=== PATIENT | male | born 1940 | race Caucasian/White ===

== ENCOUNTER 2017-11-01 03:14 | Emergency (ER) | payer MEDICARE, BC, SELFPAY | END 2017-11-01 04:05 | disposition home or self-care (01) | PROVIDERS: Emergency Provider Emergency Medicine; PCP Internal Medicine; Visit Provider Emergency Medicine | DX: R04.0 Epistaxis (principal) | CPT/HCPCS: 17250; 99282 ==

== ENCOUNTER 2018-01-16 17:29 | Emergency (ER) | payer MEDICARE, BC, SELFPAY ==
[2018-01-16 17:37] VITALS: BP 145/73; PULSE 60; RESP 16; TEMP 36.6; O2SAT 96; BMI 37.5
[2018-01-16 18:05] LABS: Add Manual Diff / Slide Review NO; Eosinophils Percent Auto 4.5 % (2-4); Hematocrit 37.5 % (41-53); Hemoglobin 12.5 g/dL (13.5-17.5); Lymphocytes Percent Auto 40.3 % (25-40); Mean Corpuscular HGB Conc 33.4 % (30-36); Mean Corpuscular Hemoglobin 34.3 PG (26-34); Mean Corpuscular Volume 102.7 fL (80-100); Neutrophils Absolute Auto 2500 /uL (3000-5900); Neutrophils Percent Auto 43.2 % (50-75); Platelet Count 173 X10^3/uL (150-400); Red Blood Cell Count 3.65 X10^6/uL (4.5-5.9); Red Cell Distribution Width 15.6 % (11.6-14.8); White Blood Cell Count 5.9 X10^3/uL (4.5-11.0)
[2018-01-16 18:15] LABS: INR 2.5 (0.9-1.3); Prothrombin Time 26.5 SECONDS (10.1-12.7)
[2018-01-16 18:16] LABS: Alanine Aminotransferase 34 IU/L (21-72); Albumin 4.1 g/dL (3.5-5.0); Albumin Globulin Ratio 1.2 (1.0-2.8); Alkaline Phosphatase 75 U/L (38-126); Aspartate Aminotransferase 43 IU/L (17-59); BUN Creatinine Ratio 31.7 (6-22); Bilirubin Total 0.6 mg/dL (0.2-1.3); Blood Urea Nitrogen 38 mg/dL (9-20); Calcium 9.5 mg/dL (8.4-10.2); Carbon Dioxide 28 mmol/L (22-32); Chloride 101 mmol/L (98-107); Estimated Glomerular Filt Rate 58.7 mL/min (>60); Globulin 3.4 g/dL (1.7-4.1); Glucose 95 mg/dL (80-110); HEMOLYSIS 24 (0-50); Potassium 4.2 mmol/L (3.4-5.1); Sodium 140 mmol/L (137-145); Total Protein 7.5 g/dL (6.3-8.2)
--- NOTE | 2018-01-16 18:52 | ED_ITS ---
HPI - Epistaxis <ANTONINO Franco - Last Filed: 01/16/18 22:11> General Chief complaint: Nasal Problem Stated complaint: nose bleeding off and on for past few days Time Seen by Provider: 01/16/18 17:31 History of Present Illness HPI Narrative: 77-year-old male with history AFib currently taking warfarin here for complaint of having a nosebleed on and off over the last 3 days. He denies any trauma to the nose. He reports that he was just returned home from shopping with a nosebleed started. He reports that it lasted for couple hours and then subsided. He reports that it started again the next day and then subsided. No nosebleed at this time. He does report that he had nosebleed for approximately 30 min prior to arrival. He states that his last INR was approximately 3.0 which is at the high end of therapeutic for him. He denies any other concerns or complaints. MD complaint: epistaxis Related Data Home Medications Medication Instructions Recorded Confirmed POTASSIUM CHLORIDE (K-Dur) 20 meq PO EVERY DAY #0 04/30/10 Simvastatin (Zocor) 20 mg PO HS #0 04/30/10 carvedilol [Coreg] 6.25 mg PO BID #0 02/19/16 glyburide micronized [Glynase] 3 mg PO BID #0 02/26/16 allopurinol 300 mg PO QDAY #0 09/10/16 cholecalciferol (vitamin D3) 1,000 iu PO QDAY #0 09/10/16 [Vitamin D3] enalapril-hydrochlorothiazide 1 tab PO BID #0 09/10/16 [Vaseretic] furosemide 40 mg PO QDAY #0 09/10/16 gabapentin [Neurontin] 300 mg PO TID #0 09/10/16 metformin 1,000 mg PO BID #0 09/10/16 pioglitazone 30 mg PO QDAY #0 09/10/16 warfarin [Jantoven] 0 PO QDAYPM #0 09/10/16 doxycycline hyclate 100 mg PO EVERY OTHER DAY #0 07/09/17 Previous Rx's Medication Instructions Recorded oxycodone 5 mg PO Q4HP PRN #90 tab 07/27/17 Review of Systems <ANTONINO Franco - Last Filed: 01/16/18 22:11> ENT Comments: Epistaxis last few days Cardiovascular Denies chest pain, Denies irregular heart rhythm, Denies lightheadedness, Denies palpitations, Denies dyspnea, Denies dyspnea on exertion and Denies orthopnea Respiratory Denies cough, Denies dyspnea, Denies dyspnea on exertion and Denies wheezing Gastrointestinal Gastrointestinal: Denies abdominal pain, Denies change in bowel habits, Denies diarrhea, Denies nausea and Denies vomiting Genitourinary Denies hematuria, Denies flank pain, Denies urinary incontinence and Denies urinary urgency Musculoskeletal Denies back pain, Denies muscle weakness, Denies numbness and Denies tingling Integumentary/Breasts Denies pruritus, Denies erythema, Denies rash and Denies wounds Neurologic Denies confusion, Denies numbness and Denies tingling Psychiatric Denies anxiety, Denies confusion, Denies depression, Denies homicidal ideation and Denies suicidal ideation Endocrine Denies palpitations Hematologic/Lymphatic Denies easy bruising Allergic/Immunologic Denies wheezing Exam <ANTONINO Franco - Last Filed: 01/16/18 22:11> Initial Vital Signs Initial Vital Signs: Vital Signs Temperature 97.8 F 01/16/18 17:37 Pulse Rate 60 01/16/18 17:37 Respiratory Rate 16 01/16/18 17:37 Blood Pressure 145/73 H 01/16/18 17:37 Pulse Oximetry 96 01/16/18 17:37 Const General: cooperative and well developed Nutritional Appearance: well nourished Orientation: alert, awake, oriented x3 and not confused [facility] Nose: external nose normal, nares normal, nasal mucous membranes and turbinates normal and No epistaxis Mouth: oral mucosae normal, oropharynx normal and moist mucous membranes Eyes General: appearance normal, both eyes and all related structures Eyelids: eyelids normal Conjunctivae: conjunctivae normal Sclera: sclerae normal Pupils: PERRL Neck Neck: normal visual inspection, trachea midline, No lymphadenopathy, No midline deformity and No JVD Lymphatic: No lymphedema Resp Effort & Inspection: normal respiratory effort, able to speak in complete sentences, no respiratory distress and no use of accessory muscles Auscultation: clear to auscultation bilaterally, no rales, no rhonchi and no wheezes Cardio Rate: regular rate Rhythm: abnormal rhythm regularly irregular Heart Sounds: no click, no gallops, no murmurs and no rubs Pulses: normal peripheral pulses Skin General: no rashes or lesions noted, No jaundice and No petechiae <DO Gala Nunn Last Filed: 01/16/18 22:27> Initial Vital Signs Initial Vital Signs: Vital Signs Temperature 97.8 F 01/16/18 17:37 Pulse Rate 60 01/16/18 17:37 Respiratory Rate 16 01/16/18 17:37 Blood Pressure 145/73 H 01/16/18 17:37 Pulse Oximetry 96 01/16/18 17:37 Course <ANTONINO Franco - Last Filed: 01/16/18 22:11> Orders Ordered: ED Orders 01/16/18 17:55 CBC [Complete Blood Count AUTO DIFF] Stat Comprehensive Metabolic Panel Stat Prothrombin Time INR Stat Vital Signs - 8 hr 01/16/18 17:37 01/16/18 18:56 Temperature 97.8 F Pulse Rate 60 74 Respiratory Rate 16 16 Blood Pressure 145/73 H Blood Pressure [Left Arm] 109/74 Pulse Oximetry 96 96 <Juvencio Laird DO - Last Filed: 01/16/18 22:27> Orders Ordered: ED Orders 01/16/18 17:55 CBC [Complete Blood Count AUTO DIFF] Stat Comprehensive Metabolic Panel Stat Prothrombin Time INR Stat Vital Signs - 8 hr 01/16/18 17:37 01/16/18 18:56 Temperature 97.8 F Pulse Rate 60 74 Respiratory Rate 16 16 Blood Pressure 145/73 H Blood Pressure [Left Arm] 109/74 Pulse Oximetry 96 96 MDM - Epistaxis <ANTONINO Franco - Last Filed: 01/16/18 22:11> Lab Data Result diagrams: 01/16/18 17:55 01/16/18 17:55 Lab Results 01/16/18 01/16/18 01/16/18 Range/Units 17:55 17:55 17:55 WBC 5.9 (4.5-11.0) X10^3/uL RBC 3.65 L (4.5-5.9) X10^6/uL Hgb 12.5 L (13.5-17.5) g/dL Hct 37.5 L (41-53) % MCV 102.7 H (80-100) fL MCH 34.3 H (26-34) PG MCHC 33.4 (30-36) % RDW 15.6 H (11.6-14.8) % Plt Count 173 (150-400) X10^3/uL Neut % (Auto) 43.2 L (50-75) % Lymph % (Auto) 40.3 H (25-40) % [place] % (Auto) 11.0 (3-14) % Eos % (Auto) 4.5 H (2-4) % Baso % (Auto) 1.0 (0-2) % Neut # (Auto) 2500 L (4114-6394) /uL PT 26.5 H (10.1-12.7) SECONDS INR 2.5 H (0.9-1.3) Sodium 140 (137-145) mmol/L Potassium 4.2 (3.4-5.1) mmol/L Chloride 101 (98-107) mmol/L Carbon Dioxide 28 (22-32) mmol/L BUN 38 H (9-20) mg/dL Creatinine 1.20 (0.66-1.25) mg/dL Estimated GFR 58.7 L (>60) mL/min BUN/Creatinine Ratio 31.7 H (6-22) Glucose 95 (80-110) mg/dL Calcium 9.5 (8.4-10.2) mg/dL Total Bilirubin 0.6 (0.2-1.3) mg/dL AST 43 (17-59) IU/L ALT 34 (21-72) IU/L Alkaline Phosphatase 75 (38-126) U/L Total Protein 7.5 (6.3-8.2) g/dL Albumin 4.1 (3.5-5.0) g/dL Globulin 3.4 (1.7-4.1) g/dL Albumin/Globulin Ratio 1.2 (1.0-2.8) MDM Narrative Medical decision making narrative: INR was obtained at 2.5 and is therapeutic for patient. CBC shows a decreased H&H however is consistent with patient's prior lab values. Patient while in the emergency room did not have nosebleed. He is sent home with nose clamp to applied to the nose if he starts having nose bleed. May use [id number] Afrin a couple of sprays into the nostril along with the clamp as well. If cannot get bleeding to stop return to the emergency room. Follow up with primary care provider in the next few days for re-evaluation. <Juvencio Laird DO - Last Filed: 01/16/18 22:27> Lab Data Lab Results 01/16/18 01/16/18 01/16/18 Range/Units 17:55 17:55 17:55 WBC 5.9 (4.5-11.0) X10^3/uL RBC 3.65 L (4.5-5.9) X10^6/uL Hgb 12.5 L (13.5-17.5) g/dL Hct 37.5 L (41-53) % MCV 102.7 H (80-100) fL MCH 34.3 H (26-34) PG MCHC 33.4 (30-36) % RDW 15.6 H (11.6-14.8) % Plt Count 173 (150-400) X10^3/uL Neut % (Auto) 43.2 L (50-75) % Lymph % (Auto) 40.3 H (25-40) % [place] % (Auto) 11.0 (3-14) % Eos % (Auto) 4.5 H (2-4) % Baso % (Auto) 1.0 (0-2) % Neut # (Auto) 2500 L (6888-6184) /uL PT 26.5 H (10.1-12.7) SECONDS INR 2.5 H (0.9-1.3) Sodium 140 (137-145) mmol/L Potassium 4.2 (3.4-5.1) mmol/L Chloride 101 (98-107) mmol/L Carbon Dioxide 28 (22-32) mmol/L BUN 38 H (9-20) mg/dL Creatinine 1.20 (0.66-1.25) mg/dL Estimated GFR 58.7 L (>60) mL/min BUN/Creatinine Ratio 31.7 H (6-22) Glucose 95 (80-110) mg/dL Calcium 9.5 (8.4-10.2) mg/dL Total Bilirubin 0.6 (0.2-1.3) mg/dL AST 43 (17-59) IU/L ALT 34 (21-72) IU/L Alkaline Phosphatase 75 (38-126) U/L Total Protein 7.5 (6.3-8.2) g/dL Albumin 4.1 (3.5-5.0) g/dL Globulin 3.4 (1.7-4.1) g/dL Albumin/Globulin Ratio 1.2 (1.0-2.8) Discharge Plan Departure Patient Disposition: Home, Self-Care Clinical Impression: Epistaxis Discharge Date/Time: 01/16/18 18:59 Interventions: ED Discharge Assessment Last Done: 01/16/18 18:58 Instructions: DI for Nosebleed Activity Restrictions/Additional Instructions: INR today was 2.5. Laboratory results show a decreased H&H of 12.5 and 37.5 which is low however this is consistent with prior lab values. Follow up with primary care provider in the next few days for re-evaluation. If restart of a nose bleed use nose clamp for 20 min to see if it stops the nose bleed. May use a couple of sprays of Afrin into the bleeding and nostril along with the nose clamp to help stop bleeding. If recurrent nosebleed and unable stop bleeding return to the emergency room. Prescriptions: No Action POTASSIUM CHLORIDE (K-Dur) 20 meq PO EVERY DAY Qty: 0 RF: 0 Simvastatin (Zocor) 20 mg PO HS Qty: 0 RF: 0 carvedilol [Coreg] 6.25 MG tablet 6.25 mg PO BID Qty: 0 RF: 0 glyburide micronized [Glynase] 3 MG tablet 3 mg PO BID Qty: 0 RF: 0 allopurinol 300 MG tablet 300 mg PO QDAY Qty: 0 RF: 0 gabapentin [Neurontin] 300 MG capsule 300 mg PO TID Qty: 0 RF: 0 metformin 1,000 MG tablet extended release 24hr 1,000 mg PO BID Qty: 0 RF: 0 enalapril-hydrochlorothiazide [Vaseretic] 10 MG/25 MG tablet 1 tab PO BID Qty: 0 RF: 0 pioglitazone 30 MG tablet 30 mg PO QDAY Qty: 0 RF: 0 cholecalciferol (vitamin D3) [Vitamin D3] 1,000 UNIT tablet 1,000 iu PO QDAY Qty: 0 RF: 0 warfarin [Jantoven] 5 MG tablet PO QDAYPM Qty: 0 RF: 0 furosemide 40 MG tablet 40 mg PO QDAY Qty: 0 RF: 0 doxycycline hyclate 100 MG tablet 100 mg PO EVERY OTHER DAY Qty: 0 RF: 0 oxycodone 5 MG tablet 5 mg PO Q4HP PRNQty: 90 RF: 0 Referrals: Maykel Rodríguez MD [Primary Care Provider] - <Juvencio Laird DO - Last Filed: 01/16/18 22:27> [facility] Attestation: I was immediately available in the department for consultation. Documentation has been reviewed. I agree with assessment and plan.
[2018-01-16 18:56] VITALS: BP 109/74; PULSE 74; RESP 16; O2SAT 96
== END 2018-01-16 18:59 | disposition home or self-care (01) ==
PROVIDERS: Emergency Provider Nurse Practitioner Family; Family Provider Internal Medicine; PCP Internal Medicine
DX: R04.0 Epistaxis (principal)
CPT/HCPCS: 36415; 80053; 85025; 85610; 99282; 99283

== ENCOUNTER 2018-03-31 19:40 | Inpatient (IN) | payer MEDICARE, BC, SELFPAY ==
[2018-03-31 20:08] VITALS: BP 136/75; PULSE 116; RESP 17; TEMP 37.2; O2SAT 97
--- NOTE | 2018-03-31 21:19 | ED_ITS ---
HPI - Skin/Abscess/Foreign Bdy General Chief complaint: Skin/Abscess/Foreign Body Stated complaint: THINKS CELLULITIS RT LOWER LEG Time Seen by Provider: 03/31/18 21:14 Source: patient Mode of arrival: ambulatory Limitations: no limitations History of Present Illness HPI narrative: Patient is a known insulin-dependent 78-year-old male here for evaluation of what he thinks is cellulitis in his right lower extremity. Patient states that he noticed the redness and the pain within the past 24 hr and it has been worsening since then. No fevers. States that he has had cellulitis in the past and has had to be admitted to the hospital for IV antibiotics however he states that this symptoms are not as bad as what he has had. No trauma. Some pain with walking. Has not tried anything for prior to arrival. Related Data Home Medications Medication Instructions Recorded Confirmed POTASSIUM CHLORIDE (K-Dur) 20 meq PO EVERY DAY #0 04/30/10 Simvastatin (Zocor) 20 mg PO HS #0 04/30/10 carvedilol [Coreg] 6.25 mg PO BID #0 02/19/16 glyburide micronized [Glynase] 3 mg PO BID #0 02/26/16 allopurinol 300 mg PO QDAY #0 09/10/16 cholecalciferol (vitamin D3) 1,000 iu PO QDAY #0 09/10/16 [Vitamin D3] enalapril-hydrochlorothiazide 1 tab PO BID #0 09/10/16 [Vaseretic] furosemide 40 mg PO QDAY #0 09/10/16 gabapentin [Neurontin] 300 mg PO TID #0 09/10/16 metformin 1,000 mg PO BID #0 09/10/16 pioglitazone 30 mg PO QDAY #0 09/10/16 warfarin [Jantoven] 0 PO QDAYPM #0 09/10/16 doxycycline hyclate 100 mg PO EVERY OTHER DAY #0 07/09/17 Previous Rx's Medication Instructions Recorded oxycodone 5 mg PO Q4HP PRN #90 tab 07/27/17 Allergies Allergy/AdvReac Type Severity Reaction Status Date / Time No Known Drug Allergies Allergy Verified 03/31/18 22:30 Review of Systems Constitutional Denies fatigue, Denies fever(s) and Denies headache(s) ENT Ears, Nose, Mouth, and Throat: Denies vertigo, Denies dizziness and Denies headache(s) Cardiovascular Denies chest pain and Denies dyspnea Respiratory Denies dyspnea Gastrointestinal Gastrointestinal: Denies abdominal pain, Denies nausea and Denies vomiting Genitourinary Denies dysuria Musculoskeletal Denies myalgias and Denies arthralgias Integumentary/Breasts Comments: Redness to the right lower extremity Neurologic Denies confusion, Denies vertigo, Denies dizziness and Denies headache(s) Psychiatric Denies confusion Endocrine Denies fatigue Hematologic/Lymphatic Denies easy bleeding [facility] Medical History Atrial fibrillation (Acute) Diabetes (Acute) Gout (Acute) Hyperlipidemia (Acute) Surgical History History of ankle fusion (Acute) Social History household members: spouse Smoking Status: Never smoker Exam Initial Vital Signs Initial Vital Signs: Vital Signs Temperature 98.9 F 03/31/18 20:08 Pulse Rate 116 H 03/31/18 20:08 Respiratory Rate 17 03/31/18 20:08 Blood Pressure 136/75 03/31/18 20:08 Pulse Oximetry 97 03/31/18 20:08 Const General: cooperative, healthy appearing, comfortable, well developed, well groomed and No acute distress Orientation: alert, awake and oriented x3 HENMT Head: normal to inspection and normocephalic Resp Effort & Inspection: normal respiratory effort Auscultation: clear to auscultation bilaterally Cardio Rate: tachycardic Rhythm: abnormal rhythm irregularly irregular Heart Sounds: no murmurs Pulses: radial pulses present GI Inspection: non-distended Palpation: soft and No tender Back/Spine/Pelvis Back: No CVA tenderness Skin Other: Patient with redness circumferential from his midfoot right lower extremity up to just proximal the knee. No blisters, no vesicles. Is warm to the touch. Is tender to the touch. Neuro Other: No changes in sensation to light touch bilateral lower extremities Extrem Other: Limited range of motion of right ankle secondary to his history of ankle fusion however he states that there is no pain with movement of his ankle. He is able to move the right knee without any symptoms. Psych Appearance: grossly normal and well kempt Course Orders Ordered: ED Orders 03/31/18 21:55 Basic Metabolic Panel Stat Complete Blood Count AUTO DIFF Stat Lactate (Lactic Acid) Stat Partial Thromboplastin Time Stat Procalcitonin Stat Prothrombin Time INR Stat 03/31/18 22:20 Blood Culture Stat 03/31/18 22:41 EKG-12 Lead Stat 03/31/18 22:46 Consult to Physician Routine Sodium Chloride (Normal Saline 0.9%) 3,891.81 mls @ 1,297.27 mls/hr 30 ml/kg infuse over 3 hr (3891.81 ml) IV CONT [facility] Last Admin: 03/31/18 22:35 Dose: Not Given Sodium Chloride (Normal Saline 0.9%) 1,000 mls @ 1,000 mls/hr IV BOLUS PRN PRN Reason: Fluid replacement Last Infusion: 04/01/18 00:26 Dose: 0 mls/hr Admin: 03/31/18 22:00 Dose: 1,000 mls/hr Ceftriaxone Sodium/Dextrose (Rocephin) 1 gm in 50 mls @ 100 mls/hr IV Q12H [facility] Last Admin: 04/01/18 00:25 Dose: Vancomycin HCl/Dextrose (Vancomycin) 1,000 mg in 200 mls @ 200 mls/hr IV Q12H [facility] Last Admin: 04/01/18 00:24 Dose: Sodium Chloride (Normal Saline 0.9%) 1,000 mls @ 125 mls/hr IV CONT [facility] Last Admin: 04/01/18 00:15 Dose: 125 mls/hr Morphine Sulfate (Morphine) 2 mg IV Q4HR PRN PRN Reason: Pain, Mild (1-3) Ondansetron HCl (Zofran) 4 mg IV Q4HR PRN PRN Reason: Nausea And Vomiting Discontinued Medications Vancomycin HCl/Dextrose (Vancomycin) 1,000 mg in 200 mls @ 200 mls/hr IV NOW ONE Stop: 03/31/18 22:24 Last Admin: 03/31/18 22:56 Dose: 200 mls/hr Ceftriaxone Sodium/Dextrose (Rocephin) 2 gm in 50 mls @ 100 mls/hr IV NOW ONE Stop: 03/31/18 21:54 Last Infusion: 03/31/18 22:50 Dose: 0 mls/hr Admin: 09/19/18 22:15 Dose: 100 mls/hr Vital Signs - 8 hr 03/31/18 20:08 03/31/18 22:37 03/31/18 23:17 Temperature 98.9 F 98.9 F Pulse Rate 116 H 115 H 115 H Respiratory Rate 17 19 19 Blood Pressure 136/75 136/75 Blood Pressure [Right Arm] 113/56 L Pulse Oximetry 97 93 93 03/31/18 23:19 04/01/18 00:10 Temperature 99.5 F Pulse Rate 108 H 108 H Respiratory Rate 22 Blood Pressure 135/67 Blood Pressure [Right Arm] 125/62 Pulse Oximetry 93 99 MDM - Skin/Abscess/Foreign Bdy Lab Data Attestation: I reviewed the patient's lab results. Result diagrams: 03/31/18 21:55 03/31/18 21:55 Lab Results 03/31/18 03/31/18 03/31/18 Range/Units 21:55 21:55 21:55 WBC 7.8 (4.5-11.0) X10^3/uL RBC 3.90 L (4.5-5.9) X10^6/uL Hgb 13.6 (13.5-17.5) g/dL Hct 40.0 L (41-53) % MCV 102.6 H (80-100) fL MCH 34.9 H (26-34) PG MCHC 34.0 (30-36) % RDW 16.2 H (11.6-14.8) % Plt Count 172 (150-400) X10^3/uL Neut % (Auto) 80.4 H (50-75) % Lymph % (Auto) 12.6 L (25-40) % [place] % (Auto) 5.1 (3-14) % Eos % (Auto) 1.3 L (2-4) % Baso % (Auto) 0.6 (0-2) % Neut # (Auto) 6300 H (2443-8506) /uL PT 19.9 H (10.1-12.7) SECONDS INR 1.8 H (0.9-1.3) APTT 33 (26.4-36.2) SECONDS Sodium (137-145) mmol/L Potassium (3.4-5.1) mmol/L Chloride (98-107) mmol/L Carbon Dioxide (22-32) mmol/L BUN (9-20) mg/dL Creatinine (0.66-1.25) mg/dL Estimated GFR (>60) mL/min BUN/Creatinine Ratio (6-22) Glucose (80-110) mg/dL Lactate (0.7-2.1) mmol/L Calcium (8.4-10.2) mg/dL Procalcitonin 0.42 (<0.5) ng/mL 03/31/18 03/31/18 Range/Units 21:55 21:55 WBC (4.5-11.0) X10^3/uL RBC (4.5-5.9) X10^6/uL Hgb (13.5-17.5) g/dL Hct (41-53) % MCV (80-100) fL MCH (26-34) PG MCHC (30-36) % RDW (11.6-14.8) % Plt Count (150-400) X10^3/uL Neut % (Auto) (50-75) % Lymph % (Auto) (25-40) % [place] % (Auto) (3-14) % Eos % (Auto) (2-4) % Baso % (Auto) (0-2) % Neut # (Auto) (9810-4175) /uL PT (10.1-12.7) SECONDS INR (0.9-1.3) APTT (26.4-36.2) SECONDS Sodium 136 L (137-145) mmol/L Potassium 3.7 (3.4-5.1) mmol/L Chloride 101 (98-107) mmol/L Carbon Dioxide 21 L (22-32) mmol/L BUN 58 H (9-20) mg/dL Creatinine 1.70 H (0.66-1.25) mg/dL Estimated GFR 39.2 L (>60) mL/min BUN/Creatinine Ratio 34.1 H (6-22) Glucose 123 H (80-110) mg/dL Lactate 1.4 (0.7-2.1) mmol/L Calcium 9.5 (8.4-10.2) mg/dL Procalcitonin (<0.5) ng/mL ECG Data Attestation: I personally reviewed and interpreted this ECG as follows: Prior ECG tracings: not available for review Interpretation: Atrial fibrillation Ventricular rate of 103 Left axis deviation Normal QRS Normal QTC Nonspecific ST T wave changes MDM Narrative Medical decision making narrative: Patient in atrial fibrillation with RVR. I do suspect that this is secondary to the cellulitis in his right lower extremity. Patient does have cellulitis from the midfoot to just proximal of his knee. He states that this has been worsening over the past 24 hr. His physical exam is not consistent with necrotizing fasciitis. He is afebrile does not have an elevated white blood cell count. Lactate unremarkable however like described above his physical exam is consistent with cellulitis. He was given Rocephin and vancomycin here in the emergency department. I do feel given his extent of the cellulitis and the fact that he is diabetic that a home course of oral antibiotics is very likely to be unsuccessful. I discussed the case with Dr. Rodríguez who is also the patient's primary care doctor and is the hospitalist this evening. Will admit the patient under observation for IV antibiotics. I did discuss the admission with the patient and his who is at bedside. They both expressed understanding and agreement with this plan. Discharge Plan Departure Patient Disposition: Home Clinical Impression: Afib, Cellulitis Discharge Date/Time: 03/31/18 23:40 Interventions: ED Discharge Assessment Last Done: 03/31/18 23:38 Admit Date/Time: 03/31/18 23:08 Admit Provider: Maykel Rodríguez
[2018-03-31] MEDS: SODIUM CHLORIDE 0.9% 1,000 ML 1000 ML IV (22:00)
[2018-03-31] MEDS: CEFTRIAXONE 2 GM/50 ML FROZ.PIGGY IV (22:15)
[2018-03-31 22:22] LABS: Add Manual Diff / Slide Review NO; Basophils Percent Auto 0.6 % (0-2); Eosinophils Percent Auto 1.3 % (2-4); Hemoglobin 13.6 g/dL (13.5-17.5); Lymphocytes Percent Auto 12.6 % (25-40); Mean Corpuscular Hemoglobin 34.9 PG (26-34); Mean Corpuscular Volume 102.6 fL (80-100); Monocytes Percent Auto 5.1 % (3-14); Neutrophils Absolute Auto 6300 /uL (3000-5900); Neutrophils Percent Auto 80.4 % (50-75); Platelet Count 172 X10^3/uL (150-400); Red Cell Distribution Width 16.2 % (11.6-14.8); White Blood Cell Count 7.8 X10^3/uL (4.5-11.0)
[2018-03-31 22:24] LABS: INR 1.8 (0.9-1.3); Prothrombin Time 19.9 SECONDS (10.1-12.7)
[2018-03-31 22:27] LABS: PTT Partial Thromboplastin Tim 33 SECONDS (26.4-36.2)
[2018-03-31 22:31] LABS: BUN Creatinine Ratio 34.1 (6-22); Blood Urea Nitrogen 58 mg/dL (9-20); Calcium 9.5 mg/dL (8.4-10.2); Carbon Dioxide 21 mmol/L (22-32); Chloride 101 mmol/L (98-107); Estimated Glomerular Filt Rate 39.2 mL/min (>60); Glucose 123 mg/dL (80-110); HEMOLYSIS < 15 (0-50); Lactate (Lactic Acid) 1.4 mmol/L (0.7-2.1); Potassium 3.7 mmol/L (3.4-5.1); Sodium 136 mmol/L (137-145)
[2018-03-31 22:37] VITALS: BP 113/56; PULSE 115; RESP 19; O2SAT 93
[2018-03-31 22:46] LABS: Procalcitonin 0.42 ng/mL (<0.5)
[2018-03-31] MEDS: VANCOMYCIN 1,000 MG/200 ML FROZ.PIGGY 200 MG IV (22:56)
[2018-03-31 23:17] VITALS: BP 136/75; PULSE 115; RESP 19; TEMP 37.2; O2SAT 93
[2018-03-31 23:19] VITALS: BP 125/62; PULSE 108; O2SAT 93
[2018-04-01] VITALS (10 sets, daily range): BP systolic 112–143; BP diastolic 58–80; PULSE 68–108; RESP 16–22; TEMP 36.3–37.5; O2SAT 94–99; BMI 35.7
[2018-04-01] MEDS: SODIUM CHLORIDE 0.9% 1,000 ML 125 ML IV ×2 (00:15→08:44)
--- NOTE | 2018-04-01 08:45 | PM.HP.1 ---
History of Present Illness Date Patient Seen: 04/01/18 Chief complaint: THINKS CELLULITIS RT LOWER LEG Narrative: The patient is a 78 y.o male with a history of diabetes and right lower extremity cellulitis who presented with acute onset redness of the left ankle/leg, swelling, and chills. Symptoms started one day ago. The patient presented to the ED for evaluation. He was diagnosed with cellulitis and started on IV antibiotics for treatment. Patient History Medical History Atrial fibrillation (Acute) Diabetes (Acute) Gout (Acute) Hyperlipidemia (Acute) Surgical History History of ankle fusion (Acute) Family & Social History Family History: Reviewed 04/01/18 by Dennis Waggoner DO Family history unavailable: Yes Social History: household members spouse Prior Living Arrangements House Safety & Behavioral: Feels Safe in Current Yes Environment Been Physically Hurt or No Threatened By a Person Suicidal Ideation Description None Suicide Plan Description No Plan Tobacco & Substance use: Smoking Status Never smoker alcohol intake frequency a few times a month Substance Use Type does not use Meds Home Medications Medication Instructions Recorded Confirmed Type POTASSIUM CHLORIDE (K-Dur) 20 meq PO EVERY DAY #0 04/30/10 04/01/18 History Simvastatin (Zocor) 20 mg PO HS #0 04/30/10 04/01/18 History carvedilol [Coreg] 6.25 mg PO BID #0 02/19/16 04/01/18 History glyburide micronized [Glynase] 3 mg PO BID #0 02/26/16 04/01/18 History allopurinol 300 mg PO QDAY #0 09/10/16 04/01/18 History cholecalciferol (vitamin D3) 1,000 iu PO QDAY #0 09/10/16 04/01/18 History [Vitamin D3] enalapril-hydrochlorothiazide 1 tab PO BID #0 09/10/16 04/01/18 History [Vaseretic] furosemide 40 mg PO QDAY #0 09/10/16 04/01/18 History gabapentin [Neurontin] 300 mg PO TID #0 09/10/16 04/01/18 History metformin 1,000 mg PO BID #0 09/10/16 04/01/18 History pioglitazone 30 mg PO QDAY #0 09/10/16 04/01/18 History warfarin [Jantoven] 5 PO 4-6XD #0 09/10/16 History doxycycline hyclate 100 mg PO EVERY OTHER DAY #0 07/09/17 04/01/18 History oxycodone 5 mg PO Q4HP PRN #90 tab 07/27/17 04/01/18 Rx Allergies Allergy/AdvReac Type Severity Reaction Status Date / Time No Known Drug Allergies Allergy Verified 03/31/18 22:30 Review of Systems Review of Systems All systems reviewed & are unremarkable except as noted in HPI and below Exam Vital Signs (past 8 hours): - 04/01/18 05:54 Temperature 98.2 F Pulse Rate 90 Respiratory Rate 17 Blood Pressure 116/69 Pulse Oximetry 97 Oxygen Delivery Method Room Air Narrative Exam Narrative: Pleasant gentleman in NAD HEENT:NC/AT EOMI, Oropharynx clear Lungs: clear to auscultation CV: RRR nl SlS2 ABd: obese/soft non tender/ non distended no HSM Ext: Right leg/ankle with 3+ edema, erythema spreading up leg, Leg is warm to touch Neuro: non focal Psych: no active hallucinations Objective Labs Result Diagrams: 03/31/18 21:55 03/31/18 21:55 Labs: Laboratory Results - last 24 hr 03/31/18 03/31/18 03/31/18 21:55 21:55 21:55 WBC 7.8 RBC 3.90 L Hgb 13.6 Hct 40.0 L MCV 102.6 H MCH 34.9 H MCHC 34.0 RDW 16.2 H Plt Count 172 Neut % (Auto) 80.4 H Lymph % (Auto) 12.6 L [place] % (Auto) 5.1 Eos % (Auto) 1.3 L Baso % (Auto) 0.6 Neut # (Auto) 6300 H PT 19.9 H INR 1.8 H APTT 33 Sodium Potassium Chloride Carbon Dioxide BUN Creatinine Estimated GFR BUN/Creatinine Ratio Glucose Lactate Calcium Procalcitonin 0.42 03/31/18 03/31/18 21:55 21:55 WBC RBC Hgb Hct MCV MCH MCHC RDW Plt Count Neut % (Auto) Lymph % (Auto) [place] % (Auto) Eos % (Auto) Baso % (Auto) Neut # (Auto) PT INR APTT Sodium 136 L Potassium 3.7 Chloride 101 Carbon Dioxide 21 L BUN 58 H Creatinine 1.70 H Estimated GFR 39.2 L BUN/Creatinine Ratio 34.1 H Glucose 123 H Lactate 1.4 Calcium 9.5 Procalcitonin Assessment & Plan (1) Cellulitis: Problem details: Started on Ceftriaxone/Vancomycin. Will continue Qualifiers: Laterality: right Site of cellulitis: extremity Site of cellulitis of extremity: lower extremity Site of cellulitis of trunk: Qualified Code(s): L03.115 - Cellulitis of right lower limb Current visit: Yes Status: Acute (2) Afib: Problem details: ON Coumadin and Coreg, will continue Qualifiers: Atrial fibrillation type: unspecified Qualified Code(s): I48.91 - Unspecified atrial fibrillation Current visit: Yes Status: Acute (3) Gout: Problem details: Continue allopurinol for now, need to renal dose Current visit: No Status: Acute (4) Hypertension: Problem details: continue usual medications Current visit: No Status: Acute (5) Hyperlipidemia: Current visit: No Status: Acute (6) Chronic renal failure, stage 2 (mild): Current visit: Yes Status: Acute (7) Diabetes mellitus: Problem details: Will start basal bolus insulin and stop all oral agents Current visit: Yes Status: Acute Plan: Assessment/Plan Narrative: Full Code per patient wishes
[2018-04-01] MEDS: SODIUM CHLORIDE 0.45% 1,000 ML 100 ML IV ×2 (09:34→18:48)
[2018-04-01] MEDS: ALLOPURINOL 100 MG TABLET 200 MG PO (09:35)
[2018-04-01] MEDS: POTASSIUM CHLORIDE 8 MEQ TABLET 16 MEQ PO (09:36)
[2018-04-01] MEDS: DOCUSATE 100 MG CAPSULE PO ×2 (09:36→21:06)
[2018-04-01] MEDS: ENALAPRIL 5 MG TABLET 10 MG PO (09:36)
[2018-04-01] MEDS: ACETAMINOPHEN 325 MG TABLET 650 MG PO ×2 (09:37→21:05)
[2018-04-01] MEDS: GABAPENTIN 300 MG CAPSULE PO ×3 (09:37→21:06)
[2018-04-01] MEDS: CARVEDILOL 6.25 MG TABLET PO ×2 (09:37→21:06)
[2018-04-01] MEDS: FUROSEMIDE 40 MG TABLET PO (09:37)
--- NOTE | 2018-04-01 10:09 | PC.NURSE ---
Addendum entered by Mary Escalante R.N. 04/01/18 14:21: MS - spouse brought in pt own fww, assisted oob, ambul into br, states wt bear on rle is has improved since adm, ret to chair w/le elev and supported with pillow. Original Note: AM NOTE - pt is alert, has a cpap at bedside, not on during night as he forgot the mask, ra 98%, redness rle, more intense at medical ankle area, no open areas noted, slightly within the previous markings, elev pillow support, some rle discomfort, discussed pain medications and prefers tylenol, given 650mg with breakfast, hr reg 84, cbg 106 this am and in for eval and starting home medications.
--- NOTE | 2018-04-01 10:39 | CM.DANOTE ---
Discharge Planning/Care Management CM Discharge Assessment Start: 04/01/18 10:36 Freq: Status: Active Protocol: Document 04/01/18 10:36 TH (Rec: 04/01/18 10:38 TH [id number]) Discharge Planning Assessment DPOA/Assigned Designee Name Lesley Plata Contact Information [phone] Advance Directives? Yes: polst History Provided By Patient Has Patient been admitted in last 30 No days? Prior Living Arrangements House Household Members spouse Type of transporation used prior to Drives own vehicle admit Independent with ADL's Yes Is patient alert and oriented? Yes Caregiver for Another No Barriers to Discharge No Patient is a 78 yo male admitted for cellulitis of the RLE. Insurance is Medicare and GIT[employer] Federal Assessment: Patient lives in a home in [place] with his . They are both I at baseline. Only other family in the area are some cousins He has no history of HH or SNF. He does not anticipate and barriers to discharge Plan: Discharge home with when medically stable. Eliza Gomez RN
[2018-04-01] MEDS: CEFTRIAXONE 1 GM/50 ML FROZ.PIGGY IV ×2 (10:44→22:11)
[2018-04-01 11:48] LABS: Estimated Glomerular Filt Rate > 60.0 mL/min (>60)
[2018-04-01] MEDS: VANCOMYCIN 1,000 MG/200 ML FROZ.PIGGY 200 MG IV ×2 (12:08→22:51)
[2018-04-01] MEDS: INSULIN ASPART 100 UNIT/ML INSULN PEN SUBCUT ×3 (12:10→21:08)
[2018-04-01] MEDS: WARFARIN 2 MG TABLET 4 MG PO (17:52)
[2018-04-01] MEDS: SIMVASTATIN 20 MG TABLET PO (21:06)
[2018-04-01] MEDS: SENNOSIDES 8.6 MG TABLET 17.2 MG PO (21:06)
[2018-04-01] MEDS: INSULIN GLARGINE 100 UNIT/ML 3ML PEN 20 UNIT SUBCUT (21:07)
[2018-04-02] VITALS (11 sets, daily range): BP systolic 118–137; BP diastolic 59–87; PULSE 67–97; RESP 16–18; TEMP 36.2–37.1; O2SAT 93–98
[2018-04-02 06:13] LABS: Prothrombin Time 21.5 SECONDS (10.1-12.7)
[2018-04-02] MEDS: SODIUM CHLORIDE 0.45% 1,000 ML 100 ML IV (06:37)
[2018-04-02] MEDS: INSULIN ASPART 100 UNIT/ML INSULN PEN SUBCUT ×4 (08:39→20:45)
[2018-04-02] MEDS: DOCUSATE 100 MG CAPSULE PO ×2 (08:42→20:43)
[2018-04-02] MEDS: FUROSEMIDE 40 MG TABLET PO (08:43)
[2018-04-02] MEDS: POTASSIUM CHLORIDE 8 MEQ TABLET 16 MEQ PO (08:43)
[2018-04-02] MEDS: ENALAPRIL 5 MG TABLET 10 MG PO (08:43)
[2018-04-02] MEDS: CARVEDILOL 6.25 MG TABLET PO ×2 (08:44→20:42)
[2018-04-02] MEDS: ALLOPURINOL 100 MG TABLET 200 MG PO (08:44)
[2018-04-02] MEDS: ACETAMINOPHEN 325 MG TABLET 650 MG PO ×2 (08:44→16:50)
[2018-04-02] MEDS: GABAPENTIN 300 MG CAPSULE PO ×3 (08:44→20:43)
[2018-04-02] MEDS: CEFTRIAXONE 1 GM/50 ML FROZ.PIGGY IV ×2 (10:40→22:54)
--- NOTE | 2018-04-02 11:16 | PC.NURSE ---
AM NOTE - awake, watching tv, states rle with mild discomfort, primarily when mobilizing, rle more intensely red at medial ankle area, extends posteriorly, has decr from yesterday to pink at previously outlined margins, ra 97%, hr reg 78, slept well last night with his cpap, discussed mobilization and medication, given 650mg po tylenol with breakfast.
[2018-04-02] MEDS: VANCOMYCIN 1,000 MG/200 ML FROZ.PIGGY 200 MG IV ×2 (11:58→23:41)
--- NOTE | 2018-04-02 16:27 | PM.PN.1 ---
Subjective Interval history: Edema and erythema has improved. Patient has no nausea vomiting diarrhea Exam Vital Signs (past 8 hours): - 04/02/18 08:45 04/02/18 09:36 04/02/18 15:40 Temperature 97.6 F Pulse Rate 75 Respiratory Rate 18 Blood Pressure 137/70 Pulse Oximetry 97 97 95 Oxygen Delivery Method Room Air Oxygen Flow Rate 0 Narrative Exam Narrative: General NAD HEENT:NC/AT EOMI, Oropharynx clear Neck: Supple without thyromegaly bruits or jugular venous distention Respiratory: clear to auscultation CV: RRR nl SlS2 ABd: obese/soft non tender/ non distended no HSM Ext: Right leg with decreasing erythema as chief of staff doctor from fading away from the outlined areas. In addition the erythema of the right lower extremity has lessened Neuro: non focal Psych: no active hallucinations Objective Labs Result Diagrams: 03/31/18 21:55 04/01/18 11:25 Labs: Laboratory Results - last 24 hr 04/02/18 05:45 PT 21.5 H INR 2.0 H Assessment & Plan Plan: Assessment/Plan Narrative: Assessment & Plan (1) Cellulitis: Improving on IV antibiotics. There is decrease in erythema. He remains afebrile. Plan Continue Ceftriaxone/Vancomycin. (2) Afib: Rate is controlled Continue Coumadin and Coreg (3) Gout: No acute symptoms Continue allopurinol (4) Hypertension: Blood pressure control Plan Continue Coreg and vasotec (5) Hyperlipidemia: Plan Continue statin (6) Chronic renal failure, stage 2 (mild): Plan Avoid renal toxic drugs Monitor her BUN/creatinine periodically (7) Diabetes mellitus: Point care glucose is 138, 195, 138, 187 Glycemic control less than optimal. Therefore will increase Lantus q.h.s. Plan Continue ADA diet Increased Lantus from 20-30 units subcu q.a.m. Continue correctional dose insulin a.c. and HS
--- NOTE | 2018-04-02 16:41 | P.PN_ITS ---
Subjective Interval history: Edema and erythema has improved. Patient has no nausea vomiting diarrhea Exam Vital Signs (past 8 hours): - 04/02/18 08:45 04/02/18 09:36 04/02/18 15:40 Temperature 97.6 F Pulse Rate 75 Respiratory Rate 18 Blood Pressure 137/70 Pulse Oximetry 97 97 95 Oxygen Delivery Method Room Air Oxygen Flow Rate 0 Narrative Exam Narrative: General NAD HEENT:NC/AT EOMI, Oropharynx clear Neck: Supple without thyromegaly bruits or jugular venous distention Respiratory: clear to auscultation CV: RRR nl SlS2 ABd: obese/soft non tender/ non distended no HSM Ext: Right leg with decreasing erythema as supervisor communications and signals from fading away from the outlined areas. In addition the erythema of the right lower extremity has lessened Neuro: non focal Psych: no active hallucinations Objective Labs Result Diagrams: 03/31/18 21:55 04/01/18 11:25 Labs: Laboratory Results - last 24 hr 04/02/18 05:45 PT 21.5 H INR 2.0 H Assessment & Plan Plan: Assessment/Plan Narrative: Assessment & Plan (1) Cellulitis: Improving on IV antibiotics. There is decrease in erythema. He remains afebrile. Plan Continue Ceftriaxone/Vancomycin. (2) Afib: Rate is controlled Continue Coumadin and Coreg (3) Gout: No acute symptoms Continue allopurinol (4) Hypertension: Blood pressure control Plan Continue Coreg and vasotec (5) Hyperlipidemia: Plan Continue statin (6) Chronic renal failure, stage 2 (mild): Plan Avoid renal toxic drugs Monitor her BUN/creatinine periodically (7) Diabetes mellitus: Point care glucose is 138, 195, 138, 187 Glycemic control less than optimal. Therefore will increase Lantus q.h.s. Plan Continue ADA diet Increased Lantus from 20-30 units subcu q.a.m. Continue correctional dose insulin a.c. and HS
[2018-04-02] MEDS: WARFARIN 7.5 MG TABLET PO (16:51)
[2018-04-02] MEDS: SENNOSIDES 8.6 MG TABLET 17.2 MG PO (20:43)
[2018-04-02] MEDS: SIMVASTATIN 20 MG TABLET PO (20:43)
[2018-04-02] MEDS: INSULIN GLARGINE 100 UNIT/ML 3ML PEN 30 UNIT SUBCUT (20:45)
[2018-04-02 22:54] LABS: Vancomycin Trough 11.2 ug/mL (10-20)
[2018-04-02] MEDS: VANCOMYCIN TROUGH 1 REQUEST MISC (23:51)
[2018-04-03] MEDS: ACETAMINOPHEN 325 MG TABLET 650 MG PO ×3 (02:28→13:31)
[2018-04-03] MEDS: MORPHINE 2 MG/ML INJ IV (05:09)
[2018-04-03] MEDS: SODIUM CHLORIDE 0.45% 1,000 ML 100 ML IV (05:29)
[2018-04-03 05:49] VITALS: BP 131/71; PULSE 70; RESP 16; TEMP 36.7; O2SAT 96
[2018-04-03 06:32] LABS: Basophils Percent Auto 0.2 % (0-2); Eosinophils Percent Auto 3.8 % (2-4); Hematocrit 38.8 % (41-53); Hemoglobin 12.7 g/dL (13.5-17.5); Lymphocytes Percent Auto 18.6 % (25-40); Mean Corpuscular HGB Conc 32.8 % (30-36); Mean Corpuscular Hemoglobin 35.1 PG (26-34); Monocytes Percent Auto 8.8 % (3-14); Neutrophils Absolute Auto 4400 /uL (3000-5900); Neutrophils Percent Auto 68.6 % (50-75); Platelet Count 121 X10^3/uL (150-400); Red Blood Cell Count 3.63 X10^6/uL (4.5-5.9); Red Cell Distribution Width 16.1 % (11.6-14.8); White Blood Cell Count 6.5 X10^3/uL (4.5-11.0)
[2018-04-03 06:37] LABS: Blood Urea Nitrogen 25 mg/dL (9-20); Calcium 8.8 mg/dL (8.4-10.2); Carbon Dioxide 27 mmol/L (22-32); Chloride 102 mmol/L (98-107); Estimated Glomerular Filt Rate > 60.0 mL/min (>60); Glucose 106 mg/dL (80-110); HEMOLYSIS < 15 (0-50); Potassium 3.2 mmol/L (3.4-5.1); Sodium 138 mmol/L (137-145)
[2018-04-03 06:40] LABS: Add Manual Diff / Slide Review SLIDE REVIEW
[2018-04-03 06:56] LABS: Macrocytosis 1+
[2018-04-03 07:00] VITALS: O2SAT 97
[2018-04-03 08:00] VITALS: BP 147/70; PULSE 83; RESP 18; TEMP 36.6; O2SAT 95
[2018-04-03] MEDS: DOCUSATE 100 MG CAPSULE PO (08:56)
[2018-04-03] MEDS: ENALAPRIL 5 MG TABLET 10 MG PO (08:56)
[2018-04-03] MEDS: POTASSIUM CHLORIDE 8 MEQ TABLET 16 MEQ PO (08:56)
[2018-04-03] MEDS: CARVEDILOL 6.25 MG TABLET PO (08:57)
[2018-04-03] MEDS: FUROSEMIDE 40 MG TABLET PO (08:57)
[2018-04-03] MEDS: GABAPENTIN 300 MG CAPSULE PO (08:57)
[2018-04-03] MEDS: ALLOPURINOL 100 MG TABLET 200 MG PO (08:57)
[2018-04-03] MEDS: INSULIN ASPART 100 UNIT/ML INSULN PEN SUBCUT ×2 (08:58→12:34)
--- NOTE | 2018-04-03 10:55 | PT.IIE ---
Current Diagnoses Type 2 diabetes mellitus without complications (04/01/18) Hyperlipidemia, unspecified (04/01/18) Essential (primary) hypertension (04/01/18) Unspecified atrial fibrillation (04/01/18) Cellulitis of right lower limb (04/01/18) Gout, unspecified (04/01/18) Chronic kidney disease, stage 2 (mild) (04/01/18) Surgical History (Last Reviewed 04/01/18 @ 08:54 by Meggan Soto MD) History of ankle fusion (Acute) Medical History (Last Reviewed 04/01/18 @ 08:54 by Meggan Soto MD) Atrial fibrillation (Acute) Diabetes (Acute) Gout (Acute) Hyperlipidemia (Acute) Physical Therapy Inpatient Evaluation/Re-Eval M1 PT/OT-IP Prior Functional Status Start: 04/03/18 11:00 Freq: Status: Active Protocol: Document 04/03/18 10:55 RCC (Rec: 04/03/18 11:12 RCC [id number]) Medical Review Prior Functional Status Medical History Reviewed Yes Diet/Fluid Consistency Regular Communication WNL Mobility and Gait modified indep. community ambulator with occasional SPC use, sometimes no device Activities of Daily Living and IADL's indep. ADLs, still driving Social History Household Members spouse Living Arrangements House Number of Floors (Floors) One Floor Number of Stairs To Enter/Railing? no steps to enter/exit (small 2 rise per ) Home Environment High Toilet Walk in Shower Home Equipment Front Wheel Walker Straight Cane Bedside Commode Grab Bars Near Toilet Grab Bars In Shower Additional Social History Comment , Lesley lives with pt. 2 family members temorarily living on the pt's property, are available to assist. Pt to have lumbar surgery by Dr. Harding in 1 month @ . M2 PT-IP Current Condition Start: 04/03/18 11:00 Freq: Status: Active Protocol: Document 04/03/18 10:55 RCC (Rec: 04/03/18 11:12 RCC [id number]) Physical Therapy Current Condition Current Condition Evaluation Date 04/03/18 Treatment Diagnosis RLE cellulitis, impaired mobility Onset Date 03/30/18 M3 PT-IP Subjective Start: 04/03/18 11:00 Freq: Status: Active Protocol: Document 04/03/18 10:55 RCC (Rec: 04/03/18 11:12 [facility] [id number]) Subjective Physical Therapy Visit Type Type Initial Evaluation Visit Start Time 10:27 Visit Stop Time 10:55 Total Visit Minutes 28 Notes in room during session Number of ELEVATOR CONSTRUCTOR ELECTRIC Visits 0 Physical Therapy Visit Comments Patient Comments pt notes some increased L ankle pain in WB, states he had his L ankle fused years ago. Patient Goals to go home, decrease pain Therapy Pain Assessment Pain Present Pain Present Pain Reported Location Left ankle Scale Used does not rate Description Aching Pain Management Techniques Apply Cold Elevation Right Leg Scale Used does not rate M4 PT-IP Mobility and Gait Start: 04/03/18 11:00 Freq: Status: Active Protocol: Document 04/03/18 10:55 [facility] (Rec: 04/03/18 11:12 [facility] [id number]) PT-Bed Mobility Assessment Supine to Sit Supine to Sit Standby Assistance Sit to Supine Sit to Supine Standby Assistance Scooting Scooting to Edge of Bed Independent PT-Transfer Assessment Sit to and From Stand Sit to and from Stand Standby Assistance Use of Upper Extremities Equipment Transfer Assistive Device Gait Belt Front Wheeled Walker Transfers Transfer Destination Bed Transfer Technique Stand Step Pivot Transfer Ability Level of Assist Standby Assistance Gait Assessment Gait Gait Assistance Required: Standby Assistance Distance (Feet) 100 Assistive Devices Assistive Device Gait Belt Front Wheeled Walker Gait Deviations General Gait Pattern Antalgic Decreased Feet Clearance Flexed Trunk Factors Limiting Gait Function Factors Limiting Gait Function Decreased Activity Tolerance Limited Range of Motion Pain Comments Gait Comments fatigued with gait, O2 saturation on room air 91% after gait, HR 89 bpm PT-Balance Assessment Sitting Balance and Reactions Static Sitting Balance Ability Good Dynamic Sitting Balance Ability Good Standing Balance and Reactions Static Standing Balance Ability Fair Dynamic Standing Balance Ability Fair Device Used FWW M5 PT-IP Objective Assessments Start: 04/03/18 11:00 Freq: Status: Active Protocol: Document 04/03/18 10:55 [facility] (Rec: 04/03/18 11:12 [facility] [id number]) Orientation Orientation/Cognition Level of Alertness Alert Orientation Name Age Birthday Month Date Year Day of Week Place Situation Gross Range of Motion Lower Extremity ROM Assessment Bilaterally Impaired Impairments impaired B ankle ROM due to fusion on the L, swelling from cellulitis on the R Strength Lower Extremity Strength Assessment Bilaterally Impaired Hip flexion 3+/5 B Knee 4/5 B flexion and extension Ankle PF 3+/5, DF 4/5 B Coordination Assessment Gross Coordination Gross Coordination WNL Sensation Assessment Sensation Light Touch Intact Muscle Tone Muscle Tone WNL Yes M6 PT-IP Treatment Start: 04/03/18 11:00 Freq: Status: Active Protocol: Document 04/03/18 10:55 RCC (Rec: 04/03/18 11:12 [facility] [id number]) Physical Therapy Treatment Education Education Provided Safety Other Treatments Other Treatment Performed pt and edu. on importance of safety in hospital, no mobility without staff assistance; bed alarm activated at end of session. M7 PT-IP Assessment and Plan Start: 04/03/18 11:00 Freq: Status: Active Protocol: Document 04/03/18 10:55 RCC (Rec: 04/03/18 11:12 [facility] [id number]) PT Summary Assessment and Plan Potential Rehabilitation Potential Good Status of Condition at Evaluation Evolving Summary Impairments Pain ROM Strength Gait Activity Tolerance Progress Towards Goals Safe For Discharge Assessment Summary Pt able to ambulate 100 ft using FWW to decrease WB on painful BLEs. RLE swollen, but pt and report it looks better than prior to admission . L ankle pain likely due to increased WB on the LLE during painful cellulitis progressed on the RLE. Overall, pt was SBA to indep. with all mobility, but recommend he continue to use his FWW upon d /c for pain management and safety with mobility. Pt is cleared to d/c when medically stable, but would benefit from continued mobilization during this episode of care to improve his activity tolerance . Goals Bed Mobility Goal Independent Transfer Goal Independent Gait Goal Independent Front Wheel Walker Gait Distance 150 Days to Meet Goals 2 Frequency of Treatment Frequency Of Treatment Once a Day Treatment Plan Physical Therapy Treatment Plan Gait Training Therapeutic Exercise Hot or Cold Pack Recommendations To Nursing Amount of Assist Needed 1 Person Assist Discharge Recommendations PT Discharge Recommendations Home with Assistance Other Discharge Recommendations use FWW at home
[2018-04-03] MEDS: CEFTRIAXONE 1 GM/50 ML FROZ.PIGGY IV (11:31)
--- NOTE | 2018-04-03 12:13 | PM.DS.1 ---
History of Present Illness Chief complaint: THINKS CELLULITIS RT LOWER LEG Discharge Providers Date of admission: 04/01/18 14:33 Primary care physician: Maykel Rodríguez MD Consults: 03/31/18 22:46 Consult to Physician Routine Comment: Consulting Provider: Maykel Rodríguez Reason for consultation: admission Has provider been notified: Yes 04/03/18 09:16 Consult to Physical Therapy Evaluate & Treat Comment: Patient needs eval prior to discharge today Physician Instructions: Evaluate and Treat Discharge provider: Tyler Oh MD Summary Discharge Diagnosis: (1) right lower leg Cellulitis: (2) Afib:Rate is controlled (3) Gout: (4) Hypertension: (5) Hyperlipidemia: (6) Chronic renal failure, stage 2 (mild): (7) Diabetes mellitus: CONSULTATION None PROCEDURES NO RADIOGRAPHIC STUDIES DONE BLOOD CULTURES NO GROWTH AFTER 48 HR Hospital Course: PATIENT WAS ADMITTED TO THE HOSPITAL FOR TREATMENT OF HIS RIGHT LOWER EXTREMITY CELLULITIS. HE WAS PLACED ON IV ROCEPHIN 1 G Q.12 HOURS AND VANCOMYCIN 1 G IV Q.12 HOURS. THE CELLULITIS SIGNIFICANTLY IMPROVED OVER THE FOLLOWING 3 DAYS. ON THE DAY OF DISCHARGE SHE WAS MINIMAL PINK NG PRESENT ERYTHEMA HAD SIGNIFICANTLY RESOLVED. HIS HAD BROUGHT IN A WALKER FOR HOME USE WHILE IN THE HOSPITAL. RESULT PHYSICAL THERAPY WAS ASKED TO EVALUATE THE PATIENT PRIOR TO DISCHARGE. THEY DID AND SAID THAT THERE WERE NO PROBLEMS WITH HIS DISCHARGE HOME WITH NO FURTHER PHYSICAL THERAPY WAS NECESSARY. THAT HE UNDERSTOOD HOW TO USE THE WALKER WHICH ISSUES PREVIOUSLY. HE WAS THEREFORE DISCHARGED HOME IMPROVED. HE WAS AFEBRILE HEMODYNAMICALLY STABLE. Exam Vital Signs (past 8 hours): - 04/03/18 05:49 04/03/18 07:00 04/03/18 08:00 Temperature 98.1 F 97.9 F Pulse Rate 70 83 Respiratory Rate 16 18 Blood Pressure 131/71 147/70 H Pulse Oximetry 96 97 95 Oxygen Delivery Method Room Air Oxygen Flow Rate 0 Narrative Exam Narrative: General NAD HEENT:NC/AT EOMI, Oropharynx clear Neck: Supple without thyromegaly bruits or jugular venous distention Respiratory: clear to auscultation CV: RRR nl SlS2 ABd: obese/soft non tender/ non distended no HSM Ext: Erythema of the right lower leg is significantly resolved. There is only minimal peaking presents now. The edema has significantly resolved Neuro: Grossly physiologic Psych: Mood and affect are normal. He is awake alert oriented x3 Objective Labs Result Diagrams: 04/03/18 06:22 04/03/18 06:22 Labs: Laboratory Results - last 24 hr 04/02/18 04/03/18 04/03/18 22:14 06:22 06:22 WBC 6.5 RBC 3.63 L Hgb 12.7 L Hct 38.8 L MCV 107.0 H D MCH 35.1 H MCHC 32.8 RDW 16.1 H Plt Count 121 L Neut % (Auto) 68.6 Lymph % (Auto) 18.6 L [place] % (Auto) 8.8 Eos % (Auto) 3.8 Baso % (Auto) 0.2 Neut # (Auto) 4400 RBC Morphology Not Reportable Macrocytosis 1+ H Sodium 138 Potassium 3.2 L Chloride 102 Carbon Dioxide 27 BUN 25 H Creatinine 1.00 Estimated GFR > 60.0 BUN/Creatinine Ratio 25.0 H Glucose 106 Calcium 8.8 Vancomycin Trough 11.2 Discharge Plan Discharge Plan Patient Disposition: Home Discharge Med Rec/Prescriptions Prescriptions: New cephalexin 250 mg Capsule 500 mg PO QID Qty: 28 RF: 0 doxycycline hyclate 100 mg Tablet 100 mg PO BID Qty: 14 RF: 0 Continue simvastatin 20 mg Tablet 20 mg PO BEDTIME Qty: 0 RF: 0 potassium chloride 20 mEq Tablet Extended Release 20 meq PO EVERY DAY Qty: 0 RF: 0 carvedilol [Coreg] 6.25 MG tablet 6.25 mg PO BID Qty: 0 RF: 0 glyburide micronized [Glynase] 3 MG tablet 3 mg PO BID Qty: 0 RF: 0 allopurinol 300 MG tablet 300 mg PO QDAY Qty: 0 RF: 0 gabapentin [Neurontin] 300 MG capsule 300 mg PO TID Qty: 0 RF: 0 metformin 1,000 MG tablet extended release 24hr 1,000 mg PO BID Qty: 0 RF: 0 enalapril-hydrochlorothiazide [Vaseretic] 10 MG/25 MG tablet 1 tab PO BID Qty: 0 RF: 0 pioglitazone 30 MG tablet 30 mg PO QDAY Qty: 0 RF: 0 cholecalciferol (vitamin D3) [Vitamin D3] 1,000 UNIT tablet 1,000 iu PO QDAY Qty: 0 RF: 0 warfarin [Jantoven] 5 MG tablet 5 mg PO SUMOWEFR Qty: 0 RF: 0 furosemide 40 MG tablet 40 mg PO QDAY Qty: 0 RF: 0 doxycycline hyclate 100 MG tablet 100 mg PO EVERY OTHER DAY Qty: 0 RF: 0 oxycodone 5 MG tablet 5 mg PO Q4HP PRNQty: 90 RF: 0 warfarin 5 mg tablet 7.5 mg PO TUTHSA RF: 0 Provider Discharge Instructions Diet: Carb-consistent/Diabetic Discharge Data Primary Care Provider: Maykel Rodríguez Attending Provider: Maykel Rodríguez Admit Date/Time: 04/01/18 14:33
[2018-04-03] MEDS: VANCOMYCIN 1,000 MG/200 ML FROZ.PIGGY 200 MG IV (12:19)
[2018-04-03 13:31] VITALS: TEMP 38.2
== END 2018-04-03 13:47 | disposition home or self-care (01) | DRG 603 ==
LOC: ED 21:26 → AC 23:08
PROVIDERS: Internal Medicine; Admitting Provider Internal Medicine; Emergency Provider Emergency Medicine; Family Provider Internal Medicine; PCP Internal Medicine; Visit Provider Internal Medicine
DX: L03.115 Cellulitis of right lower limb (principal); I48.91 Unspecified atrial fibrillation; Z79.01 Long term (current) use of anticoagulants; E78.5 Hyperlipidemia, unspecified; Z79.84 Long term (current) use of oral hypoglycemic drugs; M10.9 Gout, unspecified; N18.2 Chronic kidney disease, stage 2 (mild); I12.9 Hypertensive chronic kidney disease with stage 1 through stage 4 chronic kidney disease, or unspecified chronic kidney disease; E11.22 Type 2 diabetes mellitus with diabetic chronic kidney disease
CPT/HCPCS: 36415; 36591; 80048; 80202; 82565; 82962; 83605; 84145; 85025; 85610; 85730; 87040; 93005; 96361; 96365; 97162; 99283; 99284; G0378; J0696; J2270; J3370; J7050

== ENCOUNTER → 2018-04-07 12:48 | Outpatient (CLI) | payer MEDICARE, BC, SELFPAY ==
[2018-04-01 00:20] VITALS: BMI 35.7
[2018-04-07 13:08] LABS: Add Manual Diff / Slide Review NO; Basophils Percent Auto 0.6 % (0-2); Eosinophils Percent Auto 5.4 % (2-4); Hematocrit 34.6 % (41-53); Hemoglobin 11.9 g/dL (13.5-17.5); Lymphocytes Percent Auto 31.6 % (25-40); Mean Corpuscular HGB Conc 34.5 % (30-36); Mean Corpuscular Hemoglobin 35.2 PG (26-34); Mean Corpuscular Volume 102.1 fL (80-100); Monocytes Percent Auto 9.2 % (3-14); Neutrophils Absolute Auto 3300 /uL (3000-5900); Neutrophils Percent Auto 53.2 % (50-75); Platelet Count 216 X10^3/uL (150-400); Red Blood Cell Count 3.39 X10^6/uL (4.5-5.9); White Blood Cell Count 6.2 X10^3/uL (4.5-11.0)
[2018-04-07 13:22] LABS: INR 2.1 (0.9-1.3); Prothrombin Time 23.1 SECONDS (10.1-12.7)
[2018-04-07 13:25] LABS: PTT Partial Thromboplastin Tim 37 SECONDS (26.4-36.2)
[2018-04-07 13:29] LABS: Alanine Aminotransferase 40 IU/L (21-72); Albumin 4.2 g/dL (3.5-5.0); Albumin Globulin Ratio 1.2 (1.0-2.8); Alkaline Phosphatase 70 U/L (38-126); Aspartate Aminotransferase 61 IU/L (17-59); BUN Creatinine Ratio 40.6 (6-22); Bilirubin Total 0.5 mg/dL (0.2-1.3); Blood Urea Nitrogen 73 mg/dL (9-20); Calcium 9.2 mg/dL (8.4-10.2); Carbon Dioxide 23 mmol/L (22-32); Chloride 102 mmol/L (98-107); Estimated Glomerular Filt Rate 36.7 mL/min (>60); Globulin 3.4 g/dL (1.7-4.1); Glucose 78 mg/dL (80-110); HEMOLYSIS 27 (0-50); Potassium 3.7 mmol/L (3.4-5.1); Sodium 141 mmol/L (137-145); Total Protein 7.6 g/dL (6.3-8.2)
== END ==
PROVIDERS: PCP Internal Medicine; Visit Provider Internal Medicine
DX: N18.9 Chronic kidney disease, unspecified (principal)
CPT/HCPCS: 36415; 80053; 85025; 85610; 85730

== ENCOUNTER → 2018-04-16 13:35 | Outpatient (CLI) | payer MEDICARE, BC, SELFPAY ==
[2018-04-01 00:20] VITALS: BMI 35.7
--- NOTE | 2018-04-16 | DI.US.S_ITS ---
PROCEDURE: US ARTERIAL DUPLEX LE BI INDICATIONS: PVD TECHNIQUE: Color and pulse Doppler interrogation was performed of both lower extremity arterial systems, with image documentation. COMPARISON: None. FINDINGS: Right lower extremity: Common femoral artery: 104 cm/sec, with triphasic flow. Deep femoral artery: 59 cm/sec, with triphasic flow. Proximal superficial femoral artery: 81 cm/sec, with triphasic flow. Mid superficial femoral artery: 85 cm/sec, with triphasic flow. Distal superficial femoral artery: 79 cm/sec, with triphasic flow. Popliteal artery: 71 cm/sec, with triphasic flow. Posterior tibial artery: 117 cm/sec, with triphasic flow. Anterior tibial artery/dorsalis pedis: 109 cm/sec, with triphasic flow. Aparicio-scale imaging description: Mild diffuse plaque Left lower extremity: Common femoral artery: 86 cm/sec, with triphasic flow. Deep femoral artery: 56 cm/sec, with triphasic flow. Proximal superficial femoral artery: 92 cm/sec, with triphasic flow. Mid superficial femoral artery: 90 cm/sec, with triphasic flow. Distal superficial femoral artery: 74 cm/sec, with triphasic flow. Popliteal artery: 67 cm/sec, with triphasic flow. Posterior tibial artery: 77 cm/sec, with triphasic flow. Anterior tibial artery/dorsalis pedis: 67 cm/sec, with triphasic flow. Aparicio-scale imaging description: Mild diffuse plaque IMPRESSION: No evidence of arterial insufficiency to the bilateral lower extremities. Dictated by: Tres Mcclendon M.D. on 04/16/2018 at 15:41 Approved by: Tres Mcclendon M.D. on 04/16/2018 at 15:42
== END ==
PROVIDERS: Family Provider Internal Medicine; PCP Internal Medicine; Visit Provider Internal Medicine
DX: I73.9 Peripheral vascular disease, unspecified (principal)
CPT/HCPCS: 93925

== ENCOUNTER 2018-05-03 06:23 | Inpatient (IN) | payer MEDICARE, BC, SELFPAY ==
[2018-04-01 00:20] VITALS: BMI 35.7
[2018-04-19 09:27] VITALS: BMI 39.7
[2018-04-21 14:13] VITALS: BMI 39.7
[2018-05-03] VITALS (22 sets, daily range): BP systolic 91–136; BP diastolic 41–80; PULSE 57–110; RESP 10–22; TEMP 35.9–37.7; O2SAT 92–100; BMI 39.7
[2018-05-03] MEDS: LACTATED RINGERS 1,000 ML 42 ML IV ×2 (07:38→09:30)
[2018-05-03] MEDS: CEFAZOLIN 2 GM/100 ML FROZ.PIGGY IV ×3 (08:05→23:50)
--- NOTE | 2018-05-03 08:36 | SUR.OPER ---
Prone on spine table, head in foam head support, padded chest and pelvic supports, gel pad at knees, lower legs supported by pillows; nipples, genitalia and toes free of pressure, arms secured on foam padded arm boards at <90 degrees abduction. Tape over blanket at thigh secured to table.
[2018-05-03] MEDS: BUPIVACAINE 0.25% W/ EPI VIAL 30 ML INJ (08:51)
[2018-05-03] MEDS: BUPIVACAINE LIPOSOME 266 MG/20 ML VIAL INJ (08:52)
--- NOTE | 2018-05-03 09:30 | PC.NURSE ---
Day shift: Pt not on this AC unit at this time. Will assess and chart when they arrive.
--- NOTE | 2018-05-03 11:28 | PC.NURSE ---
Day shift: Pt not on unit at this time.
--- NOTE | 2018-05-03 12:38 | DI.RAD.S_ITS ---
PROCEDURE: XR LUMBAR SPINE 2-3V INDICATIONS: L4-5, L5-S1 TLIF , FUSION FRON L2-S1 TECHNIQUE: 3 intraoperative fluoroscopic views of the lumbar spine were acquired. COMPARISON: None. FINDINGS: Intraoperative fluoroscopic images of lumbar spine shows transpedicular fusion at L2-S1 levels with intervertebral spacer placement at L4-5 and L5-S1 levels. Alignment of lumbar spine is anatomic. IMPRESSION: Fluoroscopy guidance was provided intraoperatively for posterior fusion at L2-S1 levels. Dictated by: Alfonso Riley M.D. on 05/03/2018 at 12:45 Approved by: Alfonso Riley M.D. on 05/03/2018 at 12:47
--- NOTE | 2018-05-03 12:49 | PM.OP.1 ---
Operative Date/Time/Diagnoses Date of procedure: 05/03/18 Time of procedure: 08:16 Pre-op diagnosis: 1. Lumbar post laminectomy syndrome 2. Lumbar scoliosis 3. Lumbar spinal stenosis L2-S1 4. Spondylosis with radiculopathy L2-S1 Post-op diagnosis: same Procedure & Clinicians Procedure: 1. L4-5, L5-S1 Transforamenal interbody fusion with posterolateral fusion 2. L4-5, L5-S1 interbody cage placement. 3. L2-3, L3-4 decompressive laminectomies with partial facetecomies 4. L2-3, L3-4 posterolateral fusion 5. L2-3, L3-4, L4-5, L5-S1 posterior segmental instrumentation with pedicle screws placement in L2, L3, L4, L5, S1 6, [place] of bone marrow from iliac crest 7. Utilization of microsurgical technique and operating microscope Same procedure as scheduled: Yes Indications: Patient has been having chronic back pain and worsening lumbar radiculopathy. patient had history of laminectmies which did not improve his pain for the jail. Patient failed multiple conservative management with worsening pain weakness and numbness in her lower extremity. Patient has been having difficulty performing activity of daily living. After discussing risks benefits of treatment options, patient elected proceed with surgery. Surgeon: Sky Harding Dump Grounds Checker: Shelbie Friedman Click Yes if Unassisted: No Anesthesia Type: General Operative Notes Closure Type: primary Specimen(s): none sent Implants & Drains: Globus revolve screws, Rise cages Applied: catheter Estimated Blood Loss (mL): 500 Blood products transfused: none Procedure in detail: Patient was seen in the preoperative area. Risks and benefits of the surgery was discussed with the patient. Informed consent was obtained from the patient and placed in the chart. Surgical site was marked. Patient was taken to the operative room. General anesthesia was administered. Prophylactic antibiotic was given to the patient less than 30 min before the incision was made. Patient was placed into a prone position on the Vasu table. Patient's back was then prepped and draped in the sterile fashion. Time-out was performed at this time. Using AP and lateral C-arm imaging the interval between L2-S1 was identified and marked on patient's back. A 3 inch incision 2 in from midline was made on the left side first. The fascia was incised in line with skin incision. Globus MARS retractors was placed inside the incision and docked onto the L4 and L5 lamina. Using microsurgical technique and operating microscope, a L4 and L5 laminectomy and L4-5 L5-S1 facetectomy was performed using a Kerrison rongeur. The disc space at L4-5, L5-S1 was identified. And a total diskectomy was performed at L4-5, L5-S1 level. The endplates were decorticated using a rasp and shaver. The total diskectomy and decortication was performed at L4-5, L5-S1 level in order to to accomplish a L4-5, L5-S1 fusion. The local bone from the laminectomy and facetectomy was saved for local bone grafting. After the total diskectomy and decortication was completed, Globus viacell bone graft material was combined with local bone that was harvested earlier. At this time, a separate skin is incision was made over the iliac crest. A Jamshidi needle was inserted into the iliac crest through a separate skin incision. 5 cc of bone marrow aspiration was obtained through the separate skin incision using a Jamshidi needle from the iliac crest. The bone marrow aspiration was combined with local bone and the via cell bone grafting material. The bone grafting material was placed into the L4-5, L5-S1 interbody space along with three cages, one expandable cage at each level. The cages were expanded to their maximum height using the torque limiting screwdriver. Globus MARS retractors was redirected to docked onto the L2 and L3 lamina. Using microsurgical technique and operating microscope, a L2 and L3 laminectomy and partial L2-3 L3-4 facetectomy was performed using a Kerrison rongeur for decomperssion purposes. Significant scar tissue was encountered from previous laminectomy, which was carefully resected during the procedure. At this time a mirror image incision was made on the right side. The fascia was incised in line with the skin incision. Globus MARS retractor was inserted and docked onto the L2-3, L3-4, L4-5, L5-S1 posterolateral gutter. Using the power drill, posterior-lateral decortication was performed at L2-3, L3-4, L4-5, L5-S1 level until bleeding cortical bone was identified. The remaining bone grafting material was placed into the L2-3, L3-4, L4-5 L5-S1 posterior lateral gutter he order to accomplish posterolateral fusion at the L2-3, L3-4, L4-5 L5-S1 levels. Using the double C-arm technique, pedicle screws were placed into the L2, L3, L4, L5, S1 pedicles bilaterally. This was done by placing the Jamshidi needle into the pedicles, then placing the guidewires over the Jamshidi needle, and finally placing the cannulated screws over the guidewires bilaterally. After the pedicle screws were placed, 2 titanium rods was locked into the heads of the pedicle screws using locking caps and torque limiting screwdriver. Total 10 pedicles screws were placed. After all the hardware was placed, and confirmed with AP and lateral C-arm imaging, the wound was then irrigated with sterile normal saline and packed with Ray-Vinod gauze for 3 min to accomplish hemostasis. After the gauze was removed the deep fascia was closed with #1 Vicryl suture. The subcutaneous layer was closed with 2-0 Vicryl. The skin was closed with skin dhara. Patient tolerated the procedure well. There were no complications. Complications: none Condition: stable Disposition: PACU Plan for aftercare: Admit to inpatient hospital
--- NOTE | 2018-05-03 13:00 | P.OP_ITS ---
Operative Date/Time/Diagnoses Date of procedure: 05/03/18 Time of procedure: 08:16 Pre-op diagnosis: 1. Lumbar post laminectomy syndrome 2. Lumbar scoliosis 3. Lumbar spinal stenosis L2-S1 4. Spondylosis with radiculopathy L2-S1 Post-op diagnosis: same Procedure & Clinicians Procedure: 1. L4-5, L5-S1 Transforamenal interbody fusion with posterolateral fusion 2. L4-5, L5-S1 interbody cage placement. 3. L2-3, L3-4 decompressive laminectomies with partial facetecomies 4. L2-3, L3-4 posterolateral fusion 5. L2-3, L3-4, L4-5, L5-S1 posterior segmental instrumentation with pedicle screws placement in L2, L3, L4, L5, S1 6, [place] of bone marrow from iliac crest 7. Utilization of microsurgical technique and operating microscope Same procedure as scheduled: Yes Indications: Patient has been having chronic back pain and worsening lumbar radiculopathy. patient had history of laminectmies which did not improve his pain for the [facility]. Patient failed multiple conservative management with worsening pain weakness and numbness in her lower extremity. Patient has been having difficulty performing activity of daily living. After discussing risks benefits of treatment options, patient elected proceed with surgery. Surgeon: Sky Harding Executive Business Coach: Shelbie Friedman Click Yes if Unassisted: No Anesthesia Type: General Operative Notes Closure Type: primary Specimen(s): none sent Implants & Drains: Globus revolve screws, Rise cages Applied: catheter Estimated Blood Loss (mL): 500 Blood products transfused: none Procedure in detail: Patient was seen in the preoperative area. Risks and benefits of the surgery was discussed with the patient. Informed consent was obtained from the patient and placed in the chart. Surgical site was marked. Patient was taken to the operative room. General anesthesia was administered. Prophylactic antibiotic was given to the patient less than 30 min before the incision was made. Patient was placed into a prone position on the Vasu table. Patient's back was then prepped and draped in the sterile fashion. Time- out was performed at this time. Using AP and lateral C-arm imaging the interval between L2-S1 was identified and marked on patient's back. A 3 inch incision 2 in from midline was made on the left side first. The fascia was incised in line with skin incision. Globus MARS retractors was placed inside the incision and docked onto the L4 and L5 lamina. Using microsurgical technique and operating microscope, a L4 and L5 laminectomy and L4-5 L5-S1 facetectomy was performed using a Kerrison rongeur. The disc space at L4-5, L5-S1 was identified. And a total diskectomy was performed at L4-5, L5-S1 level. The endplates were decorticated using a rasp and shaver. The total diskectomy and decortication was performed at L4-5, L5- S1 level in order to to accomplish a L4-5, L5-S1 fusion. The local bone from the laminectomy and facetectomy was saved for local bone grafting. After the total diskectomy and decortication was completed, Globus viacell bone graft material was combined with local bone that was harvested earlier. At this time , a separate skin is incision was made over the iliac crest. A Jamshidi needle was inserted into the iliac crest through a separate skin incision. 5 cc of bone marrow aspiration was obtained through the separate skin incision using a Jamshidi needle from the iliac crest. The bone marrow aspiration was combined with local bone and the via cell bone grafting material. The bone grafting material was placed into the L4-5, L5-S1 interbody space along with three cages , one expandable cage at each level. The cages were expanded to their maximum height using the torque limiting screwdriver. Globus MARS retractors was redirected to docked onto the L2 and L3 lamina. Using microsurgical technique and operating microscope, a L2 and L3 laminectomy and partial L2-3 L3-4 facetectomy was performed using a Kerrison rongeur for decomperssion purposes. Significant scar tissue was encountered from previous laminectomy, which was carefully resected during the procedure. At this time a mirror image incision was made on the right side. The fascia was incised in line with the skin incision. Globus MARS retractor was inserted and docked onto the L2-3, L3-4, L4-5, L5-S1 posterolateral gutter. Using the power drill, posterior-lateral decortication was performed at L2-3, L3-4, L4-5, L5-S1 level until bleeding cortical bone was identified. The remaining bone grafting material was placed into the L2-3, L3-4, L4-5 L5-S1 posterior lateral gutter he order to accomplish posterolateral fusion at the L2-3, L3-4, L4-5 L5-S1 levels. Using the double C-arm technique, pedicle screws were placed into the L2, L3, L4 , L5, S1 pedicles bilaterally. This was done by placing the Jamshidi needle into the pedicles, then placing the guidewires over the Jamshidi needle, and finally placing the cannulated screws over the guidewires bilaterally. After the pedicle screws were placed, 2 titanium rods was locked into the heads of the pedicle screws using locking caps and torque limiting screwdriver. Total 10 pedicles screws were placed. After all the hardware was placed, and confirmed with AP and lateral C-arm imaging, the wound was then irrigated with sterile normal saline and packed with Ray-Vinod gauze for 3 min to accomplish hemostasis. After the gauze was removed the deep fascia was closed with #1 Vicryl suture. The subcutaneous layer was closed with 2-0 Vicryl. The skin was closed with skin dhara. Patient tolerated the procedure well. There were no complications. Complications: none Condition: stable Disposition: PACU Plan for aftercare: Admit to inpatient hospital
--- NOTE | 2018-05-03 13:04 | PM.PREOP ---
Pre-operative Note Interval Note Pre-op Check: Yes History & Physical Reviewed by Physician, Yes Exam Performed and Yes History & Physical exam performed today by Physician Changes: No
[2018-05-03] MEDS: fentaNYL 100 MCG/2 ML INJ 50 MCG IV (13:12)
--- NOTE | 2018-05-03 14:17 | PC.NURSE ---
Day shift: Arrived on unit at approx 1410 from PACU. Bulky dressing on back is CDI. Pt A7Ox3. Spouse at bedside for support. Oriented to room and call light. Bed alarm on. Andrae pascal.
--- NOTE | 2018-05-03 14:18 | SUR.PHASEI ---
Quiet affect almost withdrawn while in PACU. Slow to respond when asked questions. Pain initially at 5 and increased to 8. Medicated with Fentanyl only to see sats drop. FLACC continually 0. No shivering noted.
[2018-05-03] MEDS: SODIUM CHLORIDE 0.9% 1,000 ML 100 ML IV ×2 (14:47→23:49)
[2018-05-03] MEDS: HYDROMORPHONE 1 MG INJ 0.5 MG IV (14:53)
--- NOTE | 2018-05-03 16:32 | PT.IPTN ---
Current Diagnoses Other secondary scoliosis, lumbar region (05/03/18) Spondylolisthesis, lumbar region (05/03/18) Other spondylosis with radiculopathy, lumbar region (05/03/18) Spinal stenosis, lumbar region without neurogenic claudication (05/03/18) Surgery Performed Operation Date: 05/03/18 07:45 Actual Procedures p L2-3, L5-S1 TLIF; L2-3,L3-4, L4-5, L5-S1 PSF w/ Posterior Instrumentation(Not Applicable) - Sky Harding MD Physical Therapy Treatment Note M3 PT-IP Subjective Start: 05/03/18 16:29 Freq: NEEDED Status: Active Protocol: Document 05/03/18 16:29 EA (Rec: 05/03/18 16:32 EA [id number]) Subjective Physical Therapy Visit Type Type Patient Refusal Notes Patient refused to participate in PT evaluation when approached at 1610. Patient reports too much pain in the back and general body fatigue. Pt agreeable to participate in rehab tomorrow. Nurse incharge informed with the refusal
[2018-05-03] MEDS: GABAPENTIN 300 MG CAPSULE PO ×2 (16:33→20:03)
[2018-05-03] MEDS: OXYCODONE IR 5 MG TABLET 10 MG PO ×2 (18:38→23:51)
[2018-05-03] MEDS: SENNOSIDES 8.6 MG TABLET 17.2 MG PO (20:03)
[2018-05-03] MEDS: hydroCHLOROthiazide 25 MG TABLET PO (20:03)
[2018-05-03] MEDS: GLYBURIDE MICRONIZED 3 MG PO (20:04)
[2018-05-03] MEDS: DOCUSATE 100 MG CAPSULE PO (20:04)
[2018-05-03] MEDS: SIMVASTATIN 20 MG TABLET PO (20:04)
[2018-05-03] MEDS: METFORMIN XR 500 MG TABLET 1000 MG PO (20:04)
--- NOTE | 2018-05-03 20:19 | PC.NURSE ---
Tayler shift note: Patient awake and alert, pleasant and cooperative. BLE with intact CMS, 3+ strenght. SCD to feet bilaterally. Placed on O2 at 2L via NC due to desaturations, O2 sat 95%. Tolerating PO intake, FC in place draining clear yellow urine to gravity. PT consult with patient this evening, will return in the am for Physical therapy. Dressing to mid lower back, CDI. Call appropriately for staff assistance.
[2018-05-03] MEDS: CARVEDILOL 6.25 MG TABLET PO (21:13)
[2018-05-03] MEDS: ENALAPRIL 5 MG TABLET 10 MG PO (21:13)
[2018-05-04] VITALS (13 sets, daily range): BP systolic 80–132; BP diastolic 40–64; PULSE 85–120; RESP 17–20; TEMP 36.6–37.4; O2SAT 93–99
[2018-05-04] MEDS: OXYCODONE IR 5 MG TABLET 10 MG PO ×2 (04:05→09:37)
[2018-05-04 06:09] LABS: Hematocrit 27.6 % (41-53); Hemoglobin 9.4 g/dL (13.5-17.5)
--- NOTE | 2018-05-04 07:30 | P.PN_ITS ---
Subjective Date Patient Seen: 05/04/18 Time Patient Seen: 07:28 Interval history: POD #1 status post L2-[address] Harding. Patient had poor pain control last night but is feeling better this morning. Patient is on warfarin and is diabetic. Denies chest pain, nausea, or vomiting. Exam Vital Signs (past 8 hours): - 05/04/18 02:46 05/04/18 03:00 Temperature 99.0 F Pulse Rate 101 H Respiratory Rate 19 Blood Pressure 132/62 Pulse Oximetry 96 99 Oxygen Delivery Method CPAP Oxygen Flow Rate 3.5 Narrative Exam Narrative: Patient lying in bed in no acute distress. He is alert and oriented x3. Calves are soft, compressible, nontender bilaterally. Pulses are symmetrical. Objective Labs Result Diagrams: 05/04/18 05:36 Labs: Laboratory Results - last 24 hr 05/04/18 05:36 Hgb 9.4 L Hct 27.6 L Assessment & Plan Post-op (1) S/P lumbar fusion: Current Visit: Yes Status: Acute (2) Afib: Problem details: . Qualifiers: Atrial fibrillation type: unspecified Qualified Code(s): I48.91 - Unspecified atrial fibrillation Current Visit: No Status: Acute (3) Diabetes mellitus: Problem details: . Current Visit: No Status: Acute Postoperative Procedures Operation Date: 05/03/18 07:45 Actual Procedures Side Surgeon p L2-3, L5-S1 TLIF; L2-3,L3-4, L4-5, L5-S1 PSF w/ Posterior Instrumentation Not Applicable Sky Harding MD POD #1 status post L2-[address] Harding. Patient will start aspirin 325 mg for 3 days, and then transition to ASA 81 mg. Patient will resume warfarin 5 mg daily. Continue to check blood sugars daily. He will mobilize with physical therapy today. DC [place] once more mobile. Discharge likely in next 1- 2 days once pain adequately controlled and mobilizing safely.
[2018-05-04] MEDS: METFORMIN XR 500 MG TABLET 1000 MG PO (09:34)
[2018-05-04] MEDS: DOCUSATE 100 MG CAPSULE PO ×2 (09:36→21:11)
[2018-05-04] MEDS: PIOGLITAZONE 15 MG TABLET 30 MG PO (09:37)
[2018-05-04] MEDS: ALLOPURINOL 300 MG TABLET PO (09:50)
[2018-05-04] MEDS: GABAPENTIN 300 MG CAPSULE PO ×3 (09:53→21:11)
[2018-05-04] MEDS: GLYBURIDE MICRONIZED 3 MG PO (09:54)
--- NOTE | 2018-05-04 12:10 | PT.IIE ---
Current Diagnoses Type 2 diabetes mellitus without complications (05/03/18) Unspecified atrial fibrillation (05/03/18) Other secondary scoliosis, lumbar region (05/03/18) Spondylolisthesis, lumbar region (05/03/18) Other spondylosis with radiculopathy, lumbar region (05/03/18) Spinal stenosis, lumbar region without neurogenic claudication (05/03/18) Arthrodesis status (05/03/18) Surgery Performed Operation Date: 05/03/18 07:45 Actual Procedures p L2-3, L5-S1 TLIF; L2-3,L3-4, L4-5, L5-S1 PSF w/ Posterior Instrumentation(Not Applicable) - Sky Harding MD Surgical History (Last Updated 04/21/18 @ 14:30 by Jacquelin Reyes RN) Cataract extraction status of right eye (Acute) History of ankle fusion (Acute) History of colonoscopy (Acute ~2013) History of hemorrhoidectomy (Acute ~1959) History of lumbar laminectomy (Acute ~02/2016) History of shoulder replacement (Acute ~2017) History of total knee arthroplasty (Acute) S/p reverse total shoulder arthroplasty (Acute) Medical History (Last Reviewed 05/03/18 @ 16:10 by Vinny Martin, PT, [place]) Atrial fibrillation (Acute) Back pain (Acute) Cataract (Acute) Chronic kidney disease (Acute) Diabetes (Acute) Foot ulcer (Acute) Foot ulcer, right (Acute) Gout (Acute) History of cellulitis (Acute) History of stress test (Acute ~2008) Hypercholesterolemia (Acute) Hyperlipidemia (Acute) Leg pain (Acute) Lower extremity edema (Acute) Mild cognitive impairment (Acute) Obese (Acute) Osteoarthritis of spine with radiculopathy, lumbar region (Acute) Other secondary scoliosis, lumbar region (Acute) Paroxysmal A-fib (Acute) Peripheral vascular disease (Acute) Sleep apnea (Acute) Spinal stenosis of lumbar region at multiple levels (Acute) Spondylolisthesis at L2-L3 level (Acute) Venous insufficiency (Acute) Physical Therapy Inpatient Evaluation/Re-Eval M1 PT/OT-IP Prior Functional Status Start: 05/03/18 16:29 Freq: NEEDED Status: Active Protocol: Document 05/04/18 11:45 RS (Rec: 05/04/18 12:10 RS [id number]) Medical Review Prior Functional Status Medical History Reviewed Yes Diet/Fluid Consistency Regular Communication no known deficits Mobility and Gait independent without AD Activities of Daily Living and IADL's independent Prior Functional Level (Other details) no falls, drives Social History Household Members spouse Living Arrangements House Number of Floors (Floors) One Floor Number of Stairs To Enter/Railing? 0STE Home Environment Standard Height Toilet Walk in Shower Home Equipment Front Wheel Walker Grab Bars In Shower Employment Status Retired M2 PT-IP Current Condition Start: 05/03/18 16:29 Freq: NEEDED Status: Active Protocol: Document 05/04/18 11:45 RS (Rec: 05/04/18 12:10 [id number]) Physical Therapy Current Condition Current Condition Evaluation Date 05/04/18 Treatment Diagnosis L2-S1 lami-fusion, impaired mobility Onset Date 05/03/18 Precautions Lumbar Precautions Log Roll No Twisting Limit Bending Lifting Restriction of 10 lbs Gait Belt above Incisional Area M3 PT-IP Subjective Start: 05/03/18 16:29 Freq: NEEDED Status: Active Protocol: Document 05/04/18 11:45 RS (Rec: 05/04/18 12:10 [id number]) Subjective Physical Therapy Visit Type Type Initial Evaluation Visit Start Time 11:00 Visit Stop Time 11:45 Total Visit Minutes 45 Physical Therapy Visit Comments Patient Comments Pt reports getting little sleep last night but willing to participate in therapy today. Patient Goals less pain, get better Therapy Pain Assessment Pain When Pain Assessed At Rest Pain Present Pain Present Pain Reported Location Back Intensity 5 Scale Used Numeric (1 - 10) Pain Management Techniques Re-positioning Timing of Activity with Medications M4 PT-IP Mobility and Gait Start: 05/03/18 16:29 Freq: NEEDED Status: Active Protocol: Document 05/04/18 11:45 RS (Rec: 05/04/18 12:10 [id number]) PT-Bed Mobility Assessment Rolling Type of Rolling Log Rolling Roll to Left Level of Assist Moderate Assistance 1 Person Assistance PT-Transfer Assessment Comments Mobility Comments Pt able to participate in log rolling but when BP taken before sitting up it had dropped to 70/30 (80/40 w/ manual on 2nd attempt). Mobility assessment terminated at this point. Pt tolerating L sidelying well, so pillows use to bolster pt in this position. Gait Assessment Comments Gait Comments not appropriate to perform at this time PT-Balance Assessment Comments Other Balance Tests/Deviations/Treatment not able to be assessed, never : got to sitting M5 PT-IP Objective Assessments Start: 05/03/18 16:29 Freq: NEEDED Status: Active Protocol: Document 05/04/18 11:45 RS (Rec: 05/04/18 12:10 [id number]) Orientation Orientation/Cognition Level of Alertness Alert Orientation Name Age Birthday Month Date Year Day of Week Place Situation Language Function Ability No Deficits Noted Safety Awareness Understands Safety Issues Memory Description No Deficits Noted Gross Range of Motion Upper Extremity ROM Assessment Within Functional Limits Lower Extremity ROM Assessment Within Functional Limits Strength Comments Strength Comments not formally assessed in sitting, pt does have bilat anti-gravity intact in supine M6 PT-IP Treatment Start: 05/03/18 16:29 Freq: NEEDED Status: Active Protocol: Document 05/04/18 11:45 RS (Rec: 05/04/18 12:10 [id number]) Physical Therapy Treatment Education Education Provided Precautions Post-Op Packet Safety M7 PT-IP Assessment and Plan Start: 05/03/18 16:29 Freq: NEEDED Status: Active Protocol: Document 05/04/18 11:45 RS (Rec: 05/04/18 12:10 [id number]) PT Summary Assessment and Plan Potential Rehabilitation Potential Good Status of Condition at Evaluation Unstable Summary Impairments ROM Strength Bed Mobility Transfers Gait Activity Tolerance Assessment Summary Pt is POD#1 for L2-S1 lami- fusion. Pt reporting moderate amount of pain at rest that gets worse with movement, even passive movement such as adjusting the HOB. BP started at 110/46, HR 85. Pt only able to participate in log rolling on the his left side, requiring mod A to do so. Once in this position BP 70/30 (80 /40 on 2nd attempt w/ manual cuff), HR 92. Pt was asymptomatic the entire time, but mobility was not progressed beyond this due to the low BP. RN present and aware of these findings. Pt is currently far below reported functional baseline and will benefit from ongoing skilled therapies to optimize independence. Progress is expected to be slow so it is currently recommended that pt transition to SNF rehab for daily low intensity therapies once medically ready. Goals Bed Mobility Goal Minimal Assistance Transfer Goal Minimal Assistance Front Wheeled Walker Gait Goal Minimal Assistance Front Wheel Walker Gait Distance 30 Days to Meet Goals 3 Frequency of Treatment Frequency Of Treatment Twice a Day Treatment Plan Physical Therapy Treatment Plan Bed Mobility Training Transfer Training Gait Training Therapeutic Exercise Balance Retraining Post Op Education Discharge Planning Hot or Cold Pack Neuromuscular Re-ed Coordination Retraining Manual Therapy Other Recommendations and Next Treatment watch BP!! continue log Focus rolling/bed mobility, progress to standing/transfers as appropriate Recommendations To Nursing Amount of Assist Needed Mechanical Lift Discharge Recommendations PT Discharge Recommendations SNF Rehab
--- NOTE | 2018-05-04 13:53 | OT.IP.EVAL ---
Current Diagnoses Type 2 diabetes mellitus without complications (05/03/18) Unspecified atrial fibrillation (05/03/18) Other secondary scoliosis, lumbar region (05/03/18) Spondylolisthesis, lumbar region (05/03/18) Other spondylosis with radiculopathy, lumbar region (05/03/18) Spinal stenosis, lumbar region without neurogenic claudication (05/03/18) Arthrodesis status (05/03/18) Surgery Performed Operation Date: 05/03/18 07:45 Actual Procedures p L2-3, L5-S1 TLIF; L2-3,L3-4, L4-5, L5-S1 PSF w/ Posterior Instrumentation(Not Applicable) - Sky Harding MD Past Medical History (Last Reviewed 05/03/18 @ 16:10 by Vinny Martin, PT, [place]) Atrial fibrillation (Acute) Back pain (Acute) Cataract (Acute) Chronic kidney disease (Acute) Diabetes (Acute) Foot ulcer (Acute) Foot ulcer, right (Acute) Gout (Acute) History of cellulitis (Acute) History of stress test (Acute ~2008) Hypercholesterolemia (Acute) Hyperlipidemia (Acute) Leg pain (Acute) Lower extremity edema (Acute) Mild cognitive impairment (Acute) Obese (Acute) Osteoarthritis of spine with radiculopathy, lumbar region (Acute) Other secondary scoliosis, lumbar region (Acute) Paroxysmal A-fib (Acute) Peripheral vascular disease (Acute) Sleep apnea (Acute) Spinal stenosis of lumbar region at multiple levels (Acute) Spondylolisthesis at L2-L3 level (Acute) Venous insufficiency (Acute) Surgical History (Last Updated 04/21/18 @ 14:30 by Jacquelin Reyes RN) Cataract extraction status of right eye (Acute) History of ankle fusion (Acute) History of colonoscopy (Acute ~2013) History of hemorrhoidectomy (Acute ~1959) History of lumbar laminectomy (Acute ~02/2016) History of shoulder replacement (Acute ~2017) History of total knee arthroplasty (Acute) S/p reverse total shoulder arthroplasty (Acute) Occupational Therapy Inpatient Evaluation/Re-Eval M1 PT/OT-IP Prior Functional Status Start: 05/03/18 16:29 Freq: NEEDED Status: Active Protocol: Document 05/04/18 13:53 MAHNAZ (Rec: 05/04/18 14:35 PJM [id number]) Medical Review Prior Functional Status Medical History Reviewed Yes Diet/Fluid Consistency Regular Communication no known deficits Mobility and Gait independent without AD Activities of Daily Living and IADL's independent with all self care , IADLS, can assist with IADLS, but has had B TKA's and uses cane as she feels unsteady. Prior Functional Level (Other details) no falls, drives Social History Household Members spouse Living Arrangements House Number of Floors (Floors) One Floor Number of Stairs To Enter/Railing? 0 stairs to enter or inside home Home Environment High Toilet Walk in Shower Home Equipment Front Wheel Walker Long Handled Sponge Long Handled Shoe Horn Liquor Runner Grab Bars Near Toilet Grab Bars In Shower Employment Status Retired Additional Social History Comment pt has toilet safety frame M2 OT-IP Current Condition Start: 05/04/18 14:07 Freq: Status: Active Protocol: Document 05/04/18 13:53 PJM (Rec: 05/04/18 14:35 [facility] [id number]) Occupational Therapy Current Condition Current Condition Evaluation Date 05/04/18 Treatment Diagnosis decreased self care and functional mobility s/p L2-S1 fusion Post Operative Precautions Lumbar Precautions Log Roll No Twisting Limit Bending Lifting Restriction of 10 lbs Gait Belt above Incisional Area M3 OT- IP Subjective and Pain Start: 05/04/18 14:07 Freq: Status: Active Protocol: Document 05/04/18 13:53 PJM (Rec: 05/04/18 14:35 [facility] [id number]) OT- Subjective Occupational Therapy Visit Type Type Initial Evaluation Visit Start Time 13:31 Visit Stop Time 13:53 Total Visit Minutes 22 Notes Participation limited today by hypotension with pt's systolic BP dropping from 93 to 70 with rolling in bed; therefore did not proceed with EOB activity. Occupational Therapy Visit Comments Patient/Caregiver Goals to go home OT Pain Assessment Pain When Pain Assessed After Treatment Pain Present Pain Present Pain Reported Location Back Intensity 3 Scale Used Numeric (1 - 10) Description Aching Acute M4 OT- IP ADL's Start: 05/04/18 14:07 Freq: Status: Active Protocol: Document 05/04/18 13:53 PJM (Rec: 05/04/18 14:35 [facility] [id number]) OT ADL-Grooming General Evaluation Areas Needing Assistance Face Washing Comments OT Grooming Comments SBA after set up in bed OT ADL-Oral Care Comments Oral Care Comments did not occur OT ADL-Dressing General Eval Lower Body Dressing Ability Maximum Assistance Total Assistance Assistive Devices Dressing Assistive Devices Long Handled Shoe Horn Liquor Runner Comments OT Dressing Comments pt max to total assist with dressing at present due to lumbar spine precautions. Will need sock aid to don compression hose that he normally wears at home. OT ADL-Toileting General Evaluation Toileting Ability Maximum Assistance OT ADL-Bathing Devices Bathing Equipment Long Handled Sponge or Whiting Grab Bars Comments OT Bathing Comments to be assessed as activity level improve; states their shower stall is too small for seat M5 OT- IP IADL's Start: 05/04/18 14:07 Freq: Status: Active Protocol: Document 05/04/18 13:53 PJM (Rec: 05/04/18 14:35 PJ [id number]) OT-Instrumental Activities of Daily Living Deficits IADL Deficits Identified Deficits Home Safety Awareness Awareness of Need for Assistance at Home Good Awareness Medication Management Medication Management Caregiver Provides Supervision Medication Management Comments pt does not recall whether he takes BP meds at home Money Management Money Management No Deficits Identified Meal Preparation Meal Preparation Caregiver Provides Assist Line Helper Line Helper Caregiver Provides Assist Driving Driving Caregiver Provides Assist M6 OT- IP Functional Cognition Start: 05/04/18 14:07 Freq: Status: Active Protocol: Document 05/04/18 13:53 PJM (Rec: 05/04/18 14:35 PJ [id number]) Cognitive Factors Limiting Selfcare Function Cognitive Ability Level of Alertness Drowsy Patient Orientation Name Month Year Place Situation Attention Span Ability Capable of Focused Attention Ability to Follow Commands Able to Follow One Step Commands Safety Awareness Underestimates Need for Assistance Cognitive Comments Cognitive Assessment Comments Pt has some decreased insight into current level of assist needed. OT- Vision and Hearing OT- Hearing Assessment OT- Hearing Assessment Use of Hearing Aids OT- Vision Assessment Visual Acuity WFL Glasses For Reading Vision Assessment Comments Pt left his hearing aids at home. He denies any recent vision changes. M7 OT- IP Mobility and Balance Start: 05/04/18 14:07 Freq: Status: Active Protocol: Document 05/04/18 13:53 PJM (Rec: 05/04/18 14:35 [facility] [id number]) OT- Bed Mobility Assessment Rolling Type of Rolling Roll to Left Level of Assistance Moderate Assistance 1 Person Assistance OT-Transfer Assessment Comments Mobility Comments Unable to proceed with out of bed activity due to hypotension OT- Gait Assessment Comments Gait Ability Comments Unable to proceed with out of bed activity due to hypotension OT- Balance Assessment Comments Other Balance Tests/Deviations/Treatment Unable to proceed with out of : bed activity due to hypotension M8 OT- IP Objective Assessments Start: 05/04/18 14:07 Freq: Status: Active Protocol: Document 05/04/18 13:53 PJM (Rec: 05/04/18 14:35 PJM [id number]) OT Gross Range of Motion Upper Extremity Range of Motion Assessment Within Functional Limits ROM Impairments Pt had L total shoulder replacement in Jul 2017 with good recovery OT Strength Upper Extremity Strength Assessment Within Functional Limits Hand Building Rigger Strength Hand Dominance Right OT- Coordination Assessment Comments Coordination Comments BUE WFL OT Sensation Assessment Comments Summary Comments Pt denies sensory deficits in either UE. M9 OT- IP Assessment and Plan Start: 05/04/18 14:07 Freq: Status: Active Protocol: Document 05/04/18 13:53 PJM (Rec: 05/04/18 14:35 PJM [id number]) OT Summary Assessment and Plan Potential Rehabilitation Potential Good Analytic Complexity at Evaluation Low Summary OT Impairments Pain Strength Balance Functional Mobility Grooming Dressing Toileting Bathing Toilet Transfers Shower Transfers Progress Towards Goals Slow Progress due to Medical Issues Assessment Summary Low complexity OT assessment completed today as limited by hypotension. Began education with pt/ re: lumbar spine precautions and lower body dressing equipment options. Pt currently has significant performance deficits in all functional mobility/transfers and self care. Pt's cannot provide physical assist , so pt will have to make significant improvement in order to d/c home. Will make further d/c recommendations as pt progresses here. Per , pt went to [facility] after his shoulder surgery in Jul 2017. Goals Grooming Goal Standby Assistance Dressing Goal Standby Assistance Long Handled Shoe Horn Liquor Runner Sock Aid Toileting Goal Independent Bathing Goal Minimal Assistance Grab Bars Long Handled Sponge or Whiting Toilet Transfer Goal Standby Assistance Shower Transfer Goal Standby Assistance Walk-in Shower Grab Bars Patient/Caregiver Education Goal Demonstrate Post-Op Precautions Demonstrate Energy Conservation and Pacing Caregiver Independent Assisting Patient OT-Other Goals Grooming to be done standing with good body mechanics and no loss of balance Days to Meet Goals 5 Frequency of Treatment Frequency Of Treatment Once a Day Treatment Plan OT Treatment Plan ADL Training Functional Mobility Patient/Family Education Discharge Planning Discharge Recommendations OT Discharge Recommendations SNF Rehab Other Discharge Recommendations vs home with HH pending progress here Home Equipment Needs sock aid, toilet paper aid
--- NOTE | 2018-05-04 14:29 | PC.NURSE ---
Pt. alert and oriented x 4. Calm and cooperative throughout the shift. Held cardiac effecting medications due to low BP in the morning and throughout the shift. Did not discontinue IV fluids for this reason. Assisted with pt. bed mobility due to muscle weakness. Pt. reported 6/10 pain in the back and resolved with pain medication. Bladder scan was performed due to decreased urine output (250 ml). Pt. adhered to non impacting cardiac medication regimen. Will continue to monitor.
--- NOTE | 2018-05-04 14:48 | CM.DANOTE ---
DCP/Assessment: Reviewed chart. Patient is a 78yr old male admitted to I. for spine surgery performed by Dr. Harding on 05-03-18. Primary payor is 1)Medicare 2)[facility]. PCP is Dr. Rodríguez. Met with patient and spouse/Lesley at bedside explained CM/SW role. Patient unable to do therapy today because of medical issues. Patient alert and oriented and hopeful that he will be able to participate tomorrow 05-05-18. Spouse reports that they reside in single level home in [place]. Patient has all needed DME in the home. Spouse reports that patient will need to be fairly I to come home. Patient had shoulder surgery in 2017 and went to [facility] for rehab prior to returning home. Spouse reports if SNF recommended that they would like [facility] again. Patient reports that he prefers to go home. He does not want to commit to SNF until he sees how he does with therapy. Notified patient and spouse that CM team will re-visit once therapy recommendations completed. P: Pending. Patient wants to go home at time of d/c. Spouse reports that he needs to be fairly I because she is minimal help. CM team to follow closely. MARIO Damon Discharge Planning/Care Management CM Discharge Assessment Start: 05/04/18 14:45 Freq: Status: Active Protocol: Document 05/04/18 14:46 KJS (Rec: 05/04/18 14:48 KJS [id number]) Discharge Planning Assessment Assigned Gas Plumbing Inspector MARIO Damon Contact Information Lesley Plata (spouse) Advance Directives? Yes: polst Advance Directives on File Yes: Unsure History Provided By Patient Has Patient been admitted in last 30 No days? Prior Living Arrangements House Household Members spouse Type of transporation used prior to Drives own vehicle admit Independent with ADL's Yes Is patient alert and oriented? Yes Caregiver for Another No DME Already Rented / Owned FWW / Walker Barriers to Discharge No Discharge Plan Home Transportation Arrangement Spouse to provide transport home. Referrals Initiated Other Additional Comment PT/OT evaluations pending. Whiteboard Updated in Patient Room with Yes name and ext. # of Gas Plumbing Inspector Review Status In Process Please Provide Date Initial DC 05/04/18 Assessment Was Performed Next Review Type Continued Stay Review Pre-Anesthesia Assessment Start: 04/19/18 09:26 Freq: Status: Complete Protocol: Document 04/19/18 09:27 VLJ (Rec: 04/19/18 09:41 [facility] [id number]) Pre-Anesthesia Assessment Patient Information Reviewed Via Chart Review Comment Unable to reach patient for scheduled PAC phone appointment Consent for Planned Operative Procedure( Yes s) Verified Primary Care Provider Maykel Rodríguez Medical Clearance Received Yes Seen Specialist in Last 12 Months Yes Specialist Seen Orthopedist Height 190.5 cm Weight 144.242 kg Body Mass Index (BMI) 39.7 Musculoskeletal Symptoms Back Pain Hx Sleep Apnea Yes Currently Taking a Beta Tricia Yes: Carvedilol Hx Chest Pain No Anti-Coagulant Therapy Yes: Stop warfarin 5 days pre- op, ASA [address] Rodríguez Diabetes Yes HgbA1C 5.8 Date 03/18/18 Comment Checks sugars daily Advance Directives? Yes: polst Document 04/21/18 14:13 J (Rec: 04/21/18 14:37 [facility] [id number]) Pre-Anesthesia Assessment Patient Also Known As Wooten (AKA) Patient Information Reviewed Via Chart Review Comment Unable to reach patient for scheduled PAC phone appointment Consent for Planned Operative Procedure( Yes s) Verified Primary Care Provider Maykel Rordíguez Medical Clearance Received Yes Seen Specialist in Last 12 Months Yes Specialist Seen Burring Wheel Operator Orthopedist Computer Engineer Primary Language Uzbek Cruise Counselor Required No Height 190.5 cm Weight 144.242 kg Body Mass Index (BMI) 39.7 Hearing Ability Hard of Hearing Use of Hearing Aid Visual Impairment Partially Limited Visual Assist Glasses Dentition Type Teeth, Natural Present Teeth, Missing Barriers to Learning Auditory Memory Visual Other Aids No Comment Reading glasses Hx Anesthesia Reactions No Hx Family Anesthesia Reaction No Hx Malignant Hyperthermia No Hx Blood Transfusions No Anesthesia Review Requested No Leaf Sticker No alcohol intake current alcohol intake frequency a few times a month Smoking Status Never smoker Substance Use Type does not use Pain Present Pain Reported Comment back, foot Musculoskeletal Symptoms Abnormal Gait Back Pain Difficulty Walking Radiating Pain into Limb History of Falling (Recent or History of Yes ) Patient is completely paralyzed or No completely immobile Ambulatory Aid None/bed rest/nurse assist Gait/Transferring Impaired Mental Status Oriented to own ability Is patient on oxygen? No Does patient have [place]/SOB Yes Hx Sleep Apnea Yes CPAP/BIPAP use prescribed and used routinely Currently Taking a Beta Tricia Yes: Carvedilol Can You Climb a Flight of Stairs Without Yes SOB Hx Chest Pain No Hx SOB No Hx Syncope or Dizziness No Anti-Coagulant Therapy Yes: Stop warfarin 5 days pre- op, ASA [address] Rodríguez Has a Software Engineering Project Manager No Cardiac Testing No Hx Pacemaker/ICD No Diet Type At Home Ketogenic dysphagia No Urinary Catheter Present No Hx Urinary Self Catheterization No Diabetes Yes HgbA1C 5.8 Date 03/18/18 Comment Checks sugars daily, runs 85- 110 Hx Drug Resistant Organism No Presence of External or Internal Medical Yes: Sascha knees, ankles Devices Have you traveled outside the [facility] in the last 30 days? Marital Status Lives With spouse Prior Living Arrangements House Number of Floors (Floors) One Floor Number of Stairs To Enter/Railing? No Stairs Support System Child/Children Family Spouse Does the Patient Have Assistance After Yes Surgery Patient Discharge Plan Description Return Home Comment Plans 2 night stay Feels Safe in Current Environment Yes Been Physically Hurt or Threatened By a No Person in Current Environment Do you have thoughts of harming yourself None or others? Are you currently considering suicide? No Do you have a plan to hurt yourself or No Plan others? Do You Have Any Spiritual Beliefs That No May Affect Your HC Choices? Do You Have Any Cultural Practices That No May Affect Your HC Choices? Spiritual Referral None Who Can We Speak to About Patient's Care family & friends Identifying Code for Release of Patient Declined Information Health Care Proxy/Next of Kin -Lesley Plata Health Care Proxy Emergency Contact Name Same Emergency Contact Phone Number same Advance Directives? Yes: polst Advance Directives on File Unsure Requested Patient Bring Advanced Yes Directives DOS Power of Backing In Machine Tender No PAC Instructions Assistance for 24 hours post- op Bring CPAP/BIPAP Do not shave/clip surgical site Durable medical equipment Medications to take/avoid Nasal antibiotic No ETOH/petroleum product on skin DOS NPO Ortho class Post-op transportation Pre-op antibiotic Pre-surgical wash Sensory aids Sturdy shoes/comfortable clothes Do not bring valuables and remove jewelry
--- NOTE | 2018-05-04 15:00 | P.PN_ITS ---
Subjective Date Patient Seen: 05/04/18 Time Patient Seen: 14:53 Interval history: This is a consult note. I was consulted by Dr. Harding for management of patient's low blood pressure. Mr. Wooten is a 78-year-old male with past medical history of AFib on Coreg and Coumadin, diabetes on glyburide, pioglitazone, and metformin, diabetic polyneuropathy on gabapentin, gout on allopurinol, hypertension on enalapril- hydrochlorothiazide, chronic venous stasis on Lasix, hyperlipidemia on simvastatin, and lumbar spinal stenosis was admitted by Dr. Harding and received L2- L5 fusion on 05/03/2018. Patient was doing well and recovering up until this morning, when his blood pressure started to drop. When I interviewed the patient, he denied any loss of consciousness, dizziness, blurry vision to me. He denied any lightheadedness, cough, shortness of breath, chest pain. He denied any nausea, vomiting. He denied any diarrhea or constipation. Patient states he chronically has swollen legs for which he takes Lasix. When I interviewed the patient, he only complained of thirst. He stated his pain was well controlled status post procedure on the pain medications that he has been put on. Patient has not had episodes of low blood pressure in the past. Past medical history: AFib Diabetes mellitus type 2 Hypertension Arthritis HLD Gout Diabetic polyneuropathy Allergies: None no known drug allergies Family history: Mother CVA Father, brother, sister with diabetes mellitus Social history: Denies any smoking or drug abuse Occasional alcohol intake Patient's chart reviewed. He does not have any recent laboratory workup. His vitals are heart rate of 94, temperature 97.9? F, pulse 80/40, respiratory rate 16. It was brought up by the nurse that patient's urinary output has also decreased, with 250 cc made in the total 8 hr shift. Patient was given 1 L bolus. Stat labs are drawn, including CBC, CMP, lactate. Will continue 0.9 NS at 150 cc/hour and monitor renal output. Exam Vital Signs (past 8 hours): - 05/04/18 07:20 05/04/18 09:40 05/04/18 09:42 Temperature 98.2 F Pulse Rate 120 H 103 H Respiratory Rate 18 Blood Pressure 106/59 L 90/48 L 100/50 L Pulse Oximetry 95 05/04/18 10:49 05/04/18 11:00 05/04/18 11:20 Temperature 97.9 F Pulse Rate 94 H 85 85 Respiratory Rate 17 Blood Pressure 103/58 L 103/58 L 110/46 L Pulse Oximetry 94 05/04/18 11:25 Temperature Pulse Rate 87 Respiratory Rate Blood Pressure 80/40 L Pulse Oximetry Oxygen Delivery Method Room Air Oxygen Flow Rate 0 Narrative Exam Narrative: General: No acute distress, AAO x3 HEENT: PERRLA bilaterally, dry mucous membranes Neck: Supple, no LAD or JVD CV: Irregular rhythm, no murmurs or gallops Respiratory: Clear to auscultation bilaterally, no wheezing or crackles GI: Positive bowel sounds in all 4 quadrants, no organomegaly, nontender Neuro: No focal deficits, AAO x3 Psych: Appropriate mood Musculoskeletal: Mild tremor of upper extremities bilaterally Extremities: 1+ pitting edema of lower extremities bilaterally, up to the knees Skin: Mild pallor, no bruising or lesions Back: Unable to evaluate at this time Objective Labs Result Diagrams: 05/04/18 05:36 Labs: Laboratory Results - last 24 hr 05/04/18 05:36 Hgb 9.4 L Hct 27.6 L Assessment & Plan Plan: Assessment/Plan Narrative: 1. Hypotension - Likely due to severe dehydration, as patient's p.o. has not been adequate since procedure - urine output decreased to 250 cc in 8 hr - patient given 1 L bolus, well continue IV fluids 0.9 NS at 150 cc an hour - will get CBC, CMP, lactic acid to further evaluate - hold all blood pressure lowering medications, including carvedilol, Lasix, enalapril, hydrochlorothiazide 2. Diabetes -with diabetic polyneuropathy -patient states he is on metformin at home, but records also show glipizide and pioglitazone -will hold hold p.o. diabetic medications and switch patient to sliding scale and frequent Accu-Cheks 3. AFib -heart rate controlled -patient is on Coreg and warfarin at home -will continue warfarin but will stop Coreg in light of hypotension will resume once blood pressure is stable -continue gabapentin 300 mg t.i.d. 4. Hyperlipidemia -continue simvastatin 5. Gout -continue allopurinol 60 min spent evaluating and treating patient
[2018-05-04] MEDS: SODIUM CHLORIDE 0.9% 1,000 ML 500 ML IV (15:22)
[2018-05-04 15:40] LABS: Add Manual Diff / Slide Review NO; Basophils Percent Auto 0.4 % (0-2); Eosinophils Percent Auto 1.2 % (2-4); Hematocrit 28.3 % (41-53); Hemoglobin 9.4 g/dL (13.5-17.5); Lymphocytes Percent Auto 18.3 % (25-40); Mean Corpuscular HGB Conc 33.4 % (30-36); Mean Corpuscular Hemoglobin 34.7 PG (26-34); Monocytes Percent Auto 7.9 % (3-14); Neutrophils Absolute Auto 7200 /uL (3000-5900); Neutrophils Percent Auto 72.2 % (50-75); Platelet Count 184 X10^3/uL (150-400); Red Blood Cell Count 2.72 X10^6/uL (4.5-5.9); White Blood Cell Count 9.9 X10^3/uL (4.5-11.0)
[2018-05-04 16:03] LABS: Alanine Aminotransferase 37 IU/L (21-72); Albumin 3.3 g/dL (3.5-5.0); Albumin Globulin Ratio 1.2 (1.0-2.8); Alkaline Phosphatase 50 U/L (38-126); Aspartate Aminotransferase 84 IU/L (17-59); BUN Creatinine Ratio 21.2 (6-22); Bilirubin Total 0.6 mg/dL (0.2-1.3); Blood Urea Nitrogen 36 mg/dL (9-20); Calcium 8.2 mg/dL (8.4-10.2); Carbon Dioxide 23 mmol/L (22-32); Chloride 102 mmol/L (98-107); Estimated Glomerular Filt Rate 39.2 mL/min (>60); Globulin 2.8 g/dL (1.7-4.1); Glucose 79 mg/dL (80-110); HEMOLYSIS < 15 (0-50); Potassium 3.8 mmol/L (3.4-5.1); Sodium 135 mmol/L (137-145); Total Protein 6.1 g/dL (6.3-8.2)
[2018-05-04] MEDS: SODIUM CHLORIDE 0.9% 1,000 ML 150 ML IV (18:13)
[2018-05-04] MEDS: WARFARIN 5 MG TABLET PO (18:13)
[2018-05-04] MEDS: SENNOSIDES 8.6 MG TABLET 17.2 MG PO (21:11)
[2018-05-04] MEDS: SIMVASTATIN 20 MG TABLET PO (21:11)
[2018-05-05] VITALS (14 sets, daily range): BP systolic 99–136; BP diastolic 52–78; PULSE 103–145; RESP 16–20; TEMP 36.6–37.3; O2SAT 95–99
[2018-05-05] MEDS: OXYCODONE IR 5 MG TABLET 10 MG PO (08:04)
--- NOTE | 2018-05-05 10:34 | PT.IPTN ---
Current Diagnoses Type 2 diabetes mellitus without complications (05/03/18) Unspecified atrial fibrillation (05/03/18) Other secondary scoliosis, lumbar region (05/03/18) Spondylolisthesis, lumbar region (05/03/18) Other spondylosis with radiculopathy, lumbar region (05/03/18) Spinal stenosis, lumbar region without neurogenic claudication (05/03/18) Arthrodesis status (05/03/18) Surgery Performed Operation Date: 05/03/18 07:45 Actual Procedures p L2-3, L5-S1 TLIF; L2-3,L3-4, L4-5, L5-S1 PSF w/ Posterior Instrumentation(Not Applicable) - Sky Harding MD Physical Therapy Treatment Note M2 PT-IP Current Condition Start: 05/03/18 16:29 Freq: NEEDED Status: Active Protocol: Document 05/04/18 11:45 RS (Rec: 05/04/18 12:10 RS [id number]) Physical Therapy Current Condition Current Condition Evaluation Date 05/04/18 Treatment Diagnosis L2-S1 lami-fusion, impaired mobility Onset Date 05/03/18 Precautions Lumbar Precautions Log Roll No Twisting Limit Bending Lifting Restriction of 10 lbs Gait Belt above Incisional Area M3 PT-IP Subjective Start: 05/03/18 16:29 Freq: NEEDED Status: Active Protocol: Document 05/05/18 10:24 SA (Rec: 05/05/18 10:32 SA [id number]) Subjective Physical Therapy Visit Type Type Treatment Note Visit Start Time 09:18 Visit Stop Time 09:41 Total Visit Minutes 23 Notes Close minitoring of vitals with bed mobility. Pt to EOB with elevated HR. Number of STEAM AND POWER SUPERVISOR Visits 1 Physical Therapy Visit Comments Patient Comments Pt agreeable to PT this AM but very passive during treatment . Therapy Pain Assessment Pain When Pain Assessed During Mobility Pain Present Pain Present Pain Reported Location Back Intensity 3 Scale Used Numeric (1 - 10) Pain Management Techniques Re-positioning Timing of Activity with Medications M4 PT-IP Mobility and Gait Start: 05/03/18 16:29 Freq: NEEDED Status: Active Protocol: Document 05/05/18 10:24 SA (Rec: 05/05/18 10:32 SA [id number]) PT-Bed Mobility Assessment Rolling Type of Rolling Log Rolling Roll to Left Level of Assist Moderate Assistance 1 Person Assistance Sit to Supine Sit to Supine Maximum Assistance Scooting Scooting to Edge of Bed Maximum Assistance Scooting Up and Down in Bed Maximum Assistance PT-Transfer Assessment Comments Mobility Comments Pt Mod A with increased time for supine to sit at EOB, Pt BP 116/65 but HR 145. Gait Assessment Comments Gait Comments Supine BP 103/52, 106 BPM, EOB 116/65 and 143 BPM, again EOB 136/53 and 145 BPM, back to supine 103.59 and 134 BPM. Pt diaphragmatic and clammy with minimal bed mobility. PT-Balance Assessment Comments Other Balance Tests/Deviations/Treatment Pt with elevated HR at EOB, : able to maintain BP levels but d/t symptoms returned back to bed with increased assistance . M5 PT-IP Objective Assessments Start: 05/03/18 16:29 Freq: NEEDED Status: Active Protocol: Document 05/04/18 11:45 RS (Rec: 05/04/18 12:10 RS [id number]) Orientation Orientation/Cognition Level of Alertness Alert Orientation Name Age Birthday Month Date Year Day of Week Place Situation Language Function Ability No Deficits Noted Safety Awareness Understands Safety Issues Memory Description No Deficits Noted Gross Range of Motion Upper Extremity ROM Assessment Within Functional Limits Lower Extremity ROM Assessment Within Functional Limits Strength Comments Strength Comments not formally assessed in sitting, pt does have bilat anti-gravity intact in supine M6 PT-IP Treatment Start: 05/03/18 16:29 Freq: NEEDED Status: Active Protocol: Document 05/05/18 10:33 SA (Rec: 05/05/18 10:33 SA [id number]) Physical Therapy Treatment Exercises Exercises Ankle Pumps Education Education Provided Precautions Safety Other Treatments Other Treatment Performed Bed Mobility, Monitoring of Vitals with movement. M7 PT-IP Assessment and Plan Start: 05/03/18 16:29 Freq: NEEDED Status: Active Protocol: Document 05/05/18 10:24 SA (Rec: 05/05/18 10:32 SA [id number]) PT Summary Assessment and Plan Potential Rehabilitation Potential Good Status of Condition at Evaluation Unstable Summary Impairments ROM Strength Bed Mobility Transfers Gait Activity Tolerance Progress Towards Goals Slow Progress due to Medical Issues Assessment Summary Pt needs Max cues for bed mobility and increased asistance after elevated HR at EOB. Frequency of Treatment Frequency Of Treatment Twice a Day Discharge Recommendations PT Discharge Recommendations SNF Rehab
[2018-05-05] MEDS: ALLOPURINOL 300 MG TABLET PO (10:44)
[2018-05-05] MEDS: GABAPENTIN 300 MG CAPSULE PO ×3 (10:45→21:34)
[2018-05-05] MEDS: DOCUSATE 100 MG CAPSULE PO (10:45)
[2018-05-05] MEDS: ACETAMINOPHEN 325 MG TABLET 650 MG PO ×2 (10:45→21:33)
[2018-05-05] MEDS: ASPIRIN 325 MG TABLET PO (10:45)
--- NOTE | 2018-05-05 12:34 | PM.PNPO.1 ---
Subjective Date Patient Seen: 05/05/18 Time Patient Seen: 12:34 Interval history: Patient is POD 2 status post L2-[address] Harding. Patient is laying in bed comfortably without any signs of distress. is sitting bedside. Patient reports that his pain is manageable at this time. Patient is on warfarin and is diabetic. PT was seen today however patient was unable to participate due to increase heart rate, diaphragmatic and clammy with minimal bed movement. reports that patient is very adamant about not going to SNF; he would like to be discharged home once medically stable. Nurse reports that patient has not been mobile in 2 days. Patient was suppose to be started on aspirin 325mg yesterday for 3 days however it was not given due to decreased blood pressure; aspirin started today. Patient denies fever, chills, chest pain, nausea, SOB or vomiting. Exam Vital Signs (past 8 hours): - 05/05/18 07:45 05/05/18 08:00 05/05/18 11:29 Temperature 97.9 F 98.1 F Pulse Rate 106 H 125 H Respiratory Rate 20 18 Blood Pressure 111/59 L 99/72 Pulse Oximetry 97 97 95 Oxygen Delivery Method Room Air Oxygen Flow Rate 0 Narrative Exam Narrative: Patient is AOx3. Patient is in no acute distress. Radial and dorsalis pedis pulses 2+ and symmetric. Adequate strength in dosiflexion, plantarflexion and regional commercial sales manager bilaterally. Sensation to light touch intact in LE. Mild tenderness to palpation on the L calf when compared to R; otherwise calfs are soft and compressible. Lumbar dressing is slightly intact with minimal drainage. Abebe intact. Objective Labs Result Diagrams: 05/04/18 15:25 05/04/18 15:25 Labs: Laboratory Results - last 24 hr 05/04/18 05/04/18 05/04/18 15:25 15:25 15:25 WBC 9.9 RBC 2.72 L Hgb 9.4 L Hct 28.3 L MCV 104.0 H MCH 34.7 H MCHC 33.4 RDW 16.0 H Plt Count 184 Neut % (Auto) 72.2 Lymph % (Auto) 18.3 L [place] % (Auto) 7.9 Eos % (Auto) 1.2 L Baso % (Auto) 0.4 Neut # (Auto) 7200 H Sodium 135 L Potassium 3.8 Chloride 102 Carbon Dioxide 23 BUN 36 H Creatinine 1.70 H Estimated GFR 39.2 L BUN/Creatinine Ratio 21.2 Glucose 79 L Lactate 2.0 Calcium 8.2 L Total Bilirubin 0.6 AST 84 H ALT 37 Alkaline Phosphatase 50 Total Protein 6.1 L Albumin 3.3 L Globulin 2.8 Albumin/Globulin Ratio 1.2 Assessment & Plan Post-op Postoperative Procedures Operation Date: 05/03/18 07:45 Actual Procedures Side Surgeon p L2-3, L5-S1 TLIF; L2-3,L3-4, L4-5, L5-S1 PSF w/ Posterior Instrumentation Not Applicable Sky Harding MD Postoperative day: 2 Postoperative plan: routine post-op care Postoperative plan narrative: Continue mobilizing, ambulating and sitting in chair with PT. Continue pain management. Continue 325mg of aspirin for next 2 days and then transition over to 81mg. Patient will resume warfarin 5 mg daily. Continue to check blood sugars daily. DC Abebe once more mobile. Hospitalist consulted regarding continued elevated heart rate. Discharge likely in next 1-2 days once mobilizing safely and medically stable. Time Spent With Patient less than 15 minutes
--- NOTE | 2018-05-05 12:38 | P.PN_ITS ---
Subjective Date Patient Seen: 05/05/18 Time Patient Seen: 12:34 Interval history: Patient is POD 2 status post L2-[address] Harding. Patient is laying in bed comfortably without any signs of distress. is sitting bedside. Patient reports that his pain is manageable at this time. Patient is on warfarin and is diabetic. PT was seen today however patient was unable to participate due to increase heart rate, diaphragmatic and clammy with minimal bed movement. reports that patient is very adamant about not going to SNF ; he would like to be discharged home once medically stable. Nurse reports that patient has not been mobile in 2 days. Patient was suppose to be started on aspirin 325mg yesterday for 3 days however it was not given due to decreased blood pressure; aspirin started today. Patient denies fever, chills, chest pain , nausea, SOB or vomiting. Exam Vital Signs (past 8 hours): - 05/05/18 07:45 05/05/18 08:00 05/05/18 11:29 Temperature 97.9 F 98.1 F Pulse Rate 106 H 125 H Respiratory Rate 20 18 Blood Pressure 111/59 L 99/72 Pulse Oximetry 97 97 95 Oxygen Delivery Method Room Air Oxygen Flow Rate 0 Narrative Exam Narrative: Patient is AOx3. Patient is in no acute distress. Radial and dorsalis pedis pulses 2+ and symmetric. Adequate strength in dosiflexion, plantarflexion and manager of corporate bilaterally. Sensation to light touch intact in LE. Mild tenderness to palpation on the L calf when compared to R; otherwise calfs are soft and compressible. Lumbar dressing is slightly intact with minimal drainage. Abebe intact. Objective Labs Result Diagrams: 05/04/18 15:25 05/04/18 15:25 Labs: Laboratory Results - last 24 hr 05/04/18 05/04/18 05/04/18 15:25 15:25 15:25 WBC 9.9 RBC 2.72 L Hgb 9.4 L Hct 28.3 L MCV 104.0 H MCH 34.7 H MCHC 33.4 RDW 16.0 H Plt Count 184 Neut % (Auto) 72.2 Lymph % (Auto) 18.3 L [place] % (Auto) 7.9 Eos % (Auto) 1.2 L Baso % (Auto) 0.4 Neut # (Auto) 7200 H Sodium 135 L Potassium 3.8 Chloride 102 Carbon Dioxide 23 BUN 36 H Creatinine 1.70 H Estimated GFR 39.2 L BUN/Creatinine Ratio 21.2 Glucose 79 L Lactate 2.0 Calcium 8.2 L Total Bilirubin 0.6 AST 84 H ALT 37 Alkaline Phosphatase 50 Total Protein 6.1 L Albumin 3.3 L Globulin 2.8 Albumin/Globulin Ratio 1.2 Assessment & Plan Post-op Postoperative Procedures Operation Date: 05/03/18 07:45 Actual Procedures Side Surgeon p L2-3, L5-S1 TLIF; L2-3,L3-4, L4-5, L5-S1 PSF w/ Posterior Instrumentation Not Applicable Sky Harding MD Postoperative day: 2 Postoperative plan: routine post-op care Postoperative plan narrative: Continue mobilizing, ambulating and sitting in chair with PT. Continue pain management. Continue 325mg of aspirin for next 2 days and then transition over to 81mg. Patient will resume warfarin 5 mg daily. Continue to check blood sugars daily. DC Abebe once more mobile. Hospitalist consulted regarding continued elevated heart rate. Discharge likely in next 1-2 days once mobilizing safely and medically stable. Time Spent With Patient less than 15 minutes
[2018-05-05] MEDS: SODIUM CHLORIDE 0.9% 1,000 ML 150 ML IV (13:19)
[2018-05-05] MEDS: INSULIN ASPART 100 UNIT/ML INSULN PEN SUBCUT ×3 (13:23→21:35)
--- NOTE | 2018-05-05 14:27 | CM.DPC ---
Referral faxed to [facility]
--- NOTE | 2018-05-05 15:29 | CM.DPC ---
DCP SNF vs HH Per PT/OT, pt will need to make significant improvement to d/c safely home and currently recommending SNF rehab. SW met bedside with pt and spouse and explained role and discussed current SNF recommendation and discussed creating back up plan if home is not a safe option. Pt and spouse confirm that their preference for SNF if needed is [facility] and they were agreeable with SW making a referral. ADAM Napoles faxed clinicals to review and SW called [facility] at [facility] and made new referral and Mala called back and confirmed they can accept at d/c if SNF needed. PASRR will need to be completed if [facility] at d/c. Plan: SW to follow for pt progress with PT/OT to determine if home with HH vs [facility]. MAIRO Robertson
--- NOTE | 2018-05-05 15:44 | PC.NURSE ---
Day shift pt c/o pain this AM and requests oxycodone for his pain relief which was provided. On tele, was working with PT and notified by ICU that HR was in 140's. Pt at time was asymptomatic. After a few minutes, PT reports pt became diaphoretic and lightheaded. Returned to laying position. BP stable however HR elevated and pt symptomatic. Notified ortho PA who was going to talk to hospitalist. Pt has gotten out of bed to have BM twice however other than that he has not been able to get out of bed. Abebe in place, draining alli clear urine. hourly rounding provided, call light within reach.
--- NOTE | 2018-05-05 16:30 | OT.IP.TRT ---
Current Diagnoses Type 2 diabetes mellitus without complications (05/03/18) Unspecified atrial fibrillation (05/03/18) Other secondary scoliosis, lumbar region (05/03/18) Spondylolisthesis, lumbar region (05/03/18) Other spondylosis with radiculopathy, lumbar region (05/03/18) Spinal stenosis, lumbar region without neurogenic claudication (05/03/18) Arthrodesis status (05/03/18) Surgery Performed Operation Date: 05/03/18 07:45 Actual Procedures p L2-3, L5-S1 TLIF; L2-3,L3-4, L4-5, L5-S1 PSF w/ Posterior Instrumentation(Not Applicable) - Sky Harding MD Occupational Therapy Treatment Note M2 OT-IP Current Condition Start: 05/04/18 14:07 Freq: Status: Active Protocol: Document 05/04/18 13:53 PJM (Rec: 05/04/18 14:35 PJM [id number]) Occupational Therapy Current Condition Current Condition Evaluation Date 05/04/18 Treatment Diagnosis decreased self care and functional mobility s/p L2-S1 fusion Post Operative Precautions Lumbar Precautions Log Roll No Twisting Limit Bending Lifting Restriction of 10 lbs Gait Belt above Incisional Area M3 OT- IP Subjective and Pain Start: 05/04/18 14:07 Freq: Status: Active Protocol: Document 05/05/18 16:30 PJM (Rec: 05/05/18 17:11 PJM [id number]) OT- Subjective Occupational Therapy Visit Type Type Treatment Note Visit Start Time 16:20 Visit Stop Time 16:30 Total Visit Minutes 10 Notes Unable to see pt, this AM due to HR of 145 with diaphoresis with P.T. Dr mak here now and states she will start pt on medication to control HR with goal fo 110 of less. Co tx with P.T. for transfer to [facility] [place] [facility] at request of RN. Dr Mak aware. Occupational Therapy Visit Comments Patient Comments ' I don't feel too bad right now. Patient/Caregiver Goals to go home OT Pain Assessment Pain When Pain Assessed After Treatment Pain Present Pain Present Pain Reported Location Back Intensity 4 Scale Used Numeric (1 - 10) Description Aching Acute M4 OT- IP ADL's Start: 05/04/18 14:07 Freq: Status: Active Protocol: Document 05/05/18 16:30 PJM (Rec: 05/05/18 17:11 PJM [id number]) OT ADL-Dressing General Eval Lower Body Dressing Ability Total Assistance Areas Needing Assistance Shoes Comments OT Dressing Comments to don slippers due to tight fit OT ADL-Toileting General Evaluation Toileting Ability Total Assistance Areas Needing Assistance Perform Perineal Hygiene Comments OT Toileting Comments reddened areas on B buttocks noted; RN aware M7 OT- IP Mobility and Balance Start: 05/04/18 14:07 Freq: Status: Active Protocol: Document 05/05/18 16:30 PJM (Rec: 05/05/18 17:11 PJM [id number]) OT-Transfer Assessment Sit to and From Stand Sit to and from Stand Moderate Assistance 2 Person Assistance Use of Upper Extremities Transfers Transfer Ability Minimal Assistance 2 Person Assistance Technique Transfer Destination Bedside Commode Transfer Technique Stand Step Pivot Devices Transfer Assistive Devices Gait Belt Front Wheeled Walker Comments Mobility Comments Bed height increased to assist with sit to stand. M9 OT- IP Assessment and Plan Start: 05/04/18 14:07 Freq: Status: Active Protocol: Document 05/05/18 16:30 PJM (Rec: 05/05/18 17:11 PJM [id number]) OT Summary Assessment and Plan Summary OT Impairments Pain Strength Balance Functional Mobility Grooming Dressing Toileting Bathing Toilet Transfers Shower Transfers Progress Towards Goals Slow Progress due to Medical Issues Assessment Summary High heart rate limiting participation today but BP higher and more stable than yesterday. Pt seen for BSC transfer only due HR up to 147 with this activity. Will continue further ADL training and functional mobility tomorrow as medical status permits. Further d/c recommendations to follow pending pt progress. Note pt's cannot provide physical assist at home but pt currently refusing SNF per chart notes. Frequency of Treatment Frequency Of Treatment Once a Day Discharge Recommendations OT Discharge Recommendations SNF Rehab
[2018-05-05 16:32] LABS: Add Manual Diff / Slide Review NO; Basophils Percent Auto 0.4 % (0-2); Eosinophils Percent Auto 1.1 % (2-4); Hematocrit 26.5 % (41-53); Hemoglobin 8.9 g/dL (13.5-17.5); Lymphocytes Percent Auto 13.7 % (25-40); Mean Corpuscular HGB Conc 33.5 % (30-36); Mean Corpuscular Volume 104.5 fL (80-100); Monocytes Percent Auto 5.8 % (3-14); Neutrophils Absolute Auto 7800 /uL (3000-5900); Platelet Count 159 X10^3/uL (150-400); Red Blood Cell Count 2.54 X10^6/uL (4.5-5.9); Red Cell Distribution Width 16.4 % (11.6-14.8); White Blood Cell Count 9.8 X10^3/uL (4.5-11.0)
[2018-05-05 16:44] LABS: BUN Creatinine Ratio 27.7 (6-22); Blood Urea Nitrogen 36 mg/dL (9-20); Calcium 7.8 mg/dL (8.4-10.2); Carbon Dioxide 22 mmol/L (22-32); Chloride 103 mmol/L (98-107); Estimated Glomerular Filt Rate 53.4 mL/min (>60); Glucose 230 mg/dL (80-110); HEMOLYSIS < 15 (0-50); Potassium 3.5 mmol/L (3.4-5.1); Sodium 136 mmol/L (137-145)
--- NOTE | 2018-05-05 16:47 | PT.IPTN ---
Current Diagnoses Type 2 diabetes mellitus without complications (05/03/18) Unspecified atrial fibrillation (05/03/18) Other secondary scoliosis, lumbar region (05/03/18) Spondylolisthesis, lumbar region (05/03/18) Other spondylosis with radiculopathy, lumbar region (05/03/18) Spinal stenosis, lumbar region without neurogenic claudication (05/03/18) Arthrodesis status (05/03/18) Surgery Performed Operation Date: 05/03/18 07:45 Actual Procedures p L2-3, L5-S1 TLIF; L2-3,L3-4, L4-5, L5-S1 PSF w/ Posterior Instrumentation(Not Applicable) - Sky Harding MD Physical Therapy Treatment Note M2 PT-IP Current Condition Start: 05/03/18 16:29 Freq: NEEDED Status: Active Protocol: Document 05/04/18 11:45 RS (Rec: 05/04/18 12:10 RS [id number]) Physical Therapy Current Condition Current Condition Evaluation Date 05/04/18 Treatment Diagnosis L2-S1 lami-fusion, impaired mobility Onset Date 05/03/18 Precautions Lumbar Precautions Log Roll No Twisting Limit Bending Lifting Restriction of 10 lbs Gait Belt above Incisional Area M3 PT-IP Subjective Start: 05/03/18 16:29 Freq: NEEDED Status: Active Protocol: Document 05/05/18 16:34 SA (Rec: 05/05/18 16:47 SA [id number]) Subjective Physical Therapy Visit Type Type Treatment Note Visit Start Time 16:14 Visit Stop Time 16:34 Total Visit Minutes 19 Number of NUTRITION EDUCATOR Visits 3 Physical Therapy Visit Comments Patient Comments Dressing change to be done by Nursing, pt agreeable to get up to EOB. Therapy Pain Assessment Pain When Pain Assessed During Mobility Pain Present Pain Present Denied Pain M4 PT-IP Mobility and Gait Start: 05/03/18 16:29 Freq: NEEDED Status: Active Protocol: Document 05/05/18 16:34 SA (Rec: 05/05/18 16:47 SA [id number]) PT-Bed Mobility Assessment Rolling Type of Rolling Log Rolling Roll to Left Level of Assist Maximal Assistance 1 Person Assistance Sit to Supine Sit to Supine Maximum Assistance Scooting Scooting to Edge of Bed Maximum Assistance Scooting Up and Down in Bed Maximum Assistance PT-Transfer Assessment Sit to and From Stand Sit to and from Stand Moderate Assistance Equipment Transfer Assistive Device Gait Belt Front Wheeled Walker Orthotic/Prosthetic Devices or Brace: No Transfers Transfer Destination Bedside Commode Transfer Technique Stand Step Pivot Transfer Ability Level of Assist Moderate Assistance Comments Mobility Comments Pt needs frequent cues for spinal precautions. BP in Spine 114/71, HR 128. EOB 161/ 73 HR 138. Pt denies feel SOB or light headed. Gait Assessment Comments Gait Comments Dr. Soto present during treatment, requests keeping HR 110 or lower with PT/OT interventions. She is planning to resume his medication that regulates HR. PT-Balance Assessment Comments Other Balance Tests/Deviations/Treatment Pt with difficulty initiating : movement. Poor insight regarding mobility and his medical condition. M5 PT-IP Objective Assessments Start: 05/03/18 16:29 Freq: NEEDED Status: Active Protocol: Document 05/04/18 11:45 RS (Rec: 05/04/18 12:10 RS [id number]) Orientation Orientation/Cognition Level of Alertness Alert Orientation Name Age Birthday Month Date Year Day of Week Place Situation Language Function Ability No Deficits Noted Safety Awareness Understands Safety Issues Memory Description No Deficits Noted Gross Range of Motion Upper Extremity ROM Assessment Within Functional Limits Lower Extremity ROM Assessment Within Functional Limits Strength Comments Strength Comments not formally assessed in sitting, pt does have bilat anti-gravity intact in supine M6 PT-IP Treatment Start: 05/03/18 16:29 Freq: NEEDED Status: Active Protocol: Document 05/05/18 16:34 SA (Rec: 05/05/18 16:47 SA [id number]) Physical Therapy Treatment Other Treatments Other Treatment Performed Review of spinal precations with mobility. M7 PT-IP Assessment and Plan Start: 05/03/18 16:29 Freq: NEEDED Status: Active Protocol: Document 05/05/18 16:34 SA (Rec: 05/05/18 16:47 [id number]) PT Summary Assessment and Plan Summary Assessment Summary Pt presents with poor insight, needs Max cues for participation in mobility tasks. Frequency of Treatment Frequency Of Treatment Twice a Day Discharge Recommendations PT Discharge Recommendations SNF Rehab
--- NOTE | 2018-05-05 17:34 | PM.PN.1 ---
Subjective Date Patient Seen: 05/05/18 Interval history: Events reviewed, patient seen and examined. Patient remained diaphoretic, tachycardic , and clammy last night. He was noted to be tachycardic with activity. HIs blood pressure has improved significantly Exam Vital Signs (past 8 hours): - 05/05/18 09:35 05/05/18 11:29 05/05/18 15:49 Temperature 98.1 F Pulse Rate 134 H 125 H 118 H Respiratory Rate 18 18 Blood Pressure 103/59 L 99/72 115/78 Pulse Oximetry 95 99 05/05/18 15:56 Temperature Pulse Rate 106 H Respiratory Rate 16 Blood Pressure Pulse Oximetry 96 Oxygen Delivery Method Room Air Oxygen Flow Rate 0 Narrative Exam Narrative: Ill appearing male ? confused Lungs: decreased breath sounds CV: Tachy irregularly, irregular ABd: Soft/ non tender Ext: trace edema bilaterally Objective Labs Result Diagrams: 05/05/18 16:25 05/05/18 16:25 Labs: Laboratory Results - last 24 hr 05/05/18 05/05/18 16:25 16:25 WBC 9.8 RBC 2.54 L Hgb 8.9 L Hct 26.5 L MCV 104.5 H MCH 35.0 H MCHC 33.5 RDW 16.4 H Plt Count 159 Neut % (Auto) 79.0 H Lymph % (Auto) 13.7 L [place] % (Auto) 5.8 Eos % (Auto) 1.1 L Baso % (Auto) 0.4 Neut # (Auto) 7800 H Sodium 136 L Potassium 3.5 Chloride 103 Carbon Dioxide 22 BUN 36 H Creatinine 1.30 H Estimated GFR 53.4 L BUN/Creatinine Ratio 27.7 H Glucose 230 H D Calcium 7.8 L Assessment & Plan (1) S/P lumbar fusion: Problem details: Per surgery Current visit: Yes Status: Acute (2) Hyperlipidemia: Problem details: continue statin Current visit: No Status: Acute (3) Hypertension: Problem details: blood pressure improved with hydration, will resume coreg and CARMEN-I Current visit: No Status: Acute (4) Chronic renal failure, stage 2 (mild): Problem details: Improved with hydration Current visit: No Status: Acute (5) Atrial fibrillation with RVR: Problem details: resume coreg and follow continue coumadin Current visit: Yes Status: Acute (6) Blood loss anemia: Problem details: some likely blood loss and some dilutional Will check iron studies, transfuse for hemoglobin less than 8 if still symptomatic Current visit: Yes Status: Acute Plan: Assessment/Plan Narrative: Will continue insulin coverage for now
[2018-05-05] MEDS: WARFARIN 5 MG TABLET PO (17:58)
[2018-05-05] MEDS: LISINOPRIL 10 MG TABLET PO (18:00)
[2018-05-05 18:16] LABS: HEMOLYSIS < 15 (0-50); Iron 21 ug/dL (49-181)
[2018-05-05 18:27] LABS: Percent Iron Saturation 8 % (20-50); Total Iron Binding Capacity 270 ug/dL (261-462); Transferrin 189 mg/dL (206-381)
[2018-05-05] MEDS: CARVEDILOL 6.25 MG TABLET PO (21:34)
[2018-05-05] MEDS: SIMVASTATIN 20 MG TABLET PO (21:34)
[2018-05-06] VITALS (10 sets, daily range): BP systolic 83–130; BP diastolic 55–86; PULSE 78–117; RESP 16–22; TEMP 36.5–37.5; O2SAT 93–99
[2018-05-06] MEDS: OXYCODONE IR 5 MG TABLET 10 MG PO ×3 (01:39→21:51)
[2018-05-06 05:40] LABS: Hemoglobin 7.9 g/dL (13.5-17.5); Neutrophils Percent Auto 78.7 % (50-75); Platelet Count 160 X10^3/uL (150-400)
[2018-05-06 05:42] LABS: Blood Urea Nitrogen 35 mg/dL (9-20); Calcium 7.7 mg/dL (8.4-10.2); Carbon Dioxide 22 mmol/L (22-32); Chloride 105 mmol/L (98-107); Glucose 174 mg/dL (80-110); HEMOLYSIS < 15 (0-50); Potassium 3.2 mmol/L (3.4-5.1); Sodium 135 mmol/L (137-145)
[2018-05-06 05:50] LABS: Add Manual Diff / Slide Review NO; Basophils Percent Auto 0.1 % (0-2); Eosinophils Percent Auto 1.1 % (2-4); Hematocrit 23.6 % (41-53); Lymphocytes Percent Auto 13.2 % (25-40); Mean Corpuscular HGB Conc 33.7 % (30-36); Mean Corpuscular Volume 103.9 fL (80-100); Monocytes Percent Auto 6.9 % (3-14); Neutrophils Absolute Auto 8300 /uL (3000-5900); Red Blood Cell Count 2.27 X10^6/uL (4.5-5.9); Red Cell Distribution Width 16.4 % (11.6-14.8); White Blood Cell Count 10.6 X10^3/uL (4.5-11.0)
[2018-05-06] MEDS: ALLOPURINOL 300 MG TABLET PO (08:23)
[2018-05-06] MEDS: INSULIN ASPART 100 UNIT/ML INSULN PEN SUBCUT ×4 (08:23→20:49)
[2018-05-06] MEDS: ASPIRIN 325 MG TABLET PO (08:25)
[2018-05-06] MEDS: GABAPENTIN 300 MG CAPSULE PO ×3 (08:25→20:49)
[2018-05-06] MEDS: DOCUSATE 100 MG CAPSULE PO (08:25)
[2018-05-06] MEDS: POTASSIUM CHLORIDE 20 MEQ TAB PO (08:26)
--- NOTE | 2018-05-06 10:28 | PC.NURSE ---
Addendum entered by Nicole Pearson R.N. 05/06/18 12:53: Dr. Soto at bedside to assess patient. New orders received and implemented. Coreg continues to be held at this time. Stool sent for c-diff culture which resulted positive. Patient placed on enteric contact precautions. Patient drawn by lab for unit of blood to be transfused later today. Original Note: Low Blood pressure/Held Coreg Patient having low blood pressure this am. Coreg held. Patient up to bedside commode with HR increasing ranging from 110s-130s. Dr. Soto made aware, no new orders received a this time.
--- NOTE | 2018-05-06 11:20 | PT.IPTN ---
Current Diagnoses Iron deficiency anemia secondary to blood loss (chronic) (05/03/18) Type 2 diabetes mellitus without complications (05/03/18) Hyperlipidemia, unspecified (05/03/18) Essential (primary) hypertension (05/03/18) Unspecified atrial fibrillation (05/03/18) Other secondary scoliosis, lumbar region (05/03/18) Spondylolisthesis, lumbar region (05/03/18) Other spondylosis with radiculopathy, lumbar region (05/03/18) Spinal stenosis, lumbar region without neurogenic claudication (05/03/18) Chronic kidney disease, stage 2 (mild) (05/03/18) Arthrodesis status (05/03/18) Surgery Performed Operation Date: 05/03/18 07:45 Actual Procedures p L2-3, L5-S1 TLIF; L2-3,L3-4, L4-5, L5-S1 PSF w/ Posterior Instrumentation(Not Applicable) - Sky Harding MD Physical Therapy Treatment Note M2 PT-IP Current Condition Start: 05/03/18 16:29 Freq: NEEDED Status: Active Protocol: Document 05/04/18 11:45 RS (Rec: 05/04/18 12:10 RS [id number]) Physical Therapy Current Condition Current Condition Evaluation Date 05/04/18 Treatment Diagnosis L2-S1 lami-fusion, impaired mobility Onset Date 05/03/18 Precautions Lumbar Precautions Log Roll No Twisting Limit Bending Lifting Restriction of 10 lbs Gait Belt above Incisional Area M3 PT-IP Subjective Start: 05/03/18 16:29 Freq: NEEDED Status: Active Protocol: Document 05/06/18 11:18 SA (Rec: 05/06/18 11:20 SA [id number]) Subjective Physical Therapy Visit Type Type Cancellation Notes Nursing hold. Pt to receive unit of blood today. BP 81/43 at rest in sitting M4 PT-IP Mobility and Gait Start: 05/03/18 16:29 Freq: NEEDED Status: Active Protocol: Document 05/05/18 16:34 SA (Rec: 05/05/18 16:47 SA [id number]) PT-Bed Mobility Assessment Rolling Type of Rolling Log Rolling Roll to Left Level of Assist Maximal Assistance 1 Person Assistance Sit to Supine Sit to Supine Maximum Assistance Scooting Scooting to Edge of Bed Maximum Assistance Scooting Up and Down in Bed Maximum Assistance PT-Transfer Assessment Sit to and From Stand Sit to and from Stand Moderate Assistance Equipment Transfer Assistive Device Gait Belt Front Wheeled Walker Orthotic/Prosthetic Devices or Brace: No Transfers Transfer Destination Bedside Commode Transfer Technique Stand Step Pivot Transfer Ability Level of Assist Moderate Assistance Comments Mobility Comments Pt needs frequent cues for spinal precautions. BP in Spine 114/71, HR 128. EOB [birth year]/ [birth year] HR 138. Pt denies feel SOB or light headed. Gait Assessment Comments Gait Comments Dr. Soto present during treatment, requests keeping HR 110 or lower with PT/OT interventions. She is planning to resume his medication that regulates HR. PT-Balance Assessment Comments Other Balance Tests/Deviations/Treatment Pt with difficulty initiating : movement. Poor insight regarding mobility and his medical condition. M5 PT-IP Objective Assessments Start: 05/03/18 16:29 Freq: NEEDED Status: Active Protocol: Document 05/04/18 11:45 RS (Rec: 05/04/18 12:10 RS [id number]) Orientation Orientation/Cognition Level of Alertness Alert Orientation Name Age Birthday Month Date Year Day of Week Place Situation Language Function Ability No Deficits Noted Safety Awareness Understands Safety Issues Memory Description No Deficits Noted Gross Range of Motion Upper Extremity ROM Assessment Within Functional Limits Lower Extremity ROM Assessment Within Functional Limits Strength Comments Strength Comments not formally assessed in sitting, pt does have bilat anti-gravity intact in supine M6 PT-IP Treatment Start: 05/03/18 16:29 Freq: NEEDED Status: Active Protocol: Document 05/05/18 16:34 SA (Rec: 05/05/18 16:47 SA [id number]) Physical Therapy Treatment Other Treatments Other Treatment Performed Review of spinal precations with mobility. M7 PT-IP Assessment and Plan Start: 05/03/18 16:29 Freq: NEEDED Status: Active Protocol: Document 05/05/18 16:34 SA (Rec: 05/05/18 16:47 SA [id number]) PT Summary Assessment and Plan Summary Assessment Summary Pt presents with poor insight, needs Max cues for participation in mobility tasks. Frequency of Treatment Frequency Of Treatment Twice a Day Discharge Recommendations PT Discharge Recommendations SNF Rehab
--- NOTE | 2018-05-06 11:50 | OT.IP.TRT ---
Current Diagnoses Iron deficiency anemia secondary to blood loss (chronic) (05/03/18) Type 2 diabetes mellitus without complications (05/03/18) Hyperlipidemia, unspecified (05/03/18) Essential (primary) hypertension (05/03/18) Unspecified atrial fibrillation (05/03/18) Other secondary scoliosis, lumbar region (05/03/18) Spondylolisthesis, lumbar region (05/03/18) Other spondylosis with radiculopathy, lumbar region (05/03/18) Spinal stenosis, lumbar region without neurogenic claudication (05/03/18) Chronic kidney disease, stage 2 (mild) (05/03/18) Arthrodesis status (05/03/18) Surgery Performed Operation Date: 05/03/18 07:45 Actual Procedures p L2-3, L5-S1 TLIF; L2-3,L3-4, L4-5, L5-S1 PSF w/ Posterior Instrumentation(Not Applicable) - Sky Harding MD Occupational Therapy Treatment Note M2 OT-IP Current Condition Start: 05/04/18 14:07 Freq: Status: Active Protocol: Document 05/04/18 13:53 PJM (Rec: 05/04/18 14:35 PJM [id number]) Occupational Therapy Current Condition Current Condition Evaluation Date 05/04/18 Treatment Diagnosis decreased self care and functional mobility s/p L2-S1 fusion Post Operative Precautions Lumbar Precautions Log Roll No Twisting Limit Bending Lifting Restriction of 10 lbs Gait Belt above Incisional Area M3 OT- IP Subjective and Pain Start: 05/04/18 14:07 Freq: Status: Active Protocol: Document 05/06/18 11:50 PJM (Rec: 05/06/18 13:35 PJM [id number]) OT- Subjective Occupational Therapy Visit Type Type Treatment Note Visit Start Time 11:25 Visit Stop Time 11:50 Total Visit Minutes 25 Notes Pt's here and observing this session. Note that per RN , pt hypotensive again today and also has low H&H requiring transfusion today. Occupational Therapy Visit Comments Patient Comments I feel a little dizzy when I am standing. Patient/Caregiver Goals to go home when stronger OT Pain Assessment Pain When Pain Assessed After Treatment Pain Present Pain Present Pain Reported Location Back Intensity 4 Scale Used Numeric (1 - 10) Description Aching Acute M4 OT- IP ADL's Start: 05/04/18 14:07 Freq: Status: Active Protocol: Document 05/06/18 11:50 PJM (Rec: 05/06/18 13:35 PJM [id number]) OT ADL-Dressing General Eval Lower Body Dressing Ability Maximum Assistance Areas Needing Assistance Socks Comments OT Dressing Comments Began education re: lower body dressing with pt seated up in chair. Pt requires use of wide sock aid due to large foot. Assisted with finding on line resource for this tool. to bring in pt 's compression hose from home. Pt has chronically swollen R ankle from old fusion 10 yrs ago. may need to order larger slippers but will try compression hose first. M6 OT- IP Functional Cognition Start: 05/04/18 14:07 Freq: Status: Active Protocol: Document 05/06/18 11:50 PJM (Rec: 05/06/18 13:35 PJM [id number]) Cognitive Factors Limiting Selfcare Function Cognitive Ability Level of Alertness Alert Attention Span Ability Capable of Focused Attention Ability to Follow Commands Able to Follow One Step Commands Safety Awareness Decreased Recall of Precautions Decreased Ability to Apply Precautions Underestimates Need for Assistance Problem Solving Ability Needs Assist to Identify Solutions Cognitive Comments Cognitive Assessment Comments Pt needs mod verbal cues to apply lumbar spine precautions during lower body dressing and to problem solve adaptive equipt use. Affect brighter today. M7 OT- IP Mobility and Balance Start: 05/04/18 14:07 Freq: Status: Active Protocol: Document 05/06/18 11:50 PJM (Rec: 05/06/18 13:35 PJM [id number]) OT-Transfer Assessment Sit to and From Stand Sit to and from Stand Maximum Assistance 2 Person Assistance Transfers Transfer Ability Minimal Assistance 2 Person Assistance Technique Transfer Destination Bed Transfer Technique Stand Step Pivot Devices Transfer Assistive Devices Gait Belt Front Wheeled Walker Comments Mobility Comments P.T. in to assist pt with edge of bed to supine via log roll . OT- Gait Assessment Comments Gait Ability Comments did not occur OT- Balance Assessment Sitting Balance and Reactions Static Sitting Balance Ability Good Standing Balance and Reactions Static Standing Balance Ability Fair M9 OT- IP Assessment and Plan Start: 05/04/18 14:07 Freq: Status: Active Protocol: Document 05/06/18 11:50 PJM (Rec: 05/06/18 13:35 PJM [id number]) OT Summary Assessment and Plan Potential Rehabilitation Potential Good Summary Progress Towards Goals Slow Progress due to Medical Issues Assessment Summary Pt's participation remains limited due to multiple medical issues, but he does give good effort during functional mobility. Pt not safe to retun home with who cannot provide physical assist. Pt now agrees that SNF for further rehab services will be best d/c plan prior to return home. Goals Grooming Goal Standby Assistance Dressing Goal Standby Assistance Long Handled Shoe [place] Beer Still Runner Compounder Sock Aid Toileting Goal Independent Bathing Goal Minimal Assistance Grab Bars Long Handled Sponge or [place] Toilet Transfer Goal Standby Assistance Shower Transfer Goal Standby Assistance Walk-in Shower Grab Bars Patient/Caregiver Education Goal Demonstrate Post-Op Precautions Demonstrate Energy Conservation and Pacing Caregiver Independent Assisting Patient OT-Other Goals Grooming to be done standing with good body mechanics and no loss of balance Days to Meet Goals 5 Frequency of Treatment Frequency Of Treatment Once a Day Treatment Plan OT Treatment Plan ADL Training Functional Mobility Patient/Family Education Discharge Planning Discharge Recommendations OT Discharge Recommendations SNF Rehab
--- NOTE | 2018-05-06 12:14 | PT.IPTN ---
Current Diagnoses Iron deficiency anemia secondary to blood loss (chronic) (05/03/18) Type 2 diabetes mellitus without complications (05/03/18) Hyperlipidemia, unspecified (05/03/18) Essential (primary) hypertension (05/03/18) Unspecified atrial fibrillation (05/03/18) Other secondary scoliosis, lumbar region (05/03/18) Spondylolisthesis, lumbar region (05/03/18) Other spondylosis with radiculopathy, lumbar region (05/03/18) Spinal stenosis, lumbar region without neurogenic claudication (05/03/18) Chronic kidney disease, stage 2 (mild) (05/03/18) Arthrodesis status (05/03/18) Surgery Performed Operation Date: 05/03/18 07:45 Actual Procedures p L2-3, L5-S1 TLIF; L2-3,L3-4, L4-5, L5-S1 PSF w/ Posterior Instrumentation(Not Applicable) - Sky Harding MD Physical Therapy Treatment Note M2 PT-IP Current Condition Start: 05/03/18 16:29 Freq: NEEDED Status: Active Protocol: Document 05/04/18 11:45 RS (Rec: 05/04/18 12:10 RS [id number]) Physical Therapy Current Condition Current Condition Evaluation Date 05/04/18 Treatment Diagnosis L2-S1 lami-fusion, impaired mobility Onset Date 05/03/18 Precautions Lumbar Precautions Log Roll No Twisting Limit Bending Lifting Restriction of 10 lbs Gait Belt above Incisional Area M3 PT-IP Subjective Start: 05/03/18 16:29 Freq: NEEDED Status: Active Protocol: Document 05/06/18 12:08 SA (Rec: 05/06/18 12:14 SA [id number]) Subjective Physical Therapy Visit Type Type Treatment Note Visit Start Time 11:55 Visit Stop Time 12:05 Total Visit Minutes 10 Number of PATIENT'S LIBRARIAN Visits 4 Physical Therapy Visit Comments Patient Comments PT feeling unwell, needs help getting back into bed. Therapy Pain Assessment Pain When Pain Assessed During Mobility Pain Present Pain Present Pain Reported Location Back Intensity 3 Scale Used Numeric (1 - 10) M4 PT-IP Mobility and Gait Start: 05/03/18 16:29 Freq: NEEDED Status: Active Protocol: Document 05/06/18 12:08 SA (Rec: 05/06/18 12:14 SA [id number]) PT-Bed Mobility Assessment Sit to Supine Sit to Supine Moderate Assistance 2 Person Assistance Scooting Scooting to Edge of Bed Maximum Assistance Scooting Up and Down in Bed Maximum Assistance PT-Transfer Assessment Comments Mobility Comments Continued education for spinal precautions, log roll technique. with Mod A x 2. HR up 133 with bed mobility. M5 PT-IP Objective Assessments Start: 05/03/18 16:29 Freq: NEEDED Status: Active Protocol: Document 05/04/18 11:45 RS (Rec: 05/04/18 12:10 RS [id number]) Orientation Orientation/Cognition Level of Alertness Alert Orientation Name Age Birthday Month Date Year Day of Week Place Situation Language Function Ability No Deficits Noted Safety Awareness Understands Safety Issues Memory Description No Deficits Noted Gross Range of Motion Upper Extremity ROM Assessment Within Functional Limits Lower Extremity ROM Assessment Within Functional Limits Strength Comments Strength Comments not formally assessed in sitting, pt does have bilat anti-gravity intact in supine M6 PT-IP Treatment Start: 05/03/18 16:29 Freq: NEEDED Status: Active Protocol: Document 05/05/18 16:34 SA (Rec: 05/05/18 16:47 [id number]) Physical Therapy Treatment Other Treatments Other Treatment Performed Review of spinal precations with mobility. M7 PT-IP Assessment and Plan Start: 05/03/18 16:29 Freq: NEEDED Status: Active Protocol: Document 05/06/18 12:08 (Rec: 05/06/18 12:14 [id number]) PT Summary Assessment and Plan Summary Assessment Summary present with treatment, understands that patient is needing increased physical assistance with mobility tasks . Frequency of Treatment Frequency Of Treatment Twice a Day Discharge Recommendations PT Discharge Recommendations SNF Rehab
[2018-05-06] MEDS: KCL 20 MEQ IN NS 1,000 ML 150 MEQ IV ×2 (12:27→22:37)
[2018-05-06] MEDS: POTASSIUM CHLORIDE 20 MEQ TAB 40 MEQ PO (12:30)
[2018-05-06 12:32] LABS: Clostridium Difficile Tox PCR Positive for C. diff
--- NOTE | 2018-05-06 14:31 | PM.PN.1 ---
Subjective Date Patient Seen: 05/06/18 Interval history: Patient is still pretty weak, he was hypotensive earlier and now has diarrhea. Yesterday he was diaphoretic, tachy and hypotensive Exam Vital Signs (past 8 hours): - 05/06/18 07:35 05/06/18 08:32 05/06/18 11:16 Temperature 97.9 F 97.7 F Pulse Rate 92 H 83 105 H Respiratory Rate 18 18 Blood Pressure 95/58 L 95/58 L 83/55 L Pulse Oximetry 93 99 05/06/18 13:48 05/06/18 14:10 Temperature 98.7 F 99.1 F Pulse Rate 117 H 108 H Respiratory Rate 18 16 Blood Pressure 92/73 116/86 Pulse Oximetry Oxygen Delivery Method Room Air Oxygen Flow Rate 0 Narrative Exam Narrative: ill appearing male Lungs: decreased breath sounds CV:tachy RRR nl Sl S2 Abd: Soft/ non tender Sacral area: early stage 1 ulcers on the buttocks Ext: trace edema Objective Labs Result Diagrams: 05/06/18 05:10 05/06/18 05:10 Labs: Laboratory Results - last 24 hr 05/05/18 05/05/18 05/05/18 16:25 16:25 16:25 WBC 9.8 RBC 2.54 L Hgb 8.9 L Hct 26.5 L MCV 104.5 H MCH 35.0 H MCHC 33.5 RDW 16.4 H Plt Count 159 Neut % (Auto) 79.0 H Lymph % (Auto) 13.7 L [place] % (Auto) 5.8 Eos % (Auto) 1.1 L Baso % (Auto) 0.4 Neut # (Auto) 7800 H Sodium 136 L Potassium 3.5 Chloride 103 Carbon Dioxide 22 BUN 36 H Creatinine 1.30 H Estimated GFR 53.4 L BUN/Creatinine Ratio 27.7 H Glucose 230 H D Calcium 7.8 L Iron 21 L TIBC 270 % Saturation 8 L Transferrin 189 L C. difficile Tox (PCR) Blood Type Antibody Screen Crossmatch 05/06/18 05/06/18 05/06/18 05:10 05:10 12:15 WBC 10.6 RBC 2.27 L Hgb 7.9 L Hct 23.6 L MCV 103.9 H MCH 35.0 H MCHC 33.7 RDW 16.4 H Plt Count 160 Neut % (Auto) 78.7 H Lymph % (Auto) 13.2 L [place] % (Auto) 6.9 Eos % (Auto) 1.1 L Baso % (Auto) 0.1 Neut # (Auto) 8300 H Sodium 135 L Potassium 3.2 L Chloride 105 Carbon Dioxide 22 BUN 35 H Creatinine 1.40 H Estimated GFR 49.0 L BUN/Creatinine Ratio 25.0 H Glucose 174 H Calcium 7.7 L Iron TIBC % Saturation Transferrin C. difficile Tox (PCR) Blood Type A Negative Antibody Screen Negative Crossmatch See Detail 05/06/18 Unknown WBC RBC Hgb Hct MCV MCH MCHC RDW Plt Count Neut % (Auto) Lymph % (Auto) [place] % (Auto) Eos % (Auto) Baso % (Auto) Neut # (Auto) Sodium Potassium Chloride Carbon Dioxide BUN Creatinine Estimated GFR BUN/Creatinine Ratio Glucose Calcium Iron TIBC % Saturation Transferrin C. difficile Tox (PCR) Positive for c. diff H Blood Type Antibody Screen Crossmatch Assessment & Plan (1) Blood loss anemia: Problem details: some likely blood loss and some dilutional Will start IV iron and transfuse one unit Current visit: Yes Status: Acute (2) Atrial fibrillation with RVR: Problem details: Coreg on hold for hypotension, Will resume when blood pressure improves Current visit: Yes Status: Acute (3) Hyperlipidemia: Problem details: continue statin Current visit: No Status: Acute (4) Chronic renal failure, stage 2 (mild): Problem details: Improved with hydration Current visit: No Status: Acute (5) Diabetes mellitus: Problem details: continue sliding scale Current visit: No Status: Acute (6) Hypokalemia: Problem details: will replace Current visit: Yes Status: Acute (7) Clostridium difficile colitis: Problem details: start vancomycin 125 mg 4 times daily Current visit: Yes Status: Acute
[2018-05-06] MEDS: VANCOMYCIN 125 MG CAPSULE PO ×3 (15:04→20:49)
--- NOTE | 2018-05-06 15:13 | PT.IPTN ---
Current Diagnoses Enterocolitis due to Clostridium difficile, not specified as recurrent (05/03/18) Iron deficiency anemia secondary to blood loss (chronic) (05/03/18) Type 2 diabetes mellitus without complications (05/03/18) Hyperlipidemia, unspecified (05/03/18) Hypokalemia (05/03/18) Essential (primary) hypertension (05/03/18) Unspecified atrial fibrillation (05/03/18) Other secondary scoliosis, lumbar region (05/03/18) Spondylolisthesis, lumbar region (05/03/18) Other spondylosis with radiculopathy, lumbar region (05/03/18) Spinal stenosis, lumbar region without neurogenic claudication (05/03/18) Chronic kidney disease, stage 2 (mild) (05/03/18) Arthrodesis status (05/03/18) Surgery Performed Operation Date: 05/03/18 07:45 Actual Procedures p L2-3, L5-S1 TLIF; L2-3,L3-4, L4-5, L5-S1 PSF w/ Posterior Instrumentation(Not Applicable) - Sky Harding MD Physical Therapy Treatment Note M2 PT-IP Current Condition Start: 05/03/18 16:29 Freq: NEEDED Status: Active Protocol: Document 05/04/18 11:45 RS (Rec: 05/04/18 12:10 RS [id number]) Physical Therapy Current Condition Current Condition Evaluation Date 05/04/18 Treatment Diagnosis L2-S1 lami-fusion, impaired mobility Onset Date 05/03/18 Precautions Lumbar Precautions Log Roll No Twisting Limit Bending Lifting Restriction of 10 lbs Gait Belt above Incisional Area M3 PT-IP Subjective Start: 05/03/18 16:29 Freq: NEEDED Status: Active Protocol: Document 05/06/18 15:12 SA (Rec: 05/06/18 15:13 SA [id number]) Subjective Physical Therapy Visit Type Type Patient Unavailable Notes Pt currently receiving a unit blood, unable to participate in PT. M4 PT-IP Mobility and Gait Start: 05/03/18 16:29 Freq: NEEDED Status: Active Protocol: Document 05/06/18 12:08 SA (Rec: 05/06/18 12:14 SA [id number]) PT-Bed Mobility Assessment Sit to Supine Sit to Supine Moderate Assistance 2 Person Assistance Scooting Scooting to Edge of Bed Maximum Assistance Scooting Up and Down in Bed Maximum Assistance PT-Transfer Assessment Comments Mobility Comments Continued education for spinal precautions, log roll technique. with Mod A x 2. HR up 133 with bed mobility. M5 PT-IP Objective Assessments Start: 05/03/18 16:29 Freq: NEEDED Status: Active Protocol: Document 05/04/18 11:45 RS (Rec: 05/04/18 12:10 RS [id number]) Orientation Orientation/Cognition Level of Alertness Alert Orientation Name Age Birthday Month Date Year Day of Week Place Situation Language Function Ability No Deficits Noted Safety Awareness Understands Safety Issues Memory Description No Deficits Noted Gross Range of Motion Upper Extremity ROM Assessment Within Functional Limits Lower Extremity ROM Assessment Within Functional Limits Strength Comments Strength Comments not formally assessed in sitting, pt does have bilat anti-gravity intact in supine M6 PT-IP Treatment Start: 05/03/18 16:29 Freq: NEEDED Status: Active Protocol: Document 05/05/18 16:34 SA (Rec: 05/05/18 16:47 SA [id number]) Physical Therapy Treatment Other Treatments Other Treatment Performed Review of spinal precations with mobility. M7 PT-IP Assessment and Plan Start: 05/03/18 16:29 Freq: NEEDED Status: Active Protocol: Document 05/06/18 12:08 SA (Rec: 05/06/18 12:14 SA [id number]) PT Summary Assessment and Plan Summary Assessment Summary present with treatment, understands that pateint is needing increased physical assistance with mobility tasks . Frequency of Treatment Frequency Of Treatment Twice a Day Discharge Recommendations PT Discharge Recommendations SNF Rehab
--- NOTE | 2018-05-06 15:18 | PM.PNPO.1 ---
Subjective Date Patient Seen: 05/06/18 Time Patient Seen: 07:40 Interval history: Patient is POD #3 status post L2-[address] Harding. Patient is lying in bed comfortably in no signs of distress. Patient reports that he feels much better in comparison to yesterday. He reports that his pain is manageable at this time with 10mg oxycodone. Yesterday patient was was diaphoretic, clammy and tachycardic with PT. Patient denies any fever, chills, nausea, vomiting, SOB or chest pain. Exam Vital Signs (past 8 hours): - 05/06/18 07:35 05/06/18 08:32 05/06/18 11:16 Temperature 97.9 F 97.7 F Pulse Rate 92 H 83 105 H Respiratory Rate 18 18 Blood Pressure 95/58 L 95/58 L 83/55 L Pulse Oximetry 93 99 05/06/18 13:48 05/06/18 14:10 Temperature 98.7 F 99.1 F Pulse Rate 117 H 108 H Respiratory Rate 18 16 Blood Pressure 92/73 116/86 Pulse Oximetry Oxygen Delivery Method Room Air Oxygen Flow Rate 0 Narrative Exam Narrative: Patient is AOx3. Patient is in no acute distress. Radial and dorsalis pedis pulses 2+ and symmetric. Adequate strength in dosiflexion, plantarflexion and direct chill casting operator bilaterally. Sensation to light touch intact in LE. Calfs are soft, non tender and compressible bilaterally. Lumbar dressing is slightly intact with no drainage. Abebe intact. Objective Labs Result Diagrams: 05/06/18 17:50 05/06/18 05:10 Labs: Laboratory Results - last 24 hr 05/05/18 05/05/18 05/05/18 16:25 16:25 16:25 WBC 9.8 RBC 2.54 L Hgb 8.9 L Hct 26.5 L MCV 104.5 H MCH 35.0 H MCHC 33.5 RDW 16.4 H Plt Count 159 Neut % (Auto) 79.0 H Lymph % (Auto) 13.7 L [place] % (Auto) 5.8 Eos % (Auto) 1.1 L Baso % (Auto) 0.4 Neut # (Auto) 7800 H Sodium 136 L Potassium 3.5 Chloride 103 Carbon Dioxide 22 BUN 36 H Creatinine 1.30 H Estimated GFR 53.4 L BUN/Creatinine Ratio 27.7 H Glucose 230 H D Calcium 7.8 L Iron 21 L TIBC 270 % Saturation 8 L Transferrin 189 L C. difficile Tox (PCR) Blood Type Antibody Screen Crossmatch 05/06/18 05/06/18 05/06/18 05:10 05:10 12:15 WBC 10.6 RBC 2.27 L Hgb 7.9 L Hct 23.6 L MCV 103.9 H MCH 35.0 H MCHC 33.7 RDW 16.4 H Plt Count 160 Neut % (Auto) 78.7 H Lymph % (Auto) 13.2 L [place] % (Auto) 6.9 Eos % (Auto) 1.1 L Baso % (Auto) 0.1 Neut # (Auto) 8300 H Sodium 135 L Potassium 3.2 L Chloride 105 Carbon Dioxide 22 BUN 35 H Creatinine 1.40 H Estimated GFR 49.0 L BUN/Creatinine Ratio 25.0 H Glucose 174 H Calcium 7.7 L Iron TIBC % Saturation Transferrin C. difficile Tox (PCR) Blood Type A Negative Antibody Screen Negative Crossmatch See Detail 05/06/18 Unknown WBC RBC Hgb Hct MCV MCH MCHC RDW Plt Count Neut % (Auto) Lymph % (Auto) [place] % (Auto) Eos % (Auto) Baso % (Auto) Neut # (Auto) Sodium Potassium Chloride Carbon Dioxide BUN Creatinine Estimated GFR BUN/Creatinine Ratio Glucose Calcium Iron TIBC % Saturation Transferrin C. difficile Tox (PCR) Positive for c. diff H Blood Type Antibody Screen Crossmatch Assessment & Plan Post-op Postoperative Procedures Operation Date: 05/03/18 07:45 Actual Procedures Side Surgeon p L2-3, L5-S1 TLIF; L2-3,L3-4, L4-5, L5-S1 PSF w/ Posterior Instrumentation Not Applicable Sky Harding MD Postoperative day: 3 Postoperative plan: routine post-op care Postoperative plan narrative: Continue mobilizing, ambulating and sitting in chair with PT. Continue pain management. Continue 325mg of aspirin and then transition over to 81mg on 05/08/18. Patient will resume warfarin 5 mg daily. Continue to check blood sugars daily. DC Abebe once more mobile. Hospitalist will continue to follow patient. Discharge likely in next 1-2 days once mobilizing safely and medically stable. Time Spent With Patient less than 15 minutes
[2018-05-06] MEDS: WARFARIN 5 MG TABLET PO (17:11)
[2018-05-06 18:02] LABS: Hematocrit 27.8 % (41-53); Hemoglobin 9.4 g/dL (13.5-17.5)
--- NOTE | 2018-05-06 18:05 | PC.NURSE ---
Addendum entered by Candace Cheng R.N. 05/06/18 21:43: Pt had relatively uneventful evening. H & H after PRBC's = 27.8 7 9.4 Med at 2150 w/percolone and tylliberty; for discomfort. Tele shows a-fib per ICU staff. Call light w/in each, bed alarm on for pt safety. Continue w/plan of care. Original Note: Pt watching TV. PRBC's completed. NS @ 150cc/hr restarted. Tele in place, showing a-fib per ICU staff. Dsg to surgical back CDI. Voiding per urinal. Call light w/in reach, bed alarm on for pt safety.
[2018-05-06] MEDS: SIMVASTATIN 20 MG TABLET PO (20:49)
[2018-05-06] MEDS: ACETAMINOPHEN 325 MG TABLET 650 MG PO (21:52)
[2018-05-07] VITALS (9 sets, daily range): BP systolic 112–136; BP diastolic 47–94; PULSE 88–109; RESP 15–19; TEMP 36.4–36.9; O2SAT 96–99
[2018-05-07] MEDS: KCL 20 MEQ IN NS 1,000 ML 150 MEQ IV ×3 (05:21→20:53)
[2018-05-07] MEDS: OXYCODONE IR 5 MG TABLET 10 MG PO ×3 (05:22→20:57)
[2018-05-07 07:16] LABS: Basophils Percent Auto 0.3 % (0-2); Hematocrit 29.5 % (41-53); Hemoglobin 9.4 g/dL (13.5-17.5); Lymphocytes Percent Auto 16.4 % (25-40); Mean Corpuscular Hemoglobin 34.3 PG (26-34); Mean Corpuscular Volume 107.2 fL (80-100); Monocytes Percent Auto 10.2 % (3-14); Neutrophils Absolute Auto 4900 /uL (3000-5900); Neutrophils Percent Auto 69.1 % (50-75); Platelet Count 187 X10^3/uL (150-400); Red Blood Cell Count 2.75 X10^6/uL (4.5-5.9); Red Cell Distribution Width 17.2 % (11.6-14.8); White Blood Cell Count 7.1 X10^3/uL (4.5-11.0)
[2018-05-07 07:20] LABS: Add Manual Diff / Slide Review SLIDE REVIEW
[2018-05-07 07:26] LABS: Blood Urea Nitrogen 33 mg/dL (9-20); Calcium 7.9 mg/dL (8.4-10.2); Carbon Dioxide 17 mmol/L (22-32); Chloride 109 mmol/L (98-107); Estimated Glomerular Filt Rate > 60.0 mL/min (>60); Glucose 159 mg/dL (80-110); HEMOLYSIS < 15 (0-50); Potassium 3.7 mmol/L (3.4-5.1); Sodium 136 mmol/L (137-145)
[2018-05-07 08:02] LABS: Macrocytosis 2+
[2018-05-07 08:03] LABS: Anisocytosis 1+
[2018-05-07] MEDS: GABAPENTIN 300 MG CAPSULE PO ×3 (10:07→20:54)
[2018-05-07] MEDS: VANCOMYCIN 125 MG CAPSULE PO ×4 (10:08→20:55)
[2018-05-07] MEDS: ASPIRIN 325 MG TABLET PO (10:08)
[2018-05-07] MEDS: ALLOPURINOL 300 MG TABLET PO (10:08)
[2018-05-07] MEDS: POTASSIUM CHLORIDE 20 MEQ TAB PO (10:08)
[2018-05-07] MEDS: INSULIN ASPART 100 UNIT/ML INSULN PEN SUBCUT ×4 (10:09→20:53)
--- NOTE | 2018-05-07 10:09 | P.PN_ITS ---
Subjective Date Patient Seen: 05/07/18 Time Patient Seen: 10:02 Interval history: Pain mild. No fever chills. No nausea vomiting. No shortness of breath or chest pain. Patient has limited mobility secondary to bilateral lower extremity weakness. Otherwise without complaints. Exam Vital Signs (past 8 hours): - 05/07/18 04:22 05/07/18 07:25 Temperature 97.9 F 98.5 F Pulse Rate 101 H 108 H Respiratory Rate 19 16 Blood Pressure 136/78 132/77 Pulse Oximetry 97 96 Oxygen Delivery Method CPAP Oxygen Flow Rate 0 Narrative Exam Narrative: Sitting comfortably in bedside chair. Patient no apparent distress. Lumbar dressing is clean, dry and intact. Good strength with dorsiflexion and plantar flexion bilaterally. Sensation grossly intact to light touch bilateral lower extremities. Objective Labs Result Diagrams: 05/07/18 06:35 05/07/18 06:35 Labs: Laboratory Results - last 24 hr 05/06/18 05/06/18 05/06/18 12:15 17:50 Unknown WBC RBC Hgb 9.4 L Hct 27.8 L MCV MCH MCHC RDW Plt Count Neut % (Auto) Lymph % (Auto) [place] % (Auto) Eos % (Auto) Baso % (Auto) Neut # (Auto) RBC Morphology Anisocytosis Macrocytosis Sodium Potassium Chloride Carbon Dioxide BUN Creatinine Estimated GFR BUN/Creatinine Ratio Glucose Calcium C. difficile Tox (PCR) Positive for c. diff H Blood Type A Negative Antibody Screen Negative Crossmatch See Detail 05/07/18 05/07/18 06:35 06:35 WBC 7.1 RBC 2.75 L Hgb 9.4 L Hct 29.5 L MCV 107.2 H D MCH 34.3 H MCHC 32.0 RDW 17.2 H Plt Count 187 Neut % (Auto) 69.1 Lymph % (Auto) 16.4 L [place] % (Auto) 10.2 Eos % (Auto) 4.0 Baso % (Auto) 0.3 Neut # (Auto) 4900 RBC Morphology See below Anisocytosis 1+ H Macrocytosis 2+ H Sodium 136 L Potassium 3.7 Chloride 109 H Carbon Dioxide 17 L BUN 33 H Creatinine 1.10 Estimated GFR > 60.0 BUN/Creatinine Ratio 30.0 H Glucose 159 H Calcium 7.9 L C. difficile Tox (PCR) Blood Type Antibody Screen Crossmatch Assessment & Plan Post-op Postoperative Procedures Operation Date: 05/03/18 07:45 Actual Procedures Side Surgeon p L2-3, L5-S1 TLIF; L2-3,L3-4, L4-5, L5-S1 PSF w/ Posterior Instrumentation Not Applicable Sky Harding MD Postop day 4: Status post: 1. L4-5, L5-S1 Transforamenal interbody fusion with posterolateral fusion 2. L4-5, L5-S1 interbody cage placement. 3. L2-3, L3-4 decompressive laminectomies with partial facetecomies 4. L2-3, L3-4 posterolateral fusion 5. L2-3, L3-4, L4-5, L5-S1 posterior segmental instrumentation with pedicle screws placement in L2, L3, L4, L5, S1 Had the patient is we treated with aspirin 325 mg for 3 days and then transition to aspirin 81 mg. Patient has resumed warfarin 5 mg daily. Mobilize with physical therapy. Limit bending, twisting, lifting. Patient continues to have bilateral lower extremity weakness and progressing slowly. Hospitalist was consulted May 04, 2018 to manage patient's low blood pressure. Patient has history of atrial fibrillation, diabetes type 2. Patient found to be hypotensive likely due to severe dehydration. Patient also found to have blood loss anemia and was transfused 1 unit May 06, 2018. Patient also developed diarrhea and found to have Clostridium difficile colitis. Patient was started on vancomycin 125 mg 4 times daily. Likely discharge to care home facility in the next 1-2 days when stable per Medicine.
--- NOTE | 2018-05-07 11:05 | PT.IPTN ---
Current Diagnoses Enterocolitis due to Clostridium difficile, not specified as recurrent (05/03/18) Iron deficiency anemia secondary to blood loss (chronic) (05/03/18) Type 2 diabetes mellitus without complications (05/03/18) Hyperlipidemia, unspecified (05/03/18) Hypokalemia (05/03/18) Essential (primary) hypertension (05/03/18) Unspecified atrial fibrillation (05/03/18) Other secondary scoliosis, lumbar region (05/03/18) Spondylolisthesis, lumbar region (05/03/18) Other spondylosis with radiculopathy, lumbar region (05/03/18) Spinal stenosis, lumbar region without neurogenic claudication (05/03/18) Chronic kidney disease, stage 2 (mild) (05/03/18) Arthrodesis status (05/03/18) Surgery Performed Operation Date: 05/03/18 07:45 Actual Procedures p L2-3, L5-S1 TLIF; L2-3,L3-4, L4-5, L5-S1 PSF w/ Posterior Instrumentation(Not Applicable) - Sky Harding MD Physical Therapy Treatment Note M2 PT-IP Current Condition Start: 05/03/18 16:29 Freq: NEEDED Status: Active Protocol: Document 05/04/18 11:45 RS (Rec: 05/04/18 12:10 RS [id number]) Physical Therapy Current Condition Current Condition Evaluation Date 05/04/18 Treatment Diagnosis L2-S1 lami-fusion, impaired mobility Onset Date 05/03/18 Precautions Lumbar Precautions Log Roll No Twisting Limit Bending Lifting Restriction of 10 lbs Gait Belt above Incisional Area M3 PT-IP Subjective Start: 05/03/18 16:29 Freq: NEEDED Status: Active Protocol: Document 05/07/18 11:05 GGD (Rec: 05/07/18 11:53 GGD [id number]) Subjective Physical Therapy Visit Type Type Treatment Note Visit Start Time 10:45 Visit Stop Time 11:05 Total Visit Minutes 20 Number of POCKET ASSEMBLER Visits 5 Physical Therapy Visit Comments Patient Comments Pt states he needs to use the bathroom. Therapy Pain Assessment Pain When Pain Assessed During Mobility Pain Present Pain Present Pain Reported M4 PT-IP Mobility and Gait Start: 05/03/18 16:29 Freq: NEEDED Status: Active Protocol: Document 05/07/18 11:05 GGD (Rec: 05/07/18 11:53 GGD [id number]) PT-Transfer Assessment Sit to and From Stand Sit to and from Stand Maximum Assistance 1 Person Assistance Use of Upper Extremities Equipment Transfer Assistive Device Gait Belt Front Wheeled Walker Orthotic/Prosthetic Devices or Brace: No Transfers Transfer Destination Chair Toilet Transfer Ability Level of Assist Minimal Assistance Gait Assessment Gait Gait Assistance Required: Minimum Assistance Distance (Feet) 20 Able to Maintain Weight Bearing Status Yes During Gait Assistive Devices Assistive Device Front Wheeled Walker Orthotic/Prosthetic Devices or Brace: No Gait Deviations General Gait Pattern Decreased Stride Length Decreased Feet Clearance Flexed Trunk Factors Limiting Gait Function Factors Limiting Gait Function Decreased Activity Tolerance Decreased Strength Pain Poor Balance Comments Gait Comments HR increased to 160 with activity. M5 PT-IP Objective Assessments Start: 05/03/18 16:29 Freq: NEEDED Status: Active Protocol: Document 05/04/18 11:45 RS (Rec: 05/04/18 12:10 RS [id number]) Orientation Orientation/Cognition Level of Alertness Alert Orientation Name Age Birthday Month Date Year Day of Week Place Situation Language Function Ability No Deficits Noted Safety Awareness Understands Safety Issues Memory Description No Deficits Noted Gross Range of Motion Upper Extremity ROM Assessment Within Functional Limits Lower Extremity ROM Assessment Within Functional Limits Strength Comments Strength Comments not formally assessed in sitting, pt does have bilat anti-gravity intact in supine M6 PT-IP Treatment Start: 05/03/18 16:29 Freq: NEEDED Status: Active Protocol: Document 05/05/18 16:34 SA (Rec: 05/05/18 16:47 SA [id number]) Physical Therapy Treatment Other Treatments Other Treatment Performed Review of spinal precations with mobility. M7 PT-IP Assessment and Plan Start: 05/03/18 16:29 Freq: NEEDED Status: Active Protocol: Document 05/07/18 11:05 GGD (Rec: 05/07/18 11:53 GGD [id number]) PT Summary Assessment and Plan Summary Assessment Summary Pt needed mod cues for sit to stand and Mod A. He had increase in HR with gait into bathroom. pt's activity tolerance limited by HR. Goals Bed Mobility Goal Minimal Assistance Transfer Goal Minimal Assistance Front Wheeled Walker Gait Goal Minimal Assistance Front Wheel Walker Gait Distance 30 Days to Meet Goals 3 Frequency of Treatment Frequency Of Treatment Twice a Day Treatment Plan Other Recommendations and Next Treatment Progress bed mobility and gait Focus with monitoring HR. Discharge Recommendations PT Discharge Recommendations SNF Rehab
--- NOTE | 2018-05-07 11:44 | PC.NURSE ---
Je has so far only had one stool today. Daily Sanjeev dose held. Continues on C.diff contact precautions. This AM he had two episodes of tachycardia with HR to 160s. Per [facility], tele shows intermittent A-Fib. BP at each time stable, 130s/60s, and pt. is asymptomatic. Dr. Cohen aware; he plans to Rx a rate control med. Je is taking Percolone for back pain. He states he has some numbness R foot but attributes this to his diabetic neuropathy. Able to get up and move about using walker. Low back drsg. clean/dry/intact. Je has a stage 1 decub to his upper gluteal fold, worse on R side. Duoderm applied to that area. Advised to keep on L side or R side when in bed rather than flat on back, a position which he prefers. 2+ pitting edema to LEs present. Je's brought in JAN hose from home and those were applied. His H/H are up from yesterday.
--- NOTE | 2018-05-07 11:53 | OT.IP.TRT ---
Current Diagnoses Enterocolitis due to Clostridium difficile, not specified as recurrent (05/03/18) Iron deficiency anemia secondary to blood loss (chronic) (05/03/18) Type 2 diabetes mellitus without complications (05/03/18) Hyperlipidemia, unspecified (05/03/18) Hypokalemia (05/03/18) Essential (primary) hypertension (05/03/18) Unspecified atrial fibrillation (05/03/18) Other secondary scoliosis, lumbar region (05/03/18) Spondylolisthesis, lumbar region (05/03/18) Other spondylosis with radiculopathy, lumbar region (05/03/18) Spinal stenosis, lumbar region without neurogenic claudication (05/03/18) Chronic kidney disease, stage 2 (mild) (05/03/18) Arthrodesis status (05/03/18) Surgery Performed Operation Date: 05/03/18 07:45 Actual Procedures p L2-3, L5-S1 TLIF; L2-3,L3-4, L4-5, L5-S1 PSF w/ Posterior Instrumentation(Not Applicable) - Sky Harding MD Occupational Therapy Treatment Note M2 OT-IP Current Condition Start: 05/04/18 14:07 Freq: Status: Active Protocol: Document 05/04/18 13:53 PJM (Rec: 05/04/18 14:35 PJM [id number]) Occupational Therapy Current Condition Current Condition Evaluation Date 05/04/18 Treatment Diagnosis decreased self care and functional mobility s/p L2-S1 fusion Post Operative Precautions Lumbar Precautions Log Roll No Twisting Limit Bending Lifting Restriction of 10 lbs Gait Belt above Incisional Area M3 OT- IP Subjective and Pain Start: 05/04/18 14:07 Freq: Status: Active Protocol: Document 05/07/18 11:53 PJM (Rec: 05/07/18 12:10 PJM [id number]) OT- Subjective Occupational Therapy Visit Type Type Treatment Note Visit Start Time 11:29 Visit Stop Time 11:53 Notes Pt now has dx of C Diff in contact precautions. HR high again during P.T. ambulation to bathroom so pt seen seated in chair this session Occupational Therapy Visit Comments Patient/Caregiver Goals to go home when stronger OT Pain Assessment Pain When Pain Assessed After Treatment Pain Present Pain Present Pain Reported Location Back Intensity 2 Description Aching Acute M4 OT- IP ADL's Start: 05/04/18 14:07 Freq: Status: Active Protocol: Document 05/07/18 11:53 PJM (Rec: 05/07/18 12:10 PJM [id number]) OT ADL-Dressing General Eval Lower Body Dressing Ability Total Assistance Areas Needing Assistance Socks Shoes Comments OT Dressing Comments Trial use of wide sock aid with pt's own compression socks from home. Even wide sock aid is too narrow for pt. brought in sock slipper device which was also too narrow for pt use due to wide foot. Fused ankles also make donning socks difficult due to lack of flexibility. Provided education re: stocking nelda which is available on line as a third option for pt to try if they choose to purchase it. Pt's slippers too tight to fit over compression hose. Tennis shoes fit well, but require total assist to tie. states she can assist PRN OT ADL-Toileting Comments OT Toileting Comments Pt reports he stood to urinate in bathroom with P.T. earlier this AM M6 OT- IP Functional Cognition Start: 05/04/18 14:07 Freq: Status: Active Protocol: Document 05/06/18 11:50 PJM (Rec: 05/06/18 13:35 PJM [id number]) Cognitive Factors Limiting Selfcare Function Cognitive Ability Level of Alertness Alert Attention Span Ability Capable of Focused Attention Ability to Follow Commands Able to Follow One Step Commands Safety Awareness Decreased Recall of Precautions Decreased Ability to Apply Precautions Underestimates Need for Assistance Problem Solving Ability Needs Assist to Identify Solutions Cognitive Comments Cognitive Assessment Comments Pt needs mod verbal cues to apply lumbar spine precautions during lower body dressing and to problem solve adaptive equipt use. Affect brighter M9 OT- IP Assessment and Plan Start: 05/04/18 14:07 Freq: Status: Active Protocol: Document 05/07/18 11:53 PJM (Rec: 05/07/18 12:10 PJM [id number]) OT Summary Assessment and Plan Potential Rehabilitation Potential Good Summary Progress Towards Goals Slow Progress due to Medical Issues Assessment Summary Pt's activity tolerance continues to be limited by medical issues including elevated HR with activity today and new dx of C-Diff. Pt 's very large wide feet and B ankle fusions make donning compression hose challenging even with adaptive equipment. Pt may decide to purchase stocking nelda for trial use . states she can assist pt at home with compression hose and tying shoes if needed . Will continue plan of care to increase activity tolerance and independence in basic self care as medical status permits. Goals Grooming Goal Standby Assistance Dressing Goal Standby Assistance Long Handled Shoe [place] [employer] Specialist Sock Aid Toileting Goal Independent Bathing Goal Minimal Assistance Grab Bars Long Handled Sponge or Kite Toilet Transfer Goal Standby Assistance Shower Transfer Goal Standby Assistance Walk-in Shower Grab Bars Patient/Caregiver Education Goal Demonstrate Post-Op Precautions Demonstrate Energy Conservation and Pacing Caregiver Independent Assisting Patient OT-Other Goals Grooming to be done standing with good body mechanics and no loss of balance Days to Meet Goals 5 Frequency of Treatment Frequency Of Treatment Once a Day Treatment Plan OT Treatment Plan ADL Training Functional Mobility Patient/Family Education Discharge Planning Discharge Recommendations OT Discharge Recommendations [facility] Rehab
--- NOTE | 2018-05-07 12:59 | P.PN_ITS ---
Subjective Date Patient Seen: 05/07/18 Time Patient Seen: 12:54 Interval history: He has been moderately tachycardic today, without any particular obvious pathology causing that. He is moderately anemic with a hemoglobin of 9.4. There are no overt signs of sepsis, ongoing GI bleed, severe dehydration, pulmonary embolus, etc. The hemoglobin has risen from 7.9, up to 9.4 with the 2 units of packed red blood cells. His diarrhea from the C diff is continuing, making that the most likely cause of the mild tachycardia. A discharge to [facility] is pending. Exam Vital Signs (past 8 hours): - 05/07/18 07:25 Temperature 98.5 F Pulse Rate 108 H Respiratory Rate 16 Blood Pressure 132/77 Pulse Oximetry 96 Oxygen Delivery Method CPAP Oxygen Flow Rate 0 Narrative Exam Narrative: Heart is irregularly tachycardic. Lungs are clear to auscultation bilaterally. Abdomen is soft, nontender, no organomegaly. Extremities have no ankle edema. Objective Labs Result Diagrams: 05/07/18 06:35 05/07/18 06:35 Labs: Laboratory Results - last 24 hr 05/06/18 05/06/18 05/07/18 12:15 17:50 06:35 WBC 7.1 RBC 2.75 L Hgb 9.4 L 9.4 L Hct 27.8 L 29.5 L MCV 107.2 H D MCH 34.3 H MCHC 32.0 RDW 17.2 H Plt Count 187 Neut % (Auto) 69.1 Lymph % (Auto) 16.4 L [place] % (Auto) 10.2 Eos % (Auto) 4.0 Baso % (Auto) 0.3 Neut # (Auto) 4900 RBC Morphology See below Anisocytosis 1+ H Macrocytosis 2+ H Sodium Potassium Chloride Carbon Dioxide BUN Creatinine Estimated GFR BUN/Creatinine Ratio Glucose Calcium Blood Type A Negative Antibody Screen Negative Crossmatch See Detail 05/07/18 06:35 WBC RBC Hgb Hct MCV MCH MCHC RDW Plt Count Neut % (Auto) Lymph % (Auto) [place] % (Auto) Eos % (Auto) Baso % (Auto) Neut # (Auto) RBC Morphology Anisocytosis Macrocytosis Sodium 136 L Potassium 3.7 Chloride 109 H Carbon Dioxide 17 L BUN 33 H Creatinine 1.10 Estimated GFR > 60.0 BUN/Creatinine Ratio 30.0 H Glucose 159 H Calcium 7.9 L Blood Type Antibody Screen Crossmatch Assessment & Plan (1) Clostridium difficile colitis: Problem details: Continue vancomycin 125 mg 4 times daily Current visit: Yes Status: Acute (2) Blood loss anemia: Problem details: some likely blood loss and some dilutional Will repeat CBC tomorrow. Current visit: Yes Status: Acute (3) Atrial fibrillation with RVR: Problem details: Coreg on hold for hypotension, Will resume with metoprolol today and perhaps back to Coreg tomorrow. Bolus with 500 mL IV normal saline today. Current visit: Yes Status: Acute (4) S/P lumbar fusion: Problem details: Per surgery Current visit: Yes Status: Acute (5) Afib: Problem details: This is chronic and no further intervention other than rate control is planned Qualifiers: Atrial fibrillation type: unspecified Qualified Code(s): I48.91 - Unspecified atrial fibrillation Current visit: No Status: Acute (6) Hypokalemia: Problem details: will continue to monitor, normal level of 3.7 today. Current visit: Yes Status: Acute
[2018-05-07] MEDS: METOPROLOL IR 25 MG TABLET PO ×2 (13:07→21:15)
[2018-05-07] MEDS: SODIUM CHLORIDE 0.9% 500 ML 1000 ML IV (13:07)
--- NOTE | 2018-05-07 15:12 | CM.DPC ---
Addendum entered by MARIO Brown 05/07/18 16:58: Charley w/ [facility]: Tall bed in place for pt at [facility]. Need to update pt and spouse. Original Note: DCP Cont: Met w/pt and spouse today to review DCP; Both agree [facility]ight will likely be needed upon DC but pt continues to be hopeful he might DC home. Spouse disagrees and feels pt will need [facility] Dwight d/t the amount of assistance needed for transfers. Both request this CONTROL VALVE TECHNICIAN f/u w/ [facility] Dwight to request a taller bed. Pt had stayed at [facility] in the past and bed was uncomfortable because it was too small. TC to Charley at [facility], explained above. She will f/u w/ maintenance dept and get back to this CONTROL VALVE TECHNICIAN. She also is updated that pt could be medically stable over the next 24-48 hrs. [facility] Dw[facility] ready to accept over the w/e if pt is DC. P: [facility] Dwight via cabulance if taller bed available. PASSR completed. MARIO Brown
--- NOTE | 2018-05-07 15:34 | PT.IPTN ---
Addendum entered and electronically signed by Zuly Salazar PT 05/07/18 18:24: This is to certify that I have reviewed this documentation and POC. Original Note: Current Diagnoses Enterocolitis due to Clostridium difficile, not specified as recurrent (05/03/18) Iron deficiency anemia secondary to blood loss (chronic) (05/03/18) Type 2 diabetes mellitus without complications (05/03/18) Hyperlipidemia, unspecified (05/03/18) Hypokalemia (05/03/18) Essential (primary) hypertension (05/03/18) Unspecified atrial fibrillation (05/03/18) Other secondary scoliosis, lumbar region (05/03/18) Spondylolisthesis, lumbar region (05/03/18) Other spondylosis with radiculopathy, lumbar region (05/03/18) Spinal stenosis, lumbar region without neurogenic claudication (05/03/18) Chronic kidney disease, stage 2 (mild) (05/03/18) Arthrodesis status (05/03/18) Surgery Performed Operation Date: 05/03/18 07:45 Actual Procedures p L2-3, L5-S1 TLIF; L2-3,L3-4, L4-5, L5-S1 PSF w/ Posterior Instrumentation(Not Applicable) - Sky Harding MD Physical Therapy Treatment Note M2 PT-IP Current Condition Start: 05/03/18 16:29 Freq: NEEDED Status: Active Protocol: Document 05/04/18 11:45 RS (Rec: 05/04/18 12:10 RS [id number]) Physical Therapy Current Condition Current Condition Evaluation Date 05/04/18 Treatment Diagnosis L2-S1 lami-fusion, impaired mobility Onset Date 05/03/18 Precautions Lumbar Precautions Log Roll No Twisting Limit Bending Lifting Restriction of 10 lbs Gait Belt above Incisional Area M3 PT-IP Subjective Start: 05/03/18 16:29 Freq: NEEDED Status: Active Protocol: Document 05/07/18 15:34 (Rec: 05/07/18 16:04 [id number]) Subjective Physical Therapy Visit Type Type Treatment Note Visit Start Time 14:42 Visit Stop Time 15:15 Total Visit Minutes 33 Number of VISITOR USE ASSISTANT Visits 0 Physical Therapy Visit Comments Patient Comments Pt agreeable to mobilize with PT. Therapy Pain Assessment Pain When Pain Assessed At Rest Pain Present Pain Present Pain Reported Location Back Scale Used 3-10/20 Pain Management Techniques Timing of Activity with Medications M4 PT-IP Mobility and Gait Start: 05/03/18 16:29 Freq: NEEDED Status: Active Protocol: Document 05/07/18 15:34 (Rec: 05/07/18 16:04 [id number]) PT-Bed Mobility Assessment Rolling Type of Rolling Log Rolling Roll to Left Level of Assist Minimal Assistance Supine to Sit Supine to Sit Moderate Assistance Scooting Scooting to Edge of Bed Contact Guard Assistance PT-Transfer Assessment Sit to and From Stand Sit to and from Stand Maximum Assistance 2 Person Assistance Use of Upper Extremities Equipment Transfer Assistive Device Gait Belt Front Wheeled Walker Orthotic/Prosthetic Devices or Brace: No Transfers Transfer Destination Chair Bedside Commode Transfer Technique Stand Step Pivot Transfer Ability Level of Assist Moderate Assistance 2 Person Assistance Use of Upper Extremities Comments Mobility Comments BP monitored on R forearm and WNL resting and with position changes and mobility this session. HR resting 90-102, 02 94% and drops to 88% when pt speaking. Cued for deep breathing and returns to 94%. Supine > sit is performed log rolling Elliott X1 for rolling, and modAX1 to sit EOB with pt needing cues to assist with UE . Sit <> stand from raised bed modA X1. Sit <> stand from low chair is maxAx2 with max cues needed for hand placement and body alignment. Post transfer, HR ranges 110-135. O2 drops to 88% but returns to low 90s with cues for deep breathing. Pt requests to use toilet. Nurse aware of O2 and HR changes with mobility. Gait Assessment Gait Gait Assistance Required: Moderate Assistance 2 Person Assist Distance (Feet) 3 Able to Maintain Weight Bearing Status Yes During Gait Assistive Devices Assistive Device Gait Belt Front Wheeled Walker Orthotic/Prosthetic Devices or Brace: No Gait Deviations General Gait Pattern Decreased Stride Length Decreased Feet Clearance Flexed Trunk Factors Limiting Gait Function Factors Limiting Gait Function Decreased Activity Tolerance Decreased Strength Limited Range of Motion Pain Poor Balance Poor Safety Awareness Respiratory Distress Comments Gait Comments BP 115/66, HR 90-100 and o2 100% prior to ambulation 3 ft Elliott x1 with fww from chair to bsc. Pt left on bsc with call light in reach and told to call the nurse when he is ready to return to bed. He verbalized understanding and agreed. Nurse aware pt on bsc . M5 PT-IP Objective Assessments Start: 05/03/18 16:29 Freq: NEEDED Status: Active Protocol: Document 05/04/18 11:45 RS (Rec: 05/04/18 12:10 RS [id number]) Orientation Orientation/Cognition Level of Alertness Alert Orientation Name Age Birthday Month Date Year Day of Week Place Situation Language Function Ability No Deficits Noted Safety Awareness Understands Safety Issues Memory Description No Deficits Noted Gross Range of Motion Upper Extremity ROM Assessment Within Functional Limits Lower Extremity ROM Assessment Within Functional Limits Strength Comments Strength Comments not formally assessed in sitting, pt does have bilat anti-gravity intact in supine M6 PT-IP Treatment Start: 05/03/18 16:29 Freq: NEEDED Status: Active Protocol: Document 05/07/18 15:34 (Rec: 05/07/18 18:22 [id number]) Physical Therapy Treatment Education Education Provided Precautions Safety M7 PT-IP Assessment and Plan Start: 05/03/18 16:29 Freq: NEEDED Status: Active Protocol: Document 05/07/18 15:34 (Rec: 05/07/18 16:04 [id number]) PT Summary Assessment and Plan Potential Rehabilitation Potential Good Summary Impairments Pain ROM Strength Balance Cognition Bed Mobility Transfers Gait Activity Tolerance Progress Towards Goals Slow Progress due to Medical Issues Slow Progress due to Activity Tolerance Assessment Summary Pt needing maxAx2 for sit <> stand and modAX2 for 3 ft. ambulation. HR increasing disproportionately and o2 decreasing to 88% with mobility. Continue to recommend d/c to SNF Goals Bed Mobility Goal Minimal Assistance Transfer Goal Minimal Assistance Front Wheeled Walker Gait Goal Minimal Assistance Front Wheel Walker Gait Distance 30 Days to Meet Goals 3 Frequency of Treatment Frequency Of Treatment Twice a Day Treatment Plan Physical Therapy Treatment Plan Bed Mobility Training Transfer Training Gait Training Therapeutic Exercise Balance Retraining Post Op Education Discharge Planning Hot or Cold Pack Neuromuscular Re-ed Coordination Retraining Other Recommendations and Next Treatment Progress bed mobility and gait Focus with monitoring HR. Recommendations To Nursing Amount of Assist Needed 2 Person Assist Discharge Recommendations PT Discharge Recommendations SNF Rehab
[2018-05-07] MEDS: WARFARIN 5 MG TABLET PO (17:29)
[2018-05-07] MEDS: SIMVASTATIN 20 MG TABLET PO (20:55)
[2018-05-08] VITALS (8 sets, daily range): BP systolic 102–146; BP diastolic 49–92; PULSE 83–114; RESP 16–21; TEMP 36.5–37.7; O2SAT 97–99
[2018-05-08] MEDS: OXYCODONE IR 5 MG TABLET 10 MG PO ×3 (00:02→22:13)
[2018-05-08] MEDS: KCL 20 MEQ IN NS 1,000 ML 150 MEQ IV ×2 (02:49→09:47)
[2018-05-08 05:57] LABS: Add Manual Diff / Slide Review NO; Basophils Percent Auto 0.5 % (0-2); Eosinophils Percent Auto 5.4 % (2-4); Hematocrit 26.8 % (41-53); Lymphocytes Percent Auto 24.1 % (25-40); Mean Corpuscular HGB Conc 33.5 % (30-36); Mean Corpuscular Hemoglobin 34.7 PG (26-34); Mean Corpuscular Volume 103.7 fL (80-100); Monocytes Percent Auto 9.4 % (3-14); Neutrophils Absolute Auto 3600 /uL (3000-5900); Neutrophils Percent Auto 60.6 % (50-75); Platelet Count 201 X10^3/uL (150-400); Red Blood Cell Count 2.58 X10^6/uL (4.5-5.9); Red Cell Distribution Width 16.9 % (11.6-14.8); White Blood Cell Count 5.9 X10^3/uL (4.5-11.0)
[2018-05-08 06:03] LABS: BUN Creatinine Ratio 24.4 (6-22); Blood Urea Nitrogen 22 mg/dL (9-20); Calcium 7.8 mg/dL (8.4-10.2); Carbon Dioxide 21 mmol/L (22-32); Chloride 107 mmol/L (98-107); Estimated Glomerular Filt Rate > 60.0 mL/min (>60); Glucose 165 mg/dL (80-110); HEMOLYSIS < 15 (0-50); Potassium 3.4 mmol/L (3.4-5.1); Sodium 135 mmol/L (137-145)
[2018-05-08] MEDS: GABAPENTIN 300 MG CAPSULE PO ×3 (08:30→20:46)
[2018-05-08] MEDS: ASPIRIN 325 MG TABLET PO (08:30)
[2018-05-08] MEDS: ALLOPURINOL 300 MG TABLET PO (08:31)
[2018-05-08] MEDS: VANCOMYCIN 125 MG CAPSULE PO ×4 (08:31→20:47)
[2018-05-08] MEDS: METOPROLOL IR 25 MG TABLET PO ×2 (08:32→20:47)
[2018-05-08] MEDS: POTASSIUM CHLORIDE 20 MEQ TAB PO (08:39)
[2018-05-08] MEDS: INSULIN ASPART 100 UNIT/ML INSULN PEN SUBCUT ×4 (08:42→20:48)
--- NOTE | 2018-05-08 10:20 | PT.IPTN ---
Current Diagnoses Enterocolitis due to Clostridium difficile, not specified as recurrent (05/03/18) Iron deficiency anemia secondary to blood loss (chronic) (05/03/18) Type 2 diabetes mellitus without complications (05/03/18) Hyperlipidemia, unspecified (05/03/18) Hypokalemia (05/03/18) Essential (primary) hypertension (05/03/18) Unspecified atrial fibrillation (05/03/18) Other secondary scoliosis, lumbar region (05/03/18) Spondylolisthesis, lumbar region (05/03/18) Other spondylosis with radiculopathy, lumbar region (05/03/18) Spinal stenosis, lumbar region without neurogenic claudication (05/03/18) Chronic kidney disease, stage 2 (mild) (05/03/18) Arthrodesis status (05/03/18) Surgery Performed Operation Date: 05/03/18 07:45 Actual Procedures p L2-3, L5-S1 TLIF; L2-3,L3-4, L4-5, L5-S1 PSF w/ Posterior Instrumentation(Not Applicable) - Sky Harding MD Physical Therapy Treatment Note M2 PT-IP Current Condition Start: 05/03/18 16:29 Freq: NEEDED Status: Active Protocol: Document 05/08/18 10:20 RCC (Rec: 05/08/18 10:44 [facility] [id number]) Physical Therapy Current Condition Current Condition Evaluation Date 05/04/18 Treatment Diagnosis L2-S1 lami-fusion, impaired mobility Onset Date 05/03/18 Precautions Lumbar Precautions Log Roll No Twisting Limit Bending Lifting Restriction of 10 lbs Gait Belt above Incisional Area M3 PT-IP Subjective Start: 05/03/18 16:29 Freq: NEEDED Status: Active Protocol: Document 05/08/18 10:20 RCC (Rec: 05/08/18 10:44 [facility] [id number]) Subjective Physical Therapy Visit Type Type Treatment Note Visit Start Time 10:11 Visit Stop Time 10:20 Total Visit Minutes 9 Notes pt sitting on toilet, SENIOR QUANTITY SURVEYOR requested assistance with back to chair ( wanting to hold PT treatment this a.m. due to high BP). Number of MACHINE CHAIN MAKER Visits 0 Physical Therapy Visit Comments Patient Comments Pt reports that he is doing okay today. M4 PT-IP Mobility and Gait Start: 05/03/18 16:29 Freq: NEEDED Status: Active Protocol: Document 05/08/18 10:20 RCC (Rec: 05/08/18 10:44 RCC [id number]) PT-Transfer Assessment Sit to and From Stand Sit to and from Stand Minimal Assistance Use of Upper Extremities Equipment Transfer Assistive Device Gait Belt Front Wheeled Walker Transfers Transfer Destination Chair Transfer Technique Stand Step Pivot Transfer Ability Level of Assist Contact Guard Assistance Comments Mobility Comments toilet to chair. Gait Assessment Gait Gait Assistance Required: Contact Guard Assist Distance (Feet) 5 Assistive Devices Assistive Device Gait Belt Front Wheeled Walker Gait Deviations General Gait Pattern Antalgic Decreased Stride Length Decreased Feet Clearance Flexed Trunk Wide Based Gait Factors Limiting Gait Function Factors Limiting Gait Function Decreased Activity Tolerance Decreased Strength Poor Balance M5 PT-IP Objective Assessments Start: 05/03/18 16:29 Freq: NEEDED Status: Active Protocol: Document 05/04/18 11:45 RS (Rec: 05/04/18 12:10 RS [id number]) Orientation Orientation/Cognition Level of Alertness Alert Orientation Name Age Birthday Month Date Year Day of Week Place Situation Language Function Ability No Deficits Noted Safety Awareness Understands Safety Issues Memory Description No Deficits Noted Gross Range of Motion Upper Extremity ROM Assessment Within Functional Limits Lower Extremity ROM Assessment Within Functional Limits Strength Comments Strength Comments not formally assessed in sitting, pt does have bilat anti-gravity intact in supine M6 PT-IP Treatment Start: 05/03/18 16:29 Freq: NEEDED Status: Active Protocol: Document 05/07/18 15:34 (Rec: 05/07/18 18:22 [id number]) Physical Therapy Treatment Education Education Provided Precautions Safety M7 PT-IP Assessment and Plan Start: 05/03/18 16:29 Freq: NEEDED Status: Active Protocol: Document 05/08/18 10:20 RCC (Rec: 05/08/18 10:44 RCC [id number]) PT Summary Assessment and Plan Summary Progress Towards Goals Slow Progress due to Medical Issues Slow Progress due to Activity Tolerance Assessment Summary Pt with HR up to 170 bpm with short gait from BR. He is not safe to ambulate further this a.m. with PT, and per MD will hold PT until HR in more safe range. Pt is at risk for falls , demonstrates impaired gait tolerance and standing posture . He is not safe to return home at this point. Goals Bed Mobility Goal Minimal Assistance Transfer Goal Minimal Assistance Front Wheeled Walker Gait Goal Minimal Assistance Front Wheel Walker Gait Distance 30 Days to Meet Goals 3 Frequency of Treatment Frequency Of Treatment Twice a Day Treatment Plan Other Recommendations and Next Treatment gait and bed mobility/log roll Focus when safe/cleared by medical Recommendations To Nursing Amount of Assist Needed 2 Person Assist Discharge Recommendations PT Discharge Recommendations SNF Rehab
--- NOTE | 2018-05-08 10:48 | P.PN_ITS ---
Subjective Date Patient Seen: 05/08/18 Time Patient Seen: 10:42 Interval history: Patient is postop day 5 status post lumbar fusion by Dr. Harding. Has had issues with blood pressure control, postoperative anemia and C difficile infection. History of AFib on warfarin and diabetes mellitus. His medical issues are being followed by the hospitalist. He has a discharge pending to [facility] but would rather go home if possible. States he is feeling better this morning. He is able to ambulate to restroom as needed. Exam Vital Signs (past 8 hours): - 05/08/18 05:57 05/08/18 08:18 Temperature 98.8 F 97.7 F Pulse Rate 96 H 114 H Respiratory Rate 20 20 Blood Pressure 102/49 L 127/68 Pulse Oximetry 97 99 Oxygen Delivery Method CPAP Oxygen Flow Rate 0 Narrative Exam Narrative: Patient sitting in chair. Alert and orient x3. Back dressing clean dry and intact. 5/5 BLE strength. Neurovascular status intact. Bilateral calf soft and nontender. Afebrile. Objective Labs Result Diagrams: 05/08/18 05:05 05/08/18 05:05 Labs: Laboratory Results - last 24 hr 05/08/18 05/08/18 05:05 05:05 WBC 5.9 RBC 2.58 L Hgb 9.0 L Hct 26.8 L MCV 103.7 H D MCH 34.7 H MCHC 33.5 RDW 16.9 H Plt Count 201 Neut % (Auto) 60.6 Lymph % (Auto) 24.1 L [place] % (Auto) 9.4 Eos % (Auto) 5.4 H Baso % (Auto) 0.5 Neut # (Auto) 3600 Sodium 135 L Potassium 3.4 Chloride 107 Carbon Dioxide 21 L BUN 22 H Creatinine 0.90 Estimated GFR > 60.0 BUN/Creatinine Ratio 24.4 H Glucose 165 H Calcium 7.8 L Assessment & Plan Post-op Postoperative Procedures Operation Date: 05/03/18 07:45 Actual Procedures Side Surgeon p L2-3, L5-S1 TLIF; L2-3,L3-4, L4-5, L5-S1 PSF w/ Posterior Instrumentation Not Applicable Sky Harding MD Postop day 5. Blood pressure and diabetes mellitus being managed by the hospitalist. Patient is back on his warfarin 5 mg daily for AFib. He is receiving vancomycin 125 mg 4 times daily for Clostridium difficile colitis. Received 1 unit of PRBCs on 05/06 for postoperative anemia. Patient to ambulate with physical therapy. Restrictions on bending lifting and twisting. Possible discharge home in the next few days if cleared by hospital service.
--- NOTE | 2018-05-08 11:01 | PM.PN.1 ---
Subjective Interval history: PATIENT HAS SOME FATIGUE INCREASED SOMNOLENCE. THERE IS DIARRHEA NO ONGOING NAUSEA. NURSE REPORTS ONGOING PROBLEMS WITH HIS ATRIAL FIBRILLATION WITH RAPID VENTRICULAR RESPONSE. PATIENT DENIES CHEST PAIN Exam Vital Signs (past 8 hours): - 05/08/18 05:57 05/08/18 08:18 Temperature 98.8 F 97.7 F Pulse Rate 96 H 114 H Respiratory Rate 20 20 Blood Pressure 102/49 L 127/68 Pulse Oximetry 97 99 Oxygen Delivery Method CPAP Oxygen Flow Rate 0 Narrative Exam Narrative: GENERAL: NAD WITH CPAP IN PLACE HEENT NORMOCEPHALIC ATRAUMATIC EXTRAOCULAR MOVEMENT WAS INTACT PUPILS ARE EQUAL ROUND REACTIVE FUNDI WERE NOT VISUALIZED. OROPHARYNX WAS CLEAR NECK WAS SUPPLE WITHOUT THYROMEGALY BRUITS OR JUGULAR VENOUS DISTENSION PULMONARY CLEAR TO AUSCULTATION CARDIOVASCULAR IRREGULARLY IRREGULAR RAPID RHYTHM ABDOMEN ROTUND BENIGN BOWEL SOUNDS ACTIVE EXTREMITIES NO CLUBBING EDEMA OR CYANOSIS NEUROLOGIC GROSSLY PHYSIOLOGIC PSYCHIATRIC MOOD NORMAL Objective Labs Result Diagrams: 05/08/18 05:05 05/08/18 05:05 Labs: Laboratory Results - last 24 hr 05/08/18 05/08/18 05:05 05:05 WBC 5.9 RBC 2.58 L Hgb 9.0 L Hct 26.8 L MCV 103.7 H D MCH 34.7 H MCHC 33.5 RDW 16.9 H Plt Count 201 Neut % (Auto) 60.6 Lymph % (Auto) 24.1 L [place] % (Auto) 9.4 Eos % (Auto) 5.4 H Baso % (Auto) 0.5 Neut # (Auto) 3600 Sodium 135 L Potassium 3.4 Chloride 107 Carbon Dioxide 21 L BUN 22 H Creatinine 0.90 Estimated GFR > 60.0 BUN/Creatinine Ratio 24.4 H Glucose 165 H Calcium 7.8 L Assessment & Plan Plan: Assessment/Plan Narrative: 1. POD 5 -L4-5, L5-S1 Transforamenal interbody fusion with posterolateral fusion -L4-5, L5-S1 interbody cage placement. -L2-3, L3-4 decompressive laminectomies with partial facetecomies -L2-3, L3-4 posterolateral fusion -L2-3, L3-4, L4-5, L5-S1 posterior segmental instrumentation with pedicle screws placement in L2, L3, L4, L5, S1 -Birney of bone marrow from iliac crest -Utilization of microsurgical technique and operating microscope 2. ATRIAL FIBRILLATION WITH RAPID VENTRICULAR RESPONSE THIS IS POORLY CONTROLLED WITH HIS METOPROLOL. WILL ADD DIGOXIN TO HIS TREATMENT 3. ANTICOAGULATION WITH WARFARIN HIS INR IS THERAPEUTIC. LAST INR WAS 2.1 ON 09/07/2017 PT INR IN A.M. 4. C DIFF . HE IS ON VANCOMYCIN 125 MG P.O. Q.I.D.. DAY 2. OF THERAPY 5. POSTOP ANEMIA/ACUTE BLOOD LOSS ANEMIA HIS HEMOGLOBIN DROPPED FROM 9.4-7.9. HE WAS TRANSFUSED WITH 2 UNITS OF PACKED RBCS AND HIS H&H HAS REMAINED STABLE SINCE. HEMOGLOBIN TODAY IS 9.0 6. OBSTRUCTIVE SLEEP APNEA PATIENT USES CPAP AT HS DISPOSITION HE IS FOR DISCHARGE TO [facility] FOR SNF WHEN MEDICALLY STABLE
[2018-05-08] MEDS: DOXYCYCLINE HYCLATE 100 MG TABLET PO (11:44)
[2018-05-08] MEDS: DIGOXIN 500 MCG/2 ML AMPUL IV (12:19)
--- NOTE | 2018-05-08 14:00 | PT.IPTN ---
Current Diagnoses Enterocolitis due to Clostridium difficile, not specified as recurrent (05/03/18) Iron deficiency anemia secondary to blood loss (chronic) (05/03/18) Type 2 diabetes mellitus without complications (05/03/18) Hyperlipidemia, unspecified (05/03/18) Hypokalemia (05/03/18) Essential (primary) hypertension (05/03/18) Unspecified atrial fibrillation (05/03/18) Other secondary scoliosis, lumbar region (05/03/18) Spondylolisthesis, lumbar region (05/03/18) Other spondylosis with radiculopathy, lumbar region (05/03/18) Spinal stenosis, lumbar region without neurogenic claudication (05/03/18) Chronic kidney disease, stage 2 (mild) (05/03/18) Arthrodesis status (05/03/18) Surgery Performed Operation Date: 05/03/18 07:45 Actual Procedures p L2-3, L5-S1 TLIF; L2-3,L3-4, L4-5, L5-S1 PSF w/ Posterior Instrumentation(Not Applicable) - Sky Harding MD Physical Therapy Treatment Note M2 PT-IP Current Condition Start: 05/03/18 16:29 Freq: NEEDED Status: Active Protocol: Document 05/08/18 10:20 RCC (Rec: 05/08/18 10:44 RCC [id number]) Physical Therapy Current Condition Current Condition Evaluation Date 05/04/18 Treatment Diagnosis L2-S1 lami-fusion, impaired mobility Onset Date 05/03/18 Precautions Lumbar Precautions Log Roll No Twisting Limit Bending Lifting Restriction of 10 lbs Gait Belt above Incisional Area M3 PT-IP Subjective Start: 05/03/18 16:29 Freq: NEEDED Status: Active Protocol: Document 05/08/18 14:00 GGD (Rec: 05/08/18 14:52 GGD [id number]) Subjective Physical Therapy Visit Type Type Treatment Note Visit Start Time 13:45 Visit Stop Time 14:00 Total Visit Minutes 15 Number of OIL AND GAS SPECIALIST Visits 1 Physical Therapy Visit Comments Patient Comments pt states he would like to go back to bed. M4 PT-IP Mobility and Gait Start: 05/03/18 16:29 Freq: NEEDED Status: Active Protocol: Document 05/08/18 14:00 GGD (Rec: 05/08/18 14:52 GGD [id number]) PT-Bed Mobility Assessment Sit to Supine Sit to Supine Moderate Assistance 1 Person Assistance 2 Person Assistance Bedrails Scooting Scooting Up and Down in Bed Dependent PT-Transfer Assessment Sit to and From Stand Sit to and from Stand Minimal Assistance Use of Upper Extremities Equipment Transfer Assistive Device Gait Belt Front Wheeled Walker Transfers Transfer Destination Bed Toilet Transfer Ability Level of Assist Contact Guard Assistance Gait Assessment Gait Gait Assistance Required: Contact Guard Assist Distance (Feet) 10 Assistive Devices Assistive Device Gait Belt Front Wheeled Walker Gait Deviations General Gait Pattern Antalgic Decreased Stride Length Decreased Feet Clearance Flexed Trunk Wide Based Gait Factors Limiting Gait Function Factors Limiting Gait Function Decreased Activity Tolerance Decreased Strength Poor Balance M5 PT-IP Objective Assessments Start: 05/03/18 16:29 Freq: NEEDED Status: Active Protocol: Document 05/04/18 11:45 RS (Rec: 05/04/18 12:10 RS [id number]) Orientation Orientation/Cognition Level of Alertness Alert Orientation Name Age Birthday Month Date Year Day of Week Place Situation Language Function Ability No Deficits Noted Safety Awareness Understands Safety Issues Memory Description No Deficits Noted Gross Range of Motion Upper Extremity ROM Assessment Within Functional Limits Lower Extremity ROM Assessment Within Functional Limits Strength Comments Strength Comments not formally assessed in sitting, pt does have bilat anti-gravity intact in supine M6 PT-IP Treatment Start: 05/03/18 16:29 Freq: NEEDED Status: Active Protocol: Document 05/07/18 15:34 (Rec: 05/07/18 18:22 [id number]) Physical Therapy Treatment Education Education Provided Precautions Safety M7 PT-IP Assessment and Plan Start: 05/03/18 16:29 Freq: NEEDED Status: Active Protocol: Document 05/08/18 14:00 GGD (Rec: 05/08/18 14:52 GGD [id number]) PT Summary Assessment and Plan Summary Assessment Summary Pt was mod a for bed mobility. He needed less assist for sit to stand from higher chair. His HR did increase in to the 130's. He is not safe for further mobility due to HR and needs mod A for bed mobility. He would benifit from SNF rehab before returning home. Frequency of Treatment Frequency Of Treatment Twice a Day Recommendations To Nursing Amount of Assist Needed 2 Person Assist Discharge Recommendations PT Discharge Recommendations SNF Rehab
--- NOTE | 2018-05-08 15:33 | OT.IP.TRT ---
Current Diagnoses Enterocolitis due to Clostridium difficile, not specified as recurrent (05/03/18) Iron deficiency anemia secondary to blood loss (chronic) (05/03/18) Type 2 diabetes mellitus without complications (05/03/18) Hyperlipidemia, unspecified (05/03/18) Hypokalemia (05/03/18) Essential (primary) hypertension (05/03/18) Unspecified atrial fibrillation (05/03/18) Other secondary scoliosis, lumbar region (05/03/18) Spondylolisthesis, lumbar region (05/03/18) Other spondylosis with radiculopathy, lumbar region (05/03/18) Spinal stenosis, lumbar region without neurogenic claudication (05/03/18) Chronic kidney disease, stage 2 (mild) (05/03/18) Arthrodesis status (05/03/18) Surgery Performed Operation Date: 05/03/18 07:45 Actual Procedures p L2-3, L5-S1 TLIF; L2-3,L3-4, L4-5, L5-S1 PSF w/ Posterior Instrumentation(Not Applicable) - Sky Harding MD Occupational Therapy Treatment Note M2 OT-IP Current Condition Start: 05/04/18 14:07 Freq: Status: Active Protocol: Document 05/04/18 13:53 PJM (Rec: 05/04/18 14:35 PJM [id number]) Occupational Therapy Current Condition Current Condition Evaluation Date 05/04/18 Treatment Diagnosis decreased self care and functional mobility s/p L2-S1 fusion Post Operative Precautions Lumbar Precautions Log Roll No Twisting Limit Bending Lifting Restriction of 10 lbs Gait Belt above Incisional Area M3 OT- IP Subjective and Pain Start: 05/04/18 14:07 Freq: Status: Active Protocol: Document 05/08/18 15:32 CCC (Rec: 05/08/18 15:32 CCC [id number]) OT- Subjective Occupational Therapy Visit Type Type Patient Refusal Notes Attempted to see pt for OT treatment, pt states too tired and wanting to rest.
[2018-05-08] MEDS: WARFARIN 5 MG TABLET PO (16:50)
[2018-05-08] MEDS: DIGOXIN 500 MCG/2 ML AMPUL 250 MCG IV ×2 (18:45→23:49)
[2018-05-08] MEDS: DOCUSATE 100 MG CAPSULE PO (20:46)
[2018-05-08] MEDS: SIMVASTATIN 20 MG TABLET PO (20:47)
[2018-05-08] MEDS: SENNOSIDES 8.6 MG TABLET 17.2 MG PO (20:47)
[2018-05-09 05:10] VITALS: BP 135/89; PULSE 109; RESP 16; TEMP 37.2; O2SAT 98
[2018-05-09] MEDS: ACETAMINOPHEN 325 MG TABLET 650 MG PO ×2 (05:10→12:08)
[2018-05-09] MEDS: KCL 20 MEQ IN NS 1,000 ML 150 MEQ IV ×2 (05:10→11:39)
[2018-05-09 05:45] LABS: INR 1.7 (0.9-1.3); Prothrombin Time 18.4 SECONDS (10.1-12.7)
[2018-05-09 05:51] LABS: Add Manual Diff / Slide Review NO; Basophils Percent Auto 0.4 % (0-2); Eosinophils Percent Auto 2.9 % (2-4); Hematocrit 26.1 % (41-53); Hemoglobin 8.7 g/dL (13.5-17.5); Lymphocytes Percent Auto 18.4 % (25-40); Mean Corpuscular HGB Conc 33.4 % (30-36); Mean Corpuscular Hemoglobin 34.7 PG (26-34); Monocytes Percent Auto 11.7 % (3-14); Neutrophils Absolute Auto 3800 /uL (3000-5900); Neutrophils Percent Auto 66.6 % (50-75); Platelet Count 200 X10^3/uL (150-400); Red Blood Cell Count 2.51 X10^6/uL (4.5-5.9); Red Cell Distribution Width 16.5 % (11.6-14.8); White Blood Cell Count 5.7 X10^3/uL (4.5-11.0)
[2018-05-09 05:55] LABS: Alanine Aminotransferase 50 IU/L (21-72); Albumin 2.7 g/dL (3.5-5.0); Alkaline Phosphatase 77 U/L (38-126); Aspartate Aminotransferase 58 IU/L (17-59); Bilirubin Total 0.8 mg/dL (0.2-1.3); Blood Urea Nitrogen 16 mg/dL (9-20); Calcium 7.8 mg/dL (8.4-10.2); Carbon Dioxide 18 mmol/L (22-32); Chloride 109 mmol/L (98-107); Estimated Glomerular Filt Rate > 60.0 mL/min (>60); Globulin 2.8 g/dL (1.7-4.1); Glucose 191 mg/dL (80-110); HEMOLYSIS < 15 (0-50); Potassium 3.9 mmol/L (3.4-5.1); Sodium 136 mmol/L (137-145); Total Protein 5.5 g/dL (6.3-8.2)
--- NOTE | 2018-05-09 07:44 | P.PN_ITS ---
Subjective Interval history: Interval history: Patient is postop day 6 status post lumbar fusion by Dr. Harding. Has had issues with blood pressure control, postoperative anemia and C difficile infection. History of AFib on warfarin and diabetes mellitus. His medical issues are being followed by the hospitalist. He has a discharge pending to [facility] but would rather go home if possible. He is able to ambulate to restroom as needed. Does state he still had a little bit more diarrhea today. Patient's somewhat concerned about his blood levels. Hemoglobin this morning is 8.7 slightly down from 9 yesterday Exam Vital Signs (past 8 hours): - 05/08/18 23:45 05/08/18 23:49 05/09/18 05:10 Temperature 99.7 F H 99.0 F Pulse Rate 99 H 99 H 109 H Respiratory Rate 16 16 Blood Pressure 134/73 134/73 135/89 Pulse Oximetry 97 98 Oxygen Delivery Method Room Air Oxygen Flow Rate 0 Narrative Exam Narrative: Alert and oriented male in no acute distress sitting up at bedside. Breathing unlabored on room air. Lumbar dressings clean dry and intact. Neurovascular intact. Demonstrates dorsiflexion plantar flexion of bilateral lower extremities. Sensation grossly intact to light touch. Objective Labs Result Diagrams: 05/09/18 05:01 05/09/18 05:01 Labs: Laboratory Results - last 24 hr 05/09/18 05/09/18 05/09/18 05:01 05:01 05:01 WBC 5.7 RBC 2.51 L Hgb 8.7 L Hct 26.1 L MCV 104.0 H MCH 34.7 H MCHC 33.4 RDW 16.5 H Plt Count 200 Neut % (Auto) 66.6 Lymph % (Auto) 18.4 L [place] % (Auto) 11.7 Eos % (Auto) 2.9 Baso % (Auto) 0.4 Neut # (Auto) 3800 PT 18.4 H INR 1.7 H Sodium 136 L Potassium 3.9 Chloride 109 H Carbon Dioxide 18 L BUN 16 Creatinine 0.80 Estimated GFR > 60.0 BUN/Creatinine Ratio 20.0 Glucose 191 H Calcium 7.8 L Total Bilirubin 0.8 AST 58 ALT 50 Alkaline Phosphatase 77 Total Protein 5.5 L Albumin 2.7 L Globulin 2.8 Albumin/Globulin Ratio 1.0 Assessment & Plan Post-op Postoperative Procedures Operation Date: 05/03/18 07:45 Actual Procedures Side Surgeon p L2-3, L5-S1 TLIF; L2-3,L3-4, L4-5, L5-S1 PSF w/ Posterior Instrumentation Not Applicable Sky Harding MD Postop day 6. Blood pressure and diabetes mellitus being managed by the hospitalist. Patient is back on his warfarin 5 mg daily for AFib. He is receiving vancomycin 125 mg 4 times daily for Clostridium difficile colitis. Received PRBCs on 05/06 for postoperative anemia. Patient to ambulate with physical therapy. Restrictions on bending lifting and twisting. Possible discharge home in the next few days if cleared by hospital service, but sounds like patient has not mobilized much over the weekend due to some issues with his heart. Given the scenario I would anticipate a SNF discharge more likely than home Quality VTE Deep Vein Thrombosis/Pulmonary Embolism Present on Admission: No
[2018-05-09 07:45] VITALS: BP 129/66; PULSE 87; RESP 19; TEMP 36.9; O2SAT 93
[2018-05-09 08:38] LABS: Hemoglobin A1C% w Est Avg Glu 6.1 % (4.0-6.0)
[2018-05-09] MEDS: ALLOPURINOL 300 MG TABLET PO (09:32)
[2018-05-09] MEDS: ASPIRIN 325 MG TABLET PO (09:32)
[2018-05-09] MEDS: METOPROLOL IR 25 MG TABLET PO ×2 (09:32→20:54)
[2018-05-09] MEDS: INSULIN ASPART 100 UNIT/ML INSULN PEN SUBCUT ×4 (09:32→20:56)
[2018-05-09] MEDS: GABAPENTIN 300 MG CAPSULE PO ×3 (09:32→20:53)
[2018-05-09] MEDS: VANCOMYCIN 125 MG CAPSULE PO ×4 (09:33→20:54)
[2018-05-09] MEDS: POTASSIUM CHLORIDE 20 MEQ TAB PO (09:33)
--- NOTE | 2018-05-09 09:40 | PT.IPTN ---
Current Diagnoses Enterocolitis due to Clostridium difficile, not specified as recurrent (05/03/18) Iron deficiency anemia secondary to blood loss (chronic) (05/03/18) Type 2 diabetes mellitus without complications (05/03/18) Hyperlipidemia, unspecified (05/03/18) Hypokalemia (05/03/18) Essential (primary) hypertension (05/03/18) Unspecified atrial fibrillation (05/03/18) Other secondary scoliosis, lumbar region (05/03/18) Spondylolisthesis, lumbar region (05/03/18) Other spondylosis with radiculopathy, lumbar region (05/03/18) Spinal stenosis, lumbar region without neurogenic claudication (05/03/18) Chronic kidney disease, stage 2 (mild) (05/03/18) Arthrodesis status (05/03/18) Surgery Performed Operation Date: 05/03/18 07:45 Actual Procedures p L2-3, L5-S1 TLIF; L2-3,L3-4, L4-5, L5-S1 PSF w/ Posterior Instrumentation(Not Applicable) - Sky Harding MD Physical Therapy Treatment Note M2 PT-IP Current Condition Start: 05/03/18 16:29 Freq: NEEDED Status: Active Protocol: Document 05/09/18 09:40 RCC (Rec: 05/09/18 10:40 RCC [id number]) Physical Therapy Current Condition Current Condition Evaluation Date 05/04/18 Treatment Diagnosis L2-S1 lami-fusion, impaired mobility Onset Date 05/03/18 Precautions Lumbar Precautions Log Roll No Twisting Limit Bending Lifting Restriction of 10 lbs Gait Belt above Incisional Area M3 PT-IP Subjective Start: 05/03/18 16:29 Freq: NEEDED Status: Active Protocol: Document 05/09/18 09:40 RCC (Rec: 05/09/18 10:40 RCC [id number]) Subjective Physical Therapy Visit Type Type Treatment Note Visit Start Time 09:13 Visit Stop Time 09:40 Total Visit Minutes 27 Number of CORRESPONDENCE REVIEW CLERK Visits 0 Physical Therapy Visit Comments Patient Comments pt states that he is doing okay, he did not sleep well. M4 PT-IP Mobility and Gait Start: 05/03/18 16:29 Freq: NEEDED Status: Active Protocol: Document 05/09/18 09:40 RCC (Rec: 05/09/18 10:40 RCC [id number]) PT-Bed Mobility Assessment Supine to Sit Supine to Sit Moderate Assistance 2 Person Assistance PT-Transfer Assessment Sit to and From Stand Sit to and from Stand Moderate Assistance 2 Person Assistance Use of Upper Extremities Equipment Transfer Assistive Device Gait Belt Front Wheeled Walker Transfers Transfer Destination Chair Bedside Commode Transfer Technique Stand Step Pivot Transfer Ability Level of Assist Minimal Assistance 1 Person Assistance Gait Assessment Gait Gait Assistance Required: Contact Guard Assist Distance (Feet) 5 Assistive Devices Assistive Device Gait Belt Front Wheeled Walker Gait Deviations General Gait Pattern Antalgic Decreased Stride Length Decreased Feet Clearance Flexed Trunk Wide Based Gait Factors Limiting Gait Function Factors Limiting Gait Function Decreased Activity Tolerance Decreased Strength Pain M5 PT-IP Objective Assessments Start: 05/03/18 16:29 Freq: NEEDED Status: Active Protocol: Document 05/04/18 11:45 RS (Rec: 05/04/18 12:10 RS [id number]) Orientation Orientation/Cognition Level of Alertness Alert Orientation Name Age Birthday Month Date Year Day of Week Place Situation Language Function Ability No Deficits Noted Safety Awareness Understands Safety Issues Memory Description No Deficits Noted Gross Range of Motion Upper Extremity ROM Assessment Within Functional Limits Lower Extremity ROM Assessment Within Functional Limits Strength Comments Strength Comments not formally assessed in sitting, pt does have bilat anti-gravity intact in supine M6 PT-IP Treatment Start: 05/03/18 16:29 Freq: NEEDED Status: Active Protocol: Document 05/07/18 15:34 (Rec: 05/07/18 18:22 [id number]) Physical Therapy Treatment Education Education Provided Precautions Safety M7 PT-IP Assessment and Plan Start: 05/03/18 16:29 Freq: NEEDED Status: Active Protocol: Document 05/09/18 09:40 [facility] (Rec: 05/09/18 10:40 [facility] [id number]) PT Summary Assessment and Plan Summary Assessment Summary Pt limited to short gait in room this a.m. He tolerated mobility well, no c/o SOB but does require 1-2 assistance to mobilize. At this time pt is not appropriate to return home given the burden of care is too high for the pt's to manage. Pt is a good candidate for SNF rehabilitation. Goals Bed Mobility Goal Minimal Assistance Transfer Goal Minimal Assistance Front Wheeled Walker Gait Goal Minimal Assistance Front Wheel Walker Gait Distance 30 Days to Meet Goals 3 Frequency of Treatment Frequency Of Treatment Twice a Day Treatment Plan Other Recommendations and Next Treatment short gait in room, monitor HR Focus Recommendations To Nursing Amount of Assist Needed 2 Person Assist Discharge Recommendations PT Discharge Recommendations SNF Rehab
--- NOTE | 2018-05-09 11:35 | PM.PN.1 ---
Subjective Date Patient Seen: 05/09/18 Time Patient Seen: 11:38 Interval history: He is seen in his room here today to follow-up the medical problems of Clostridium difficile colitis, atrial fibrillation, type 2 diabetes mellitus, postoperative anemia, sleep apnea. The INR is up to 1.7. The hemoglobin has dropped from 9.0-8.7. His heart rate is 109. He has been getting blood sugar checks that are consistently high. At home he was on metformin and glyburide and his renal function is improved to the point where metformin can be restarted. The diarrhea has slowed down, with a none overnight and his 1st episode today waiting until mid morning. Exam Vital Signs (past 8 hours): - 05/09/18 05:10 05/09/18 07:45 Temperature 99.0 F 98.4 F Pulse Rate 109 H 87 Respiratory Rate 16 19 Blood Pressure 135/89 129/66 Pulse Oximetry 98 93 Oxygen Delivery Method Room Air Oxygen Flow Rate 0 Narrative Exam Narrative: Heart is regular rate and rhythm without murmur. Lungs are clear to auscultation bilaterally. Abdomen is soft, mildly tender, no organomegaly. Extremities have no ankle edema. He is alert and oriented x3. Objective Labs Result Diagrams: 05/09/18 05:01 05/09/18 05:01 Labs: Laboratory Results - last 24 hr 05/09/18 05/09/18 05/09/18 05:01 05:01 05:01 WBC 5.7 RBC 2.51 L Hgb 8.7 L Hct 26.1 L MCV 104.0 H MCH 34.7 H MCHC 33.4 RDW 16.5 H Plt Count 200 Neut % (Auto) 66.6 Lymph % (Auto) 18.4 L [place] % (Auto) 11.7 Eos % (Auto) 2.9 Baso % (Auto) 0.4 Neut # (Auto) 3800 PT 18.4 H INR 1.7 H Sodium 136 L Potassium 3.9 Chloride 109 H Carbon Dioxide 18 L BUN 16 Creatinine 0.80 Estimated GFR > 60.0 BUN/Creatinine Ratio 20.0 Glucose 191 H Hemoglobin A1c Calcium 7.8 L Total Bilirubin 0.8 AST 58 ALT 50 Alkaline Phosphatase 77 Total Protein 5.5 L Albumin 2.7 L Globulin 2.8 Albumin/Globulin Ratio 1.0 05/09/18 05:01 WBC RBC Hgb Hct MCV MCH MCHC RDW Plt Count Neut % (Auto) Lymph % (Auto) [place] % (Auto) Eos % (Auto) Baso % (Auto) Neut # (Auto) PT INR Sodium Potassium Chloride Carbon Dioxide BUN Creatinine Estimated GFR BUN/Creatinine Ratio Glucose Hemoglobin A1c 6.1 H Calcium Total Bilirubin AST ALT Alkaline Phosphatase Total Protein Albumin Globulin Albumin/Globulin Ratio Assessment & Plan Plan: Assessment/Plan Narrative: 1. POD 5 -L4-5, L5-S1 Transforamenal interbody fusion with posterolateral fusion -L4-5, L5-S1 interbody cage placement. -L2-3, L3-4 decompressive laminectomies with partial facetecomies -L2-3, L3-4 posterolateral fusion -L2-3, L3-4, L4-5, L5-S1 posterior segmental instrumentation with pedicle screws placement in L2, L3, L4, L5, S1 -[place] of bone marrow from iliac crest 2. ATRIAL FIBRILLATION WITH RAPID VENTRICULAR RESPONSE THIS seems to have improved with rate control now on metoprolol and DIGOXIN. 3. ANTICOAGULATION WITH WARFARIN HIS INR IS low at 1.7. Will continue current dose of Coumadin. PT INR IN A.M. 4. C DIFF . HE IS ON VANCOMYCIN 125 MG P.O. Q.I.D.. DAY 5/14 OF THERAPY 5. POSTOP ANEMIA/ACUTE BLOOD LOSS ANEMIA HIS HEMOGLOBIN DROPPED FROM 9.4-7.9. HE WAS TRANSFUSED WITH 2 UNITS OF PACKED RBCS AND HIS H&H HAS REMAINED STABLE SINCE. HEMOGLOBIN TODAY IS 8.7. 6. OBSTRUCTIVE SLEEP APNEA PATIENT USES CPAP AT HS 7. Type 2 Diabetes Mellitus Begin back on Metformin now. DISPOSITION HE IS planning FOR DISCHARGE TO [facility] FOR SNF rehab WHEN MEDICALLY STABLE Nino Cohen MD Quality VTE Deep Vein Thrombosis/Pulmonary Embolism Present on Admission: No
--- NOTE | 2018-05-09 11:38 | P.PN_ITS ---
Subjective Date Patient Seen: 05/09/18 Time Patient Seen: 11:38 Interval history: He is seen in his room here today to follow-up the medical problems of Clostridium difficile colitis, atrial fibrillation, type 2 diabetes mellitus, postoperative anemia, sleep apnea. The INR is up to 1.7. The hemoglobin has dropped from 9.0-8.7. His heart rate is 109. He has been getting blood sugar checks that are consistently high. At home he was on metformin and glyburide and his renal function is improved to the point where metformin can be restarted. The diarrhea has slowed down, with a none overnight and his 1st episode today waiting until mid morning. Exam Vital Signs (past 8 hours): - 05/09/18 05:10 05/09/18 07:45 Temperature 99.0 F 98.4 F Pulse Rate 109 H 87 Respiratory Rate 16 19 Blood Pressure 135/89 129/66 Pulse Oximetry 98 93 Oxygen Delivery Method Room Air Oxygen Flow Rate 0 Narrative Exam Narrative: Heart is regular rate and rhythm without murmur. Lungs are clear to auscultation bilaterally. Abdomen is soft, mildly tender, no organomegaly. Extremities have no ankle edema. He is alert and oriented x3. Objective Labs Result Diagrams: 05/09/18 05:01 05/09/18 05:01 Labs: Laboratory Results - last 24 hr 05/09/18 05/09/18 05/09/18 05:01 05:01 05:01 WBC 5.7 RBC 2.51 L Hgb 8.7 L Hct 26.1 L MCV 104.0 H MCH 34.7 H MCHC 33.4 RDW 16.5 H Plt Count 200 Neut % (Auto) 66.6 Lymph % (Auto) 18.4 L [place] % (Auto) 11.7 Eos % (Auto) 2.9 Baso % (Auto) 0.4 Neut # (Auto) 3800 PT 18.4 H INR 1.7 H Sodium 136 L Potassium 3.9 Chloride 109 H Carbon Dioxide 18 L BUN 16 Creatinine 0.80 Estimated GFR > 60.0 BUN/Creatinine Ratio 20.0 Glucose 191 H Hemoglobin A1c Calcium 7.8 L Total Bilirubin 0.8 AST 58 ALT 50 Alkaline Phosphatase 77 Total Protein 5.5 L Albumin 2.7 L Globulin 2.8 Albumin/Globulin Ratio 1.0 05/09/18 05:01 WBC RBC Hgb Hct MCV MCH MCHC RDW Plt Count Neut % (Auto) Lymph % (Auto) [place] % (Auto) Eos % (Auto) Baso % (Auto) Neut # (Auto) PT INR Sodium Potassium Chloride Carbon Dioxide BUN Creatinine Estimated GFR BUN/Creatinine Ratio Glucose Hemoglobin A1c 6.1 H Calcium Total Bilirubin AST ALT Alkaline Phosphatase Total Protein Albumin Globulin Albumin/Globulin Ratio Assessment & Plan Plan: Assessment/Plan Narrative: 1. POD 5 -L4-5, L5-S1 Transforamenal interbody fusion with posterolateral fusion -L4-5, L5-S1 interbody cage placement. -L2-3, L3-4 decompressive laminectomies with partial facetecomies -L2-3, L3-4 posterolateral fusion -L2-3, L3-4, L4-5, L5-S1 posterior segmental instrumentation with pedicle screws placement in L2, L3, L4, L5, S1 -[place] of bone marrow from iliac crest 2. ATRIAL FIBRILLATION WITH RAPID VENTRICULAR RESPONSE THIS seems to have improved with rate control now on metoprolol and DIGOXIN. 3. ANTICOAGULATION WITH WARFARIN HIS INR IS low at 1.7. Will continue current dose of Coumadin. PT INR IN A.M. 4. C DIFF . HE IS ON VANCOMYCIN 125 MG P.O. Q.I.D.. DAY 5/14 OF THERAPY 5. POSTOP ANEMIA/ACUTE BLOOD LOSS ANEMIA HIS HEMOGLOBIN DROPPED FROM 9.4-7.9. HE WAS TRANSFUSED WITH 2 UNITS OF PACKED RBCS AND HIS H&H HAS REMAINED STABLE SINCE. HEMOGLOBIN TODAY IS 8.7. 6. OBSTRUCTIVE SLEEP APNEA PATIENT USES CPAP AT HS 7. Type 2 Diabetes Mellitus Begin back on Metformin now. DISPOSITION HE IS planning FOR DISCHARGE TO [facility] FOR SNF rehab WHEN MEDICALLY STABLE Nino Cohen MD Quality VTE Deep Vein Thrombosis/Pulmonary Embolism Present on Admission: No
[2018-05-09 12:00] VITALS: BP 123/55; PULSE 97; RESP 18; TEMP 36.6; O2SAT 100
--- NOTE | 2018-05-09 12:52 | CM.DPC ---
DCP Cont: Updated Charley at [facility]; no DC planned for today but it's possible pt will be medically stable Thursday. Charley appreciative and will await an update Thursday. DARVIN
[2018-05-09] MEDS: OXYCODONE IR 5 MG TABLET 10 MG PO (13:35)
[2018-05-09] MEDS: FUROSEMIDE 40 MG/4 ML VIAL IV (13:36)
--- NOTE | 2018-05-09 14:18 | PC.NURSE ---
Shift: During AM assessment while Physical Therapy stood pt to transfer to bedside commode, assessed Stage I pressure ulcer and found it to have progressed to a Stage II pressure ulcer. Notified Coordinator and took photos with camera for chart. There is also skin breakdown on back presumably from surgical tape that was also photographed. During subsequent transfer from bedside chair back to bed, Stage II ulcer on R buttock and wound next to surgical bandage was dressed with alevyn dressing. Pt states that he does not turn in bed because it is painful. Pt educated that prolonged sitting and laying in bed will increase the likely long of pressure ulcer worsening, he acknowledged this and said he understood. After discussion, pt refused to turn for remainder of shift.
--- NOTE | 2018-05-09 15:11 | PT.IPTN ---
Current Diagnoses Enterocolitis due to Clostridium difficile, not specified as recurrent (05/03/18) Iron deficiency anemia secondary to blood loss (chronic) (05/03/18) Type 2 diabetes mellitus without complications (05/03/18) Hyperlipidemia, unspecified (05/03/18) Hypokalemia (05/03/18) Essential (primary) hypertension (05/03/18) Unspecified atrial fibrillation (05/03/18) Other secondary scoliosis, lumbar region (05/03/18) Spondylolisthesis, lumbar region (05/03/18) Other spondylosis with radiculopathy, lumbar region (05/03/18) Spinal stenosis, lumbar region without neurogenic claudication (05/03/18) Chronic kidney disease, stage 2 (mild) (05/03/18) Arthrodesis status (05/03/18) Surgery Performed Operation Date: 05/03/18 07:45 Actual Procedures p L2-3, L5-S1 TLIF; L2-3,L3-4, L4-5, L5-S1 PSF w/ Posterior Instrumentation(Not Applicable) - Sky Harding MD Physical Therapy Treatment Note M2 PT-IP Current Condition Start: 05/03/18 16:29 Freq: NEEDED Status: Active Protocol: Document 05/09/18 15:11 RCC (Rec: 05/09/18 15:52 RCC [id number]) Physical Therapy Current Condition Current Condition Evaluation Date 05/04/18 Treatment Diagnosis L2-S1 lami-fusion, impaired mobility Onset Date 05/03/18 Precautions Lumbar Precautions Log Roll No Twisting Limit Bending Lifting Restriction of 10 lbs Gait Belt above Incisional Area M3 PT-IP Subjective Start: 05/03/18 16:29 Freq: NEEDED Status: Active Protocol: Document 05/09/18 15:11 RCC (Rec: 05/09/18 15:52 RCC [email or web address]) Subjective Physical Therapy Visit Type Type Treatment Note Visit Start Time 14:50 Visit Stop Time 15:11 Total Visit Minutes 21 Number of BORING MILL OPERATOR Visits 0 Physical Therapy Visit Comments Patient Comments Pt wants to try to walk M4 PT-IP Mobility and Gait Start: 05/03/18 16:29 Freq: NEEDED Status: Active Protocol: Document 05/09/18 15:11 RCC (Rec: 05/09/18 15:52 RCC [id number]) PT-Bed Mobility Assessment Supine to Sit Supine to Sit Maximum Assistance 1 Person Assistance Scooting Scooting to Edge of Bed Contact Guard Assistance PT-Transfer Assessment Sit to and From Stand Sit to and from Stand Moderate Assistance 1 Person Assistance Use of Upper Extremities Equipment Transfer Assistive Device Gait Belt Front Wheeled Walker Transfers Transfer Destination Chair Bedside Commode Transfer Technique Stand Step Pivot Transfer Ability Level of Assist Minimal Assistance 1 Person Assistance Comments Mobility Comments toilet, then gait, then chair Gait Assessment Gait Gait Assistance Required: Contact Guard Assist Distance (Feet) 20 Assistive Devices Assistive Device Gait Belt Front Wheeled Walker Gait Deviations General Gait Pattern Antalgic Decreased Stride Length Decreased Feet Clearance Flexed Trunk Wide Based Gait Factors Limiting Gait Function Factors Limiting Gait Function Decreased Activity Tolerance Decreased Strength Poor Balance Comments Gait Comments HR up to 133 bpm with gait, fatigued after 20 ft. M5 PT-IP Objective Assessments Start: 05/03/18 16:29 Freq: NEEDED Status: Active Protocol: Document 05/04/18 11:45 RS (Rec: 05/04/18 12:10 RS [id number]) Orientation Orientation/Cognition Level of Alertness Alert Orientation Name Age Birthday Month Date Year Day of Week Place Situation Language Function Ability No Deficits Noted Safety Awareness Understands Safety Issues Memory Description No Deficits Noted Gross Range of Motion Upper Extremity ROM Assessment Within Functional Limits Lower Extremity ROM Assessment Within Functional Limits Strength Comments Strength Comments not formally assessed in sitting, pt does have bilat anti-gravity intact in supine M6 PT-IP Treatment Start: 05/03/18 16:29 Freq: NEEDED Status: Active Protocol: Document 05/07/18 15:34 (Rec: 05/07/18 18:22 [id number]) Physical Therapy Treatment Education Education Provided Precautions Safety M7 PT-IP Assessment and Plan Start: 05/03/18 16:29 Freq: NEEDED Status: Active Protocol: Document 05/09/18 15:11 RCC (Rec: 05/09/18 15:52 RCC [email or web address]) PT Summary Assessment and Plan Summary Progress Towards Goals Slow Progress due to Medical Issues Slow Progress due to Activity Tolerance Assessment Summary Pt able to tolerate short gait in room, but fatigues quickly . His HR increased to 133 bpm, recovery to <100 after sitting 2 mins. Goals Bed Mobility Goal Minimal Assistance Transfer Goal Minimal Assistance Front Wheeled Walker Gait Goal Minimal Assistance Front Wheel Walker Gait Distance 30 Days to Meet Goals 3 Frequency of Treatment Frequency Of Treatment Twice a Day Treatment Plan Other Recommendations and Next Treatment short gait in room, monitor HR Focus , progress log roll as tolerated Recommendations To Nursing Amount of Assist Needed 2 Person Assist Discharge Recommendations PT Discharge Recommendations SNF Rehab
[2018-05-09 16:56] VITALS: PULSE 84
[2018-05-09] MEDS: DIGOXIN 0.125 MG TABLET PO (16:56)
[2018-05-09] MEDS: WARFARIN 5 MG TABLET PO (16:57)
[2018-05-09] MEDS: METFORMIN HCL 500 MG TABLET PO (16:57)
[2018-05-09 17:34] VITALS: BP 145/52; PULSE 98; RESP 20; TEMP 36.9; O2SAT 96
[2018-05-09 20:45] VITALS: BP 148/77; PULSE 87; RESP 16; TEMP 37.2; O2SAT 98
[2018-05-09] MEDS: SIMVASTATIN 20 MG TABLET PO (20:53)
[2018-05-09] MEDS: KCL 20 MEQ IN NS 1,000 ML 75 MEQ IV (21:18)
[2018-05-10 02:05] VITALS: BP 125/86; PULSE 101; RESP 18; TEMP 37.1; O2SAT 96
[2018-05-10] MEDS: OXYCODONE IR 5 MG TABLET 10 MG PO ×3 (03:46→19:13)
[2018-05-10 06:10] VITALS: BP 127/81; PULSE 107; RESP 19; TEMP 36.4; O2SAT 97
[2018-05-10 06:50] LABS: INR 1.8 (0.9-1.3)
[2018-05-10 07:55] VITALS: BP 123/101; PULSE 120; RESP 18; TEMP 36.6; O2SAT 95
[2018-05-10] MEDS: VANCOMYCIN 125 MG CAPSULE PO ×4 (08:54→21:06)
[2018-05-10] MEDS: ALLOPURINOL 300 MG TABLET PO (08:54)
[2018-05-10] MEDS: GABAPENTIN 300 MG CAPSULE PO ×3 (08:55→21:06)
[2018-05-10] MEDS: METOPROLOL IR 25 MG TABLET PO (08:55)
[2018-05-10] MEDS: METFORMIN HCL 500 MG TABLET PO ×2 (08:55→17:20)
[2018-05-10] MEDS: POTASSIUM CHLORIDE 20 MEQ TAB PO (08:55)
[2018-05-10] MEDS: INSULIN ASPART 100 UNIT/ML INSULN PEN SUBCUT ×4 (08:55→21:09)
[2018-05-10] MEDS: DOXYCYCLINE HYCLATE 100 MG TABLET PO (08:55)
[2018-05-10] MEDS: ASPIRIN 325 MG TABLET PO (08:55)
--- NOTE | 2018-05-10 10:29 | CM.DPC ---
DCP/continued: Reviewed chart. Current d/c plan is for patient to go to [facility] when medically stable. Met with patient and spouse at bedside. Both aware and agreeable. Spoke briefly with Dr. Calle and it is anticipated that patient will be medically stable within the next 24-48hrs. Placed call to Charley at [facility]. She is aware of C-Diff precautions and confirms that they can accept. P: [facility] when medically stable. MARIO Damon
[2018-05-10 11:45] VITALS: BP 135/78; PULSE 75; RESP 18; TEMP 36.7; O2SAT 94
--- NOTE | 2018-05-10 12:47 | OT.IP.TRT ---
Current Diagnoses Enterocolitis due to Clostridium difficile, not specified as recurrent (05/03/18) Iron deficiency anemia secondary to blood loss (chronic) (05/03/18) Type 2 diabetes mellitus without complications (05/03/18) Hyperlipidemia, unspecified (05/03/18) Hypokalemia (05/03/18) Essential (primary) hypertension (05/03/18) Unspecified atrial fibrillation (05/03/18) Other secondary scoliosis, lumbar region (05/03/18) Spondylolisthesis, lumbar region (05/03/18) Other spondylosis with radiculopathy, lumbar region (05/03/18) Spinal stenosis, lumbar region without neurogenic claudication (05/03/18) Chronic kidney disease, stage 2 (mild) (05/03/18) Arthrodesis status (05/03/18) Surgery Performed Operation Date: 05/03/18 07:45 Actual Procedures p L2-3, L5-S1 TLIF; L2-3,L3-4, L4-5, L5-S1 PSF w/ Posterior Instrumentation(Not Applicable) - Sky Harding MD Occupational Therapy Treatment Note M2 OT-IP Current Condition Start: 05/04/18 14:07 Freq: Status: Active Protocol: Document 05/04/18 13:53 PJM (Rec: 05/04/18 14:35 PJM [id number]) Occupational Therapy Current Condition Current Condition Evaluation Date 05/04/18 Treatment Diagnosis decreased self care and functional mobility s/p L2-S1 fusion Post Operative Precautions Lumbar Precautions Log Roll No Twisting Limit Bending Lifting Restriction of 10 lbs Gait Belt above Incisional Area M3 OT- IP Subjective and Pain Start: 05/04/18 14:07 Freq: Status: Active Protocol: Document 05/10/18 12:25 [facility] (Rec: 05/10/18 12:47 [facility] [id number]) OT- Subjective Occupational Therapy Visit Type Type Treatment Note Visit Start Time 11:45 Visit Stop Time 12:25 Total Visit Minutes 40 Notes Pt wanting to get up and shave at the sink. OT Pain Assessment Pain When Pain Assessed At Rest Pain Present Pain Present Denied Pain M4 OT- IP ADL's Start: 05/04/18 14:07 Freq: Status: Active Protocol: Document 05/10/18 12:25 [facility] (Rec: 05/10/18 12:47 [facility] [id number]) OT ADL-Grooming General Evaluation Grooming Ability Standby Assistance Moderate Assistance Areas Needing Assistance Retrieving/Set-up of Grooming Items Shaving Comments OT Grooming Comments Pt able to stand initially with SBA and FWW to shave and brush his teeth. Pt due to low lighting not able to see for completeness and getting tired and having to sit down to BSC . In addition, pt needing ot have a bowel movement. OT ADL-Oral Care General Eval Oral Care Ability Independent OT ADL-Dressing General Eval Lower Body Dressing Ability Maximum Assistance Areas Needing Assistance Underpants/Brief Comments OT Dressing Comments Assist to kristin/doff brief over his feet, MAX A x 1 to stand and assist to pull brief over his hips. OT ADL-Toileting General Evaluation Toileting Ability Maximum Assistance Areas Needing Assistance Manage Clothing Perform Perineal Hygiene Comments OT Toileting Comments Therapist there to assist to stand to help with brief management and while standing with FWW, nursing assist for all pericare needs. M5 OT- IP IADL's Start: 05/04/18 14:07 Freq: Status: Active Protocol: Document 05/04/18 13:53 PJ (Rec: 05/04/18 14:35 [facility] [id number]) OT-Instrumental Activities of Daily Living Deficits IADL Deficits Identified Deficits Home Safety Awareness Awareness of Need for Assistance at Home Good Awareness Medication Management Medication Management Caregiver Provides Supervision Medication Management Comments pt does not recall whether he takes BP meds at home Money Management Money Management No Deficits Identified Meal Preparation Meal Preparation Caregiver Provides Assist Barge Master Barge Master Caregiver Provides Assist Driving Driving Caregiver Provides Assist M6 OT- IP Functional Cognition Start: 05/04/18 14:07 Freq: Status: Active Protocol: Document 05/10/18 12:25 [facility] (Rec: 05/10/18 12:47 [facility] [id number]) Cognitive Factors Limiting Selfcare Function Cognitive Ability Level of Alertness Alert Patient Orientation Name Place Situation Attention Span Ability Capable of Focused Attention Capable of Sustained Attention Ability to Follow Commands Able to Follow One Step Commands Memory Description Short Term Impaired Safety Awareness Decreased Recall of Precautions Decreased Ability to Apply Precautions Underestimates Need for Assistance Problem Solving Ability Unable to Identify Errors Needs Assist to Identify Solutions Cognitive Comments Cognitive Assessment Comments Pt only able to recall one back precautions. Pt needs vc for completeness for ADL needs . M7 OT- IP Mobility and Balance Start: 05/04/18 14:07 Freq: Status: Active Protocol: Document 05/10/18 12:25 [facility] (Rec: 05/10/18 12:47 [facility] [id number]) OT-Transfer Assessment Sit to and From Stand Sit to and from Stand Maximum Assistance 1 Person Assistance Transfers Transfer Ability Contact Guard Assistance Minimal Assistance 1 Person Assistance Technique Transfer Destination Bedside Commode Chair Transfer Technique Stand Step Pivot Devices Transfer Assistive Devices Gait Belt Front Wheeled Walker Comments Mobility Comments Pt continues to need extensive assist to come to stand MAX A x1, once on his feet able to walk wit FWW with CGA. Pt needs RUEL to help to lower to recliner/BSC. OT- Balance Assessment Sitting Balance and Reactions Static Sitting Balance Ability Normal Dynamic Sitting Balance Ability Good Standing Balance and Reactions Static Standing Balance Ability Fair M8 OT- IP Objective Assessments Start: 05/04/18 14:07 Freq: Status: Active Protocol: Document 05/04/18 13:53 PJM (Rec: 05/04/18 14:35 PJM [id number]) OT Gross Range of Motion Upper Extremity Range of Motion Assessment Within Functional Limits ROM Impairments Pt had L total shoulder replacement in Jul 2017 with good recovery OT Strength Upper Extremity Strength Assessment Within Functional Limits Hand Panel Machine Operator Strength Hand Dominance Right OT- Coordination Assessment Comments Coordination Comments BUE WFL OT Sensation Assessment Comments Summary Comments Pt denies sensory deficits in either UE. M9 OT- IP Assessment and Plan Start: 05/04/18 14:07 Freq: Status: Active Protocol: Document 05/10/18 12:25 [facility] (Rec: 05/10/18 12:47 [facility] [id number]) OT Summary Assessment and Plan Potential Rehabilitation Potential Good Summary OT Impairments Pain Strength Balance Functional Cognition Functional Mobility Grooming Dressing Toileting Bathing Toilet Transfers Shower Transfers Progress Towards Goals Slow Progress due to Medical Issues Slow Progress due to Cognition Assessment Summary Pt able to tolerate standing to grooming needs, however still needing MAX A for all LB dressing needs and sit to stands. Pt to benefit from skilled rehab when medically stable. Goals Grooming Goal Standby Assistance Dressing Goal Minimal Assistance Long Handled [place] Child Support Case Officer Sock Aid Toileting Goal Minimal Assistance Bathing Goal Moderate Assistance Grab Bars Hand Held Shower Sprayer Toilet Transfer Goal Standby Assistance Shower Transfer Goal Contact Guard Assistance Walk-in Shower Grab Bars Patient/Caregiver Education Goal Demonstrate Post-Op Precautions Demonstrate Energy Conservation and Pacing Caregiver Independent Assisting Patient Days to Meet Goals 5 Frequency of Treatment Frequency Of Treatment Once a Day Treatment Plan OT Treatment Plan ADL Training Functional Mobility Patient/Family Education Discharge Planning Discharge Recommendations OT Discharge Recommendations SNF Rehab
--- NOTE | 2018-05-10 12:54 | PM.PNPO.1 ---
Subjective Date Patient Seen: 05/10/18 Time Patient Seen: 07:35 Interval history: Patient POD 7 status post lumbar fusion by Dr. Harding. Has had issues with blood pressure and heart rate control, postoperative anemia and C difficile infection. History of AFib on warfarin and diabetes mellitus. His medical issues are being followed by the hospitalist. He has a discharge pending to [facility]. Patient reports that his pain is manageable at this time. He is able to ambulate to restroom as needed. Continued increased heart rate with PT. Patient denies any fever, chills, SOB, chest pain, nausea or vomiting. Exam Vital Signs (past 8 hours): - 05/10/18 06:10 05/10/18 07:55 Temperature 97.6 F 97.8 F Pulse Rate 107 H 120 H Respiratory Rate 19 18 Blood Pressure 127/81 123/101 H Pulse Oximetry 97 95 Oxygen Delivery Method Room Air Oxygen Flow Rate 0 Narrative Exam Narrative: Patient lying in bed comfortably on a breathing machine; has a history of sleep apnea. Patient is AOx3. Radial and dorsalis pedis pulses 2+ and symmetric. Adequate strength in dorsiflexion, plantarflexion and staff nuclear weapons officer bilaterally. Lumbar dressing is CDI. Sensation to light touch intact. Calfs are soft, non tender and compressible bilaterally. Objective Labs Result Diagrams: 05/09/18 05:01 05/09/18 05:01 Labs: Laboratory Results - last 24 hr 05/06/18 05/10/18 12:15 06:00 PT 20.0 H INR 1.8 H Crossmatch See Detail Assessment & Plan Post-op Postoperative Procedures Operation Date: 05/03/18 07:45 Actual Procedures Side Surgeon p L2-3, L5-S1 TLIF; L2-3,L3-4, L4-5, L5-S1 PSF w/ Posterior Instrumentation Not Applicable Sky Harding MD Postoperative day: 7 Postoperative plan: routine post-op care Postoperative plan narrative: Continue mobilizing with PT. Blood pressure and diabetes mellitus being managed by the hospitalist. Patient is back on his warfarin 5 mg daily for AFib. He is receiving vancomycin 125 mg 4 times daily for Clostridium difficile colitis. He is planning for discharge to [facility] for SNF rehab when medically stable. Quality VTE Deep Vein Thrombosis/Pulmonary Embolism Present on Admission: No
--- NOTE | 2018-05-10 12:59 | P.PN_ITS ---
Subjective Date Patient Seen: 05/10/18 Time Patient Seen: 07:35 Interval history: Patient POD 7 status post lumbar fusion by Dr. Harding. Has had issues with blood pressure and heart rate control, postoperative anemia and C difficile infection. History of AFib on warfarin and diabetes mellitus. His medical issues are being followed by the hospitalist. He has a discharge pending to [facility]. Patient reports that his pain is manageable at this time. He is able to ambulate to restroom as needed. Continued increased heart rate with PT. Patient denies any fever, chills, SOB, chest pain, nausea or vomiting. Exam Vital Signs (past 8 hours): - 05/10/18 06:10 05/10/18 07:55 Temperature 97.6 F 97.8 F Pulse Rate 107 H 120 H Respiratory Rate 19 18 Blood Pressure 127/81 123/101 H Pulse Oximetry 97 95 Oxygen Delivery Method Room Air Oxygen Flow Rate 0 Narrative Exam Narrative: Patient lying in bed comfortably on a breathing machine; has a history of sleep apnea. Patient is AOx3. Radial and dorsalis pedis pulses 2+ and symmetric. Adequate strength in dorsiflexion, plantarflexion and health service worker bilaterally. Lumbar dressing is CDI. Sensation to light touch intact. Calfs are soft, non tender and compressible bilaterally. Objective Labs Result Diagrams: 05/09/18 05:01 05/09/18 05:01 Labs: Laboratory Results - last 24 hr 05/06/18 05/10/18 12:15 06:00 PT 20.0 H INR 1.8 H Crossmatch See Detail Assessment & Plan Post-op Postoperative Procedures Operation Date: 05/03/18 07:45 Actual Procedures Side Surgeon p L2-3, L5-S1 TLIF; L2-3,L3-4, L4-5, L5-S1 PSF w/ Posterior Instrumentation Not Applicable Sky Harding MD Postoperative day: 7 Postoperative plan: routine post-op care Postoperative plan narrative: Continue mobilizing with PT. Blood pressure and diabetes mellitus being managed by the hospitalist. Patient is back on his warfarin 5 mg daily for AFib. He is receiving vancomycin 125 mg 4 times daily for Clostridium difficile colitis. He is planning for discharge to [facility] for SNF rehab when medically stable. Quality VTE Deep Vein Thrombosis/Pulmonary Embolism Present on Admission: No
--- NOTE | 2018-05-10 13:12 | PT.IPTN ---
Current Diagnoses Enterocolitis due to Clostridium difficile, not specified as recurrent (05/03/18) Iron deficiency anemia secondary to blood loss (chronic) (05/03/18) Type 2 diabetes mellitus without complications (05/03/18) Hyperlipidemia, unspecified (05/03/18) Hypokalemia (05/03/18) Essential (primary) hypertension (05/03/18) Unspecified atrial fibrillation (05/03/18) Other secondary scoliosis, lumbar region (05/03/18) Spondylolisthesis, lumbar region (05/03/18) Other spondylosis with radiculopathy, lumbar region (05/03/18) Spinal stenosis, lumbar region without neurogenic claudication (05/03/18) Chronic kidney disease, stage 2 (mild) (05/03/18) Arthrodesis status (05/03/18) Surgery Performed Operation Date: 05/03/18 07:45 Actual Procedures p L2-3, L5-S1 TLIF; L2-3,L3-4, L4-5, L5-S1 PSF w/ Posterior Instrumentation(Not Applicable) - Sky Harding MD Physical Therapy Treatment Note M2 PT-IP Current Condition Start: 05/03/18 16:29 Freq: NEEDED Status: Active Protocol: Document 05/09/18 15:11 [facility] (Rec: 05/09/18 15:52 [facility] [id number]) Physical Therapy Current Condition Current Condition Evaluation Date 05/04/18 Treatment Diagnosis L2-S1 lami-fusion, impaired mobility Onset Date 05/03/18 Precautions Lumbar Precautions Log Roll No Twisting Limit Bending Lifting Restriction of 10 lbs Gait Belt above Incisional Area M3 PT-IP Subjective Start: 05/03/18 16:29 Freq: NEEDED Status: Active Protocol: Document 05/10/18 11:40 RS (Rec: 05/10/18 13:11 RS [email or web address]) Subjective Physical Therapy Visit Type Type Treatment Note Visit Start Time 11:00 Visit Stop Time 11:40 Total Visit Minutes 40 Physical Therapy Visit Comments Patient Comments Pt reports doing well overall, really wants to go home now that he's doing better but realizes he's not ready yet. Therapy Pain Assessment Pain When Pain Assessed During Mobility Pain Present Pain Present Pain Reported Location Back Intensity 5 Scale Used Numeric (1 - 10) Pain Management Techniques Modification of Treatment Re-positioning M4 PT-IP Mobility and Gait Start: 05/03/18 16:29 Freq: NEEDED Status: Active Protocol: Document 05/10/18 11:40 RS (Rec: 05/10/18 13:11 RS [id number]) PT-Bed Mobility Assessment Supine to Sit Supine to Sit Moderate Assistance 1 Person Assistance Head of Bed Elevated Scooting Scooting to Edge of Bed Contact Guard Assistance PT-Transfer Assessment Sit to and From Stand Sit to and from Stand Moderate Assistance 1 Person Assistance Use of Upper Extremities Equipment Transfer Assistive Device Gait Belt Front Wheeled Walker Transfers Transfer Destination Chair Transfer Technique walked Transfer Ability Level of Assist Contact Guard Assistance 1 Person Assistance Comments Mobility Comments Pt needing the most assist to get up to standing and is then CGA to walk in the room from surface to surface. Gait Assessment Gait Gait Assistance Required: Contact Guard Assist Distance (Feet) 40 Assistive Devices Assistive Device Gait Belt Front Wheeled Walker Gait Deviations General Gait Pattern Antalgic Decreased Stride Length Decreased Feet Clearance Flexed Trunk Wide Based Gait Factors Limiting Gait Function Factors Limiting Gait Function Decreased Activity Tolerance Decreased Strength Poor Balance Comments Gait Comments HR in 110s with activity, quickly returned to low 90s within 1 minute of sitting. Gait quality is fair, pt is stable even when navigating in tight spaces, however, pt tends to staying flexed forward and has difficulty correcting this even with cues . Stair Climbing Assessment Comments Stair Climbing Comments not tested PT-Balance Assessment Sitting Balance and Reactions Static Sitting Balance Ability Good Dynamic Sitting Balance Ability Fair Standing Balance and Reactions Static Standing Balance Ability Good Dynamic Standing Balance Ability Fair Device Used FWW M5 PT-IP Objective Assessments Start: 05/03/18 16:29 Freq: NEEDED Status: Active Protocol: Document 05/04/18 11:45 RS (Rec: 05/04/18 12:10 RS [id number]) Orientation Orientation/Cognition Level of Alertness Alert Orientation Name Age Birthday Month Date Year Day of Week Place Situation Language Function Ability No Deficits Noted Safety Awareness Understands Safety Issues Memory Description No Deficits Noted Gross Range of Motion Upper Extremity ROM Assessment Within Functional Limits Lower Extremity ROM Assessment Within Functional Limits Strength Comments Strength Comments not formally assessed in sitting, pt does have bilat anti-gravity intact in supine M6 PT-IP Treatment Start: 05/03/18 16:29 Freq: NEEDED Status: Active Protocol: Document 05/07/18 15:34 (Rec: 05/07/18 18:22 [id number]) Physical Therapy Treatment Education Education Provided Precautions Safety M7 PT-IP Assessment and Plan Start: 05/03/18 16:29 Freq: NEEDED Status: Active Protocol: Document 05/10/18 11:40 RS (Rec: 05/10/18 13:11 RS [email or web address]) PT Summary Assessment and Plan Potential Rehabilitation Potential Good Status of Condition at Evaluation Stable Summary Impairments Pain Strength Balance Bed Mobility Transfers Gait Activity Tolerance Progress Towards Goals Slow Progress due to Medical Issues Slow Progress due to Activity Tolerance Assessment Summary Pt able to tolerate longer gait distances today without as high of a HR. Goal for the afternoon will be to walk in the hallway to focus on distance as a large portion of this session required turning around in tight spaces. Pt looking forward to this. Despite pt's functional improvement, pt is still below reported functional baseline and will still need to SNF rehab once medically ready to discharge from hospital. Goals Bed Mobility Goal Minimal Assistance Transfer Goal Minimal Assistance Front Wheeled Walker Gait Goal Contact Guard Assistance Front Wheel Walker Gait Distance 60 Frequency of Treatment Frequency Of Treatment Twice a Day Treatment Plan Physical Therapy Treatment Plan Bed Mobility Training Transfer Training Gait Training Therapeutic Exercise Balance Retraining Post Op Education Discharge Planning Hot or Cold Pack Neuromuscular Re-ed Coordination Retraining Manual Therapy Other Recommendations and Next Treatment gait in hallway w/ w/c follow, Focus monitor HR. Recommendations To Nursing Amount of Assist Needed 2 Person Assist Discharge Recommendations PT Discharge Recommendations SNF Rehab
[2018-05-10] MEDS: FUROSEMIDE 100 MG/10 ML VIAL 80 MG IV (13:23)
--- NOTE | 2018-05-10 14:05 | DIET.PN ---
Visited during lunch. Had 1/2 sandwich and diet soda. Uncertain why pt did not get full 4 carb servings as per diet rxn. Has been on keto diet in past and reports wt loss with this. Otherwise, doesn't follow a diet or limit carbs; demonstrates poor knowledge of carbohydrate sources/portions. DX s/p lumbar fusion, Cdiff HX: DM2, obesity, multiple medical problems DIET: CCD large (4 CHO/meal) ASSESSMENT: Poor knowledge of diet control of DM. Was able to lose wt on keto diet, likely because of limited choices and possibly better appetite control. INTERVENTION; Provided brief ed on carb foods; identifying carbs on our menus. decreased to 3CHO/meal; high protein
[2018-05-10 15:35] VITALS: BP 144/90; PULSE 122; RESP 20; TEMP 36.5; O2SAT 99
--- NOTE | 2018-05-10 15:50 | PT.IPTN ---
Patient Comments Pt reports being given lasix and urinating frequently. Pt doesn't feel he can participate at this time due to this. Pt politely declines to participate this afternoon.
[2018-05-10] MEDS: GLYBURIDE MICRONIZED 3 MG PO (17:20)
[2018-05-10] MEDS: WARFARIN 5 MG TABLET PO (17:20)
--- NOTE | 2018-05-10 19:22 | PM.PN.1 ---
Subjective Date Patient Seen: 05/10/18 Interval history: Patient with improvement of diarrhea. His postop pain is well controlled. Nursing staff noted peripheral and scrotal edema. Denies dyspnea. Exam Vital Signs (past 8 hours): - 05/10/18 11:45 05/10/18 15:35 Temperature 98.1 F 97.7 F Pulse Rate 75 122 H Respiratory Rate 18 20 Blood Pressure 135/78 144/90 H Pulse Oximetry 94 99 Oxygen Delivery Method Room Air Oxygen Flow Rate 0 Narrative Exam Narrative: GENERAL: Patient is in no acute distress resting in bed HEENT: Head normocephalic, atraumatic. Mucous membranes moist. CHEST: Clear to auscultation bilaterally. CARDIAC: Irregularly irregular rhythm ABDOMEN: Obese, soft, nontender, no organomegaly, moderate bilateral flank and scrotal edema noted EXTREMITIES: 1+ bilateral pretibial edema NEUROLOGICAL: Alert, pleasant, no focal findings SKIN: Warm, dry, no petechiae, no rash Objective Labs Result Diagrams: 05/09/18 05:01 05/09/18 05:01 Labs: Laboratory Results - last 24 hr 05/06/18 05/10/18 12:15 06:00 PT 20.0 H INR 1.8 H Crossmatch See Detail Assessment & Plan Plan: Assessment/Plan Narrative: 1. POD 7 -L4-5, L5-S1 Transforamenal interbody fusion with posterolateral fusion -L4-5, L5-S1 interbody cage placement. -L2-3, L3-4 decompressive laminectomies with partial facetecomies -L2-3, L3-4 posterolateral fusion -L2-3, L3-4, L4-5, L5-S1 posterior segmental instrumentation with pedicle screws placement in L2, L3, L4, L5, S1 -Jones of bone marrow from iliac crest 2. CHRONIC ATRIAL FIBRILLATION WITH RAPID VENTRICULAR RESPONSE Persistently tachycardic likely due to volume overload from transfusions and IV fluids, postop anemia. Lasix 80 mg IV x1 then resume home oral Lasix 40 mg daily. Increase carvedilol dose to 12.5 mg twice daily also in light of elevated BP. 3. ANTICOAGULATION WITH WARFARIN INR 1.8, climbing. PT INR IN A.M. 4. C DIFF . Diarrhea improving. HE IS ON VANCOMYCIN 125 MG P.O. Q.I.D.. DAY 12/24 OF THERAPY 5. POSTOP ANEMIA/ACUTE BLOOD LOSS ANEMIA HIS HEMOGLOBIN DROPPED FROM 9.4-7.9. HE WAS TRANSFUSED WITH 2 UNITS OF PACKED RBCS AND HIS H&H HAS REMAINED STABLE SINCE. HEMOGLOBIN TODAY IS 8.7. 6. OBSTRUCTIVE SLEEP APNEA PATIENT USES CPAP AT HS 7. Type 2 Diabetes Mellitus Begin back on Metformin and glyburide now. DISPOSITION HE IS planning FOR DISCHARGE TO [facility] FOR SNF rehab WHEN MEDICALLY STABLE, likely tomorrow- Thursday Quality VTE Deep Vein Thrombosis/Pulmonary Embolism Present on Admission: No
--- NOTE | 2018-05-10 19:31 | P.PN_ITS ---
Subjective Date Patient Seen: 05/10/18 Interval history: Patient with improvement of diarrhea. His postop pain is well controlled. Nursing staff noted peripheral and scrotal edema. Denies dyspnea. Exam Vital Signs (past 8 hours): - 05/10/18 11:45 05/10/18 15:35 Temperature 98.1 F 97.7 F Pulse Rate 75 122 H Respiratory Rate 18 20 Blood Pressure 135/78 144/90 H Pulse Oximetry 94 99 Oxygen Delivery Method Room Air Oxygen Flow Rate 0 Narrative Exam Narrative: GENERAL: Patient is in no acute distress resting in bed HEENT: Head normocephalic, atraumatic. Mucous membranes moist. CHEST: Clear to auscultation bilaterally. CARDIAC: Irregularly irregular rhythm ABDOMEN: Obese, soft, nontender, no organomegaly, moderate bilateral flank and scrotal edema noted EXTREMITIES: 1+ bilateral pretibial edema NEUROLOGICAL: Alert, pleasant, no focal findings SKIN: Warm, dry, no petechiae, no rash Objective Labs Result Diagrams: 05/09/18 05:01 05/09/18 05:01 Labs: Laboratory Results - last 24 hr 05/06/18 05/10/18 12:15 06:00 PT 20.0 H INR 1.8 H Crossmatch See Detail Assessment & Plan Plan: Assessment/Plan Narrative: 1. POD 7 -L4-5, L5-S1 Transforamenal interbody fusion with posterolateral fusion -L4-5, L5-S1 interbody cage placement. -L2-3, L3-4 decompressive laminectomies with partial facetecomies -L2-3, L3-4 posterolateral fusion -L2-3, L3-4, L4-5, L5-S1 posterior segmental instrumentation with pedicle screws placement in L2, L3, L4, L5, S1 -[place] of bone marrow from iliac crest 2. CHRONIC ATRIAL FIBRILLATION WITH RAPID VENTRICULAR RESPONSE Persistently tachycardic likely due to volume overload from transfusions and IV fluids, postop anemia. Lasix 80 mg IV x1 then resume home oral Lasix 40 mg daily. Increase carvedilol dose to 12.5 mg twice daily also in light of elevated BP. 3. ANTICOAGULATION WITH WARFARIN INR 1.8, climbing. PT INR IN A.M. 4. C DIFF . Diarrhea improving. HE IS ON VANCOMYCIN 125 MG P.O. Q.I.D.. DAY 12/24 OF THERAPY 5. POSTOP ANEMIA/ACUTE BLOOD LOSS ANEMIA HIS HEMOGLOBIN DROPPED FROM 9.4-7.9. HE WAS TRANSFUSED WITH 2 UNITS OF PACKED RBCS AND HIS H&H HAS REMAINED STABLE SINCE. HEMOGLOBIN TODAY IS 8.7. 6. OBSTRUCTIVE SLEEP APNEA PATIENT USES CPAP AT HS 7. Type 2 Diabetes Mellitus Begin back on Metformin and glyburide now. DISPOSITION HE IS planning FOR DISCHARGE TO [facility] FOR SNF rehab WHEN MEDICALLY STABLE, likely tomorrow- Thursday Quality VTE Deep Vein Thrombosis/Pulmonary Embolism Present on Admission: No
[2018-05-10 19:58] VITALS: BP 119/75; PULSE 124; RESP 20; TEMP 36.7; O2SAT 95
[2018-05-10] MEDS: CARVEDILOL 12.5 MG TABLET PO (21:04)
[2018-05-10] MEDS: DOCUSATE 100 MG CAPSULE PO (21:05)
[2018-05-10] MEDS: ENALAPRIL 20 MG TABLET 10 MG PO (21:05)
[2018-05-10] MEDS: SENNOSIDES 8.6 MG TABLET 17.2 MG PO (21:06)
[2018-05-10] MEDS: hydroCHLOROthiazide 25 MG TABLET PO (21:06)
[2018-05-10] MEDS: SIMVASTATIN 20 MG TABLET PO (21:07)
[2018-05-10] MEDS: SODIUM CHLORIDE 0.9% FLUSH 10 ML IV (21:15)
[2018-05-11 01:15] VITALS: BP 113/64; PULSE 64; RESP 16; TEMP 37; O2SAT 98
[2018-05-11 03:15] VITALS: BP 100/62; PULSE 77; RESP 17; TEMP 37.1; O2SAT 96
[2018-05-11 05:52] LABS: Add Manual Diff / Slide Review NO; Basophils Percent Auto 0.5 % (0-2); Eosinophils Percent Auto 4.9 % (2-4); Hematocrit 26.5 % (41-53); Hemoglobin 8.9 g/dL (13.5-17.5); Lymphocytes Percent Auto 22.1 % (25-40); Mean Corpuscular HGB Conc 33.5 % (30-36); Mean Corpuscular Hemoglobin 34.6 PG (26-34); Monocytes Percent Auto 11.6 % (3-14); Neutrophils Absolute Auto 3400 /uL (3000-5900); Neutrophils Percent Auto 60.9 % (50-75); Platelet Count 238 X10^3/uL (150-400); Red Blood Cell Count 2.57 X10^6/uL (4.5-5.9); Red Cell Distribution Width 16.5 % (11.6-14.8); White Blood Cell Count 5.7 X10^3/uL (4.5-11.0)
[2018-05-11 05:57] LABS: Prothrombin Time 21.4 SECONDS (10.1-12.7)
[2018-05-11 05:58] LABS: Blood Urea Nitrogen 16 mg/dL (9-20); Carbon Dioxide 24 mmol/L (22-32); Chloride 104 mmol/L (98-107); Estimated Glomerular Filt Rate > 60.0 mL/min (>60); Glucose 149 mg/dL (80-110); HEMOLYSIS < 15 (0-50); Potassium 3.2 mmol/L (3.4-5.1); Sodium 139 mmol/L (137-145)
--- NOTE | 2018-05-11 07:26 | PM.PNPO.1 ---
Subjective Date Patient Seen: 05/11/18 Time Patient Seen: 07:26 Interval history: Pain is [id number]. Denies fever chills. No nausea vomiting. No shortness of breath or chest pain. Exam Vital Signs (past 8 hours): - 05/11/18 01:15 05/11/18 03:15 Temperature 98.6 F 98.7 F Pulse Rate 64 77 Respiratory Rate 16 17 Blood Pressure 113/64 100/62 Pulse Oximetry 98 96 Oxygen Delivery Method Room Air,CPAP Oxygen Flow Rate 0 Narrative Exam Narrative: 70-year-old male resting comfortably in bed in no apparent distress. Lumbar dressing is clean, dry and intact. There is mild to moderate ecchymosis present along the lower right lumbar spine. Sensation grossly intact to light touch bilateral lower extremities. Motor function is intact bilateral lower extremities. Objective Labs Result Diagrams: 05/11/18 05:20 05/11/18 05:20 Labs: Laboratory Results - last 24 hr 05/11/18 05/11/18 05/11/18 05:20 05:20 05:20 WBC 5.7 RBC 2.57 L Hgb 8.9 L Hct 26.5 L MCV 103.0 H MCH 34.6 H MCHC 33.5 RDW 16.5 H Plt Count 238 Neut % (Auto) 60.9 Lymph % (Auto) 22.1 L [place] % (Auto) 11.6 Eos % (Auto) 4.9 H Baso % (Auto) 0.5 Neut # (Auto) 3400 PT 21.4 H INR 2.0 H Sodium 139 Potassium 3.2 L Chloride 104 Carbon Dioxide 24 BUN 16 Creatinine 1.00 Estimated GFR > 60.0 BUN/Creatinine Ratio 16.0 Glucose 149 H Calcium 8.0 L Assessment & Plan Post-op Postoperative Procedures Operation Date: 05/03/18 07:45 Actual Procedures Side Surgeon p L2-3, L5-S1 TLIF; L2-3,L3-4, L4-5, L5-S1 PSF w/ Posterior Instrumentation Not Applicable Sky Harding MD Postop day 8. Patient is status post lumbar fusion. Hospitalist been following patient for chronic atrial fibrillation with rapid ventricular response, anticoagulation with warfarin, C difficile, postop anemia/acute blood loss anemia, obstructive sleep apnea, type 2 diabetes. Patient will mobilize with physical therapy. [facility] or tomorrow when medically stable per hospitalist. Quality VTE Deep Vein Thrombosis/Pulmonary Embolism Present on Admission: No
--- NOTE | 2018-05-11 07:31 | P.PN_ITS ---
Subjective Date Patient Seen: 05/11/18 Time Patient Seen: 07:26 Interval history: Pain is [id number]. Denies fever chills. No nausea vomiting. No shortness of breath or chest pain. Exam Vital Signs (past 8 hours): - 05/11/18 01:15 05/11/18 03:15 Temperature 98.6 F 98.7 F Pulse Rate 64 77 Respiratory Rate 16 17 Blood Pressure 113/64 100/62 Pulse Oximetry 98 96 Oxygen Delivery Method Room Air,CPAP Oxygen Flow Rate 0 Narrative Exam Narrative: 70-year-old male resting comfortably in bed in no apparent distress. Lumbar dressing is clean, dry and intact. There is mild to moderate ecchymosis present along the lower right lumbar spine. Sensation grossly intact to light touch bilateral lower extremities. Motor function is intact bilateral lower extremities. Objective Labs Result Diagrams: 05/11/18 05:20 05/11/18 05:20 Labs: Laboratory Results - last 24 hr 05/11/18 05/11/18 05/11/18 05:20 05:20 05:20 WBC 5.7 RBC 2.57 L Hgb 8.9 L Hct 26.5 L MCV 103.0 H MCH 34.6 H MCHC 33.5 RDW 16.5 H Plt Count 238 Neut % (Auto) 60.9 Lymph % (Auto) 22.1 L [place] % (Auto) 11.6 Eos % (Auto) 4.9 H Baso % (Auto) 0.5 Neut # (Auto) 3400 PT 21.4 H INR 2.0 H Sodium 139 Potassium 3.2 L Chloride 104 Carbon Dioxide 24 BUN 16 Creatinine 1.00 Estimated GFR > 60.0 BUN/Creatinine Ratio 16.0 Glucose 149 H Calcium 8.0 L Assessment & Plan Post-op Postoperative Procedures Operation Date: 05/03/18 07:45 Actual Procedures Side Surgeon p L2-3, L5-S1 TLIF; L2-3,L3-4, L4-5, L5-S1 PSF w/ Posterior Instrumentation Not Applicable Sky Harding MD Postop day 8. Patient is status post lumbar fusion. Hospitalist been following patient for chronic atrial fibrillation with rapid ventricular response, anticoagulation with warfarin, C difficile, postop anemia/acute blood loss anemia, obstructive sleep apnea, type 2 diabetes. Patient will mobilize with physical therapy. [facility] or tomorrow when medically stable per hospitalist. Quality VTE Deep Vein Thrombosis/Pulmonary Embolism Present on Admission: No
[2018-05-11 07:45] VITALS: BP 123/70; PULSE 86; RESP 20; TEMP 36.7; O2SAT 97
[2018-05-11] MEDS: GLYBURIDE MICRONIZED 3 MG PO ×2 (08:49→17:41)
[2018-05-11] MEDS: ALLOPURINOL 300 MG TABLET PO (08:50)
[2018-05-11] MEDS: METFORMIN HCL 500 MG TABLET PO ×2 (08:50→17:42)
[2018-05-11] MEDS: CARVEDILOL 12.5 MG TABLET PO (08:51)
[2018-05-11] MEDS: GABAPENTIN 300 MG CAPSULE PO ×3 (08:53→21:34)
[2018-05-11] MEDS: VANCOMYCIN 125 MG CAPSULE PO ×4 (08:53→21:33)
[2018-05-11] MEDS: FUROSEMIDE 40 MG TABLET PO (08:53)
[2018-05-11] MEDS: INSULIN ASPART 100 UNIT/ML INSULN PEN SUBCUT ×3 (08:55→17:03)
[2018-05-11] MEDS: POTASSIUM CHLORIDE 20 MEQ TAB PO (08:57)
[2018-05-11] MEDS: ASPIRIN EC 81 MG TABLET PO (10:26)
[2018-05-11] MEDS: ACETAMINOPHEN 325 MG TABLET 650 MG PO (10:29)
[2018-05-11] MEDS: OXYCODONE IR 5 MG TABLET 10 MG PO ×3 (10:30→19:05)
--- NOTE | 2018-05-11 13:59 | OT.IP.TRT ---
Current Diagnoses Enterocolitis due to Clostridium difficile, not specified as recurrent (05/03/18) Iron deficiency anemia secondary to blood loss (chronic) (05/03/18) Type 2 diabetes mellitus without complications (05/03/18) Hyperlipidemia, unspecified (05/03/18) Hypokalemia (05/03/18) Essential (primary) hypertension (05/03/18) Unspecified atrial fibrillation (05/03/18) Other secondary scoliosis, lumbar region (05/03/18) Spondylolisthesis, lumbar region (05/03/18) Other spondylosis with radiculopathy, lumbar region (05/03/18) Spinal stenosis, lumbar region without neurogenic claudication (05/03/18) Chronic kidney disease, stage 2 (mild) (05/03/18) Arthrodesis status (05/03/18) Surgery Performed Operation Date: 05/03/18 07:45 Actual Procedures p L2-3, L5-S1 TLIF; L2-3,L3-4, L4-5, L5-S1 PSF w/ Posterior Instrumentation(Not Applicable) - Sky Harding MD Occupational Therapy Treatment Note M2 OT-IP Current Condition Start: 05/04/18 14:07 Freq: Status: Active Protocol: Document 05/04/18 13:53 PJM (Rec: 05/04/18 14:35 PJM [id number]) Occupational Therapy Current Condition Current Condition Evaluation Date 05/04/18 Treatment Diagnosis decreased self care and functional mobility s/p L2-S1 fusion Post Operative Precautions Lumbar Precautions Log Roll No Twisting Limit Bending Lifting Restriction of 10 lbs Gait Belt above Incisional Area M3 OT- IP Subjective and Pain Start: 05/04/18 14:07 Freq: Status: Active Protocol: Document 05/11/18 13:55 CCC (Rec: 05/11/18 13:59 CCC [id number]) OT- Subjective Occupational Therapy Visit Type Type Treatment Note Visit Start Time 13:45 Visit Stop Time 13:55 Total Visit Minutes 10 Occupational Therapy Visit Comments Patient Comments Pt agreed to get up but wanting pain medications first . OT Pain Assessment Pain When Pain Assessed At Rest Pain Present Pain Present Pain Reported Location Back Intensity 4 Document 05/04/18 13:53 PJM (Rec: 05/04/18 14:35 PJM [id number]) OT-Instrumental Activities of Daily Living Deficits IADL Deficits Identified Deficits Home Safety Awareness Awareness of Need for Assistance at Home Good Awareness Medication Management Medication Management Caregiver Provides Supervision Medication Management Comments pt does not recall whether he takes BP meds at home Money Management Money Management No Deficits Identified Meal Preparation Meal Preparation Caregiver Provides Assist Sheriff Sergeant Sheriff Sergeant Caregiver Provides Assist Driving Driving Caregiver Provides Assist M6 OT- IP Functional Cognition Start: 05/04/18 14:07 Freq: Status: Active Protocol: Document 05/11/18 13:55 [facility] (Rec: 05/11/18 13:59 [facility] [id number]) Cognitive Factors Limiting Selfcare Function Cognitive Ability Level of Alertness Alert Patient Orientation Name Place Situation Attention Span Ability Capable of Focused Attention Capable of Sustained Attention Ability to Follow Commands Able to Follow One Step Commands Memory Description Immediate Intact Short Term Intact Ingot Buggy Operator Intact Cognitive Comments Cognitive Assessment Comments Today able to recall all back precautions and state accurately how to incorporate during all Adl's step by step. OT- Balance Assessment Sitting Balance and Reactions Static Sitting Balance Ability Normal Dynamic Sitting Balance Ability Good Standing Balance and Reactions Static Standing Balance Ability Fair M8 OT- IP Objective Assessments Start: 05/04/18 14:07 Freq: Status: Active Protocol: Document 05/04/18 13:53 PJM (Rec: 05/04/18 14:35 PJM [id number]) OT Gross Range of Motion Upper Extremity Range of Motion Assessment Within Functional Limits ROM Impairments Pt had L total shoulder replacement in Jul 2017 with good recovery OT Strength Upper Extremity Strength Assessment Within Functional Limits Hand Tmd Teacher Strength Hand Dominance Right OT- Coordination Assessment Comments Coordination Comments BUE WFL OT Sensation Assessment Comments Summary Comments Pt denies sensory deficits in either UE. M9 OT- IP Assessment and Plan Start: 05/04/18 14:07 Freq: Status: Active Protocol: Document 05/10/18 12:25 [facility] (Rec: 05/10/18 12:47 [facility] [id number]) OT Summary Assessment and Plan Potential Rehabilitation Potential Good Summary OT Impairments Pain Strength Balance Functional Cognition Functional Mobility Grooming Dressing Toileting Bathing Toilet Transfers Shower Transfers Progress Towards Goals Slow Progress due to Medical Issues Slow Progress due to Cognition Assessment Summary Pt able to tolerate standing to grooming needs, however still needing MAX A for all LB dressing needs and sit to stands. Pt to benefit from skilled rehab when medically stable. Goals Grooming Goal Standby Assistance Dressing Goal Minimal Assistance Long Handled Shoe [place] Windows 7 Deployment Lead Sock Aid Toileting Goal Minimal Assistance Bathing Goal Moderate Assistance Grab Bars Hand Held Shower Sprayer Toilet Transfer Goal Standby Assistance Shower Transfer Goal Contact Guard Assistance Walk-in Shower Grab Bars Patient/Caregiver Education Goal Demonstrate Post-Op Precautions Demonstrate Energy Conservation and Pacing Caregiver Independent Assisting Patient Days to Meet Goals 5 Frequency of Treatment Frequency Of Treatment Once a Day Treatment Plan OT Treatment Plan ADL Training Functional Mobility Patient/Family Education Discharge Planning Discharge Recommendations OT Discharge Recommendations SNF Rehab
[2018-05-11] MEDS: POTASSIUM CHLORIDE 20 MEQ TAB 40 MEQ PO (14:42)
[2018-05-11 16:02] VITALS: BP 120/59; PULSE 93; RESP 18; TEMP 36.8; O2SAT 96
--- NOTE | 2018-05-11 16:08 | PT.IPTN ---
Current Diagnoses Enterocolitis due to Clostridium difficile, not specified as recurrent (05/03/18) Iron deficiency anemia secondary to blood loss (chronic) (05/03/18) Type 2 diabetes mellitus without complications (05/03/18) Hyperlipidemia, unspecified (05/03/18) Hypokalemia (05/03/18) Essential (primary) hypertension (05/03/18) Unspecified atrial fibrillation (05/03/18) Other secondary scoliosis, lumbar region (05/03/18) Spondylolisthesis, lumbar region (05/03/18) Other spondylosis with radiculopathy, lumbar region (05/03/18) Spinal stenosis, lumbar region without neurogenic claudication (05/03/18) Chronic kidney disease, stage 2 (mild) (05/03/18) Arthrodesis status (05/03/18) Surgery Performed Operation Date: 05/03/18 07:45 Actual Procedures p L2-3, L5-S1 TLIF; L2-3,L3-4, L4-5, L5-S1 PSF w/ Posterior Instrumentation(Not Applicable) - Sky Harding MD Physical Therapy Treatment Note M2 PT-IP Current Condition Start: 05/03/18 16:29 Freq: NEEDED Status: Active Protocol: Document 05/09/18 15:11 [facility] (Rec: 05/09/18 15:52 [facility] [email or web address]) Physical Therapy Current Condition Current Condition Evaluation Date 05/04/18 Treatment Diagnosis L2-S1 lami-fusion, impaired mobility Onset Date 05/03/18 Precautions Lumbar Precautions Log Roll No Twisting Limit Bending Lifting Restriction of 10 lbs Gait Belt above Incisional Area M3 PT-IP Subjective Start: 05/03/18 16:29 Freq: NEEDED Status: Active Protocol: Document 05/11/18 16:01 RS (Rec: 05/11/18 16:08 RS [id number]) Subjective Physical Therapy Visit Type Type Treatment Note Total Visit Minutes 28 Physical Therapy Visit Comments Patient Comments Pt reports doing well, very interested in walking right now. Therapy Pain Assessment Pain When Pain Assessed At Rest Pain Present Pain Present Denied Pain M4 PT-IP Mobility and Gait Start: 05/03/18 16:29 Freq: NEEDED Status: Active Protocol: Document 05/11/18 16:01 RS (Rec: 05/11/18 16:08 RS [id number]) PT-Bed Mobility Assessment Supine to Sit Supine to Sit Contact Guard Assistance Head of Bed Elevated Bedrails Scooting Scooting to Edge of Bed Minimal Assistance PT-Transfer Assessment Sit to and From Stand Sit to and from Stand Moderate Assistance Use of Upper Extremities Equipment Transfer Assistive Device Gait Belt Front Wheeled Walker Transfers Transfer Destination Chair Transfer Technique walked Transfer Ability Level of Assist Contact Guard Assistance Gait Assessment Gait Gait Assistance Required: Contact Guard Assist Distance (Feet) 100 Assistive Devices Assistive Device Gait Belt Front Wheeled Walker Gait Deviations General Gait Pattern Decreased Feet Clearance Flexed Trunk Comments Gait Comments Pt has a somewhat shuffling gait with decreased foot clearance but did not lose balance at any point. Pt stays flexed forward at the trunk and can minimally improve with verbal cues. Pt denied fatigue or any other abnormal symptoms while walking. HR up to [address] through walk, then dropped to 101 quite shortly after pt stopped walking, then to high 80s once sitting. Stair Climbing Assessment Comments Stair Climbing Comments not tested PT-Balance Assessment Sitting Balance and Reactions Static Sitting Balance Ability Good Dynamic Sitting Balance Ability Fair Standing Balance and Reactions Static Standing Balance Ability Good Dynamic Standing Balance Ability Fair Device Used FWW M5 PT-IP Objective Assessments Start: 05/03/18 16:29 Freq: NEEDED Status: Active Protocol: Document 05/04/18 11:45 RS (Rec: 05/04/18 12:10 RS [id number]) Orientation Orientation/Cognition Level of Alertness Alert Orientation Name Age Birthday Month Date Year Day of Week Place Situation Language Function Ability No Deficits Noted Safety Awareness Understands Safety Issues Memory Description No Deficits Noted Gross Range of Motion Upper Extremity ROM Assessment Within Functional Limits Lower Extremity ROM Assessment Within Functional Limits Strength Comments Strength Comments not formally assessed in sitting, pt does have bilat anti-gravity intact in supine M6 PT-IP Treatment Start: 05/03/18 16:29 Freq: NEEDED Status: Active Protocol: Document 05/07/18 15:34 (Rec: 05/07/18 18:22 [id number]) Physical Therapy Treatment Education Education Provided Precautions Safety M7 PT-IP Assessment and Plan Start: 05/03/18 16:29 Freq: NEEDED Status: Active Protocol: Document 05/11/18 16:01 RS (Rec: 05/11/18 16:08 RS [id number]) PT Summary Assessment and Plan Potential Rehabilitation Potential Good Status of Condition at Evaluation Stable Summary Impairments Pain Strength Balance Bed Mobility Transfers Gait Activity Tolerance Progress Towards Goals Slow Progress due to Medical Issues Slow Progress due to Activity Tolerance Assessment Summary Pt is again able to walk further, now up to 100ft though a wheelchair follow was utilized. Pt is improving with each session but still far below reported functional baseline. Continue to recommend pt transition to SNF rehab for daily therapies once medically ready. Goals Bed Mobility Goal Minimal Assistance Transfer Goal Minimal Assistance Front Wheeled Walker Gait Goal Contact Guard Assistance Front Wheel Walker Gait Distance 150 Days to Meet Goals 2 Frequency of Treatment Frequency Of Treatment Twice a Day Treatment Plan Physical Therapy Treatment Plan Bed Mobility Training Transfer Training Gait Training Therapeutic Exercise Balance Retraining Post Op Education Discharge Planning Hot or Cold Pack Neuromuscular Re-ed Coordination Retraining Manual Therapy Other Recommendations and Next Treatment gait in hallway w/ w/c follow, Focus monitor HR. also bed mobility Recommendations To Nursing Amount of Assist Needed 2 Person Assist Discharge Recommendations PT Discharge Recommendations SNF Rehab
[2018-05-11] MEDS: WARFARIN 5 MG TABLET PO (17:42)
--- NOTE | 2018-05-11 19:32 | P.PN_ITS ---
Subjective Date Patient Seen: 05/11/18 Interval history: Patient with improvement of dyspnea. Also improvement of C diff diarrhea. Postop pain controlled with oral medication. Atrial fibrillation rate control appears improved with heart rate 80s at rest but does spike up to 140s at times with exertion. Exam Vital Signs (past 8 hours): - 05/11/18 16:02 Temperature 98.2 F Pulse Rate 93 H Respiratory Rate 18 Blood Pressure 120/59 L Pulse Oximetry 96 Oxygen Delivery Method Room Air,CPAP Oxygen Flow Rate 0 Narrative Exam Narrative: GENERAL: Patient is in no acute distress resting in bed HEENT: Head normocephalic, atraumatic. Mucous membranes moist. CHEST: Clear to auscultation bilaterally. CARDIAC: Irregularly irregular rhythm ABDOMEN: Obese, soft, nontender, no organomegaly, moderate bilateral flank and scrotal edema noted EXTREMITIES: Trace bilateral pretibial edema, chronic bilateral ankle edema due to prior surgery NEUROLOGICAL: Alert, pleasant, no focal findings SKIN: Warm, dry, no petechiae, no rash Objective Labs Result Diagrams: 05/11/18 05:20 05/11/18 05:20 Labs: Laboratory Results - last 24 hr 05/11/18 05/11/18 05/11/18 05:20 05:20 05:20 WBC 5.7 RBC 2.57 L Hgb 8.9 L Hct 26.5 L MCV 103.0 H MCH 34.6 H MCHC 33.5 RDW 16.5 H Plt Count 238 Neut % (Auto) 60.9 Lymph % (Auto) 22.1 L [place] % (Auto) 11.6 Eos % (Auto) 4.9 H Baso % (Auto) 0.5 Neut # (Auto) 3400 PT 21.4 H INR 2.0 H Sodium 139 Potassium 3.2 L Chloride 104 Carbon Dioxide 24 BUN 16 Creatinine 1.00 Estimated GFR > 60.0 BUN/Creatinine Ratio 16.0 Glucose 149 H Calcium 8.0 L Assessment & Plan Plan: Assessment/Plan Narrative: 1. POD 7 -L4-5, L5-S1 Transforamenal interbody fusion with posterolateral fusion -L4-5, L5-S1 interbody cage placement. -L2-3, L3-4 decompressive laminectomies with partial facetecomies -L2-3, L3-4 posterolateral fusion -L2-3, L3-4, L4-5, L5-S1 posterior segmental instrumentation with pedicle screws placement in L2, L3, L4, L5, S1 -[place] of bone marrow from iliac crest 2. CHRONIC ATRIAL FIBRILLATION WITH RAPID VENTRICULAR RESPONSE Improved rate control after treating volume overload with IV Lasix and increasing carvedilol dose to 12.5 mg twice daily. Since BP running low normal I have reduced his enalapril HCT dose from b.i.d. to daily. Serum potassium slightly low and additional oral potassium has been ordered. 3. ANTICOAGULATION WITH WARFARIN INR 2.0, climbing. 4. C DIFF . Diarrhea improving. HE IS ON VANCOMYCIN 125 MG P.O. Q.I.D.. DAY 12/24 OF THERAPY. Discontinue doxycycline which was given postop. 5. POSTOP ANEMIA/ACUTE BLOOD LOSS ANEMIA HIS HEMOGLOBIN DROPPED FROM 9.4-7.9. HE WAS TRANSFUSED WITH 2 UNITS OF PACKED RBCS AND HIS H&H HAS REMAINED STABLE SINCE. HEMOGLOBIN TODAY IS 8.9, improved. 6. OBSTRUCTIVE SLEEP APNEA PATIENT USES CPAP AT HS 7. Type 2 Diabetes Mellitus He is back on Metformin and glyburide now. DISPOSITION HE IS planning FOR DISCHARGE TO [facility] FOR SNF rehab WHEN MEDICALLY STABLE, likely tomorrow- Thursday. Quality VTE Deep Vein Thrombosis/Pulmonary Embolism Present on Admission: No
--- NOTE | 2018-05-11 19:32 | PM.PN.1 ---
Subjective Date Patient Seen: 05/11/18 Interval history: Patient with improvement in AFib rate control. Heart rate 80s at rest but does spike to 140s at times with activity. His C diff diarrhea is also improving. Postop pain is well controlled. Exam Vital Signs (past 8 hours): - 05/11/18 16:02 Temperature 98.2 F Pulse Rate 93 H Respiratory Rate 18 Blood Pressure 120/59 L Pulse Oximetry 96 Oxygen Delivery Method Room Air,CPAP Oxygen Flow Rate 0 Narrative Exam Narrative: GENERAL: Patient is in no acute distress resting in bed HEENT: Head normocephalic, atraumatic. Mucous membranes moist. CHEST: Clear to auscultation bilaterally. CARDIAC: Irregularly irregular rhythm ABDOMEN: Obese, soft, nontender, no organomegaly, improvement in dependent scrotal edema EXTREMITIES: 1+ bilateral pretibial edema, chronic bilateral ankle edema status post fusions NEUROLOGICAL: Alert, pleasant, no focal findings SKIN: Warm, dry, no petechiae, no rash Objective Labs Result Diagrams: 05/11/18 05:20 05/11/18 05:20 Labs: Laboratory Results - last 24 hr 05/11/18 05/11/18 05/11/18 05:20 05:20 05:20 WBC 5.7 RBC 2.57 L Hgb 8.9 L Hct 26.5 L MCV 103.0 H MCH 34.6 H MCHC 33.5 RDW 16.5 H Plt Count 238 Neut % (Auto) 60.9 Lymph % (Auto) 22.1 L [place] % (Auto) 11.6 Eos % (Auto) 4.9 H Baso % (Auto) 0.5 Neut # (Auto) 3400 PT 21.4 H INR 2.0 H Sodium 139 Potassium 3.2 L Chloride 104 Carbon Dioxide 24 BUN 16 Creatinine 1.00 Estimated GFR > 60.0 BUN/Creatinine Ratio 16.0 Glucose 149 H Calcium 8.0 L Assessment & Plan Plan: Assessment/Plan Narrative: 1. POD 8 -L4-5, L5-S1 Transforamenal interbody fusion with posterolateral fusion -L4-5, L5-S1 interbody cage placement. -L2-3, L3-4 decompressive laminectomies with partial facetecomies -L2-3, L3-4 posterolateral fusion -L2-3, L3-4, L4-5, L5-S1 posterior segmental instrumentation with pedicle screws placement in L2, L3, L4, L5, S1 -[place] of bone marrow from iliac crest 2. CHRONIC ATRIAL FIBRILLATION WITH RAPID VENTRICULAR RESPONSE Improved rate control after IV diuresis for volume overload and increasing carvedilol dose to 12.5 mg twice daily also in light of elevated BP. I decreased his enalapril HCTZ dose from b.i.d. down to daily due to low normal blood pressures. Ordered additional oral potassium for serum K 3.2 after diuresis. 3. ANTICOAGULATION WITH WARFARIN INR 2.0, climbing. 4. C DIFF . Diarrhea improving. HE IS ON VANCOMYCIN 125 MG P.O. Q.I.D.. DAY 01/23 OF THERAPY 5. POSTOP ANEMIA/ACUTE BLOOD LOSS ANEMIA HIS HEMOGLOBIN DROPPED FROM 9.4-7.9. HE WAS TRANSFUSED WITH 2 UNITS OF PACKED RBCS AND HIS H&H HAS REMAINED STABLE SINCE. HEMOGLOBIN TODAY IS 8.9. 6. OBSTRUCTIVE SLEEP APNEA PATIENT USES CPAP AT HS 7. Type 2 Diabetes Mellitus, controlled He is back on Metformin and glyburide now. DISPOSITION He needs 1 more day of telemetry to assess medication adjustments for AFib and BP. HE IS planning FOR DISCHARGE TO [facility] FOR SNF rehab WHEN MEDICALLY STABLE, likely tomorrow- Thursday. Quality VTE Deep Vein Thrombosis/Pulmonary Embolism Present on Admission: No
[2018-05-11 20:00] VITALS: BP 108/63; PULSE 75; RESP 18; TEMP 36.7; O2SAT 97
[2018-05-11] MEDS: SIMVASTATIN 20 MG TABLET PO (21:33)
[2018-05-11] MEDS: DOCUSATE 100 MG CAPSULE PO (21:34)
[2018-05-11] MEDS: SENNOSIDES 8.6 MG TABLET 17.2 MG PO (21:34)
[2018-05-11 21:41] VITALS: BP 97/55; PULSE 79
[2018-05-12 00:32] VITALS: BP 118/49; PULSE 83; RESP 18; TEMP 36.9; O2SAT 94
[2018-05-12] MEDS: OXYCODONE IR 5 MG TABLET 10 MG PO ×3 (01:09→13:53)
[2018-05-12 06:34] VITALS: BP 118/64; PULSE 83; RESP 18; TEMP 36.3; O2SAT 96
[2018-05-12 08:00] VITALS: BP 125/77; PULSE 88; RESP 16; TEMP 36.4; O2SAT 97
[2018-05-12] MEDS: ALLOPURINOL 300 MG TABLET PO (09:17)
[2018-05-12] MEDS: METFORMIN HCL 500 MG TABLET PO (09:17)
[2018-05-12] MEDS: GLYBURIDE MICRONIZED 3 MG PO (09:17)
[2018-05-12] MEDS: CARVEDILOL 12.5 MG TABLET PO (09:18)
[2018-05-12] MEDS: ASPIRIN EC 81 MG TABLET PO (09:18)
[2018-05-12] MEDS: ENALAPRIL 20 MG TABLET 10 MG PO (09:19)
[2018-05-12] MEDS: GABAPENTIN 300 MG CAPSULE PO ×2 (09:19→12:52)
[2018-05-12] MEDS: FUROSEMIDE 40 MG TABLET PO (09:19)
[2018-05-12] MEDS: POTASSIUM CHLORIDE 20 MEQ TAB PO (09:20)
[2018-05-12] MEDS: hydroCHLOROthiazide 25 MG TABLET PO (09:20)
[2018-05-12] MEDS: VANCOMYCIN 125 MG CAPSULE PO ×2 (09:21→12:52)
--- NOTE | 2018-05-12 09:30 | PT.IPTN ---
Current Diagnoses Enterocolitis due to Clostridium difficile, not specified as recurrent (05/03/18) Iron deficiency anemia secondary to blood loss (chronic) (05/03/18) Type 2 diabetes mellitus without complications (05/03/18) Hyperlipidemia, unspecified (05/03/18) Hypokalemia (05/03/18) Essential (primary) hypertension (05/03/18) Unspecified atrial fibrillation (05/03/18) Other secondary scoliosis, lumbar region (05/03/18) Spondylolisthesis, lumbar region (05/03/18) Other spondylosis with radiculopathy, lumbar region (05/03/18) Spinal stenosis, lumbar region without neurogenic claudication (05/03/18) Chronic kidney disease, stage 2 (mild) (05/03/18) Arthrodesis status (05/03/18) Surgery Performed Operation Date: 05/03/18 07:45 Actual Procedures p L2-3, L5-S1 TLIF; L2-3,L3-4, L4-5, L5-S1 PSF w/ Posterior Instrumentation(Not Applicable) - Sky Harding MD Physical Therapy Treatment Note M2 PT-IP Current Condition Start: 05/03/18 16:29 Freq: NEEDED Status: Active Protocol: Document 05/09/18 15:11 RCC (Rec: 05/09/18 15:52 RCC [id number]) Physical Therapy Current Condition Current Condition Evaluation Date 05/04/18 Treatment Diagnosis L2-S1 lami-fusion, impaired mobility Onset Date 05/03/18 Precautions Lumbar Precautions Log Roll No Twisting Limit Bending Lifting Restriction of 10 lbs Gait Belt above Incisional Area M3 PT-IP Subjective Start: 05/03/18 16:29 Freq: NEEDED Status: Active Protocol: Document 05/12/18 09:30 GGD (Rec: 05/12/18 10:53 GGD [id number]) Subjective Physical Therapy Visit Type Type Treatment Note Visit Start Time 09:00 Visit Stop Time 09:30 Total Visit Minutes 30 Number of BEEF GRADER Visits 1 Physical Therapy Visit Comments Patient Comments Pt states he needs to use the bathroom. Therapy Pain Assessment Pain When Pain Assessed During Mobility Pain Present Pain Present Pain Reported Location Back Intensity 4 Scale Used Numeric (1 - 10) M4 PT-IP Mobility and Gait Start: 05/03/18 16:29 Freq: NEEDED Status: Active Protocol: Document 05/12/18 09:30 GGD (Rec: 05/12/18 10:53 GGD [id number]) PT-Bed Mobility Assessment Supine to Sit Supine to Sit Moderate Assistance 1 Person Assistance Bedrails Scooting Scooting to Edge of Bed Minimal Assistance PT-Transfer Assessment Sit to and From Stand Sit to and from Stand Moderate Assistance 1 Person Assistance Use of Upper Extremities Equipment Transfer Assistive Device Gait Belt Front Wheeled Walker Transfers Transfer Destination Chair Toilet Transfer Ability Level of Assist Contact Guard Assistance Gait Assessment Gait Gait Assistance Required: Contact Guard Assist Distance (Feet) 20 Assistive Devices Assistive Device Gait Belt Front Wheeled Walker Gait Deviations General Gait Pattern Decreased Feet Clearance Flexed Trunk Comments Gait Comments HR up to 150 with activity. M5 PT-IP Objective Assessments Start: 05/03/18 16:29 Freq: NEEDED Status: Active Protocol: Document 05/04/18 11:45 RS (Rec: 05/04/18 12:10 RS [id number]) Orientation Orientation/Cognition Level of Alertness Alert Orientation Name Age Birthday Month Date Year Day of Week Place Situation Language Function Ability No Deficits Noted Safety Awareness Understands Safety Issues Memory Description No Deficits Noted Gross Range of Motion Upper Extremity ROM Assessment Within Functional Limits Lower Extremity ROM Assessment Within Functional Limits Strength Comments Strength Comments not formally assessed in sitting, pt does have bilat anti-gravity intact in supine M6 PT-IP Treatment Start: 05/03/18 16:29 Freq: NEEDED Status: Active Protocol: Document 05/07/18 15:34 (Rec: 05/07/18 18:22 [id number]) Physical Therapy Treatment Education Education Provided Precautions Safety M7 PT-IP Assessment and Plan Start: 05/03/18 16:29 Freq: NEEDED Status: Active Protocol: Document 05/12/18 09:30 GGD (Rec: 05/12/18 10:53 GGD [id number]) PT Summary Assessment and Plan Summary Assessment Summary Pt improving slowly with mobility. He needs assist for sit to stand, Less from higher surface. He need cues and mod assist for log roll. Frequency of Treatment Frequency Of Treatment Twice a Day Treatment Plan Physical Therapy Treatment Plan Bed Mobility Training Transfer Training Gait Training Therapeutic Exercise Balance Retraining Post Op Education Discharge Planning Hot or Cold Pack Neuromuscular Re-ed Coordination Retraining Manual Therapy Other Recommendations and Next Treatment gait in hallway w/ w/c follow, Focus monitor HR. also bed mobility Recommendations To Nursing Amount of Assist Needed 2 Person Assist Discharge Recommendations PT Discharge Recommendations SNF Rehab
--- NOTE | 2018-05-12 11:19 | PM.PNPO.1 ---
Subjective Date Patient Seen: 05/12/18 Time Patient Seen: 11:19 Interval history: Patient is POD #9 status post lumbar fusion by Dr. Harding. Patient reports that he feels fine overall. Pain is well managed at this time. Patient reports he is scheduled to be discharged today to SNF. Patient denies any fever, chills, SOB, chest pain, nausea or vomiting. Exam Vital Signs (past 8 hours): - 05/12/18 06:34 05/12/18 08:00 Temperature 97.3 F L 97.6 F Pulse Rate 83 88 Respiratory Rate 18 16 Blood Pressure 118/64 125/77 Pulse Oximetry 96 97 Oxygen Delivery Method Room Air,CPAP Oxygen Flow Rate 0 Narrative Exam Narrative: Patient is AOx3. Patient is sitting upright in bed comfortably in no acute distress. Radial and dorsalis pedis pulses 2+ and symmetric. Adequate muscle strength in dorsiflexion, plantarflexion and help desk internship bilaterally. Lumbar dressing is clean, dry and intact. There is mild to moderate ecchymosis present along the R lower spine. Sensation grossly intact to light touch bilateral lower extremities. Calfs are soft, non tender and compressible bilaterally. Objective Labs Result Diagrams: 05/11/18 05:20 05/11/18 05:20 Assessment & Plan Post-op Postoperative Procedures Operation Date: 05/03/18 07:45 Actual Procedures Side Surgeon p L2-3, L5-S1 TLIF; L2-3,L3-4, L4-5, L5-S1 PSF w/ Posterior Instrumentation Not Applicable Sky Harding MD Postoperative day: 9 Postoperative status: doing well Postoperative plan: routine post-op care Postoperative plan narrative: Patient is status post lumbar fusion. Hospitalist been following patient for chronic atrial fibrillation with rapid ventricular response, anticoagulation with warfarin, C difficile, postop anemia/acute blood loss anemia, obstructive sleep apnea, type 2 diabetes. Patient will continue to mobilize with physical therapy. He is planning for discharge to SNF today when medically stable per hospitalist. Time Spent With Patient less than 15 minutes Quality VTE Deep Vein Thrombosis/Pulmonary Embolism Present on Admission: No
[2018-05-12 12:28] VITALS: BP 136/75; PULSE 95; RESP 16; TEMP 37.4; O2SAT 93
[2018-05-12] MEDS: INSULIN ASPART 100 UNIT/ML INSULN PEN SUBCUT (12:55)
--- NOTE | 2018-05-12 14:25 | PC.NURSE ---
Transfer pending to [facility]. Report called to admitting nurse Ruth. Reviewed pt's complex medical course and surgical hx. Discussed pt's adl's and lami precautions. Reviewed skin issues of bilat flank bruising, incision and area around incision, rt buttock area. Dressing to back and buttock area changed and pt's spouse was given a set of dressings to take with her for pt. Spouse had photographed pt's wound and bruising last week end with this news writer. She reviewed skin areas as well as we both reviewed the pictures and all areas are healing, less red, areas on back have scabbed, buttock much less red and smaller. Part of this is due to pt stooling less. This week end had 5 liquid stools by this time in my shift, today he has only had 1 liquid stool. Reviewed pt's cardiac issue, several med adjustments, heart rate usually 70-80's, did have an episode once briefly to 140's which md was made aware of prior to d/c order being written. Pt has also had a blood transfusion and is a diabetic and reviewed cbg's. Pt has c-diff and Ruth had already known that. Family is asking for a longer bed and Ruth said facility is aware of request and they are in the process of meeting that need. Questions answered.
--- NOTE | 2018-05-12 16:54 | P.DS_ITS ---
History of Present Illness Chief complaint: L2-3 L5-S1 TLIF L2-S1 PSF w/posterior instrumentat Narrative: Patient was admitted for elective spinal fusion. Discharge Providers Date of admission: 05/03/18 06:23 Primary care physician: Maykel Rodríguez MD Consults: 05/03/18 14:16 Consult to Occupational Therapy Evaluate & Treat Comment: Physician Instructions: Evaluate and treat Consult to Physical Therapy Evaluate & Treat Comment: Physician Instructions: Evaluate and Treat 05/03/18 14:40 Consult to Dietitian, Adult Routine Comment: Not needed. Pt on Keto diet lost 25 pounds Reason For Exam: Not needed 05/04/18 13:26 Consult to Hospitalist Service Routine Comment: Consulting Provider: Maranda Dodson Reason for consultation: hypotensive Has provider been notified: Yes Discharge provider: Rickey Calle MD Discharge Date: 05/12/18 Summary Discharge Diagnosis: 1. Lumbar fusion 2. Chronic atrial fibrillation with RVR 3. C difficile colitis 4. Blood loss anemia 5. Obstructive sleep apnea 6. Type 2 diabetes, controlled 7. Anticoagulation therapy Hospital Course: 1. POD 8 -L4-5, L5-S1 Transforamenal interbody fusion with posterolateral fusion -L4-5, L5-S1 interbody cage placement. -L2-3, L3-4 decompressive laminectomies with partial facetecomies -L2-3, L3-4 posterolateral fusion -L2-3, L3-4, L4-5, L5-S1 posterior segmental instrumentation with pedicle screws placement in L2, L3, L4, L5, S1 -[place] of bone marrow from iliac crest 2. CHRONIC ATRIAL FIBRILLATION WITH RAPID VENTRICULAR RESPONSE Improved rate control after IV diuresis for volume overload and increasing carvedilol dose to 12.5 mg twice daily also in light of elevated BP. His resting heart rate is in the 80s but he does shoot up into the 140s to 150s very briefly when getting up to bathroom but heart rate quickly comes down with rest. He is not having any palpitations, shortness of breath, lightheadedness or dizziness with standing and walking. I decreased his enalapril HCTZ dose from b.i.d. down to daily due to low normal blood pressures. Received additional oral potassium for serum K 3.2 after diuresis. 3. ANTICOAGULATION WITH WARFARIN INR 2.0, climbing. 4. C DIFF . Diarrhea improving. HE IS ON VANCOMYCIN 125 MG P.O. Q.I.D.. DAY 7 OF THERAPY 5. POSTOP ANEMIA/ACUTE BLOOD LOSS ANEMIA HIS HEMOGLOBIN DROPPED FROM 9.4-7.9. HE WAS TRANSFUSED WITH 2 UNITS OF PACKED RBCS AND HIS H&H HAS REMAINED STABLE SINCE. HEMOGLOBIN TODAY IS 8.9. 6. OBSTRUCTIVE SLEEP APNEA PATIENT USES CPAP AT HS 7. Type 2 Diabetes Mellitus, controlled He is back on Metformin and glyburide now. Glucose adequate control. Exam Vital Signs (past 8 hours): - 05/12/18 12:28 Temperature 99.3 F Pulse Rate 95 H Respiratory Rate 16 Blood Pressure 136/75 Pulse Oximetry 93 Oxygen Delivery Method Room Air Oxygen Flow Rate 0 Objective Labs Result Diagrams: 05/11/18 05:20 05/11/18 05:20 Discharge Plan Discharge Plan Patient Disposition: SNF Transfer to: [facility] Labs: INR, CBC, BMP 1 WEEK Consult as needed: Dental, Hearing, Mental health, Podiatry and Vision I certify the postop hospital senior living care is medically necessary on a continuing basis for any conditions for which he/ she received care during this hospitalization.: Yes The receiving facility has agreed to accept transfer and provide medical treatment.: Yes Discharge Med Rec/Prescriptions Prescriptions: New carvedilol 12.5 mg tablet 12.5 mg PO BID Qty: 60 RF: 0 enalapril-hydrochlorothiazide 10-25 mg tablet 1 tab PO DAILY Qty: 30 RF: 0 warfarin 5 mg tablet 5 mg PO .hs Qty: 30 RF: 0 oxycodone 5 mg Tablet 5 - 10 mg PO Q4H PRN (Reason: Pain, Severe (7-10)) Qty: 60 RF: 0 vancomycin 125 mg Capsule 125 mg PO QID Qty: 56 RF: 0 Continue simvastatin 20 mg Tablet 20 mg PO BEDTIME Qty: 0 RF: 0 potassium chloride 20 mEq Tablet Extended Release 20 meq PO EVERY DAY Qty: 0 RF: 0 glyburide micronized [Glynase] 3 MG tablet 3 mg PO BID Qty: 0 RF: 0 allopurinol 300 MG tablet 300 mg PO QDAY Qty: 0 RF: 0 gabapentin [Neurontin] 300 MG capsule 300 mg PO TID Qty: 0 RF: 0 metformin 1,000 MG tablet extended release 24hr 1,000 mg PO BID Qty: 0 RF: 0 pioglitazone 30 MG tablet 30 mg PO QDAY Qty: 0 RF: 0 furosemide 40 MG tablet 40 mg PO QDAY Qty: 0 RF: 0 aspirin 81 mg Tablet,Delayed Release (Dr/Ec) 81 mg PO DAILY RF: 0 Discontinued carvedilol [Coreg] 6.25 MG tablet 6.25 mg PO BID Qty: 0 RF: 0 enalapril-hydrochlorothiazide [Vaseretic] 10 MG/25 MG tablet 1 tab PO BID Qty: 0 RF: 0 warfarin [Jantoven] 5 MG tablet 5 mg PO SEEINSTR Qty: 0 RF: 0 doxycycline hyclate 100 MG tablet 100 mg PO EVERY OTHER DAY Qty: 0 RF: 0 warfarin 5 mg tablet 7.5 mg PO TUT RF: 0 Follow up/Referrals: Sky Harding MD [Physician] - 1 Week Provider Discharge Instructions Diet: Regular Liquid consistency: Normal/Thin Food texture: Regular Visit Report/Discharge Packet Instructions: DI for Antibiotic -- associated Colitis -- C difficile, DI for Blood Transfusion, DI for Atrial Fibrillation, DI for Transforaminal Lumbar Interbody Fusion Discharge Data Primary Care Provider: Maykel Rodríguez Attending Provider: Sky Harding Admit Date/Time: 05/03/18 06:23 Discharges patient from system. Discharge Date/Time: 05/12/18 15:32 Quality VTE Deep Vein Thrombosis/Pulmonary Embolism Present on Admission: No
--- NOTE | 2018-05-13 08:57 | CM.DPC ---
Late Entry: DC Pt DC to [facility] yesterday, 05.12.18. Pt and spouse remained aware and agreeable to this plan. dental hygiene administrative assistant Rodrigue Pisano arranged DC details to include faxing DC ppk to [facility] and coordinating transportation via cabulance. RN Elizabeth and KADE made aware and p/u time. JW
== END 2018-05-12 15:32 | DRG 454 ==
PROVIDERS: Family Medicine; Internal Medicine; Admitting Provider Orthopaedic Surgery Orthopaedic Surgery of the Spine; Family Provider Internal Medicine; PCP Internal Medicine; Visit Provider Orthopaedic Surgery Orthopaedic Surgery of the Spine
PROC: 0SG00AJ Fusion of Lumbar Vertebral Joint with Interbody Fusion Device, Posterior Approach, Anterior Column, Open Approach (ICD-10-PCS; principal; 2018-05-03 07:45)
DX: M48.07 Spinal stenosis, lumbosacral region (principal); D62 Acute posthemorrhagic anemia; A04.72 Enterocolitis due to Clostridium difficile, not specified as recurrent; M96.1 Postlaminectomy syndrome, not elsewhere classified; M41.86 Other forms of scoliosis, lumbar region; M43.16 Spondylolisthesis, lumbar region; G47.33 Obstructive sleep apnea (adult) (pediatric); E66.9 Obesity, unspecified; Z68.39 Body mass index [BMI] 39.0-39.9, adult; I10 Essential (primary) hypertension; E78.5 Hyperlipidemia, unspecified; E11.21 Type 2 diabetes mellitus with diabetic nephropathy; Z79.84 Long term (current) use of oral hypoglycemic drugs; N18.3 Chronic kidney disease, stage 3 (moderate); I48.0 Paroxysmal atrial fibrillation; Z79.01 Long term (current) use of anticoagulants; I87.2 Venous insufficiency (chronic) (peripheral)
CPT/HCPCS: 36415; 36430; 72100; 76001; 80048; 80053; 82962; 83036; 83540; 83550; 83605; 85014; 85018; 85025; 85610; 86850; 86900; 86901; 87493; 94760; 97116; 97127; 97162; 97165; 97530; 97535; C1776; P9016; C9290; J0330; J0690; J1160; J1170; J1940; J2405; J2704; J3010

== ENCOUNTER → 2018-06-07 14:54 | Outpatient (CLI) | payer MEDICARE, BC, SELFPAY ==
[2018-05-03 14:28] VITALS: BMI 39.7
== END ==
PROVIDERS: Family Provider Internal Medicine; PCP Internal Medicine; Visit Provider Family Medicine
DX: T81.31XA Disruption of external operation (surgical) wound, not elsewhere classified, initial encounter (principal); S21.202A Unspecified open wound of left back wall of thorax without penetration into thoracic cavity, initial encounter; L89.312 Pressure ulcer of right buttock, stage 2; L89.322 Pressure ulcer of left buttock, stage 2; L08.9 Local infection of the skin and subcutaneous tissue, unspecified; E11.622 Type 2 diabetes mellitus with other skin ulcer
CPT/HCPCS: 11042; 87070; 87075; 87077; 87147; 87186; 87205; 97597; 99204; 99212

== ENCOUNTER → 2018-06-14 09:25 | Outpatient (CLI) | payer MEDICARE, BC, SELFPAY ==
[2018-05-03 14:28] VITALS: BMI 39.7
[2018-06-14 11:46] LABS: BUN Creatinine Ratio 22.1 (6-22); Blood Urea Nitrogen 31 mg/dL (9-20); Calcium 8.8 mg/dL (8.4-10.2); Carbon Dioxide 27 mmol/L (22-32); Chloride 99 mmol/L (98-107); Glucose 122 mg/dL (80-110); HEMOLYSIS < 15 (0-50); Potassium 4.7 mmol/L (3.4-5.1); Sodium 137 mmol/L (137-145)
== END ==
PROVIDERS: Family Provider Internal Medicine; PCP Internal Medicine; Visit Provider Family Medicine
DX: L08.9 Local infection of the skin and subcutaneous tissue, unspecified (principal); S21.202A Unspecified open wound of left back wall of thorax without penetration into thoracic cavity, initial encounter
CPT/HCPCS: 36415; 80048

== ENCOUNTER → 2018-06-14 13:59 | Outpatient (CLI) | payer MEDICARE, BC, SELFPAY ==
[2018-05-03 14:28] VITALS: BMI 39.7
== END ==
PROVIDERS: Family Provider Internal Medicine; PCP Internal Medicine; Visit Provider Family Medicine
DX: S21.202A Unspecified open wound of left back wall of thorax without penetration into thoracic cavity, initial encounter (principal); S21.201A Unspecified open wound of right back wall of thorax without penetration into thoracic cavity, initial encounter; L08.9 Local infection of the skin and subcutaneous tissue, unspecified; A49.02 Methicillin resistant Staphylococcus aureus infection, unspecified site; Z79.01 Long term (current) use of anticoagulants; Z48.817 Encounter for surgical aftercare following surgery on the skin and subcutaneous tissue
CPT/HCPCS: 11042; 97605; 99213

== ENCOUNTER → 2018-06-16 14:49 | Outpatient (CLI) | payer MEDICARE, BC, SELFPAY ==
[2018-05-03 14:28] VITALS: BMI 39.7
== END ==
PROVIDERS: Family Provider Internal Medicine; PCP Internal Medicine; Visit Provider Family Medicine
DX: S21.202A Unspecified open wound of left back wall of thorax without penetration into thoracic cavity, initial encounter (principal); S21.201A Unspecified open wound of right back wall of thorax without penetration into thoracic cavity, initial encounter; T81.31XA Disruption of external operation (surgical) wound, not elsewhere classified, initial encounter
CPT/HCPCS: 97607

== ENCOUNTER → 2018-06-18 09:28 | Outpatient (CLI) | payer MEDICARE, BC, SELFPAY ==
[2018-05-03 14:28] VITALS: BMI 39.7
== END ==
PROVIDERS: Family Provider Internal Medicine; PCP Internal Medicine; Visit Provider Family Medicine
DX: T81.31XA Disruption of external operation (surgical) wound, not elsewhere classified, initial encounter (principal); S21.202A Unspecified open wound of left back wall of thorax without penetration into thoracic cavity, initial encounter; S21.201A Unspecified open wound of right back wall of thorax without penetration into thoracic cavity, initial encounter; A49.02 Methicillin resistant Staphylococcus aureus infection, unspecified site
CPT/HCPCS: 11042; 97607; 99213

== ENCOUNTER → 2018-06-18 11:44 | Outpatient (CLI) | payer MEDICARE, BC, SELFPAY ==
[2018-05-03 14:28] VITALS: BMI 39.7
[2018-06-18 12:42] LABS: Erythrocyte Sedimentation Rate 43 MM/HR (0-15)
[2018-06-18 13:14] LABS: C-Reactive Protein Quant 0.9 mg/dL (<1.0)
[2018-06-22 13:16] LABS: ANCA Screen Negative (Negative)
== END ==
PROVIDERS: Family Provider Internal Medicine; PCP Internal Medicine; Visit Provider Family Medicine
DX: R23.3 Spontaneous ecchymoses (principal); N17.9 Acute kidney failure, unspecified; T81.31XA Disruption of external operation (surgical) wound, not elsewhere classified, initial encounter; S21.202A Unspecified open wound of left back wall of thorax without penetration into thoracic cavity, initial encounter; S21.201A Unspecified open wound of right back wall of thorax without penetration into thoracic cavity, initial encounter; A49.02 Methicillin resistant Staphylococcus aureus infection, unspecified site
CPT/HCPCS: 11042; 36415; 85651; 86021; 86140; 97607

== ENCOUNTER → 2018-06-21 14:29 | Outpatient (CLI) | payer MEDICARE, BC, SELFPAY ==
[2018-05-03 14:28] VITALS: BMI 39.7
[2018-06-21 14:52] LABS: Bacteria Urine None Seen; RBC Urine None Seen (0-5/HPF); WBC Urine None Seen (0-5/HPF)
[2018-06-21 16:30] LABS: Culture Indicated Urine Cult Not Indicated; Squamous Epithelial Cell Urine 0-1 /HPF
== END ==
PROVIDERS: PCP Internal Medicine; Visit Provider Family Medicine
DX: N17.0 Acute kidney failure with tubular necrosis (principal); R23.3 Spontaneous ecchymoses
CPT/HCPCS: 81015; 97607; 99203; 99213

== ENCOUNTER → 2018-06-24 08:12 | Outpatient (CLI) | payer MEDICARE, BC, SELFPAY ==
[2018-05-03 14:28] VITALS: BMI 39.7
[2018-06-24 09:04] LABS: BUN Creatinine Ratio 32.5 (6-22); Blood Urea Nitrogen 39 mg/dL (9-20); Calcium 8.8 mg/dL (8.4-10.2); Carbon Dioxide 25 mmol/L (22-32); Chloride 101 mmol/L (98-107); Estimated Glomerular Filt Rate 58.6 mL/min (>60); Glucose 194 mg/dL (80-110); HEMOLYSIS < 15 (0-50); Potassium 4.6 mmol/L (3.4-5.1); Sodium 141 mmol/L (137-145)
== END ==
PROVIDERS: Family Provider Internal Medicine; PCP Internal Medicine; Visit Provider Family Medicine
DX: N17.9 Acute kidney failure, unspecified (principal); R23.3 Spontaneous ecchymoses
CPT/HCPCS: 36415; 80048

== ENCOUNTER → 2018-06-24 09:43 | Outpatient (CLI) | payer MEDICARE, BC, SELFPAY ==
[2018-05-03 14:28] VITALS: BMI 39.7
== END ==
PROVIDERS: Family Provider Internal Medicine; PCP Internal Medicine; Visit Provider Family Medicine
DX: S21.202A Unspecified open wound of left back wall of thorax without penetration into thoracic cavity, initial encounter (principal); S21.201A Unspecified open wound of right back wall of thorax without penetration into thoracic cavity, initial encounter
CPT/HCPCS: 36415; 80048; 97602

== ENCOUNTER → 2018-06-28 09:51 | Outpatient (CLI) | payer MEDICARE, BC, SELFPAY ==
[2018-05-03 14:28] VITALS: BMI 39.7
== END ==
PROVIDERS: Family Provider Internal Medicine; PCP Internal Medicine; Visit Provider Family Medicine
DX: S21.202A Unspecified open wound of left back wall of thorax without penetration into thoracic cavity, initial encounter (principal); S21.201A Unspecified open wound of right back wall of thorax without penetration into thoracic cavity, initial encounter; R23.3 Spontaneous ecchymoses
CPT/HCPCS: 11042

== ENCOUNTER → 2018-07-01 10:00 | Outpatient (CLI) | payer MEDICARE, BC, SELFPAY ==
[2018-05-03 14:28] VITALS: BMI 39.7
== END ==
PROVIDERS: Family Provider Internal Medicine; PCP Internal Medicine; Visit Provider Family Medicine
DX: S21.202A Unspecified open wound of left back wall of thorax without penetration into thoracic cavity, initial encounter (principal); S21.201A Unspecified open wound of right back wall of thorax without penetration into thoracic cavity, initial encounter
CPT/HCPCS: 11042; 87070; 87075; 87077; 87147; 87186; 87205

== ENCOUNTER → 2018-07-08 09:40 | Outpatient (CLI) | payer MEDICARE, BC, SELFPAY ==
[2018-05-03 14:28] VITALS: BMI 39.7
== END ==
PROVIDERS: Family Provider Internal Medicine; PCP Internal Medicine; Visit Provider Family Medicine
DX: S21.202A Unspecified open wound of left back wall of thorax without penetration into thoracic cavity, initial encounter (principal); S21.201A Unspecified open wound of right back wall of thorax without penetration into thoracic cavity, initial encounter; E11.622 Type 2 diabetes mellitus with other skin ulcer; Z79.01 Long term (current) use of anticoagulants; A49.02 Methicillin resistant Staphylococcus aureus infection, unspecified site
CPT/HCPCS: 11042; 99213

== ENCOUNTER → 2018-07-12 12:46 | Outpatient (CLI) | payer MEDICARE, BC, SELFPAY ==
[2018-05-03 14:28] VITALS: BMI 39.7
== END ==
PROVIDERS: Family Provider Internal Medicine; PCP Internal Medicine; Visit Provider Family Medicine
DX: S21.202A Unspecified open wound of left back wall of thorax without penetration into thoracic cavity, initial encounter (principal); S21.201A Unspecified open wound of right back wall of thorax without penetration into thoracic cavity, initial encounter; A49.02 Methicillin resistant Staphylococcus aureus infection, unspecified site; E11.622 Type 2 diabetes mellitus with other skin ulcer; Z79.01 Long term (current) use of anticoagulants
CPT/HCPCS: 11042; 97607; 99213

== ENCOUNTER → 2018-07-15 10:10 | Outpatient (CLI) | payer MEDICARE, BC, SELFPAY ==
[2018-05-03 14:28] VITALS: BMI 39.7
== END ==
PROVIDERS: Family Provider Internal Medicine; PCP Internal Medicine; Visit Provider Family Medicine
DX: S21.202D Unspecified open wound of left back wall of thorax without penetration into thoracic cavity, subsequent encounter (principal); S21.201D Unspecified open wound of right back wall of thorax without penetration into thoracic cavity, subsequent encounter; E11.622 Type 2 diabetes mellitus with other skin ulcer; Z79.01 Long term (current) use of anticoagulants; A49.02 Methicillin resistant Staphylococcus aureus infection, unspecified site
CPT/HCPCS: 99212; 99213

== ENCOUNTER → 2018-07-19 14:31 | Outpatient (CLI) | payer MEDICARE, BC, SELFPAY ==
[2018-05-03 14:28] VITALS: BMI 39.7
== END ==
PROVIDERS: Family Provider Internal Medicine; PCP Internal Medicine; Visit Provider Family Medicine
DX: S21.202A Unspecified open wound of left back wall of thorax without penetration into thoracic cavity, initial encounter (principal); S21.201A Unspecified open wound of right back wall of thorax without penetration into thoracic cavity, initial encounter; E11.622 Type 2 diabetes mellitus with other skin ulcer; Z79.01 Long term (current) use of anticoagulants; A49.02 Methicillin resistant Staphylococcus aureus infection, unspecified site
CPT/HCPCS: 87070; 87075; 87205; 97607; 99213

== ENCOUNTER → 2018-07-22 15:16 | Outpatient (CLI) | payer MEDICARE, BC, SELFPAY ==
[2018-05-03 14:28] VITALS: BMI 39.7
== END ==
PROVIDERS: Family Provider Internal Medicine; PCP Internal Medicine; Visit Provider Family Medicine
DX: S21.202A Unspecified open wound of left back wall of thorax without penetration into thoracic cavity, initial encounter (principal); S21.201A Unspecified open wound of right back wall of thorax without penetration into thoracic cavity, initial encounter; E11.622 Type 2 diabetes mellitus with other skin ulcer; Z79.01 Long term (current) use of anticoagulants
CPT/HCPCS: 11042; 97607

== ENCOUNTER → 2018-07-23 13:33 | Outpatient (CLI) | payer MEDICARE, BC, SELFPAY ==
[2018-05-03 14:28] VITALS: BMI 39.7
== END ==
PROVIDERS: Family Provider Internal Medicine; PCP Internal Medicine; Visit Provider Family Medicine
DX: S21.202D Unspecified open wound of left back wall of thorax without penetration into thoracic cavity, subsequent encounter (principal); S21.201D Unspecified open wound of right back wall of thorax without penetration into thoracic cavity, subsequent encounter; E11.622 Type 2 diabetes mellitus with other skin ulcer
CPT/HCPCS: 99212

== ENCOUNTER → 2018-07-26 14:34 | Outpatient (CLI) | payer MEDICARE, BC, SELFPAY ==
[2018-05-03 14:28] VITALS: BMI 39.7
== END ==
PROVIDERS: Family Provider Internal Medicine; PCP Internal Medicine; Visit Provider Family Medicine
DX: S21.202A Unspecified open wound of left back wall of thorax without penetration into thoracic cavity, initial encounter (principal); S21.201D Unspecified open wound of right back wall of thorax without penetration into thoracic cavity, subsequent encounter; E11.622 Type 2 diabetes mellitus with other skin ulcer
CPT/HCPCS: 97607

== ENCOUNTER → 2018-07-29 10:55 | Outpatient (CLI) | payer MEDICARE, BC, SELFPAY ==
[2018-05-03 14:28] VITALS: BMI 39.7
== END ==
PROVIDERS: Family Provider Internal Medicine; PCP Internal Medicine; Visit Provider Family Medicine
DX: S21.202A Unspecified open wound of left back wall of thorax without penetration into thoracic cavity, initial encounter (principal); S21.201A Unspecified open wound of right back wall of thorax without penetration into thoracic cavity, initial encounter; E11.622 Type 2 diabetes mellitus with other skin ulcer; Z79.01 Long term (current) use of anticoagulants
CPT/HCPCS: 11042; 97607

== ENCOUNTER → 2018-08-02 14:05 | Outpatient (CLI) | payer MEDICARE, BC, SELFPAY ==
[2018-05-03 14:28] VITALS: BMI 39.7
== END ==
PROVIDERS: Family Provider Internal Medicine; PCP Internal Medicine; Visit Provider Family Medicine
DX: S21.202A Unspecified open wound of left back wall of thorax without penetration into thoracic cavity, initial encounter (principal); S21.201A Unspecified open wound of right back wall of thorax without penetration into thoracic cavity, initial encounter; E11.622 Type 2 diabetes mellitus with other skin ulcer; Z79.01 Long term (current) use of anticoagulants
CPT/HCPCS: 97607; 99213

== ENCOUNTER → 2018-08-05 14:13 | Outpatient (CLI) | payer MEDICARE, BC, SELFPAY ==
[2018-05-03 14:28] VITALS: BMI 39.7
== END ==
PROVIDERS: Family Provider Internal Medicine; PCP Internal Medicine; Visit Provider Family Medicine
DX: L98.491 Non-pressure chronic ulcer of skin of other sites limited to breakdown of skin (principal); E11.622 Type 2 diabetes mellitus with other skin ulcer
CPT/HCPCS: 97597

== ENCOUNTER → 2018-08-12 09:43 | Outpatient (CLI) | payer MEDICARE, BC, SELFPAY ==
[2018-05-03 14:28] VITALS: BMI 39.7
== END ==
PROVIDERS: Family Provider Internal Medicine; PCP Internal Medicine; Visit Provider Family Medicine
DX: S21.202A Unspecified open wound of left back wall of thorax without penetration into thoracic cavity, initial encounter (principal); E11.622 Type 2 diabetes mellitus with other skin ulcer; Z79.01 Long term (current) use of anticoagulants
CPT/HCPCS: 15271; Q4196

== ENCOUNTER → 2018-08-19 13:24 | Outpatient (CLI) | payer MEDICARE, BC, SELFPAY ==
[2018-05-03 14:28] VITALS: BMI 39.7
== END ==
PROVIDERS: Family Provider Internal Medicine; PCP Internal Medicine; Visit Provider Family Medicine
DX: S21.202A Unspecified open wound of left back wall of thorax without penetration into thoracic cavity, initial encounter (principal); E11.622 Type 2 diabetes mellitus with other skin ulcer; Z79.01 Long term (current) use of anticoagulants
CPT/HCPCS: 15271; Q4196

== ENCOUNTER → 2018-08-26 10:11 | Outpatient (CLI) | payer MEDICARE, BC, SELFPAY ==
[2018-05-03 14:28] VITALS: BMI 39.7
== END ==
PROVIDERS: Family Provider Internal Medicine; PCP Internal Medicine; Visit Provider Family Medicine
DX: S21.202A Unspecified open wound of left back wall of thorax without penetration into thoracic cavity, initial encounter (principal); E11.622 Type 2 diabetes mellitus with other skin ulcer; Z79.01 Long term (current) use of anticoagulants
CPT/HCPCS: 15271; Q4196

== ENCOUNTER → 2018-09-02 10:09 | Outpatient (CLI) | payer MEDICARE, BC, SELFPAY ==
[2018-05-03 14:28] VITALS: BMI 39.7
== END ==
PROVIDERS: Family Provider Internal Medicine; PCP Internal Medicine; Visit Provider Family Medicine
DX: S21.202A Unspecified open wound of left back wall of thorax without penetration into thoracic cavity, initial encounter (principal); E11.622 Type 2 diabetes mellitus with other skin ulcer; Z79.01 Long term (current) use of anticoagulants
CPT/HCPCS: 11042

== ENCOUNTER → 2018-09-09 10:10 | Outpatient (CLI) | payer MEDICARE, BC, SELFPAY ==
[2018-05-03 14:28] VITALS: BMI 39.7
== END ==
PROVIDERS: Family Provider Internal Medicine; PCP Internal Medicine; Visit Provider Family Medicine
DX: S21.202A Unspecified open wound of left back wall of thorax without penetration into thoracic cavity, initial encounter (principal); E11.622 Type 2 diabetes mellitus with other skin ulcer; Z79.01 Long term (current) use of anticoagulants
CPT/HCPCS: 11042

== ENCOUNTER → 2018-09-16 10:06 | Outpatient (CLI) | payer MEDICARE, BC, SELFPAY ==
[2018-05-03 14:28] VITALS: BMI 39.7
== END ==
PROVIDERS: Family Provider Internal Medicine; PCP Internal Medicine; Visit Provider Family Medicine
DX: S21.202A Unspecified open wound of left back wall of thorax without penetration into thoracic cavity, initial encounter (principal); E11.622 Type 2 diabetes mellitus with other skin ulcer
CPT/HCPCS: 11042; 97607

== ENCOUNTER → 2018-09-17 10:58 | Outpatient (CLI) | payer MEDICARE, BC, SELFPAY ==
[2018-05-03 14:28] VITALS: BMI 39.7
== END ==
PROVIDERS: Family Provider Internal Medicine; PCP Internal Medicine; Visit Provider Family Medicine
DX: S21.202A Unspecified open wound of left back wall of thorax without penetration into thoracic cavity, initial encounter (principal)
CPT/HCPCS: 97607

== ENCOUNTER → 2018-09-20 14:26 | Outpatient (CLI) | payer MEDICARE, BC, SELFPAY ==
[2018-05-03 14:28] VITALS: BMI 39.7
== END ==
PROVIDERS: Family Provider Internal Medicine; PCP Internal Medicine; Visit Provider Family Medicine
DX: S21.202A Unspecified open wound of left back wall of thorax without penetration into thoracic cavity, initial encounter (principal)
CPT/HCPCS: 97607; 99212

== ENCOUNTER → 2018-09-23 10:45 | Outpatient (CLI) | payer MEDICARE, BC, SELFPAY ==
[2018-05-03 14:28] VITALS: BMI 39.7
== END ==
PROVIDERS: Family Provider Internal Medicine; PCP Internal Medicine; Visit Provider Family Medicine
DX: S21.202A Unspecified open wound of left back wall of thorax without penetration into thoracic cavity, initial encounter (principal); E11.622 Type 2 diabetes mellitus with other skin ulcer
CPT/HCPCS: 11042; 97607

== ENCOUNTER → 2018-09-27 13:05 | Outpatient (CLI) | payer MEDICARE, BC, SELFPAY ==
[2018-05-03 14:28] VITALS: BMI 39.7
== END ==
PROVIDERS: Family Provider Internal Medicine; PCP Internal Medicine; Visit Provider Family Medicine
DX: S21.202A Unspecified open wound of left back wall of thorax without penetration into thoracic cavity, initial encounter (principal); E11.622 Type 2 diabetes mellitus with other skin ulcer
CPT/HCPCS: 11042; 97607

== ENCOUNTER → 2018-09-30 10:56 | Outpatient (CLI) | payer MEDICARE, BC, SELFPAY ==
[2018-05-03 14:28] VITALS: BMI 39.7
== END ==
PROVIDERS: Family Provider Internal Medicine; PCP Internal Medicine; Visit Provider Family Medicine
DX: S21.202A Unspecified open wound of left back wall of thorax without penetration into thoracic cavity, initial encounter (principal)
CPT/HCPCS: 97607

== ENCOUNTER → 2018-10-04 11:30 | Outpatient (CLI) | payer MEDICARE, BC, SELFPAY ==
[2018-05-03 14:28] VITALS: BMI 39.7
== END ==
PROVIDERS: Family Provider Internal Medicine; PCP Internal Medicine; Visit Provider Family Medicine
DX: S21.202A Unspecified open wound of left back wall of thorax without penetration into thoracic cavity, initial encounter (principal); E11.622 Type 2 diabetes mellitus with other skin ulcer
CPT/HCPCS: 15271; 87070; 87077; 87147; 87186; 87205; 97607; Q4196

== ENCOUNTER → 2018-10-07 13:02 | Outpatient (CLI) | payer MEDICARE, BC, SELFPAY ==
[2018-05-03 14:28] VITALS: BMI 39.7
== END ==
PROVIDERS: Family Provider Internal Medicine; PCP Internal Medicine; Visit Provider Family Medicine
DX: S21.202A Unspecified open wound of left back wall of thorax without penetration into thoracic cavity, initial encounter (principal); E11.622 Type 2 diabetes mellitus with other skin ulcer
CPT/HCPCS: 99213; 99214

== ENCOUNTER → 2018-10-14 11:15 | Outpatient (CLI) | payer MEDICARE, BC, SELFPAY ==
[2018-05-03 14:28] VITALS: BMI 39.7
== END ==
PROVIDERS: Family Provider Internal Medicine; PCP Internal Medicine; Visit Provider Family Medicine
DX: S21.202A Unspecified open wound of left back wall of thorax without penetration into thoracic cavity, initial encounter (principal); E11.622 Type 2 diabetes mellitus with other skin ulcer; L08.9 Local infection of the skin and subcutaneous tissue, unspecified
CPT/HCPCS: 97597

== ENCOUNTER → 2018-10-21 10:51 | Outpatient (CLI) | payer MEDICARE, BC, SELFPAY ==
[2018-05-03 14:28] VITALS: BMI 39.7
== END ==
PROVIDERS: Family Provider Internal Medicine; PCP Internal Medicine; Visit Provider Family Medicine
DX: S21.202A Unspecified open wound of left back wall of thorax without penetration into thoracic cavity, initial encounter (principal); E11.622 Type 2 diabetes mellitus with other skin ulcer
CPT/HCPCS: 15271; Q4196

== ENCOUNTER → 2018-10-28 13:09 | Outpatient (CLI) | payer MEDICARE, BC, SELFPAY ==
[2018-05-03 14:28] VITALS: BMI 39.7
== END ==
PROVIDERS: Family Provider Internal Medicine; PCP Internal Medicine; Visit Provider Family Medicine
DX: S21.202D Unspecified open wound of left back wall of thorax without penetration into thoracic cavity, subsequent encounter (principal); E11.622 Type 2 diabetes mellitus with other skin ulcer
CPT/HCPCS: 99212; 99213

== ENCOUNTER → 2018-11-04 13:25 | Outpatient (CLI) | payer MEDICARE, BC, SELFPAY ==
[2018-05-03 14:28] VITALS: BMI 39.7
== END ==
PROVIDERS: Family Provider Internal Medicine; PCP Internal Medicine; Visit Provider Family Medicine
DX: S21.202A Unspecified open wound of left back wall of thorax without penetration into thoracic cavity, initial encounter (principal); E11.622 Type 2 diabetes mellitus with other skin ulcer
CPT/HCPCS: 15271; Q4196

== ENCOUNTER → 2018-11-11 10:07 | Outpatient (CLI) | payer MEDICARE, BC, SELFPAY ==
[2018-05-03 14:28] VITALS: BMI 39.7
== END ==
PROVIDERS: Family Provider Internal Medicine; PCP Internal Medicine; Visit Provider Family Medicine
DX: S21.202A Unspecified open wound of left back wall of thorax without penetration into thoracic cavity, initial encounter (principal); E11.622 Type 2 diabetes mellitus with other skin ulcer
CPT/HCPCS: 15271; Q4196

== ENCOUNTER → 2018-11-18 14:31 | Outpatient (CLI) | payer MEDICARE, BC, SELFPAY ==
[2018-05-03 14:28] VITALS: BMI 39.7
== END ==
PROVIDERS: Family Provider Internal Medicine; PCP Internal Medicine; Visit Provider Family Medicine
DX: S21.202A Unspecified open wound of left back wall of thorax without penetration into thoracic cavity, initial encounter (principal); E11.622 Type 2 diabetes mellitus with other skin ulcer
CPT/HCPCS: 99213

== ENCOUNTER → 2018-11-25 10:50 | Outpatient (CLI) | payer MEDICARE, BC, SELFPAY ==
[2018-05-03 14:28] VITALS: BMI 39.7
== END ==
PROVIDERS: Family Provider Internal Medicine; PCP Internal Medicine; Visit Provider Family Medicine
DX: Z48.817 Encounter for surgical aftercare following surgery on the skin and subcutaneous tissue (principal)
CPT/HCPCS: 99212; 99213

== ENCOUNTER 2019-06-20 12:50 | Day surgery (SDC) | payer MEDICARE, BC, SELFPAY ==
[2018-05-03 14:28] VITALS: BMI 39.7
[2019-06-20 13:21] VITALS: BP 164/88; PULSE 72; RESP 20; TEMP 36.3; O2SAT 97; BMI 35.9
[2019-06-20] MEDS: SODIUM CHLORIDE 0.9% 1,000 ML 200 ML IV (13:30)
--- NOTE | 2019-06-20 13:49 | PM.HP.1 ---
History of Present Illness History of Present Illness Date Patient Seen: 06/20/19 Time Patient Seen: 13:50 Chief complaint: [id number] Narrative: Patient here for screening colonoscopy had a previous colonoscopy several years ago where 1 polyp was removed it was benign. He is asymptomatic. Patient History Medical History Atrial fibrillation (Acute) Back pain (Acute) Cataract (Acute) Chronic kidney disease (Acute) Diabetes (Acute) Foot ulcer (Acute) Foot ulcer, right (Acute) Gout (Acute) History of cellulitis (Acute) History of stress test (Acute ~2008) Hypercholesterolemia (Acute) Hyperlipidemia (Acute) Leg pain (Acute) Lower extremity edema (Acute) Mild cognitive impairment (Acute) Obese (Acute) Osteoarthritis of spine with radiculopathy, lumbar region (Acute) Other secondary scoliosis, lumbar region (Acute) Paroxysmal A-fib (Acute) Peripheral vascular disease (Acute) Sleep apnea (Acute) Spinal stenosis of lumbar region at multiple levels (Acute) Spondylolisthesis at L2-L3 level (Acute) Venous insufficiency (Acute) Surgical History Cataract extraction status of right eye (Acute) History of ankle fusion (Acute) History of colonoscopy (Acute ~2013) History of hemorrhoidectomy (Acute ~1959) History of lumbar laminectomy (Acute ~02/2016) History of shoulder replacement (Acute ~2017) History of total knee arthroplasty (Acute) S/p reverse total shoulder arthroplasty (Acute) Family & Social History Family History Mother Diabetes mellitus Social History: household members spouse Tobacco & Substance use: Smoking Status Never smoker alcohol intake frequency a few times a month Substance Use Type does not use Meds Home Medications and Allergies Home Medications Medication Instructions Recorded Confirmed Type potassium chloride 20 meq PO EVERY DAY #0 04/30/10 05/03/18 History simvastatin 20 mg PO BEDTIME #0 04/30/10 05/03/18 History glyburide micronized [Glynase] 3 mg PO BID #0 02/26/16 05/03/18 History allopurinol 300 mg PO QDAY #0 09/10/16 05/03/18 History furosemide 40 mg PO QDAY #0 09/10/16 05/03/18 History gabapentin [Neurontin] 300 mg PO TID #0 09/10/16 05/03/18 History metformin 1,000 mg PO BID #0 09/10/16 05/03/18 History pioglitazone 30 mg PO QDAY #0 09/10/16 05/03/18 History aspirin 81 mg PO DAILY 04/19/18 05/03/18 History carvedilol 12.5 mg PO BID #60 tab 05/12/18 Rx enalapril-hydrochlorothiazide 1 tab PO DAILY #30 tab 05/12/18 Rx oxycodone 5 - 10 mg PO Q4H PRN #60 tab 05/12/18 Rx vancomycin 125 mg PO QID #56 cap 05/12/18 Rx warfarin 5 mg PO .hs #30 tab 05/12/18 Rx Allergies Allergy/AdvReac Type Severity Reaction Status Date / Time No Known Drug Allergies Allergy Verified 04/21/18 14:25 Exam Vital Signs (past 8 hours): - 06/20/19 13:21 Temperature 97.3 F L Pulse Rate 72 Respiratory Rate 20 Blood Pressure 164/88 H Pulse Oximetry 97 Oxygen Delivery Method Room Air Narrative Exam Narrative: Patient is alert and oriented resting comfortably in bed. Lungs are clear with no rales or wheezes Heart regular rhythm no murmur no gallop Abdomen soft and organomegaly no masses Rectal to be done at colonoscopy Assessment & Plan Assessment & Plan narrative: Patient here for repeat colonoscopy as had polyps in the past all benign. He understands and has no questions.
--- NOTE | 2019-06-20 14:43 | PM.OP.ENDO ---
Operative Date/Time/Diagnoses Date of procedure: 06/20/19 Time of procedure: 14:43 Pre-op diagnosis: Screening colonoscopy Post-op diagnosis: same Procedure & Clinicians Study performed: Colonoscopy to the cecum Same procedure as scheduled: Yes Indications: History of polyps Surgeon: Shay Flowers Procedure Notes SCOAP/Timeout: Was done Procedure in detail: The patient was properly identified during surgical pause given a total of 3 mg of Versed and 150 of fentanyl that's micro g. The flexible fiberoptic colonoscope was inserted transanally to the cecum. The patient has minimal sigmoid diverticulosis otherwise had a normal exam with no polyps identified. Procedure was well tolerated. Scope withdrawal time: 10 Sedation minutes: 20 Findings: diverticulosis Specimen(s): none sent Complications: none Post-procedure Recommendations: Colonscopy in 10 years Disposition: PACU
[2019-06-20] MEDS: MIDAZOLAM 5 MG/5 ML VIAL IV (14:46)
[2019-06-20] MEDS: fentaNYL 250 MCG/5 ML INJ IV (14:46)
[2019-06-20 14:48] VITALS: BP 165/95; PULSE 75; RESP 16; O2SAT 97
[2019-06-20 14:53] VITALS: BP 158/91; PULSE 78; RESP 14; TEMP 36.1; O2SAT 95
[2019-06-20 14:58] VITALS: BP 155/93; PULSE 72; RESP 12; O2SAT 95
[2019-06-20 14:59] VITALS: TEMP 36.1
[2019-06-20 15:10] VITALS: BP 177/82; PULSE 62; RESP 16; TEMP 36.3; O2SAT 95
== END 2019-06-20 15:34 | disposition home or self-care (01) ==
PROVIDERS: Family Provider Internal Medicine; PCP Internal Medicine; Visit Provider Surgery
PROC: 0DJD8ZZ Inspection of Lower Intestinal Tract, Via Natural or Artificial Opening Endoscopic (ICD-10-PCS; CPT 45378; principal; 2019-06-20 14:30)
DX: Z12.11 Encounter for screening for malignant neoplasm of colon (principal); Z86.010 Personal history of colon polyps; E11.9 Type 2 diabetes mellitus without complications; N18.9 Chronic kidney disease, unspecified; I48.0 Paroxysmal atrial fibrillation; G47.30 Sleep apnea, unspecified; K57.30 Diverticulosis of large intestine without perforation or abscess without bleeding
CPT/HCPCS: G0105; 99152; J2250; J3010

== ENCOUNTER 2019-07-05 22:40 | Emergency (ER) | payer MEDICARE, BC, SELFPAY ==
[2018-05-03 14:28] VITALS: BMI 39.7
[2019-07-05 22:43] VITALS: BP 117/53; PULSE 90; RESP 20; TEMP 37.2; O2SAT 95
--- NOTE | 2019-07-05 23:02 | ED.FALL ---
HPI - Fall General Chief Complaint: Fall Stated Complaint: fall Time Seen by Provider: 07/05/19 22:42 Source: patient, family and EMS Mode of arrival: EMS Limitations: no limitations History of Present Illness HPI Narrative: [age] year old male. Has a history of paroxysmal atrial fibrillation. Also has a history of [id number] diabetes here for evaluation of weakness. Patient states that he woke up this morning generally not feeling well. He states that he felt like his lower extremities were weak. He states that he felt like he was lightheaded. He describes it a a lightheaded scenario not a room spinning/vertigo scenario. No chest pain or shortness of breath. Patient states that as the day went on he felt very poorly. Patient states that he thought that he fell earlier today and then again this evening however his states that he only fell 1 time this evening. He states that he was standing up from his chair and became very unsteady and very weak and fell over landing on his left hip. He did not hit his head. There's no loss of consciousness. His could not lift him up. They called a neighbor over they could not lift him up so they called EMS. states that it took 3 EMS personnel in order to lift the patient. Patient states that he was not feeling well that time. Patient states that he was not having chest pain or shortness of breath or headache or vision changes. He did not feel like that his heart was beating fast although he does admit he does not know when he is in and out of atrial fibrillation. He states he was taken off of his Coumadin approximately 1 month ago. He and his do not know why he was taken off the medicine. Related Data Home Medications Medication Instructions Recorded Confirmed potassium chloride 20 meq PO BID #0 04/30/10 07/06/19 simvastatin 20 mg PO BEDTIME #0 04/30/10 07/06/19 allopurinol 300 mg PO QDAY #0 09/10/16 07/06/19 metformin 1,000 mg PO BID #0 09/10/16 07/06/19 aspirin 81 mg PO DAILY 04/19/18 07/06/19 acetaminophen [Tylenol] 650 mg PO Q4H PRN 06/20/19 07/06/19 carvedilol 6.25 mg PO BID 06/20/19 07/06/19 Previous Rx's Medication Instructions Recorded enalapril-hydrochlorothiazide 1 tab PO DAILY #30 tab 05/12/18 Allergies Allergy/AdvReac Type Severity Reaction Status Date / Time No Known Drug Allergies Allergy Verified 06/20/19 13:52 Review of Systems Constitutional Constitutional: Reports fatigue, Denies fever(s), Reports frequent falls, Denies headache(s), Reports lethargy, Reports malaise and Reports weakness ENT Ears, Nose, Mouth, and Throat: Denies vertigo, Reports dizziness, Denies headache(s) and Reports disequilibrium Cardiovascular Cardiovascular: Denies chest pain, Reports edema, Denies palpitations and Denies dyspnea Respiratory Respiratory: Denies cough and Denies dyspnea Gastrointestinal Gastrointestinal: Denies abdominal pain, Denies change in stool character, Denies nausea and Denies vomiting Genitourinary Genitourinary: Denies dysuria Musculoskeletal Musculoskeletal: Denies myalgias and Denies arthralgias Integumentary/Breasts Skin/Breast: Denies lesions and Denies rash Neurologic Neurologic: Denies abnormal movements, Denies abnormal speech, Reports behavioral changes, Reports confusion, Denies vertigo, Reports dizziness, Reports frequent falls, Denies headache(s), Denies paresthesias, Reports disequilibrium and Reports weakness Psychiatric Psychiatric: Reports behavioral changes and Reports confusion Endocrine Endocrine: Reports fatigue and Denies palpitations Hematologic/Lymphatic Hematologic/Lymphatic: Denies easy bleeding and Denies easy bruising Patient History Medical History Atrial fibrillation (Acute) Back pain (Acute) Cataract (Acute) Chronic kidney disease (Acute) Diabetes (Acute) Foot ulcer (Acute) Foot ulcer, right (Acute) Gout (Acute) History of cellulitis (Acute) History of stress test (Acute ~2008) Hypercholesterolemia (Acute) Hyperlipidemia (Acute) Leg pain (Acute) Lower extremity edema (Acute) Mild cognitive impairment (Acute) Obese (Acute) Osteoarthritis of spine with radiculopathy, lumbar region (Acute) Other secondary scoliosis, lumbar region (Acute) Paroxysmal A-fib (Acute) Peripheral vascular disease (Acute) Sleep apnea (Acute) Spinal stenosis of lumbar region at multiple levels (Acute) Spondylolisthesis at L2-L3 level (Acute) Venous insufficiency (Acute) Surgical History Cataract extraction status of right eye (Acute) History of ankle fusion (Acute) History of colonoscopy (Acute ~2013) History of hemorrhoidectomy (Acute ~1959) History of lumbar laminectomy (Acute ~02/2016) History of shoulder replacement (Acute ~2017) History of total knee arthroplasty (Acute) S/p reverse total shoulder arthroplasty (Acute) Family History Mother Diabetes mellitus Social History household members: spouse Smoking Status: Never smoker alcohol intake: current Smoking Status: Never smoker alcohol intake frequency: a few times a month Substance Use Type: does not use Exam Initial Vital Signs Initial Vital Signs: Vital Signs Temperature 98.9 F 07/05/19 22:43 Pulse Rate 90 07/05/19 22:43 Respiratory Rate 20 07/05/19 22:43 Blood Pressure 117/53 L 07/05/19 22:43 Pulse Oximetry 95 07/05/19 22:43 Const General: cooperative, well developed and well groomed Orientation: alert, awake and oriented x3 HENMT Head: normal to inspection and normocephalic Eyes Pupils: PERRL Chest Chest: No crepitus and No tenderness Resp Effort & Inspection: normal respiratory effort Auscultation: clear to auscultation bilaterally Cardio Rate: regular rate Rhythm: regular rhythm Pulses: radial pulses present GI Inspection: non-distended Palpation: soft and No tender Skin Other: Patient does have redness and warmth to his right lower extremity between his knee and his ankle. No blistering. Family states that it is actually better looking than what it has been in the past Neuro General: alert, awake and oriented x3 Cranial Nerves: CN's II-XI intact bilaterally Cognition: normal cognition Speech: speech normal Motor: other (5/5 strength right lower extremity bilateral upper extremities. 4/5 streng) Sensory Exam: no sensory deficits noted Extrem Other: No gross deformities. Does have bilateral lower extremity swelling. Is able to flex and extend at the hips bilaterally. Pelvis is stable. Low suspicion for fractures. Psych Appearance: grossly normal and well kempt Scores GCS Neo coma scale eye opening: Spontaneous Neo coma scale verbal response: Orientated Neo coma scale motor response: Obey commands Neo coma scale total score: 15 Nexus Score for C-Spine Focal Neurologic deficit present: No Midline spinal tenderness present: No Altered level of conciousness present: No Intoxication present: No Distracting Injury Present: No Nexus Criteria for C-spine: 0 NIH Stroke Scale Level of Conciousness: Alert, keenly responsive Ask month/age: Answers both questions correctly. Open/close eyes, close hand: Performs both tasks correctly Best gaze horizontal: Normal Visual esparza: No visual loss Facial palsy: Normal symetrical movement Left arm drift: No drift for full 10 sec Right arm drift: No drift for full 10 sec Left leg drift: No drift for full 10 sec Right leg drift: No drift for full 10 sec Limb ataxia: Absent Sensory on face/arms/legs: Normal, no sensory loss Best language: No aphasia, normal Dysarthria: Normal Extinction or inattention: No abnormality Total NIH Stroke scale score: 0 Course Orders Ordered: ED Orders 07/05/19 22:47 EKG-12 Lead Routine EKG-12 Lead Stat 07/05/19 23:05 CKMB Panel (CK + CKMB) Stat Complete Blood Count AUTO DIFF Stat Comprehensive Metabolic Panel Stat Lactate (Lactic Acid) Stat Lipase Stat Partial Thromboplastin Time Stat Procalcitonin Stat Prothrombin Time INR Stat Troponin I Stat 07/05/19 23:48 XR chest 1V Stat 07/05/19 23:55 Influenza A & B (PCR) Stat 07/06/19 00:11 B Type Natriuretic Peptide Stat Heparin Sodium/Dextrose (Heparin Drip) 25,000 unit in 500 mls @ 20 mls/hr IV CONT ALEM; Protocol Last Admin: 07/05/19 23:58 Dose: 1,000 units/hr, 20 mls/hr Documented by: DIA Sodium Chloride (Normal Saline 0.9%) 1,000 mls @ 1,000 mls/hr IV BOLUS ONE Stop: 07/06/19 02:00 Last Admin: 07/06/19 01:05 Dose: 1,000 mls/hr Documented by: DILIA Discontinued Medications Aspirin (Aspirin Chew) 324 mg PO NOW ONE Stop: 07/05/19 23:49 Last Admin: 07/06/19 00:01 Dose: 324 mg Documented by: DIA Heparin Sodium (Porcine) (Heparin) 5,000 unit IV NOW ONE Stop: 07/05/19 23:51 Last Admin: 07/06/19 00:01 Dose: 5,000 unit Documented by: DIA Vital Signs Vital signs: Vital Signs - 8 hr 07/05/19 22:43 07/06/19 00:21 07/06/19 01:12 Temperature 98.9 F Pulse Rate 90 88 85 Respiratory Rate 20 23 24 Blood Pressure 117/53 L Blood Pressure [Left Arm] 92/57 L 85/47 L Pulse Oximetry 95 97 95 MDM - Fall Medical Records Attestation: I reviewed the patient's medical records. Lab Data Attestation: I reviewed the patient's lab results. Result diagrams: 07/05/19 23:05 07/05/19 23:05 Labs: Lab Results 07/05/19 07/05/19 07/05/19 Range/Units 23:05 23:05 23:05 WBC 8.8 (4.5-11.0) X10^3/uL RBC 3.93 L (4.5-5.9) X10^6/uL Hgb 13.5 (13.5-17.5) g/dL Hct 39.9 L (41-53) % MCV 101.6 H (80-100) fL MCH 34.4 H (26-34) PG MCHC 33.8 (30-36) % RDW 15.2 H (11.6-14.8) % Plt Count 120 L (150-400) X10^3/uL Neut % (Auto) Not Reportable Lymph % (Auto) Not Reportable [place] % (Auto) Not Reportable Eos % (Auto) Not Reportable Baso % (Auto) Not Reportable Lymph # (Auto) Not Reportable [place] # (Auto) Not Reportable Baso # (Auto) Not Reportable Total Counted 100 Seg Neutrophils % 76.0 H (38-70) % Band Neutrophils % 15.0 H (3-7) % Lymphocytes % (Manual) 3.0 L (25-45) % Monocytes % (Manual) 5.0 (2-11) % Myelocytes % 1.0 H (-0) % Neutrophils # (Manual) 8008 H (0878-6065) /uL RBC Morphology See below Macrocytosis 1+ H PT (10.1-12.7) SECONDS INR (0.9-1.3) APTT (26.4-36.2) SECONDS Sodium (137-145) mmol/L Potassium (3.4-5.1) mmol/L Chloride (98-107) mmol/L Carbon Dioxide (22-32) mmol/L BUN (9-20) mg/dL Creatinine (0.66-1.25) mg/dL Estimated GFR (>60) mL/min BUN/Creatinine Ratio (6-22) Glucose (80-110) mg/dL Lactate (0.7-2.1) mmol/L Calcium (8.4-10.2) mg/dL Total Bilirubin (0.2-1.3) mg/dL AST (17-59) IU/L ALT (<50) IU/L Alkaline Phosphatase (38-126) U/L Total Creatine Kinase 224 H (55-170) U/L CK-MB (CK-2) 2.24 (<2.37) ng/mL CK-MB (CK-2) Rel Index 1.0 L (1.5-5.0) % Troponin I 0.293 H* (0.01-0.034) ng/mL B-Natriuretic Peptide (<100) Total Protein (6.3-8.2) g/dL Albumin (3.5-5.0) g/dL Globulin (1.7-4.1) g/dL Albumin/Globulin Ratio (1.0-2.8) Lipase 90 (23-300) U/L Procalcitonin 2.78 H (<0.5) ng/mL Influenza A (RT-PCR) (NEGATIVE) Influenza B (RT-PCR) (NEGATIVE) 07/05/19 07/05/19 07/05/19 Range/Units 23:05 23:05 23:05 WBC (4.5-11.0) X10^3/uL RBC (4.5-5.9) X10^6/uL Hgb (13.5-17.5) g/dL Hct (41-53) % MCV (80-100) fL MCH (26-34) PG MCHC (30-36) % RDW (11.6-14.8) % Plt Count (150-400) X10^3/uL Neut % (Auto) Lymph % (Auto) [place] % (Auto) Eos % (Auto) Baso % (Auto) Lymph # (Auto) [place] # (Auto) Baso # (Auto) Total Counted Seg Neutrophils % (38-70) % Band Neutrophils % (3-7) % Lymphocytes % (Manual) (25-45) % Monocytes % (Manual) (2-11) % Myelocytes % (-0) % Neutrophils # (Manual) (2070-2633) /uL RBC Morphology Macrocytosis PT 14.0 H (10.1-12.7) SECONDS INR 1.2 (0.9-1.3) APTT 27 D (26.4-36.2) SECONDS Sodium 137 (137-145) mmol/L Potassium 4.6 (3.4-5.1) mmol/L Chloride 105 (98-107) mmol/L Carbon Dioxide 21 L (22-32) mmol/L BUN 27 H (9-20) mg/dL Creatinine 1.30 H (0.66-1.25) mg/dL Estimated GFR 53.3 L (>60) mL/min BUN/Creatinine Ratio 20.8 (6-22) Glucose 90 (80-110) mg/dL Lactate 1.9 (0.7-2.1) mmol/L Calcium 9.0 (8.4-10.2) mg/dL Total Bilirubin 0.8 (0.2-1.3) mg/dL AST 86 H (17-59) IU/L ALT 51 H (<50) IU/L Alkaline Phosphatase 90 (38-126) U/L Total Creatine Kinase (55-170) U/L CK-MB (CK-2) (<2.37) ng/mL CK-MB (CK-2) Rel Index (1.5-5.0) % Troponin I (0.01-0.034) ng/mL B-Natriuretic Peptide (<100) Total Protein 6.8 (6.3-8.2) g/dL Albumin 3.7 (3.5-5.0) g/dL Globulin 3.1 (1.7-4.1) g/dL Albumin/Globulin Ratio 1.2 (1.0-2.8) Lipase (23-300) U/L Procalcitonin (<0.5) ng/mL Influenza A (RT-PCR) (NEGATIVE) Influenza B (RT-PCR) (NEGATIVE) 12/24/19 12/24/19 12/24/19 Range/Units 23:05 23:05 23:55 WBC (4.5-11.0) X10^3/uL RBC (4.5-5.9) X10^6/uL Hgb (13.5-17.5) g/dL Hct (41-53) % MCV (80-100) fL MCH (26-34) PG MCHC (30-36) % RDW (11.6-14.8) % Plt Count (150-400) X10^3/uL Neut % (Auto) Lymph % (Auto) [place] % (Auto) Eos % (Auto) Baso % (Auto) Lymph # (Auto) [place] # (Auto) Baso # (Auto) Total Counted Seg Neutrophils % (38-70) % Band Neutrophils % (3-7) % Lymphocytes % (Manual) (25-45) % Monocytes % (Manual) (2-11) % Myelocytes % (-0) % Neutrophils # (Manual) (2401-1905) /uL RBC Morphology Macrocytosis PT (10.1-12.7) SECONDS INR (0.9-1.3) APTT (26.4-36.2) SECONDS Sodium (137-145) mmol/L Potassium (3.4-5.1) mmol/L Chloride (98-107) mmol/L Carbon Dioxide (22-32) mmol/L BUN (9-20) mg/dL Creatinine (0.66-1.25) mg/dL Estimated GFR (>60) mL/min BUN/Creatinine Ratio (6-22) Glucose (80-110) mg/dL Lactate (0.7-2.1) mmol/L Calcium (8.4-10.2) mg/dL Total Bilirubin (0.2-1.3) mg/dL AST (17-59) IU/L ALT (<50) IU/L Alkaline Phosphatase (38-126) U/L Total Creatine Kinase Cancelled (55-170) U/L CK-MB (CK-2) Cancelled (<2.37) ng/mL CK-MB (CK-2) Rel Index Cancelled (1.5-5.0) % Troponin I Cancelled (0.01-0.034) ng/mL B-Natriuretic Peptide 259 H (<100) Total Protein (6.3-8.2) g/dL Albumin (3.5-5.0) g/dL Globulin (1.7-4.1) g/dL Albumin/Globulin Ratio (1.0-2.8) Lipase (23-300) U/L Procalcitonin (<0.5) ng/mL Influenza A (RT-PCR) Flu a negative (NEGATIVE) Influenza B (RT-PCR) Flu b negative (NEGATIVE) Imaging Data Chest x-ray: Attestation: I personally reviewed and interpreted this imaging study as follows: My Impression: Bilateral haziness. Could potentially be edema versus pneumonia versus ARDS. ECG Data Attestation: I personally reviewed and interpreted this ECG as follows: Prior ECG tracings: available for review Interpretation: Sinus rhythm Occasional PAC Ventricular rate of 91 Left axis deviation Normal QRS No ST T wave changes MDM Narrative Medical decision making narrative: Patient had a echocardiogram performed on 05/12/2016 for reason of atrial fibrillation Results showed left ventricle mildly dilated with normal left ventricular systolic function. Ejection fraction estimated to be 60-65% Patient is afebrile. Does not have an elevated white count. Lactate is negative but does have an elevated procalcitonin. Does have redness on his right lower extremity and it is warm. Concern be is if this is an infection verses a chronic venous stasis/peripheral vascular changes. The patient and his both state that it actually looks more improved today than what it has been over the past several days/weeks. Also has bilateral haziness in his lungs. There's some concern about potential pneumonia however he is afebrile. His lungs are clear on exam. He has not been coughing. His flu is negative. He has no history of congestive heart failure. His BNP is less than 300. The only echocardiogram we have for him is from 2016 with a normal ejection fraction. He is not in atrial fibrillation. No ST changes on his EKG. His creatinine is at baseline for him. Does have an elevated troponin. We have no prior troponins on our system to compare this to. Concern to be is if this is a demand ischemia verses a elevation verses a decrease. It is above the acute IL level for lab. He was started on aspirin. Was given heparin. This is also in the setting where he has not had any chest pain. Patient does report left hip pain from his fall however he is able to flex and extend at the hip and has no pelvic instability. Patient thinks that is just a bruise because he landed on his keys his left hip. I held on any x-rays. He did not hit his head. Is not on anticoagulation. Discussed the case with Dr. Kee with cardiology who recommended starting the patient on heparin. I then discussed the case with Dr. Hernandez with Internal Medicine at [facility] who accepts the patient transport. Did discuss the findings with the patient and his . Discussed the need for transport. He expressed understanding and agreement. Patient is stable for transfer. Discharge Plan Departure Patient Disposition: [facility] Clinical Impression: Non-ST elevation [place] (NSTEMI) Prescriptions: No Action simvastatin 20 mg Tablet 20 mg PO BEDTIME Qty: 0 RF: 0 potassium chloride 20 mEq Tablet Extended Release 20 meq PO BID Qty: 0 RF: 0 allopurinol 300 MG tablet 300 mg PO QDAY Qty: 0 RF: 0 metformin 1,000 MG tablet extended release 24hr 1,000 mg PO BID Qty: 0 RF: 0 acetaminophen [Tylenol] 325 mg Tablet 650 mg PO Q4H PRN (Reason: Pain (Scale Score 4-6)) RF: 0 carvedilol 12.5 mg tablet 6.25 mg PO BID RF: 0 aspirin 81 mg Tablet,Delayed Release (Dr/Ec) 81 mg PO DAILY RF: 0 enalapril-hydrochlorothiazide 10-25 mg tablet 1 tab PO DAILY Qty: 30 RF: 0 Referrals: Maykel Rodríguez MD [Primary Care Provider] -
[2019-07-05 23:25] LABS: Add Manual Diff / Slide Review YES; Hematocrit 39.9 % (41-53); Hemoglobin 13.5 g/dL (13.5-17.5); Mean Corpuscular HGB Conc 33.8 % (30-36); Mean Corpuscular Hemoglobin 34.4 PG (26-34); Mean Corpuscular Volume 101.6 fL (80-100); Platelet Count 120 X10^3/uL (150-400); Red Blood Cell Count 3.93 X10^6/uL (4.5-5.9); Red Cell Distribution Width 15.2 % (11.6-14.8); White Blood Cell Count 8.8 X10^3/uL (4.5-11.0)
[2019-07-05 23:28] LABS: Lactate (Lactic Acid) 1.9 mmol/L (0.7-2.1)
[2019-07-05 23:32] LABS: Alanine Aminotransferase 51 IU/L (<50); Albumin 3.7 g/dL (3.5-5.0); Albumin Globulin Ratio 1.2 (1.0-2.8); Alkaline Phosphatase 90 U/L (38-126); Aspartate Aminotransferase 86 IU/L (17-59); BUN Creatinine Ratio 20.8 (6-22); Bilirubin Total 0.8 mg/dL (0.2-1.3); Blood Urea Nitrogen 27 mg/dL (9-20); Carbon Dioxide 21 mmol/L (22-32); Chloride 105 mmol/L (98-107); Estimated Glomerular Filt Rate 53.3 mL/min (>60); Globulin 3.1 g/dL (1.7-4.1); Glucose 90 mg/dL (80-110); HEMOLYSIS 18 (0-50); Lipase 90 U/L (23-300); Potassium 4.6 mmol/L (3.4-5.1); Sodium 137 mmol/L (137-145); Total Protein 6.8 g/dL (6.3-8.2)
[2019-07-05 23:47] LABS: Troponin I 0.293 ng/mL (0.01-0.034)
--- NOTE | 2019-07-05 23:48 | DI.RAD.S_ITS ---
PROCEDURE: XR CHEST 1V INDICATIONS: NSTEMI TECHNIQUE: One view of the chest was acquired. COMPARISON: [facility], , CHEST 1 VIEW, 04/30/2010, 9:51. FINDINGS: Surgical changes and devices: None. Lungs and pleura: There are extensive, diffuse interstitial markings. No pleural effusion or pneumothorax. Mediastinum: Mediastinal contours appear normal. Heart size is enlarged, as before. Bones and chest wall: No suspicious bony lesions. Overlying soft tissues appear unremarkable. IMPRESSION: Diffuse interstitial markings and cardiomegaly suggesting congestive failure. Dictated by: Jeannie Ryan M.D. on 07/06/2019 at 7:49 Approved by: Jeannie Ryan M.D. on 07/06/2019 at 7:50
[2019-07-05 23:51] LABS: Procalcitonin 2.78 ng/mL (<0.5)
[2019-07-05 23:57] LABS: INR 1.2 (0.9-1.3)
[2019-07-05] MEDS: HEPARIN DRIP 25,000 UNIT/500 ML IV.SOLN 20 UNIT IV (23:58)
[2019-07-05 23:59] LABS: PTT Partial Thromboplastin Tim 27 SECONDS (26.4-36.2)
[2019-07-06] MEDS: ASPIRIN 81 MG CHEW TAB 324 MG PO (00:01)
[2019-07-06] MEDS: HEPARIN 5,000 UNIT/ML VIAL 5000 UNIT IV (00:01)
[2019-07-06 00:21] VITALS: BP 92/57; PULSE 88; RESP 23; O2SAT 97
[2019-07-06 00:25] LABS: Macrocytosis 1+; Neutrophils Absolute Manual 8008 /uL (3000-5900); Total Cells Counted 100
[2019-07-06 00:29] LABS: Creatine Kinase 224 U/L (55-170)
[2019-07-06 00:36] LABS: Influenza A - CEPHEID Flu A NEGATIVE (NEGATIVE); Influenza B - CEPHEID Flu B NEGATIVE (NEGATIVE)
[2019-07-06 00:44] LABS: Creatine Kinase MB 2.24 ng/mL (<2.37)
[2019-07-06 00:57] LABS: B Type Natriuretic Peptide 259 (<100)
[2019-07-06] MEDS: SODIUM CHLORIDE 0.9% 1,000 ML 1000 ML IV (01:05)
[2019-07-06 01:12] VITALS: BP 85/47; PULSE 85; RESP 24; O2SAT 95
[2019-07-06 01:34] VITALS: BP 91/45; PULSE 85; RESP 23; TEMP 36.9; O2SAT 94
== END 2019-07-06 02:21 | disposition short-term general hospital (02) ==
PROVIDERS: Emergency Provider Emergency Medicine; Family Provider Internal Medicine; PCP Internal Medicine
DX: I21.4 Non-ST elevation (NSTEMI) myocardial infarction (principal)
CPT/HCPCS: 36415; 71045; 80053; 82550; 82553; 83605; 83690; 83880; 84145; 84484; 85025; 85610; 85730; 87502; 93005; 96365; 96366; 99285; J1644

== ENCOUNTER → 2019-07-12 14:15 | Outpatient (ROUT) | payer MEDICARE, BC, SELFPAY ==
[2018-05-03 14:28] VITALS: BMI 39.7
[2019-07-12 14:48] LABS: BUN Creatinine Ratio 25.8 (6-22); Blood Urea Nitrogen 31 mg/dL (9-20); Carbon Dioxide 24 mmol/L (22-32); Chloride 106 mmol/L (98-107); Estimated Glomerular Filt Rate 58.4 mL/min (>60); Glucose 145 mg/dL (80-110); HEMOLYSIS < 15 (0-50); Potassium 5.2 mmol/L (3.4-5.1); Sodium 139 mmol/L (137-145)
== END ==
PROVIDERS: Family Provider Internal Medicine; PCP Internal Medicine; Visit Provider Internal Medicine
DX: N18.3 Chronic kidney disease, stage 3 (moderate) (principal)
CPT/HCPCS: 36415; 80048

== ENCOUNTER → 2019-07-21 14:38 | Outpatient (CLI) | payer MEDICARE, BC, SELFPAY ==
[2018-05-03 14:28] VITALS: BMI 39.7
--- NOTE | 2019-07-21 | DI.NM.S_ITS ---
PROCEDURE: [place] [facility]ALE PERF SPECT R&S PHARM Rest and pharmacological stress myocardial perfusion SPECT with gated imaging and ejection fraction RADIOPHARMACEUTICAL: 25.6 mCi Tc-99m tetrafosmin IV at rest and 26 mCi Tc-99m tetrafosmin IV at peak effect of pharmacological stress. [id number] was performed. INDICATIONS: Unspecified atrial fibrillation TECHNIQUE: Radiopharmaceutical was injected at peak stress test, and also at rest. SPECT images were obtained. SPECT myocardial perfusion images were displayed in short axis, horizontal long axis, and vertical long axis views. Gated images were reviewed using [employer] software. COMPARISON: [place], [place], PERSANTINE MYOCARDIAL PERF., 05/21/2010, 13:05. CARDIAC STRESS: A pharmacologic stress test was performed under the supervision of an attending staff, using an infusion of Lexiscan . Hemodynamic data: There is normal blood pressure and heart rate response to pharmacologic stress. Symptoms: The patient denied anginal chest pain. Aminophylline: not used. EKG: Sinus bradycardia at baseline with first-degree AV block and occasional PACs. No diagnostic changes of ischemia; Frequent PACs and occasional PVCs. FINDINGS: Raw data: There is good myocardial uptake of radiotracer. No significant motion artifacts. [id number] ratio is 0.36 (normal is less than 0.38 for tetrafosmin tracer). Left ventricle function: Gated images demonstrate grossly normal left ventricular wall thickening. No obvious segmental wall motion abnormalities. However, the study sensitivity is limited as there is artifact with gating due to significant ectopy and a wide histogram. No transient ischemic dilation; TID is 1.08 (normal less than 1.3). Left ventricle resting end diastolic volume is 191 mL. Left ventricle stress ejection fraction is 59% ; normal range is above 45%. Myocardial perfusion: There is a moderate size perfusion defect from basal to mid and also involving the apical inferior wall both at stress and at rest. This defect is more pronounced on rest with a more apical inferior wall which is similar at rest and with stress. No prone imaging was performed due to patient's physical limitation. IMPRESSION: 1)Moderate-size, moderate intensity inferior wall defect which is suspected to be related to subdiaphragmatic attenuation. However, a small inferoapical infarct is not excluded. 2) Patient did have inferior wall defect related to diaphragmatic attenuation on the 2009 study; at that time, prone imaging was performed to correct for this. 3)LV volume may not be accurate due to gating artifact. 4) Overall this is a low-risk study. Dictated by: eY Bearden M.D. on 07/22/2019 at 18:56 Approved by: Ye Bearden M.D. on 07/22/2019 at 19:05
--- NOTE | 2019-07-21 16:07 | PM.TREADMILL ---
Cardiac Stress Test Report Referral & Results Date Patient Seen: 07/21/19 Time Patient Seen: 15:45 Indication: Dyspnea Rest ECG: Sinus bradycardia, frequent PACs Procedure Note: AFTER INJECTION PT DEVELOPED 3-4/10 LEFT CHEST PRESURE WITHOUT RADIATION. NO SIGNIFICANT ST-T CHANGES. FREQUENT PACS VS RUNS OF ATRIAL TACHYCARDIA. CHEST PRESSURE SUBSIDED EARLY IN RECOVERY. NO REVERSAL AGENT NEEDED. Please note: Actual ECG tracings can be found in the PACS system.
== END ==
PROVIDERS: PCP Internal Medicine; Visit Provider Internal Medicine
DX: I48.91 Unspecified atrial fibrillation (principal); R07.89 Other chest pain; I49.1 Atrial premature depolarization; R06.09 Other forms of dyspnea; E11.9 Type 2 diabetes mellitus without complications
CPT/HCPCS: 78452; 93016; 93017; 93018; A9502; J2785

== ENCOUNTER 2019-07-30 11:29 | Inpatient (IN) | payer MEDICARE, BC, SELFPAY ==
[2018-05-03 14:28] VITALS: BMI 39.7
[2019-07-30] VITALS (8 sets, daily range): BP systolic 94–139; BP diastolic 50–71; PULSE 58–75; RESP 16–19; TEMP 36.5–37.1; O2SAT 95–98; BMI 35.9
--- NOTE | 2019-07-30 12:18 | ED.SKABFB ---
HPI - Skin/Abscess/Foreign Bdy General Chief complaint: Skin/Abscess/Foreign Body Stated complaint: possible cellulitis Time Seen by Provider: 07/30/19 11:57 Source: patient Mode of arrival: Family Vehicle Limitations: no limitations History of Present Illness HPI narrative: Patient is a 79-year-old male with chronic right leg cellulitis, paroxysmal atrial is fibrillation, ahz-yeedndz-yzmwbpyly diabetic presenting with worsening redness of his right leg. A states that he was actually admitted is at [facility] over [place] with his elevated troponin and infection. He was discharged home on Keflex and actually just finished a few days ago. Yesterday she noticed that the redness has gotten more intense and is now spreading beyond his his knee and into his thigh. He says this is atypical. His his blood pressure is also noted to be low which she states is abnormal for him as well. His he was having some vague abdominal discomfort as well but denies any now. He has no chest pain shortness of breath or fevers. MD complaint: rash Related Data Home Medications Medication Instructions Recorded Confirmed potassium chloride 20 meq PO BID #0 04/30/10 07/30/19 allopurinol 300 mg PO QDAY #0 09/10/16 07/30/19 metformin 1,000 mg PO BID #0 09/10/16 07/30/19 aspirin 81 mg PO DAILY 04/19/18 07/30/19 acetaminophen [Tylenol] 650 mg PO Q4H PRN 06/20/19 07/30/19 carvedilol 6.25 mg PO BID 06/20/19 07/30/19 apixaban [Eliquis] 5 mg PO BID 07/30/19 07/30/19 atorvastatin 40 mg PO QPM 07/30/19 07/30/19 gabapentin 300 mg PO BEDTIME 07/30/19 07/30/19 Previous Rx's Medication Instructions Recorded enalapril-hydrochlorothiazide 1 tab PO DAILY #30 tab 05/12/18 Allergies Allergy/AdvReac Type Severity Reaction Status Date / Time No Known Drug Allergies Allergy Verified 07/30/19 11:42 Review of Systems Review of Systems ROS Unobtainable: All systems reviewed & are unremarkable except as noted in HPI and below Constitutional Constitutional: Denies chills, Denies fever(s), Denies lethargy and Denies weakness Eyes Eyes: Denies change in vision, Denies eye discharge, Denies irritation and Denies loss of vision ENT Ears, Nose, Mouth, and Throat: Denies change in voice, Denies neck pain and Denies sore throat Cardiovascular Cardiovascular: Denies chest pain, Denies irregular heart rhythm, Denies lightheadedness, Denies palpitations and Denies orthopnea Gastrointestinal Gastrointestinal: Reports as per HPI, Reports abdominal pain, Denies change in bowel habits, Denies diarrhea, Denies nausea and Denies vomiting Musculoskeletal Musculoskeletal: Denies neck pain Integumentary/Breasts Skin/Breast: Reports as per HPI Neurologic Neurologic: Denies loss of vision and Denies weakness Endocrine Endocrine: Denies palpitations Patient History Medical History Atrial fibrillation (Acute) Back pain (Acute) Cataract (Acute) Chronic kidney disease (Acute) Diabetes (Acute) Foot ulcer (Acute) Foot ulcer, right (Acute) Gout (Acute) History of cellulitis (Acute) History of stress test (Acute ~2008) Hypercholesterolemia (Acute) Hyperlipidemia (Acute) Leg pain (Acute) Lower extremity edema (Acute) Mild cognitive impairment (Acute) Obese (Acute) Osteoarthritis of spine with radiculopathy, lumbar region (Acute) Other secondary scoliosis, lumbar region (Acute) Paroxysmal A-fib (Acute) Peripheral vascular disease (Acute) Sleep apnea (Acute) Spinal stenosis of lumbar region at multiple levels (Acute) Spondylolisthesis at L2-L3 level (Acute) Venous insufficiency (Acute) Surgical History Cataract extraction status of right eye (Acute) History of ankle fusion (Acute) History of colonoscopy (Acute ~2013) History of hemorrhoidectomy (Acute ~1959) History of lumbar laminectomy (Acute ~02/2016) History of shoulder replacement (Acute ~2017) History of total knee arthroplasty (Acute) S/p reverse total shoulder arthroplasty (Acute) Family History Mother Diabetes mellitus Social History household members: spouse Smoking Status: Never smoker alcohol intake: current Smoking Status: Never smoker alcohol intake frequency: a few times a month Substance Use Type: does not use Exam Initial Vital Signs Initial Vital Signs: Vital Signs Temperature 97.7 F 07/30/19 11:36 Pulse Rate 68 07/30/19 11:36 Respiratory Rate 19 07/30/19 11:36 Blood Pressure 94/61 07/30/19 11:36 Pulse Oximetry 98 07/30/19 11:36 GENERAL: Overweight male no acute distress and in no acute distress. HEENT: Head atraumatic,EOMI, pupils reactive, face symmetric, CARDIOVASCULAR: Regular rate and rhythm without murmurs, rubs or gallops. RESPIRATORY: Breath sounds equal bilaterally, no wheezes rales or rhonchi. ABDOMEN: Soft, nontender, minimal tenderness. Normoactive bowel sounds all 4 quadrants. No guarding or rebound. EXTREMITIES: Normal range of motion, no clubbing or edema. Neurovascularly intact NEUROLOGICAL: Alert and oriented x4.Normal gait and speech. SKIN: Significant erythema of his right lower leg blanchable deep read it does extend beyond his knee into his mid thigh no gross drainage or is fluctuation Course Orders Ordered: ED Orders 07/30/19 11:54 EKG-12 Lead Routine 07/30/19 12:29 Complete Blood Count AUTO DIFF Stat Comprehensive Metabolic Panel Stat Lactate (Lactic Acid) Stat Lipase Stat Procalcitonin Stat 07/30/19 12:38 US periph venous low extrem rt Stat 07/30/19 12:52 Blood Culture Stat Acetaminophen (Tylenol) 650 mg PO Q6HR PRN PRN Reason: Fever/Mild Pain (1-3) Allopurinol (Zyloprim) 300 mg PO DAILY [facility] Apixaban (Eliquis) 5 mg PO BID [facility] Aspirin (Aspirin Ec) 81 mg PO DAILY [facility] Atorvastatin Calcium (Lipitor) 40 mg PO BEDTIME [facility] Carvedilol (Coreg) 6.25 mg PO BID [facility] Dextrose (D50w) 25 gm IV PRN PRN PRN Reason: Hypoglycemia Enalapril Maleate (Vasotec) 10 mg PO DAILY [facility] Gabapentin (Neurontin) 300 mg PO BEDTIME [facility] Hydrochlorothiazide (Hydrochlorothiazide) 25 mg PO DAILY [facility] Sodium Chloride (Normal Saline 0.9%) 1,000 mls @ 200 mls/hr IV CONT ALEM Last Infusion: 07/30/19 14:37 Dose: 200 mls/hr Documented by: Admin: 07/30/19 12:22 Dose: 200 mls/hr Documented by: MILLY Ceftriaxone Sodium/Dextrose (Rocephin) 1 gm in 50 mls @ 100 mls/hr IV Q24H [facility] Last Admin: 07/30/19 16:19 Dose: 100 mls/hr Documented by: SYDNEE Vancomycin HCl/Dextrose (Vancomycin) 750 mg in 150 mls @ 150 mls/hr IV Q12H [facility] Insulin Aspart (Novolog Flexpen) 0 unit SUBCUT ACHS [facility]; Protocol Last Admin: 07/30/19 17:04 Dose: 1 unit Documented by: EDGAR Cosigned by: SYDNEE Naloxone HCl (Narcan) 0.2 mg IV Q2MIN PRN PRN Reason: Opiate Reversal Oxycodone HCl (Percolone) 5 mg PO Q6HR PRN PRN Reason: Pain, Severe (7-10) Potassium Chloride (Klor-Con M20) 20 meq PO BID [facility] Vancomycin HCl (Vancomycin Trough) 1 request MISC NOW ONE Stop: 08/01/19 01:01 Discontinued Medications Atorvastatin Calcium (Lipitor) 40 mg PO QPM [facility] Vancomycin HCl/Dextrose (Vancomycin) 2,000 mg in 400 mls @ 200 mls/hr IV NOW ONE Stop: 07/30/19 15:20 Last Infusion: 07/30/19 17:54 Dose: 200 mls/hr Documented by: Infusion: 07/30/19 14:38 Dose: 200 mls/hr Documented by: Admin: 07/30/19 13:32 Dose: 200 mls/hr Documented by: MILLY Vancomycin HCl (Vancomycin Per Pharmacy) 1 request MISC NOW ONE Stop: 07/30/19 15:41 Consultations Consultation #1: Dr. freeman updated patient's symptoms test results agrees with observation at this time. Time: 13:40 Vital Signs Vital signs: Vital Signs - 8 hr 07/30/19 11:36 07/30/19 12:35 07/30/19 13:30 Temperature 97.7 F Pulse Rate 68 61 60 Respiratory Rate 19 19 18 Blood Pressure 94/61 Blood Pressure [Left Arm] 110/60 120/50 L Pulse Oximetry 98 96 97 MDM - Skin/Abscess/Foreign Bdy Lab Data Attestation: I reviewed the patient's lab results. Result diagrams: 07/30/19 12:29 07/30/19 12:29 Labs: Lab Results 07/30/19 07/30/19 07/30/19 Range/Units 12:29 12:29 12:29 WBC 9.7 (4.5-11.0) X10^3/uL RBC 3.54 L (4.5-5.9) X10^6/uL Hgb 12.1 L (13.5-17.5) g/dL Hct 36.0 L (41-53) % MCV 101.6 H (80-100) fL MCH 34.1 H (26-34) PG MCHC 33.5 (30-36) % RDW 15.5 H (11.6-14.8) % Plt Count 102 L (150-400) X10^3/uL Neut % (Auto) 84.4 H (50-75) % Lymph % (Auto) 10.5 L (25-40) % [place] % (Auto) 4.7 (3-14) % Eos % (Auto) 0.2 L (2-4) % Baso % (Auto) 0.2 (0-2) % Neut # (Auto) 8200 H (0663-6180) /uL Lymph # (Auto) 1000 L (0012-7584) /uL [place] # (Auto) 500 (0-900) /uL Eos # (Auto) 0 (0-450) /uL Baso # (Auto) 0 (0-100) /uL ESR (0-15) MM/HR Sodium 133 L (137-145) mmol/L Potassium 4.8 (3.4-5.1) mmol/L Chloride 104 (98-107) mmol/L Carbon Dioxide 22 (22-32) mmol/L BUN 38 H (9-20) mg/dL Creatinine 1.80 H (0.66-1.25) mg/dL Estimated GFR 36.6 L (>60) mL/min BUN/Creatinine Ratio 21.1 (6-22) Glucose 164 H (80-110) mg/dL Lactate (0.7-2.1) mmol/L Calcium 8.9 (8.4-10.2) mg/dL Total Bilirubin 0.7 (0.2-1.3) mg/dL AST 53 (17-59) IU/L ALT 26 (<50) IU/L Alkaline Phosphatase 71 (38-126) U/L C-Reactive Protein (<1.0) mg/dL Total Protein 6.8 (6.3-8.2) g/dL Albumin 3.4 L (3.5-5.0) g/dL Globulin 3.4 (1.7-4.1) g/dL Albumin/Globulin Ratio 1.0 (1.0-2.8) Lipase (23-300) U/L Procalcitonin 2.25 H (<0.5) ng/mL 07/30/19 07/30/19 07/30/19 Range/Units 12:29 12:29 12:29 WBC (4.5-11.0) X10^3/uL RBC (4.5-5.9) X10^6/uL Hgb (13.5-17.5) g/dL Hct (41-53) % MCV (80-100) fL MCH (26-34) PG MCHC (30-36) % RDW (11.6-14.8) % Plt Count (150-400) X10^3/uL Neut % (Auto) (50-75) % Lymph % (Auto) (25-40) % [place] % (Auto) (3-14) % Eos % (Auto) (2-4) % Baso % (Auto) (0-2) % Neut # (Auto) (6491-8055) /uL Lymph # (Auto) (8148-2402) /uL [place] # (Auto) (0-900) /uL Eos # (Auto) (0-450) /uL Baso # (Auto) (0-100) /uL ESR 42 H (0-15) MM/HR Sodium (137-145) mmol/L Potassium (3.4-5.1) mmol/L Chloride (98-107) mmol/L Carbon Dioxide (22-32) mmol/L BUN (9-20) mg/dL Creatinine (0.66-1.25) mg/dL Estimated GFR (>60) mL/min BUN/Creatinine Ratio (6-22) Glucose (80-110) mg/dL Lactate 2.2 H (0.7-2.1) mmol/L Calcium (8.4-10.2) mg/dL Total Bilirubin (0.2-1.3) mg/dL AST (17-59) IU/L ALT (<50) IU/L Alkaline Phosphatase (38-126) U/L C-Reactive Protein (<1.0) mg/dL Total Protein (6.3-8.2) g/dL Albumin (3.5-5.0) g/dL Globulin (1.7-4.1) g/dL Albumin/Globulin Ratio (1.0-2.8) Lipase 59 (23-300) U/L Procalcitonin (<0.5) ng/mL 07/30/19 Range/Units 12:29 WBC (4.5-11.0) X10^3/uL RBC (4.5-5.9) X10^6/uL Hgb (13.5-17.5) g/dL Hct (41-53) % MCV (80-100) fL MCH (26-34) PG MCHC (30-36) % RDW (11.6-14.8) % Plt Count (150-400) X10^3/uL Neut % (Auto) (50-75) % Lymph % (Auto) (25-40) % [place] % (Auto) (3-14) % Eos % (Auto) (2-4) % Baso % (Auto) (0-2) % Neut # (Auto) (6536-3258) /uL Lymph # (Auto) (5116-9874) /uL [place] # (Auto) (0-900) /uL Eos # (Auto) (0-450) /uL Baso # (Auto) (0-100) /uL ESR (0-15) MM/HR Sodium (137-145) mmol/L Potassium (3.4-5.1) mmol/L Chloride (98-107) mmol/L Carbon Dioxide (22-32) mmol/L BUN (9-20) mg/dL Creatinine (0.66-1.25) mg/dL Estimated GFR (>60) mL/min BUN/Creatinine Ratio (6-22) Glucose (80-110) mg/dL Lactate (0.7-2.1) mmol/L Calcium (8.4-10.2) mg/dL Total Bilirubin (0.2-1.3) mg/dL AST (17-59) IU/L ALT (<50) IU/L Alkaline Phosphatase (38-126) U/L C-Reactive Protein 15.2 H (<1.0) mg/dL Total Protein (6.3-8.2) g/dL Albumin (3.5-5.0) g/dL Globulin (1.7-4.1) g/dL Albumin/Globulin Ratio (1.0-2.8) Lipase (23-300) U/L Procalcitonin (<0.5) ng/mL Imaging Data US - DVT: Radiologist's Impression: PROCEDURE: US PERIPH VENOUS LOW EXTREM RT INDICATIONS: EDEMA, ERYTHEMA TECHNIQUE: Real-time imaging, as well as color and pulse Doppler interrogation, were performed of the lower extremity deep veins from the inguinal ligament to the popliteal fossa. COMPARISON: None. FINDINGS: The common femoral, femoral and popliteal veins are normally compressible, and free of intraluminal thrombus. Color and pulse Doppler demonstrate normal phasic intraluminal flow. There is normal augmentation response to distal compression maneuver. IMPRESSION: No DVT found at the right lower extremity. Dictated by: Ben Rand M.D. on 07/30/2019 at 14:30 ECG Data Attestation: I personally reviewed and interpreted this ECG as follows: Prior ECG tracings: available for review Interpretation: Mom normal sinus rhythm rate 60 p.r. interval 220 to QRS [address] elevations T-wave inversions in lead 3 noted and are similar to previous EKG. No changes from prior. MDM Narrative Medical decision making narrative: Patient has worsening right leg cellulitis he recently stopped Keflex about 3 days ago. He is afebrile without leukocytosis however he has minimally elevated lactate of 2.2 and procalcitonin. Patient is started on vancomycin. And admitted to observation. Discharge Plan Departure Patient Disposition: Admitted as Observation Clinical Impression: Cellulitis Qualifiers: Site of cellulitis: extremity Site of cellulitis of extremity: lower extremity Laterality: right Qualified Code(s): L03.115 - Cellulitis of right lower limb Discharge Date/Time: 07/30/19 14:39 Admit Date/Time: 07/30/19 13:31 Admit Provider: Carlo Freeman
[2019-07-30] MEDS: SODIUM CHLORIDE 0.9% 1,000 ML 200 ML IV (12:22)
--- NOTE | 2019-07-30 12:38 | DI.US.S_ITS ---
PROCEDURE: US PERIPH VENOUS LOW EXTREM RT INDICATIONS: EDEMA, ERYTHEMA TECHNIQUE: Real-time imaging, as well as color and pulse Doppler interrogation, were performed of the lower extremity deep veins from the inguinal ligament to the popliteal fossa. COMPARISON: None. FINDINGS: The common femoral, femoral and popliteal veins are normally compressible, and free of intraluminal thrombus. Color and pulse Doppler demonstrate normal phasic intraluminal flow. There is normal augmentation response to distal compression maneuver. IMPRESSION: No DVT found at the right lower extremity. Dictated by: Ben Rand M.D. on 07/30/2019 at 14:30 Approved by: Ben Rand M.D. on 07/30/2019 at 14:30
[2019-07-30 12:42] LABS: Add Manual Diff / Slide Review NO; Basophils Absolute Auto 0 /uL (0-100); Basophils Percent Auto 0.2 % (0-2); Eosinophils Absolute Auto 0 /uL (0-450); Eosinophils Percent Auto 0.2 % (2-4); Hemoglobin 12.1 g/dL (13.5-17.5); Lymphocytes Absolute Auto 1000 /uL (1100-4500); Lymphocytes Percent Auto 10.5 % (25-40); Mean Corpuscular HGB Conc 33.5 % (30-36); Mean Corpuscular Hemoglobin 34.1 PG (26-34); Mean Corpuscular Volume 101.6 fL (80-100); Monocytes Absolute Auto 500 /uL (0-900); Monocytes Percent Auto 4.7 % (3-14); Neutrophils Absolute Auto 8200 /uL (1500-7000); Neutrophils Percent Auto 84.4 % (50-75); Platelet Count 102 X10^3/uL (150-400); Red Blood Cell Count 3.54 X10^6/uL (4.5-5.9); Red Cell Distribution Width 15.5 % (11.6-14.8); White Blood Cell Count 9.7 X10^3/uL (4.5-11.0)
[2019-07-30 12:53] LABS: Lactate (Lactic Acid) 2.2 mmol/L (0.7-2.1); Lipase 59 U/L (23-300)
[2019-07-30 12:54] LABS: Alanine Aminotransferase 26 IU/L (<50); Albumin 3.4 g/dL (3.5-5.0); Alkaline Phosphatase 71 U/L (38-126); Aspartate Aminotransferase 53 IU/L (17-59); BUN Creatinine Ratio 21.1 (6-22); Bilirubin Total 0.7 mg/dL (0.2-1.3); Blood Urea Nitrogen 38 mg/dL (9-20); Calcium 8.9 mg/dL (8.4-10.2); Carbon Dioxide 22 mmol/L (22-32); Chloride 104 mmol/L (98-107); Estimated Glomerular Filt Rate 36.6 mL/min (>60); Globulin 3.4 g/dL (1.7-4.1); Glucose 164 mg/dL (80-110); HEMOLYSIS < 15 (0-50); Potassium 4.8 mmol/L (3.4-5.1); Sodium 133 mmol/L (137-145); Total Protein 6.8 g/dL (6.3-8.2)
[2019-07-30 13:08] LABS: Procalcitonin 2.25 ng/mL (<0.5)
[2019-07-30] MEDS: VANCOMYCIN 2,000 MG/400 ML PIGGYBACK 200 MG IV (13:32)
--- NOTE | 2019-07-30 14:17 | PC.NURSE ---
Pt arrived with . AAOx3 forgetful, h/o dementia. chronic RLL cellulitis which he has been treated for recently with multiple abx. afebrile. noticed the redness on the RLL start to travel upward towards groin. pt with h/o DM2 and has neuropathy. Can feel sensation but denies any pain in R foot. R LL is 2-3+ edema. unable to palpate pedal pulse in R foot. tibial pulse found with doppler and marked with surgical pen. adequate cap refill. extremity feels hot to touch. US obtained to r/o DVT. Pt with h/o afib and takes eliquis. afib 58-60 at this time. RR even and unlabored. states baseline mobility/ambulation limited. uses walker and is unsteady. receiving NS @ 200 and Vanco 2g IVPB. tolerating well. report given to GREGG Caceres.
[2019-07-30 14:37] LABS: Reflexed Lactate in 2 Hours Y
--- NOTE | 2019-07-30 14:39 | P.HP_ITS ---
History of Present Illness History of Present Illness Date Patient Seen: 07/30/19 Time Patient Seen: 14:39 Chief complaint: possible cellulitis Narrative: Je Plata is a 79-year-old male with past medical history of atrial fibrillation on Eliquis, hypertension, hyperlipidemia, diabetes and chronic right lower extremity cellulitis that was recently treated at [facility] (he was primarily admitted for NSTEMI), who presented with worsening right lower extremity redness. He stopped taking Keflex a few days ago, he completed his full course. Since stopping his antibiotics his redness has increased in size, going all the way up to his inner thigh. He says that his redness never fully resolved while taking the antibiotics and he was left with a small area of erythema over his calf. He endorses right lower extremity pain. He denies any symptoms on the left side. He denies any purulence drainage with the redness. He denies any fevers, chills, nausea, vomiting, abdominal pain, shortness of breath, chest pain, palpitations. He does endorse a poor appetite over the past few days. Patient History Medical History Atrial fibrillation (Acute) Back pain (Acute) Cataract (Acute) Chronic kidney disease (Acute) Diabetes (Acute) Foot ulcer (Acute) Foot ulcer, right (Acute) Gout (Acute) History of cellulitis (Acute) History of stress test (Acute ~2008) Hypercholesterolemia (Acute) Hyperlipidemia (Acute) Leg pain (Acute) Lower extremity edema (Acute) Mild cognitive impairment (Acute) Obese (Acute) Osteoarthritis of spine with radiculopathy, lumbar region (Acute) Other secondary scoliosis, lumbar region (Acute) Paroxysmal A-fib (Acute) Peripheral vascular disease (Acute) Sleep apnea (Acute) Spinal stenosis of lumbar region at multiple levels (Acute) Spondylolisthesis at L2-L3 level (Acute) Venous insufficiency (Acute) Surgical History Cataract extraction status of right eye (Acute) History of ankle fusion (Acute) History of colonoscopy (Acute ~2013) History of hemorrhoidectomy (Acute ~1959) History of lumbar laminectomy (Acute ~02/2016) History of shoulder replacement (Acute ~2017) History of total knee arthroplasty (Acute) S/p reverse total shoulder arthroplasty (Acute) Family & Social History Family History Mother Diabetes mellitus Social History: household members spouse Safety & Behavioral: Feels Safe in Current Yes Environment Been Physically Hurt or No Threatened By a Person Tobacco & Substance use: Smoking Status Never smoker alcohol intake frequency a few times a month Substance Use Type does not use Meds Home Medications and Allergies Home Medications Medication Instructions Recorded Confirmed Type potassium chloride 20 meq PO BID #0 04/30/10 07/30/19 History allopurinol 300 mg PO QDAY #0 09/10/16 07/30/19 History metformin 1,000 mg PO BID #0 09/10/16 07/30/19 History aspirin 81 mg PO DAILY 04/19/18 07/30/19 History enalapril-hydrochlorothiazide 1 tab PO DAILY #30 tab 05/12/18 07/30/19 Rx acetaminophen [Tylenol] 650 mg PO Q4H PRN 06/20/19 07/30/19 History carvedilol 6.25 mg PO BID 06/20/19 07/30/19 History apixaban [Eliquis] 5 mg PO BID 07/30/19 07/30/19 History atorvastatin 40 mg PO QPM 07/30/19 07/30/19 History gabapentin 300 mg PO BEDTIME 07/30/19 07/30/19 History Allergies Allergy/AdvReac Type Severity Reaction Status Date / Time No Known Drug Allergies Allergy Verified 07/30/19 11:42 Review of Systems Review of Systems Narrative: All other systems reviewed with the patient and are negative unless otherwise stated. Exam Vital Signs (past 8 hours): - 07/30/19 11:36 07/30/19 12:35 07/30/19 13:30 Temperature 97.7 F Pulse Rate 68 61 60 Respiratory Rate 19 19 18 Blood Pressure 94/61 Blood Pressure [Left Arm] 110/60 120/50 L Pulse Oximetry 98 96 97 Oxygen Delivery Method Room Air Narrative Exam Narrative: GENERAL APPEARANCE: Obese male sitting comfortably in hospital bed. SKIN: Extensive erythema of the right leg extending from his right toe all the way up to his inner thigh. There is no evidence of necrosis. There is no crepitus on exam. The area is warm, tender, and erythematous. The area was marked to monitor progression. There is a small scab on his anterior right garcia. No purulence is noted. HEENT: The sclerae were anicteric and conjunctivae were pink and moist. Extraocular movements were intact and pupils were equal, round with normal accommodation. External inspection of the ears and nose showed no scars, lesions, or masses. Lips, teeth, and gums showed normal mucosa. The oral mucosa, hard and soft palate, tongue and posterior pharynx were unremarkable. NECK: Supple and symmetric. There was no thyroid enlargement, and no tenderness, or masses were felt. CHEST: Normal AP diameter and normal contour without any kyphoscoliosis. LUNGS: Auscultation of the lungs revealed no wheezes, rhonchi, or rales. CARDIOVASCULAR: There was a regular rate and rhythm without any murmurs, gallops, rubs. Peripheral pulses were 2+ and symmetric. ABDOMEN: Soft and nontender with normal bowel sounds. No ascites was noted. MUSCULOSKELETAL: There was no tenderness or effusions noted. Muscle strength and tone were normal. EXTREMITIES: No cyanosis, clubbing or edema. NEUROLOGIC: Alert and oriented x 3. Normal affect. Gait was normal. Strength is +5/5 in the Upper Extremities and Lower Extremities Bilaterally. Sensation to touch was normal. Objective Labs Result Diagrams: 07/30/19 12:29 07/30/19 12:29 Labs: Laboratory Results - last 24 hr 07/30/19 07/30/19 07/30/19 12:29 12:29 12:29 WBC 9.7 RBC 3.54 L Hgb 12.1 L Hct 36.0 L MCV 101.6 H MCH 34.1 H MCHC 33.5 RDW 15.5 H Plt Count 102 L Neut % (Auto) 84.4 H Lymph % (Auto) 10.5 L [place] % (Auto) 4.7 Eos % (Auto) 0.2 L Baso % (Auto) 0.2 Neut # (Auto) 8200 H Lymph # (Auto) 1000 L [place] # (Auto) 500 Eos # (Auto) 0 Baso # (Auto) 0 Sodium 133 L Potassium 4.8 Chloride 104 Carbon Dioxide 22 BUN 38 H Creatinine 1.80 H Estimated GFR 36.6 L BUN/Creatinine Ratio 21.1 Glucose 164 H Lactate Calcium 8.9 Total Bilirubin 0.7 AST 53 ALT 26 Alkaline Phosphatase 71 Total Protein 6.8 Albumin 3.4 L Globulin 3.4 Albumin/Globulin Ratio 1.0 Lipase Procalcitonin 2.25 H 07/30/19 07/30/19 12:29 12:29 WBC RBC Hgb Hct MCV MCH MCHC RDW Plt Count Neut % (Auto) Lymph % (Auto) [place] % (Auto) Eos % (Auto) Baso % (Auto) Neut # (Auto) Lymph # (Auto) [place] # (Auto) Eos # (Auto) Baso # (Auto) Sodium Potassium Chloride Carbon Dioxide BUN Creatinine Estimated GFR BUN/Creatinine Ratio Glucose Lactate 2.2 H Calcium Total Bilirubin AST ALT Alkaline Phosphatase Total Protein Albumin Globulin Albumin/Globulin Ratio Lipase 59 Procalcitonin Assessment & Plan Assessment & Plan narrative: Je Plata is a 79-year-old male with past medical history of atrial fibrillation on Eliquis, hypertension, hyperlipidemia, diabetes and chronic right lower extremity cellulitis that was recently treated at [facility] in discharged on Keflex, who presented with worsening writes lower extremity redness. He is admitted for recurrent RLE cellulitis. 1. Right lower extremity cellulitis, acute on chronic, present on admission -he has had multiple episodes of right lower extremity cellulitis extending back over the years since 2008. He has known venous insufficiency according to documentation. He denies any symptoms of claudication and he does have palpable pulses on exam. reports in the past that he has needed outpatient IV antibiotics for his cellulitis. -right lower extremity Doppler is negative for DVT -patient failed outpatient therapy with Keflex. There is no purulence however will cover for now with vancomycin per pharmacy. Will also add ceftriaxone. -will obtain radiographs of right foot and right tib-fib given recurrent cellulitis to see if there's any evidence of osteomyelitis. Will also obtain ESR CRP. -leg elevation while in bed 2. Umr-cljdoic-pimnvzuvv diabetes, chronic, stable -hold home oral antihyperglycemics, initiate medium dose sliding scale. Admission glucose 164. -will check A1c -continue to adjust insulin as needed -continue carbohydrate consistent diet. 3. Atrial fibrillation on Eliquis, paroxysmal per documentation from [facility] -he was just discharged from [facility] for an NSTEMI. He had a echocardiogram which showed dilated atria, but normal ventricular function. He is scheduled to follow-up with cardiology in approximately 2 months. -EKG with sinus rhythm with primary block -continue home carvedilol 6.25 mg b.i.d. -continue home Eliquis -continue aspirin and Lipitor 4. Hypertension, chronic, stable -continue home medications 5. Hyperlipidemia, chronic, stable -continue home Lipitor DVT: On Eliquis Code: Full, surrogate decision maker is his Dispo: Admitted as inpatient as his stay is suspected to exceed 2 midnights and his right lower extremity cellulitis has failed outpatient antibiotic therapy.
--- NOTE | 2019-07-30 15:44 | DI.RAD.S_ITS ---
PROCEDURE: XR TIBIA FUBULA RT 2V INDICATIONS: eval for osteo TECHNIQUE: 2 views of the tibia and fibula were acquired. COMPARISON: [facility], CR, XR FOOT RT MIN 3V, 07/30/2019, 15:53. [facility], CR, ANKLE 3 VIEWS RIGHT, 04/04/2010, 15:13. [facility], CR, TIB/FIB 2V RIGHT, 04/04/2010, 15:17. FINDINGS: Bones: Focal bony irregularity is seen involving the medial malleolus. Prominent postoperative fixation changes are seen. Prominent degenerative changes are seen. No acute fractures are seen. There is an unfused distal fibular fracture. Soft tissues: Prominent soft tissue swelling is seen, particularly medially. IMPRESSION: These imaging findings are suspicious for osteomyelitis involving the medial malleolus. If there is strong suspicion for developing osteomyelitis, please consider a dedicated MRI without and with contrast for further evaluation (assuming that there is no contraindication to MRI). Postoperative and degenerative changes are seen. Dictated by: Nehemias Castillo M.D. on 07/30/2019 at 15:18 Approved by: Nehemias Castillo M.D. on 07/30/2019 at 15:20
--- NOTE | 2019-07-30 15:44 | DI.RAD.S_ITS ---
PROCEDURE: XR FOOT RT MIN 3V INDICATIONS: eval for osteomyelitis TECHNIQUE: 3 views of the foot were acquired. COMPARISON: [facility], CR, XR TIBIA FIBULA RT 2V, 07/30/2019, 15:53. [facility], CR, FOOT 2V RIGHT, 06/29/2009, 19:48. FINDINGS: Bones: Fixation change can be seen involving the medial midfoot at the Lisfranc joint as well as the ankle. Mild lucency is seen involving the screws on the Lisfranc joint. No priscila acute fractures are seen. There is focal bony irregularity seen involving the medial malleolus. Prominent degenerative changes are seen. Soft tissues: Prominent soft tissue swelling is seen at the level of the ankle. IMPRESSION: Potential osteomyelitis involving the medial malleolus. If not contraindicated, please consider a dedicated ankle MRI for further evaluation. Postoperative changes are seen. Mild screw loosening can be seen involving the medial midfoot. Dictated by: Nehemias Castillo M.D. on 07/30/2019 at 15:15 Approved by: Nehemias Castillo M.D. on 07/30/2019 at 15:18
[2019-07-30] MEDS: CEFTRIAXONE 1 GM/50 ML FROZ.PIGGY IV (16:19)
[2019-07-30 16:25] LABS: Erythrocyte Sedimentation Rate 42 MM/HR (0-15)
[2019-07-30 16:27] LABS: C-Reactive Protein Quant 15.2 mg/dL (<1.0)
[2019-07-30] MEDS: INSULIN ASPART 100 UNIT/ML INSULN PEN SUBCUT (17:04)
--- NOTE | 2019-07-30 18:06 | DI.MRI.S_ITS ---
PROCEDURE: MR ANKLE RT WO/W CON INDICATIONS: possible osteomyelitis medial malleolus on XR TECHNIQUE: Noncontrast sagittal T1 spin echo and T2 fast spin echo with fat saturation, axial proton density fast spin echo and T2 fast spin echo with fat saturation, axial T1 spin echo with fat saturation, coronal T1 spin echo and T2 fast spin echo with fat saturation through the ankle/hindfoot. Post-contrast axial, coronal, and sagittal T1 spin echo with fat saturation through the ankle/hindfoot. COMPARISON: [facility], CR, XR FOOT RT MIN 3V, 07/30/2019, 15:53. [facility], CR, XR TIBIA FIBULA RT 2V, 07/30/2019, 15:53. FINDINGS: Image quality: The standard coils could not be used, secondary to the patient's foot swelling. There is susceptibility artifact from the patient's hardware. This examination is limited by involuntary motion artifact. Generalized soft tissue swelling is seen, within the prominent soft tissue edema with increased T2 signal and skin thickening. Generalized increased enhancement can be seen. No focal fluid collections are seen to suggest abscess. Scrutiny is given to the medial malleolus at the site of the suspected osteomyelitis on plain film. At this site, no priscila bone edema or loss of the normal fatty signal can be seen. No significant abnormal bone marrow enhancement can be seen. The limits of this study, no abnormal marrow signal can be seen elsewhere. IMPRESSION: Limited study demonstrating no findings of osteomyelitis. Prominent soft tissue swelling is seen, which is consistent with advanced cellulitis. No focal fluid collections are seen to suggest abscess. Dictated by: Nehemias Castillo M.D. on 07/31/2019 at 9:57 Approved by: Nehemias Castillo M.D. on 07/31/2019 at 10:02
[2019-07-30] MEDS: ATORVASTATIN 20 MG TABLET 40 MG PO (20:12)
[2019-07-30] MEDS: APIXABAN 5 MG TABLET PO (20:12)
[2019-07-30] MEDS: carvediloL 12.5 MG TABLET 6.25 MG PO (20:13)
[2019-07-30] MEDS: GABAPENTIN 300 MG CAPSULE PO (20:16)
[2019-07-30] MEDS: POTASSIUM CHLORIDE 20 MEQ TAB PO (20:16)
[2019-07-30] MEDS: SODIUM CHLORIDE 0.9% FLUSH 10 ML IV (20:33)
--- NOTE | 2019-07-30 21:58 | PC.NURSE ---
Admit/Evening Shift Note- Patient arrived to room via stretcher from ER. Admission questions done, home medications reviewed, and physical assessment completed. Patient alert and oriented with some forgetfullness/confusion. Patient able to make needs known to staff. Patient pleasent, calm, and cooperative. RLE red, warm, and swollen. boarders marked. RLE elevated up on pillows. safety measures in place. patient oriented to bed and bed controls, room, lights, phone, menu, and call mak/tv remote. bed alarm activated. call mak and phone within reach. will cointinue to monitor.
[2019-07-31] VITALS (7 sets, daily range): BP systolic 120–164; BP diastolic 61–95; PULSE 57–68; RESP 16–18; TEMP 36.3–37.6; O2SAT 94–98
[2019-07-31] MEDS: VANCOMYCIN 750 MG/150 ML FROZ.PIGGY 150 MG IV (01:41)
[2019-07-31 06:04] LABS: Add Manual Diff / Slide Review NO; Basophils Absolute Auto 0 /uL (0-100); Basophils Percent Auto 0.2 % (0-2); Eosinophils Absolute Auto 200 /uL (0-450); Eosinophils Percent Auto 2.7 % (2-4); Hematocrit 32.3 % (41-53); Lymphocytes Absolute Auto 1600 /uL (1100-4500); Lymphocytes Percent Auto 19.7 % (25-40); Mean Corpuscular HGB Conc 34.2 % (30-36); Mean Corpuscular Hemoglobin 34.5 PG (26-34); Mean Corpuscular Volume 100.8 fL (80-100); Monocytes Absolute Auto 600 /uL (0-900); Monocytes Percent Auto 7.7 % (3-14); Neutrophils Absolute Auto 5700 /uL (1500-7000); Neutrophils Percent Auto 69.7 % (50-75); Platelet Count 86 X10^3/uL (150-400); Red Blood Cell Count 3.21 X10^6/uL (4.5-5.9); Red Cell Distribution Width 15.4 % (11.6-14.8); White Blood Cell Count 8.2 X10^3/uL (4.5-11.0)
[2019-07-31 06:12] LABS: Hemoglobin A1C% w Est Avg Glu 5.8 % (4.0-6.0)
[2019-07-31 06:39] LABS: BUN Creatinine Ratio 26.2 (6-22); Blood Urea Nitrogen 34 mg/dL (9-20); Calcium 8.6 mg/dL (8.4-10.2); Carbon Dioxide 23 mmol/L (22-32); Chloride 104 mmol/L (98-107); Estimated Glomerular Filt Rate 53.3 mL/min (>60); Glucose 108 mg/dL (80-110); HEMOLYSIS < 15 (0-50); Magnesium 1.4 mg/dL (1.6-2.3); Potassium 4.6 mmol/L (3.4-5.1); Sodium 133 mmol/L (137-145)
--- NOTE | 2019-07-31 07:52 | P.PN_ITS ---
Subjective Subjective Date Patient Seen: 07/31/19 Interval history: Je Plata is a 79-year-old male with past medical history significant for hypertension, hyperlipidemia, diabetes mellitus type 2, non-insulin using, of atrial fibrillation on Eliquis, hypertension, hyperlipidemia, venous insufficiency, and recurrent right lower extremity cellulitis that was recently treated at [facility] discharged on Keflex who presented with worsening right lower extremity redness. The patient is resting in bed comfortably. He endorses tenderness to touch of right lower extremity. He otherwise has no complaints and denies headache, shortness of breath, chest pain, abdominal pain, nausea, vomiting, fever, chills, dysuria, diarrhea or constipation. He is voiding and eliminating without difficulty. He is up ambulating with assistance. Exam Vital Signs (past 8 hours): - 07/31/19 00:35 07/31/19 04:50 07/31/19 07:49 Temperature 99.6 F 98.4 F 98.8 F Pulse Rate 64 57 L 68 Respiratory Rate 18 16 17 Blood Pressure 120/61 122/80 154/70 H Pulse Oximetry 94 96 96 Oxygen Delivery Method Room Air,CPAP Oxygen Flow Rate 0 Narrative Exam Narrative: General: Older gentleman lying in bed and in no acute distress, well-developed, well-nourished, appropriately interactive HEENT: Normocephalic, atraumatic. External ears without defect. Pupils equal, round, and reactive to light. Anicteric sclerae, moist conjunctivae, and no lid lag. Neck: Supple with full range of motion. No jugular venous distension. No lymphadenopathy or thyromegaly. Cardiovascular: Regular rate and rhythm without murmurs, rubs, or gallops appreciated Pulmonary: Clear to auscultation bilaterally without crackles, wheezes, or rhonchi. Normal respiratory effort with no use of accessory muscles. Abdomen: Bowel tones present. Soft, nontender, nondistended. No hepatosplenomegaly or masses appreciated. Extremities: No clubbing, cyanosis, or edema. Skin: Right lower extremity with circumferential erythema and warmth with mild edema from ankle to pretibial area. Cellulitis is retracting within outlined margins of thigh and nearly resolved on thigh. Neurological: Cranial nerves grossly intact. Psychiatric: Normal mood and affect. Alert and oriented to person, place, and time. Objective Labs Result Diagrams: 07/31/19 05:35 07/31/19 05:35 Labs: Laboratory Results - last 24 hr 07/30/19 07/30/19 07/30/19 12:29 12:29 12:29 WBC 9.7 RBC 3.54 L Hgb 12.1 L Hct 36.0 L MCV 101.6 H MCH 34.1 H MCHC 33.5 RDW 15.5 H Plt Count 102 L Neut % (Auto) 84.4 H Lymph % (Auto) 10.5 L [place] % (Auto) 4.7 Eos % (Auto) 0.2 L Baso % (Auto) 0.2 Neut # (Auto) 8200 H Lymph # (Auto) 1000 L [place] # (Auto) 500 Eos # (Auto) 0 Baso # (Auto) 0 ESR Sodium 133 L Potassium 4.8 Chloride 104 Carbon Dioxide 22 BUN 38 H Creatinine 1.80 H Estimated GFR 36.6 L BUN/Creatinine Ratio 21.1 Glucose 164 H Hemoglobin A1c Lactate Calcium 8.9 Magnesium Total Bilirubin 0.7 AST 53 ALT 26 Alkaline Phosphatase 71 C-Reactive Protein Total Protein 6.8 Albumin 3.4 L Globulin 3.4 Albumin/Globulin Ratio 1.0 Lipase Procalcitonin 2.25 H 07/30/19 07/30/19 07/30/19 12:29 12:29 12:29 WBC RBC Hgb Hct MCV MCH MCHC RDW Plt Count Neut % (Auto) Lymph % (Auto) [place] % (Auto) Eos % (Auto) Baso % (Auto) Neut # (Auto) Lymph # (Auto) [place] # (Auto) Eos # (Auto) Baso # (Auto) ESR 42 H Sodium Potassium Chloride Carbon Dioxide BUN Creatinine Estimated GFR BUN/Creatinine Ratio Glucose Hemoglobin A1c Lactate 2.2 H Calcium Magnesium Total Bilirubin AST ALT Alkaline Phosphatase C-Reactive Protein Total Protein Albumin Globulin Albumin/Globulin Ratio Lipase 59 Procalcitonin 07/30/19 07/30/19 07/31/19 12:29 14:56 05:35 WBC RBC Hgb Hct MCV MCH MCHC RDW Plt Count Neut % (Auto) Lymph % (Auto) [place] % (Auto) Eos % (Auto) Baso % (Auto) Neut # (Auto) Lymph # (Auto) [place] # (Auto) Eos # (Auto) Baso # (Auto) ESR Sodium Potassium Chloride Carbon Dioxide BUN Creatinine Estimated GFR BUN/Creatinine Ratio Glucose Hemoglobin A1c 5.8 Lactate 2.0 Calcium Magnesium Total Bilirubin AST ALT Alkaline Phosphatase C-Reactive Protein 15.2 H Total Protein Albumin Globulin Albumin/Globulin Ratio Lipase Procalcitonin 07/31/19 07/31/19 05:35 05:35 WBC 8.2 RBC 3.21 L Hgb 11.0 L Hct 32.3 L MCV 100.8 H MCH 34.5 H MCHC 34.2 RDW 15.4 H Plt Count 86 L Neut % (Auto) 69.7 Lymph % (Auto) 19.7 L [place] % (Auto) 7.7 Eos % (Auto) 2.7 Baso % (Auto) 0.2 Neut # (Auto) 5700 Lymph # (Auto) 1600 [place] # (Auto) 600 Eos # (Auto) 200 Baso # (Auto) 0 ESR Sodium 133 L Potassium 4.6 Chloride 104 Carbon Dioxide 23 BUN 34 H Creatinine 1.30 H Estimated GFR 53.3 L BUN/Creatinine Ratio 26.2 H Glucose 108 Hemoglobin A1c Lactate Calcium 8.6 Magnesium 1.4 L Total Bilirubin AST ALT Alkaline Phosphatase C-Reactive Protein Total Protein Albumin Globulin Albumin/Globulin Ratio Lipase Procalcitonin Assessment & Plan Assessment & Plan narrative: Je Plata is a 79-year-old male with past medical history significant for hypertension, hyperlipidemia, diabetes mellitus type 2, non-insulin using, of atrial fibrillation on Eliquis, hypertension, hyperlipidemia, venous insufficiency, and recurrent right lower extremity cellulitis that was recently treated at [facility] discharged on Keflex who presented with worsening right lower extremity redness. 1. Acute on chronic right lower extremity cellulitis, secondary to chronic venous stasis, present on admission. Active. -He has had multiple episodes of right lower extremity cellulitis extending back over the years since 2008. He has known venous insufficiency. His reports in the past that he has needed outpatient IV antibiotics for his cellulitis. The patient was recently treated for right lower extremity cellulitis at [facility] and discharged on Keflex. -CRP elevated at 15.2 and ESR elevated at 42. -Right lower extremity venous Doppler ultrasound is negative for DVT. -Continue vancomycin with dosing per pharmacy and ceftriaxone 2 g IV daily. -Right lower extremity x-ray suspicious for medial malleoli osteomyelitis. -MRI right ankle with and without contrast demonstrated prominent soft tissue swelling is seen, which is consistent with advanced cellulitis. No focal fluid collections are seen to suggest abscess. No findings of osteomyelitis. -Continue conservative management and elevate legs frequently. -Consulted orthopedic surgery, Dr. Harding, who plans to see the patient this morning. 2. Acute kidney injury, present on admission. Resolved. -Likely secondary to prerenal azotemia and decreased PO intake and hypermetabolic state due to infection. -Initial creatinine 1.8. Baseline creatinine 1.2-1.3. -Avoid nephrotoxic agents. -Continue to monitor renal function daily. 3. Diabetes mellitus type 2, non-insulin using, present on admission. Stable. -Hemoglobin A1c 5.8% indicative of tight glycemic control. -Held metformin. -Continue [facility] blood glucose checks and low-dose correctional scale insulin. -Continue carbohydrate consistent diet. -continue gabapentin 300 mg daily at bedtime. 4. Paroxysmal atrial fibrillation on Eliquis, present on admission. Stable. -EKG demonstrated sinus rhythm with first-degree AV block. -Continue rate control with carvedilol 6.25 mg twice daily and anticoagulation with Eliquis 5 mg twice daily. 5. Hypertension, chronic, present on admission. Stable. -Continue carvedilol 6.25 mg twice daily enalapril 10 mg daily and hydrochlorothiazide 25 mg daily. 6. Hyperlipidemia, chronic, present on admission. Stable. -Continue atorvastatin 40 mg daily at bedtime. 7. Recent NSTEMI. -Patient was recently treated for NSTEMI at [facility]. He is scheduled to follow-up with cardiology in approximately 2 months. -Continue aspirin 81 mg daily and atorvastatin 40 mg daily at bedtime. 8. Gout, chronic, present on admission. Stable. -Continue allopurinol 300 mg daily. DVT: Eliquis Code: Full code. Surrogate decision maker is his . Disposition: Patient likely discharge home in several days once cellulitis has improved. Quality VTE Deep Vein Thrombosis/Pulmonary Embolism Present on Admission: No
[2019-07-31] MEDS: carvediloL 12.5 MG TABLET 6.25 MG PO ×2 (08:03→20:16)
[2019-07-31] MEDS: ALLOPURINOL 300 MG TABLET PO (08:03)
[2019-07-31] MEDS: APIXABAN 5 MG TABLET PO ×2 (08:05→20:17)
[2019-07-31] MEDS: ASPIRIN EC 81 MG TABLET PO (08:05)
[2019-07-31] MEDS: SODIUM CHLORIDE 0.9% FLUSH 10 ML IV (08:06)
[2019-07-31] MEDS: hydroCHLOROthiazide 25 MG TABLET PO (08:07)
[2019-07-31] MEDS: CEFTRIAXONE 2 GM/50 ML FROZ.PIGGY IV (08:21)
[2019-07-31] MEDS: ENALAPRIL 20 MG TABLET 10 MG PO (08:21)
--- NOTE | 2019-07-31 08:25 | PC.NURSE ---
1P ASSIST W/ FWW TO RECLINER FOR BREAKFAST. SOMEWHAT UNSTEADY ON FEET. CHAIR ALARM ON. PEDAL PULSES NOT PALPABLE BUT AUSCULTED BY DOPPLER WITHOUT DIFFICULTY. BRISK CAP REFILL. LLE VERY SWOLLEN W/ 3+ PITTING EDEMA AND DEEP RED ERYTHEMA. WILL ELEVATE LEGS SOON PATIENT HAS COMPLETED MORNING MEAL. PATIENT DENIES PAIN.
--- NOTE | 2019-07-31 10:29 | PM.CN ---
History of Present Illness Consult details Date Patient Seen: 07/31/19 Time Patient Seen: 10:29 Chief complaint: possible cellulitis Reason for consult: Right ankle/foot infection Requesting provider: Barbi Bella Narrative: Mr. Plata is a 79 yo M here for recurrent cellulitis of his right ankle/leg/foot. He was treated at [facility] and discharged on oral antibiotics. He has been having chronic venous stasis to his RLE. He had hx of right ankle/subtalar fusion in [place] many years ago. He has been ambulatory. He is admitted through ED to medicine service for recurrent cellulitis with x-ray showing possible osteomyelitis. Orthopedic service is consulted. Meds Home Medications and Allergies Home Medications Medication Instructions Recorded Confirmed Type potassium chloride 20 meq PO BID #0 04/30/10 07/30/19 History allopurinol 300 mg PO QDAY #0 09/10/16 07/30/19 History metformin 1,000 mg PO BID #0 09/10/16 07/30/19 History aspirin 81 mg PO DAILY 04/19/18 07/30/19 History enalapril-hydrochlorothiazide 1 tab PO DAILY #30 tab 05/12/18 07/30/19 Rx acetaminophen [Tylenol] 650 mg PO Q4H PRN 06/20/19 07/30/19 History carvedilol 6.25 mg PO BID 06/20/19 07/30/19 History apixaban [Eliquis] 5 mg PO BID 07/30/19 07/30/19 History atorvastatin 40 mg PO QPM 07/30/19 07/30/19 History gabapentin 300 mg PO BEDTIME 07/30/19 07/30/19 History Allergies Allergy/AdvReac Type Severity Reaction Status Date / Time No Known Drug Allergies Allergy Verified 07/30/19 11:42 Exam Vital Signs (past 8 hours): - 07/31/19 04:50 07/31/19 07:49 Temperature 98.4 F 98.8 F Pulse Rate 57 L 68 Respiratory Rate 16 17 Blood Pressure 122/80 154/70 H Pulse Oximetry 96 96 Oxygen Delivery Method Room Air,CPAP Oxygen Flow Rate 0 Extrem Other: RLE with increased swelling/edema from mid-calf into the right foot. There is cellulitis from mid calf into patient's right foot. Skin is intact. Neurovasularly intact and well perfused. No induration or flucturance on exam. Limited ROM due to swelling/edema/stiffness. Objective Imaging R leg: My impression: X-ray RLE: Hx of R TKA, Right ankle/subtalarfusion with hardware with post op changes and sclerosis of TMT with radioopaque parts of medial malleolus questionable for osteomyelitis. Labs Result Diagrams: 07/31/19 05:35 07/31/19 05:35 Labs: Laboratory Results - last 24 hr 07/30/19 07/30/19 07/30/19 12:29 12:29 12:29 WBC 9.7 RBC 3.54 L Hgb 12.1 L Hct 36.0 L MCV 101.6 H MCH 34.1 H MCHC 33.5 RDW 15.5 H Plt Count 102 L Neut % (Auto) 84.4 H Lymph % (Auto) 10.5 L [place] % (Auto) 4.7 Eos % (Auto) 0.2 L Baso % (Auto) 0.2 Neut # (Auto) 8200 H Lymph # (Auto) 1000 L [place] # (Auto) 500 Eos # (Auto) 0 Baso # (Auto) 0 ESR Sodium 133 L Potassium 4.8 Chloride 104 Carbon Dioxide 22 BUN 38 H Creatinine 1.80 H Estimated GFR 36.6 L BUN/Creatinine Ratio 21.1 Glucose 164 H Hemoglobin A1c Lactate Calcium 8.9 Magnesium Total Bilirubin 0.7 AST 53 ALT 26 Alkaline Phosphatase 71 C-Reactive Protein Total Protein 6.8 Albumin 3.4 L Globulin 3.4 Albumin/Globulin Ratio 1.0 Lipase Procalcitonin 2.25 H 07/30/19 07/30/19 07/30/19 12:29 12:29 12:29 WBC RBC Hgb Hct MCV MCH MCHC RDW Plt Count Neut % (Auto) Lymph % (Auto) [place] % (Auto) Eos % (Auto) Baso % (Auto) Neut # (Auto) Lymph # (Auto) [place] # (Auto) Eos # (Auto) Baso # (Auto) ESR 42 H Sodium Potassium Chloride Carbon Dioxide BUN Creatinine Estimated GFR BUN/Creatinine Ratio Glucose Hemoglobin A1c Lactate 2.2 H Calcium Magnesium Total Bilirubin AST ALT Alkaline Phosphatase C-Reactive Protein Total Protein Albumin Globulin Albumin/Globulin Ratio Lipase 59 Procalcitonin 07/30/19 07/30/19 07/31/19 12:29 14:56 05:35 WBC RBC Hgb Hct MCV MCH MCHC RDW Plt Count Neut % (Auto) Lymph % (Auto) [place] % (Auto) Eos % (Auto) Baso % (Auto) Neut # (Auto) Lymph # (Auto) [place] # (Auto) Eos # (Auto) Baso # (Auto) ESR Sodium Potassium Chloride Carbon Dioxide BUN Creatinine Estimated GFR BUN/Creatinine Ratio Glucose Hemoglobin A1c 5.8 Lactate 2.0 Calcium Magnesium Total Bilirubin AST ALT Alkaline Phosphatase C-Reactive Protein 15.2 H Total Protein Albumin Globulin Albumin/Globulin Ratio Lipase Procalcitonin 07/31/19 07/31/19 05:35 05:35 WBC 8.2 RBC 3.21 L Hgb 11.0 L Hct 32.3 L MCV 100.8 H MCH 34.5 H MCHC 34.2 RDW 15.4 H Plt Count 86 L Neut % (Auto) 69.7 Lymph % (Auto) 19.7 L [place] % (Auto) 7.7 Eos % (Auto) 2.7 Baso % (Auto) 0.2 Neut # (Auto) 5700 Lymph # (Auto) 1600 [place] # (Auto) 600 Eos # (Auto) 200 Baso # (Auto) 0 ESR Sodium 133 L Potassium 4.6 Chloride 104 Carbon Dioxide 23 BUN 34 H Creatinine 1.30 H Estimated GFR 53.3 L BUN/Creatinine Ratio 26.2 H Glucose 108 Hemoglobin A1c Lactate Calcium 8.6 Magnesium 1.4 L Total Bilirubin AST ALT Alkaline Phosphatase C-Reactive Protein Total Protein Albumin Globulin Albumin/Globulin Ratio Lipase Procalcitonin Assessment & Plan Assessment & Plan narrative: Mr. Plata is a 79 yo M with well controlled DM Type II with recurrent RLE cellulitis due to venous stasis. He currently has active cellullitis and x-ray showing possible osteomyelitis with complex foot/ankle arthrodesis with hardware many years ago. MRI is ordered by medicine team. The study may be limited by the artifact of the stainless steel hardware. If evaluation of the MRI is limited, CT of the ankle/foot w/ w/o contrast may provide additional information. In the mean time, IV antibiotics for treatment of his cellulitis. Elevate RLE to decrease venous stasis. WBAT to RLE but limited since I would like him to elevate his RLE often to decrease his stasis. Will continue to follow and assess patient and diagnostic imaging.
[2019-07-31] MEDS: VANCOMYCIN 1,250 MG in SODIUM CHLORIDE 0.9% 250 ML IV ×2 (10:46→20:28)
[2019-07-31] MEDS: INSULIN ASPART 100 UNIT/ML INSULN PEN SUBCUT ×2 (11:54→16:54)
[2019-07-31] MEDS: MAGNESIUM SULFATE 2 GM/50 ML PIGGYBACK IV (11:57)
--- NOTE | 2019-07-31 14:25 | CM.DANOTE ---
Patient is a 79 year old male who was admitted on 07/30/19 for Possible Cellulitis. Pt has MCR and BX FED for insurance and his PCP is Dr. Maykel Rodríguez. EMR was reviewed. Per MD, pt with possible osteomyelitis and MRI to confirm. Per Ortho Consult, waiting for MRI results to determine if any further medical intervention. Per RN, pt fairly unsteady on his feet and MRI scheduled for late morning. SW met bedside with pt and explained role and pt confirms that he lives at home in [place] with his spouse and is Independent with ADL's at baseline. Pt states that he does not think he has completed DPOA pwk but that his spouse is his informal DPOA. Pt confirms that he was last admitted to [facility] in Apr 2018 for scheduled surgery and was discharged to [facility] before safe return home. Pt denies any current HH or any other supportive services in place like section beamer or caregiver. Pt attempted outpt antibiotic tx and continued to have ongoing pain and redness and currently on IV-Abx. Pt preference is to d/c home if possible and states he does not feel SNF will likely be needed at d/c. Plan: SW to follow closely after MRI and Ortho Consult to determine if pt has osteomyelitis and if any further medical intervention needed beyond IV-Abx. MARIO Robertson Discharge Planning/Care Management CM Discharge Assessment Start: 07/31/19 14:23 Freq: Status: Active Protocol: Document 07/31/19 14:23 BF (Rec: 07/31/19 14:25 [id number]) Discharge Planning Assessment Assigned Taxation Consultant MARIO Eli DPOA/Assigned Designee Name informally spouse Lesley Contact Information [phone] Advance Directives? Yes: polst Advance Directives on File No: Unsure History Provided By Patient,Significant Other, Medical Record Has Patient been admitted in last 30 No days? Prior Living Arrangements House Household Members spouse Type of transporation used prior to Drives own vehicle admit Independent with ADL's Yes Is patient alert and oriented? Yes Caregiver for Another No Comment Waiting for PT initial eval and Ortho recommendations Barriers to Discharge No Discharge Plan Home Transportation Arrangement Spouse to provide transport if pt safe for home. Additional Comment PT/OT evaluations pending. Whiteboard Updated in Patient Room with Yes name and ext. # of Taxation Consultant Review Status In Process Please Provide Date Initial DC 07/31/19 Assessment Was Performed Next Review Type Continued Stay Review
--- NOTE | 2019-07-31 16:50 | PT.IIE ---
Addendum entered and electronically signed by Liat Serrano PT 07/31/19 16:53: Pt states he is not willing to consider SNF. Will see pt in the morning and then set up a pm time for caregiver training. Original Note: Current Diagnoses Cellulitis of right lower limb (07/30/19) Surgical History (Last Reviewed 07/30/19 @ 12:39 by Adriana Graves DO) Cataract extraction status of right eye (Acute) History of ankle fusion (Acute) History of colonoscopy (Acute ~2013) History of hemorrhoidectomy (Acute ~1959) History of lumbar laminectomy (Acute ~02/2016) History of shoulder replacement (Acute ~2017) History of total knee arthroplasty (Acute) S/p reverse total shoulder arthroplasty (Acute) Medical History (Last Reviewed 07/30/19 @ 12:39 by Adriana Graves DO) Atrial fibrillation (Acute) Back pain (Acute) Cataract (Acute) Chronic kidney disease (Acute) Diabetes (Acute) Foot ulcer (Acute) Foot ulcer, right (Acute) Gout (Acute) History of cellulitis (Acute) History of stress test (Acute ~2008) Hypercholesterolemia (Acute) Hyperlipidemia (Acute) Leg pain (Acute) Lower extremity edema (Acute) Mild cognitive impairment (Acute) Obese (Acute) Osteoarthritis of spine with radiculopathy, lumbar region (Acute) Other secondary scoliosis, lumbar region (Acute) Paroxysmal A-fib (Acute) Peripheral vascular disease (Acute) Sleep apnea (Acute) Spinal stenosis of lumbar region at multiple levels (Acute) Spondylolisthesis at L2-L3 level (Acute) Venous insufficiency (Acute) Physical Therapy Inpatient Evaluation/Re-Eval M1 PT/OT-IP Prior Functional Status Start: 07/31/19 12:44 Freq: NEEDED Status: Active Protocol: Document 07/31/19 16:23 AW (Rec: 07/31/19 16:50 AW [id number]) Medical Review Prior Functional Status Medical History Reviewed Yes Communication WNL Mobility and Gait Pt reports independence with all mobility but does endorse use of walking stick/trekking pole for longer distances. Activities of Daily Living and IADL's Independent Prior Functional Level (Other details) Pt reports 2 non-injurious falls within the past year. Social History Household Members spouse Living Arrangements House Number of Floors (Floors) One Floor Number of Stairs To Enter/Railing? 6 threshhold to enter. Home Environment Standard Height Toilet,Walk in Shower Home Equipment Front Wheel Walker,Straight Cane,Raised Toilet Seat w/ Armrests,Hand Held Shower Employment Status Retired Additional Social History Comment Pt lives with his spouse, Lesley . He states Lesley is available 02/02 and able to provide physical assist. M2 PT-IP Current Condition Start: 07/31/19 12:44 Freq: NEEDED Status: Active Protocol: Document 07/31/19 16:23 AW (Rec: 07/31/19 16:50 AW [id number]) Physical Therapy Current Condition Current Condition Evaluation Date 07/31/19 Treatment Diagnosis RLE cellulitis, venous stasis, impaired mobility Onset Date 07/30/2019 Precautions Other Precautions Elevate the R LE as often as possible Weight Bearing Status Weight Bearing Status Weight Bear as Tolerated Allowed Weight Bearing Amount (enter % WBAT RLE but elevate at all or #) (%) times when not mobilizing. M3 PT-IP Subjective Start: 07/31/19 12:44 Freq: NEEDED Status: Active Protocol: Document 07/31/19 16:23 AW (Rec: 07/31/19 16:50 AW [id number]) Subjective Physical Therapy Visit Type Type Initial Evaluation Visit Start Time 15:31 Visit Stop Time 15:51 Total Visit Minutes 20 Physical Therapy Visit Comments Patient Comments Willing to work with PT Patient Goals Pt hopes to return home at discharge M4 PT-IP Mobility and Gait Start: 07/31/19 12:44 Freq: NEEDED Status: Active Protocol: Document 07/31/19 16:23 AW (Rec: 07/31/19 16:50 AW [id number]) PT-Transfer Assessment Sit to and From Stand Sit to and from Stand Moderate Assistance,1 Person Assistance,Use of Upper Extremities Equipment Transfer Assistive Device Gait Belt,Front Wheeled Walker Orthotic/Prosthetic Devices or Brace: No Transfers Transfer Destination Chair Transfer Technique ambulated with FWW Transfer Ability Level of Assist Contact Guard Assistance,1 Person Assistance,Use of Upper Extremities Comments Mobility Comments Pt reclined in chair upon therapist arrival. He declined bed mobility, preferring to sit in the chair and keep his R LE elevated. He was able to don his own socks and shoes with min assist for the right shoe due to swelling. Pt required mod assist x 1 for sit to stand from chair - in part due to his height making the transfer difficult. In immediate standing, pt was unsteady and reached for the FWW, requiring min assist to maintain his balance. After gait assessment, pt returned to the chair and required verbal cues for safe strategies to sit, using B UE to control his descent. He was repositioned in the chair with legs elevated, chair alarm on for safety, and call light within reach. Gait Assessment Gait Gait Assistance Required: Contact Guard Assist Distance (Feet) 75 Able to Maintain Weight Bearing Status Yes During Gait Assistive Devices Assistive Device Gait Belt,Front Wheeled Walker Orthotic/Prosthetic Devices or Brace: No Gait Deviations General Gait Pattern Decreased Stride Length, Decreased Feet Clearance, Flexed Trunk,Wide Based Gait Factors Limiting Gait Function Factors Limiting Gait Function Decreased Activity Tolerance, Decreased Strength,Poor Balance,Poor Safety Awareness Comments Gait Comments Pt ambulated ~75 feet in the halls using FWW CGA and wearing his own shoes. He required frequent cues for upright posture and safe use of FWW. Gait without AD was not assessed. Stair Climbing Assessment Comments Stair Climbing Comments Not assessed. PT-Balance Assessment Sitting Balance and Reactions Static Sitting Balance Ability Normal Dynamic Sitting Balance Ability Good Standing Balance and Reactions Static Standing Balance Ability Fair Dynamic Standing Balance Ability Fair Device Used FWW M5 PT-IP Objective Assessments Start: 07/31/19 12:44 Freq: NEEDED Status: Active Protocol: Document 07/31/19 16:23 AW (Rec: 07/31/19 16:50 AW [id number]) Orientation Orientation/Cognition Level of Alertness Alert Orientation Name,Day of Week,Place, Situation Language Function Ability No Deficits Noted Safety Awareness Decreased Safety Awareness Memory Description No Deficits Noted Gross Range of Motion Upper Extremity ROM Assessment Within Functional Limits Lower Extremity ROM Assessment Right Impaired Impairments Pt has history of R ankle/ subtalar fusion limiting ankle ROM Strength Upper Extremity Strength Assessment Within Functional Limits Lower Extremity Strength Assessment Bilaterally Impaired Hip 4-/5 Knee L 4/5; R 3+/5 Ankle B 4-/5 Coordination Assessment Gross Coordination Gross Coordination WNL Sensation Assessment Sensation Gross Sensation Right LE Impaired,Left LE Impaired Light Touch Impaired Comments Sensation Comments 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 M6 PT-IP Treatment Start: 07/31/19 12:44 Freq: NEEDED Status: Active Protocol: Document 07/31/19 16:23 AW (Rec: 07/31/19 16:50 AW [id number]) Physical Therapy Treatment Education Education Provided Precautions,Weight Bearing Status,Safety Other Treatments Other Treatment Performed Provided education on role of PT, plan of care, weightbearing status, importance of elevating the leg, and safe use of FWW. M7 PT-IP Assessment and Plan Start: 07/31/19 12:44 Freq: NEEDED Status: Active Protocol: Document 07/31/19 16:23 AW (Rec: 07/31/19 16:50 AW [id number]) PT Summary Assessment and Plan Potential Rehabilitation Potential Good Status of Condition at Evaluation Evolving Summary Impairments ROM,Strength,Balance,Sensation ,Transfers,Gait,Activity Tolerance Assessment Summary Je is a 79 yo man seen for PT evaluation after being admitted with R LE cellulitis. MRI result states Limited study demonstrating no findings of osteomyelitis. At baseline, pt reports indpendence with all mobility except for use of trekking pole for longer distances. On evaluation, pt required mod assist for sit to stand and CGA for ambulation with FWW, demonstrating impaired balance even with assistive device. Pt would benefit from caregiver training to ensure his is able to manage his needs at home. Depending on progress and spouse's ability to provide assist, pt may require SNF rehab to ensure safe return to home. Will continue to assess. Goals Bed Mobility Goal Independent Transfer Goal Independent,Front Wheeled Walker Gait Goal Independent,Front Wheel Walker Gait Distance 100 Other Goals - up/down 1 platform step SBA with FWW to simulate threshhold entry Days to Meet Goals 5 Frequency of Treatment Frequency Of Treatment Twice a Day Treatment Plan Physical Therapy Treatment Plan Bed Mobility Training,Transfer Training,Gait Training, Therapeutic Exercise,Balance Retraining,Discharge Planning, Hot or Cold Pack,Neuromuscular Re-ed,Manual Therapy Other Recommendations and Next Treatment assess bed mobility, progress Focus gait distance with FWW, assess platform step with FWW Recommendations To Nursing Amount of Assist Needed 1 Person Assist Discharge Recommendations PT Discharge Recommendations Home with 24/7 Assist,Home Health,SNF Rehab Other Discharge Recommendations SNF rehab vs home with 24/7 and home health Equipment Needed for Home Before FWW if going home Discharge
[2019-07-31] MEDS: GABAPENTIN 300 MG CAPSULE PO (20:17)
[2019-07-31] MEDS: ATORVASTATIN 20 MG TABLET 40 MG PO (20:17)
[2019-08-01] VITALS (7 sets, daily range): BP systolic 130–154; BP diastolic 71–88; PULSE 53–73; RESP 16–20; TEMP 36.1–37.2; O2SAT 94–97
--- NOTE | 2019-08-01 00:52 | PC.NURSE ---
Addendum entered by Judit Harry R.N. 08/01/19 05:44: Slept most of shift. Up to bathroom this morning and was weak and leaning backward so needed walker and 2 assist. Impulsive when getting up and not waiting for staff to assist. Legs elevated on pillows. Original Note: Patient is alert and oriented except did not know day of month. Breath sounds CTA with RA sat of 96%; using home CPAP. HRR. Denies nausea. BT present and abdomen is soft. Voiding per urinal; denies dysuria, frequency or urgency. Able to turn himself in bed. Gait not assessed at this time as not out of bed but evening RN reports he gets up with walker and SBA; patient denies any weakness. Right LE is red, warm and swollen but redness/edema receding; still dark red on lateral aspect of right foot. Chronic bilateral foot neuropathy. Does have edema in left LE as well but is less than right. Did note a small abrasion to right anterior garcia. Fall risk score is high and bed alarm is activated.
[2019-08-01 06:25] LABS: BUN Creatinine Ratio 26.7 (6-22); Blood Urea Nitrogen 24 mg/dL (9-20); Calcium 8.9 mg/dL (8.4-10.2); Carbon Dioxide 23 mmol/L (22-32); Chloride 102 mmol/L (98-107); Estimated Glomerular Filt Rate > 60.0 mL/min (>60); Glucose 132 mg/dL (80-110); HEMOLYSIS < 15 (0-50); Magnesium 1.5 mg/dL (1.6-2.3); Potassium 4.4 mmol/L (3.4-5.1); Sodium 132 mmol/L (137-145)
[2019-08-01 07:28] LABS: Procalcitonin 0.74 ng/mL (<0.5)
[2019-08-01 09:02] LABS: Vancomycin Trough 13.4 ug/mL (10-20)
[2019-08-01] MEDS: carvediloL 12.5 MG TABLET 6.25 MG PO ×2 (09:03→21:58)
[2019-08-01] MEDS: ASPIRIN EC 81 MG TABLET PO (09:04)
[2019-08-01] MEDS: ALLOPURINOL 300 MG TABLET PO (09:04)
[2019-08-01] MEDS: hydroCHLOROthiazide 25 MG TABLET PO (09:04)
[2019-08-01] MEDS: APIXABAN 5 MG TABLET PO ×2 (09:04→21:58)
[2019-08-01] MEDS: ENALAPRIL 20 MG TABLET 10 MG PO (09:04)
[2019-08-01] MEDS: SODIUM CHLORIDE 0.9% FLUSH 10 ML IV ×2 (09:05→21:59)
[2019-08-01] MEDS: CEFTRIAXONE 2 GM/50 ML FROZ.PIGGY IV (09:16)
[2019-08-01] MEDS: VANCOMYCIN TROUGH 1 REQUEST MISC (09:52)
[2019-08-01] MEDS: MAGNESIUM SULFATE 4 GM/100 ML PIGGYBACK IV (09:52)
--- NOTE | 2019-08-01 09:53 | PT.IPTN ---
Current Diagnoses Cellulitis of right lower limb (07/30/19) Physical Therapy Treatment Note M2 PT-IP Current Condition Start: 07/31/19 12:44 Freq: NEEDED Status: Active Protocol: Document 07/31/19 16:23 AW (Rec: 07/31/19 16:50 AW [id number]) Physical Therapy Current Condition Current Condition Evaluation Date 07/31/19 Treatment Diagnosis RLE cellulitis, venous stasis, impaired mobility Onset Date 07/30/2019 Precautions Other Precautions Elevate the R LE as often as possible Weight Bearing Status Weight Bearing Status Weight Bear as Tolerated Allowed Weight Bearing Amount (enter % WBAT RLE but elevate at all or #) (%) times when not mobilizing. M3 PT-IP Subjective Start: 07/31/19 12:44 Freq: NEEDED Status: Active Protocol: Document 08/01/19 09:27 KS (Rec: 08/01/19 10:40 KS [email or web address]) Subjective Physical Therapy Visit Type Type Treatment Note Visit Start Time 09:27 Visit Stop Time 09:53 Total Visit Minutes 26 Number of LIEUTENANT BALLISTICS Visits 1 Physical Therapy Visit Comments Patient Comments Pt agreeable to work with therapy. Pt /caregiver present during treatment. Pts offers that they have a FWW in her car for pt to use at home. Pts also notes that pt will only have to cross small threshold at home, rather than 6 in step. Patient Goals Pt hopes to return home at discharge Therapy Pain Assessment Pain When Pain Assessed During Mobility Pain Present Pain Present Denied Pain M4 PT-IP Mobility and Gait Start: 07/31/19 12:44 Freq: NEEDED Status: Active Protocol: Document 08/01/19 09:27 KS (Rec: 08/01/19 10:40 KS [id number]) PT-Bed Mobility Assessment Supine to Sit Supine to Sit Contact Guard Assistance Sit to Supine Sit to Supine Standby Assistance Scooting Scooting to Edge of Bed Standby Assistance PT-Transfer Assessment Sit to and From Stand Sit to and from Stand Moderate Assistance,1 Person Assistance,Use of Upper Extremities Equipment Transfer Assistive Device Gait Belt,Front Wheeled Walker Orthotic/Prosthetic Devices or Brace: No Transfers Transfer Destination Bed Transfer Technique ambulated with FWW Transfer Ability Level of Assist Contact Guard Assistance,1 Person Assistance,Use of Upper Extremities Comments Mobility Comments Pt was in bed w/ HOB elevated upon arrival from therapy. Pt was CGA for sup<>sit and able to move legs out of bed and scoot EOB SBA. Pt needed assistance donning shoes prior to standing. Mod A and use of UE for sit<>stand w/ FWW, bed elevated to reported height of bed at home. Pt made 4 attempts to rise, but needed Mod A x1 to stand fully w/ cues for nose over toes, difficulty due to LE weakness and pt height. Pt demonstrated lack of control during stand< >sit back in bed and required Min A, but demonstrated correct usage of FWW and reaching back for bed to lower down. SBA for removal of shoes and sit<>sup as well as scooting up and down in flat bed w/ proper bridging technique. Pt left in bed w/ B LE elevated, in room, all needs in reach, and nursing present. Gait Assessment Gait Gait Assistance Required: Contact Guard Assist Distance (Feet) 30 Able to Maintain Weight Bearing Status Yes During Gait Assistive Devices Assistive Device Gait Belt,Front Wheeled Walker Orthotic/Prosthetic Devices or Brace: No Gait Deviations General Gait Pattern Decreased Stride Length, Decreased Feet Clearance, Flexed Trunk,Wide Based Gait Factors Limiting Gait Function Factors Limiting Gait Function Decreased Activity Tolerance, Decreased Strength,Poor Balance,Poor Safety Awareness Comments Gait Comments Pt was able to ambulate around room ~30 ft w/ FWW and CGA and wearing his own shoes. Pt denied any pain while weight bearing on R LE. Pt required cues for upright posture. He is slightly impulsive while ambulating, requiring cues to slow down. Stair Climbing Assessment Comments Stair Climbing Comments Not assessed. PT-Balance Assessment Sitting Balance and Reactions Static Sitting Balance Ability Normal Dynamic Sitting Balance Ability Good Standing Balance and Reactions Static Standing Balance Ability Fair Dynamic Standing Balance Ability Fair Device Used FWW M5 PT-IP Objective Assessments Start: 07/31/19 12:44 Freq: NEEDED Status: Active Protocol: Document 07/31/19 16:23 AW (Rec: 07/31/19 16:50 AW [id number]) Orientation Orientation/Cognition Level of Alertness Alert Orientation Name,Day of Week,Place, Situation Language Function Ability No Deficits Noted Safety Awareness Decreased Safety Awareness Memory Description No Deficits Noted Gross Range of Motion Upper Extremity ROM Assessment Within Functional Limits Lower Extremity ROM Assessment Right Impaired Impairments Pt has history of R ankle/ subtalar fusion limiting ankle ROM Strength Upper Extremity Strength Assessment Within Functional Limits Lower Extremity Strength Assessment Bilaterally Impaired Hip 4-/5 Knee L 4/5; R 3+/5 Ankle B 4-/5 Coordination Assessment Gross Coordination Gross Coordination WNL Sensation Assessment Sensation Gross Sensation Right LE Impaired,Left LE Impaired Light Touch Impaired Comments Sensation Comments 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 M6 PT-IP Treatment Start: 07/31/19 12:44 Freq: NEEDED Status: Active Protocol: Document 08/01/19 09:27 KS (Rec: 08/01/19 10:40 KS [email or web address]) Physical Therapy Treatment Education Education Provided Precautions,Weight Bearing Status,Safety Other Treatments Other Treatment Performed Encouraged outpatient therapy for LE strengthening, further education on safe use of FWW. M7 PT-IP Assessment and Plan Start: 07/31/19 12:44 Freq: NEEDED Status: Active Protocol: Document 08/01/19 09:27 KS (Rec: 08/01/19 10:40 KS [email or web address]) PT Summary Assessment and Plan Potential Rehabilitation Potential Good Status of Condition at Evaluation Evolving Summary Impairments ROM,Strength,Balance,Sensation ,Transfers,Gait,Activity Tolerance Assessment Summary Pt was willing to ambulate and denied pain throughout treatment. CGA for sup<>sit, and SBA for scooting EOB and sit<>sup. Mod A and use of UE for sit<>stand from elevated bed due to LE weakness and height of patient. Pt ambulated ~30 ft w/ FWW while wearing own shoes. Cues for upright posture and slower pace needed. Pt demonstrated correct usage of FWW while backing up to sit back in bed, but has lack of control while sitting, requiring Min A to slowly lower into bed. SBA for removal of shoes, and sit<> sup in bed as well as scooting up and down in bed. Encouraged outpatient therapy secondary to discharge for LE weakness. Goals Bed Mobility Goal Independent Transfer Goal Independent,Front Wheeled Walker Gait Goal Independent,Front Wheel Walker Gait Distance 100 Days to Meet Goals 5 Frequency of Treatment Frequency Of Treatment Twice a Day Treatment Plan Physical Therapy Treatment Plan Bed Mobility Training,Transfer Training,Gait Training, Therapeutic Exercise,Balance Retraining,Discharge Planning, Hot or Cold Pack,Neuromuscular Re-ed,Manual Therapy Other Recommendations and Next Treatment Further ambulation w/ FWW, LE Focus strengthening, bed mobility, caregiver training. Recommendations To Nursing Amount of Assist Needed 1 Person Assist Discharge Recommendations PT Discharge Recommendations Home with 24/7 Assist,Home Health,SNF Rehab Other Discharge Recommendations SNF rehab vs home with 24/7 and home health
--- NOTE | 2019-08-01 11:25 | P.PN_ITS ---
Subjective Subjective Date Patient Seen: 08/01/19 Interval history: Je Plata is a 79-year-old male with past medical history significant for hypertension, hyperlipidemia, diabetes mellitus type 2, non-insulin using, of atrial fibrillation on Eliquis, hypertension, hyperlipidemia, venous insufficiency, and recurrent right lower extremity cellulitis that was recently treated at [facility] discharged on Keflex who presented with worsening right lower extremity redness. The patient is resting in bed comfortably. The patient's cellulitis is improving and is less erythematous, warm and is retracting past previous drawn margins. The patient reports his tenderness to palpation of right lower extremity has improved. He otherwise has no complaints and denies headache, shortness of breath, chest pain, abdominal pain, nausea, vomiting, fever, chills, dysuria, diarrhea or constipation. He is voiding and eliminating without difficulty. He is up ambulating with assistance and denies pain in right lower extremity with ambulation. Exam Vital Signs (past 8 hours): - 08/01/19 04:35 08/01/19 08:00 Temperature 98.4 F 97.6 F Pulse Rate 53 L 56 L Respiratory Rate 17 16 Blood Pressure 130/71 130/88 Pulse Oximetry 95 96 Oxygen Delivery Method Room Air Oxygen Flow Rate 0 Narrative Exam Narrative: General: Older gentleman lying in bed and in no acute distress, well-developed, well-nourished, appropriately interactive HEENT: Normocephalic, atraumatic. External ears without defect. Pupils equal, round, and reactive to light. Anicteric sclerae, moist conjunctivae, and no lid lag. Neck: Supple with full range of motion. No lymphadenopathy or thyromegaly. Cardiovascular: Regular rate and rhythm without murmurs, rubs, or gallops appreciated Pulmonary: Clear to auscultation bilaterally without crackles, wheezes, or rhonchi. Normal respiratory effort with no use of accessory muscles. Abdomen: Bowel tones present. Soft, nontender, nondistended. No hepatosplenomegaly or masses appreciated. Extremities: No clubbing, cyanosis, or edema. Skin: Right lower extremity with circumferential erythema, warmth and edema (specially over right medial malleoli) from ankle to pretibial area, improving. Cellulitis is retracting within outlined margins up to thigh and has resolved on thigh. Neurological: Cranial nerves grossly intact. Psychiatric: Normal mood and affect. Alert and oriented to person, place, and time. Objective Labs Result Diagrams: 07/31/19 05:35 08/01/19 06:00 Labs: Laboratory Results - last 24 hr 08/01/19 08/01/19 08/01/19 06:00 06:00 08:27 Sodium 132 L Potassium 4.4 Chloride 102 Carbon Dioxide 23 BUN 24 H Creatinine 0.90 Estimated GFR > 60.0 BUN/Creatinine Ratio 26.7 H Glucose 132 H Calcium 8.9 Magnesium 1.5 L Procalcitonin 0.74 H Vancomycin Trough 13.4 Assessment & Plan Assessment & Plan narrative: Je Plata is a 79-year-old male with past medical history significant for hypertension, hyperlipidemia, diabetes mellitus type 2, non-insulin using, of atrial fibrillation on Eliquis, hypertension, hyperlipidemia, venous insufficiency, and recurrent right lower extremity cellulitis that was recently treated at [facility] discharged on Keflex who presented with worsening right lower extremity redness. 1. Acute on chronic right lower extremity cellulitis, secondary to chronic venous stasis, present on admission. Active. -He has had multiple episodes of right lower extremity cellulitis extending back over the years since 2008. He has known venous insufficiency. His reports in the past that he has needed outpatient IV antibiotics for his cellulitis. The patient was recently treated for right lower extremity cellulitis at [facility] and discharged on Keflex. -CRP elevated at 15.2 and ESR elevated at 42. -Right lower extremity venous Doppler ultrasound is negative for DVT. -Continue vancomycin with dosing per pharmacy and ceftriaxone 2 g IV daily. -Right lower extremity x-ray suspicious for medial malleoli osteomyelitis. -MRI right ankle with and without contrast demonstrated prominent soft tissue swelling is seen, which is consistent with advanced cellulitis. No focal fluid collections are seen to suggest abscess. No findings of osteomyelitis. -Continue conservative management and elevate right lower extremity above the level of the heart frequently. -Consulted orthopedic surgery, Dr. Harding, who recommended continuing to treat cellulitis as above and consider CT scan of right lower extremity if cellulitis is not improving. 2. Acute kidney injury, present on admission. Resolved. -Likely secondary to prerenal azotemia and decreased PO intake and hype rmetabolic state due to infection. -Initial creatinine 1.8. Baseline creatinine 0.9-1.3. Creatinine now 0.9 and at baseline. -Avoid nephrotoxic agents. -Continue to monitor renal function daily. 3. Diabetes mellitus type 2, non-insulin using, present on admission. Stable. -Hemoglobin A1c 5.8% indicative of tight glycemic control. -Held metformin. -Continue ACHS blood glucose checks and low-dose correctional scale insulin. -Continue carbohydrate consistent diet. -Continue gabapentin 300 mg daily at bedtime. 4. Paroxysmal atrial fibrillation on Eliquis, present on admission. Stable. -EKG demonstrated sinus rhythm with first-degree AV block. -Continue rate control with carvedilol 6.25 mg twice daily and anticoagulation with Eliquis 5 mg twice daily. 5. Hypertension, chronic, present on admission. Stable. -Continue carvedilol 6.25 mg twice daily, enalapril 10 mg daily and hydrochlor othiazide 25 mg daily. 6. Hyperlipidemia, chronic, present on admission. Stable. -Continue atorvastatin 40 mg daily at bedtime. 7. Recent NSTEMI. -Patient was recently treated for NSTEMI at the end at [facility]. He is scheduled to follow-up with cardiology in approximately 2 months. -Continue aspirin 81 mg daily and atorvastatin 40 mg daily at bedtime. 8. Gout, chronic, present on admission. Stable. -Continue allopurinol 300 mg daily. DVT: Reynaquis Code: Full code. Surrogate decision maker is his . Disposition: Patient likely discharge home in several days once cellulitis has improved. Quality VTE Deep Vein Thrombosis/Pulmonary Embolism Present on Admission: No
[2019-08-01] MEDS: INSULIN ASPART 100 UNIT/ML INSULN PEN SUBCUT ×2 (12:22→17:02)
[2019-08-01] MEDS: SODIUM CHLORIDE 0.9% 250 ML 21 ML IV (13:14)
[2019-08-01] MEDS: VANCOMYCIN 1,250 MG in SODIUM CHLORIDE 0.9% 250 ML IV (13:14)
--- NOTE | 2019-08-01 14:22 | P.PN_ITS ---
Subjective Subjective Date Patient Seen: 08/01/19 Time Patient Seen: 11:22 Interval history: Mr. Plata is a 79 yo M here for recurrent cellulitis of his right ankle/leg/foot. He was treated at [facility] and discharged on oral antibiotics. He has been having chronic venous stasis to his RLE. He had hx of right ankle/subtalar fusion in [place] many years ago. Dr. Harding consulted yesterday, and reviewed imaging. Patient will be treated with IV antibiotics and is not requiring surgery. Per nursing erythema has had improvement today. Patient has been keeping foot elevated. Exam Vital Signs (past 8 hours): - 08/01/19 08:00 08/01/19 12:00 Temperature 97.6 F 99 F Pulse Rate 56 L 64 Respiratory Rate 16 16 Blood Pressure 130/88 148/87 H Pulse Oximetry 96 94 Oxygen Delivery Method Room Air Oxygen Flow Rate 0 Narrative Exam Narrative: Patient lying in bed in NAD. He is alert and oriented X3. Right leg has erythema with majority on lateral aspect. Well healed surgical incisions. No open wounds. He does have sensation in the foot. Objective Labs Result Diagrams: 07/31/19 05:35 08/01/19 06:00 Labs: Laboratory Results - last 24 hr 08/01/19 08/01/19 08/01/19 06:00 06:00 08:27 Sodium 132 L Potassium 4.4 Chloride 102 Carbon Dioxide 23 BUN 24 H Creatinine 0.90 Estimated GFR > 60.0 BUN/Creatinine Ratio 26.7 H Glucose 132 H Calcium 8.9 Magnesium 1.5 L Procalcitonin 0.74 H Vancomycin Trough 13.4 Assessment & Plan Assessment and plan (1) Cellulitis: Problem details: Will continue to monitor cellulitis. He does have improvement with IV antibiotics. Elevate RLE to decrease venous stasis. Continue to ambulate with PT. Qualifiers: Laterality: right Site of cellulitis: extremity Site of cellulitis of extremity: lower extremity Qualified Code(s): L03.115 - Cellulitis of right lower limb Current visit: Yes Status: Acute Quality VTE Deep Vein Thrombosis/Pulmonary Embolism Present on Admission: No
--- NOTE | 2019-08-01 14:30 | PT.IPTN ---
Current Diagnoses Cellulitis of right lower limb (07/30/19) Physical Therapy Treatment Note M2 PT-IP Current Condition Start: 07/31/19 12:44 Freq: NEEDED Status: Active Protocol: Document 07/31/19 16:23 AW (Rec: 07/31/19 16:50 AW [id number]) Physical Therapy Current Condition Current Condition Evaluation Date 07/31/19 Treatment Diagnosis RLE cellulitis, venous stasis, impaired mobility Onset Date 07/30/2019 Precautions Other Precautions Elevate the R LE as often as possible Weight Bearing Status Weight Bearing Status Weight Bear as Tolerated Allowed Weight Bearing Amount (enter % WBAT RLE but elevate at all or #) (%) times when not mobilizing. M3 PT-IP Subjective Start: 07/31/19 12:44 Freq: NEEDED Status: Active Protocol: Document 08/01/19 14:04 KS (Rec: 08/01/19 15:37 KS [email or web address]) Subjective Physical Therapy Visit Type Type Treatment Note Visit Start Time 14:04 Visit Stop Time 14:30 Total Visit Minutes 26 Notes Pt agreeable to work with therapy. Number of [employer] MEMBER Visits 2 Physical Therapy Visit Comments Patient Comments Pt agreeable to work with therapy. Patient Goals Pt hopes to return home at discharge Therapy Pain Assessment Pain When Pain Assessed During Mobility Pain Present Pain Present Denied Pain M4 PT-IP Mobility and Gait Start: 07/31/19 12:44 Freq: NEEDED Status: Active Protocol: Document 08/01/19 14:04 KS (Rec: 08/01/19 15:37 KS [email or web address]) PT-Bed Mobility Assessment Supine to Sit Supine to Sit Standby Assistance Sit to Supine Sit to Supine Standby Assistance Scooting Scooting to Edge of Bed Standby Assistance PT-Transfer Assessment Sit to and From Stand Sit to and from Stand Moderate Assistance,1 Person Assistance,Use of Upper Extremities Equipment Transfer Assistive Device Gait Belt,Front Wheeled Walker Orthotic/Prosthetic Devices or Brace: No Transfers Transfer Destination Bed Transfer Technique ambulated with FWW Transfer Ability Level of Assist Contact Guard Assistance,1 Person Assistance,Use of Upper Extremities Comments Mobility Comments Pt was in bed w/ HOB and LE elevated upon arrival from therapy. SBA for sup<>sit, and scooting to EOB. Mod A for donning of pts own shoes. Mod A for sit<>stand w/ FWW w/ cues to push up from bed. After ambulation, pt was Min A for stand<>sit w/ cues to lower slowly into bed and bring FWW all the way while backing up against bed. SBA for removal of shoes and for sit<>sup as well as scooting up in bed. Pt left in bed w/ all needs in reach and B LE elevated. Gait Assessment Gait Gait Assistance Required: Contact Guard Assist Distance (Feet) 150 Able to Maintain Weight Bearing Status Yes During Gait Assistive Devices Assistive Device Gait Belt,Front Wheeled Walker Orthotic/Prosthetic Devices or Brace: No Gait Deviations General Gait Pattern Decreased Stride Length, Decreased Feet Clearance, Flexed Trunk,Wide Based Gait Factors Limiting Gait Function Factors Limiting Gait Function Decreased Activity Tolerance, Decreased Strength,Poor Balance,Poor Safety Awareness Comments Gait Comments Pt ambulated ~150 ft from bed out into hallway w/ FWW and wearing own shoes. Pt denied pain during ambulation. Cues to maintain upright posture and stay inside FWW during ambulation. Pt reports back surgeries prevent him from being able to stay completely upright. Pt able to correct use of FWW with cues. Pt required min cues to slow down when entering room for safety . Stair Climbing Assessment Comments Stair Climbing Comments Not assessed. PT-Balance Assessment Sitting Balance and Reactions Static Sitting Balance Ability Normal Dynamic Sitting Balance Ability Good Standing Balance and Reactions Static Standing Balance Ability Fair Dynamic Standing Balance Ability Fair Device Used FWW M5 PT-IP Objective Assessments Start: 07/31/19 12:44 Freq: NEEDED Status: Active Protocol: Document 07/31/19 16:23 AW (Rec: 07/31/19 16:50 AW [id number]) Orientation Orientation/Cognition Level of Alertness Alert Orientation Name,Day of Week,Place, Situation Language Function Ability No Deficits Noted Safety Awareness Decreased Safety Awareness Memory Description No Deficits Noted Gross Range of Motion Upper Extremity ROM Assessment Within Functional Limits Lower Extremity ROM Assessment Right Impaired Impairments Pt has history of R ankle/ subtalar fusion limiting ankle ROM Strength Upper Extremity Strength Assessment Within Functional Limits Lower Extremity Strength Assessment Bilaterally Impaired Hip 4-/5 Knee L 4/5; R 3+/5 Ankle B 4-/5 Coordination Assessment Gross Coordination Gross Coordination WNL Sensation Assessment Sensation Gross Sensation Right LE Impaired,Left LE Impaired Light Touch Impaired Comments Sensation Comments 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 M6 PT-IP Treatment Start: 07/31/19 12:44 Freq: NEEDED Status: Active Protocol: Document 08/01/19 14:04 KS (Rec: 08/01/19 15:37 KS [email or web address]) Physical Therapy Treatment Education Education Provided Precautions,Weight Bearing Status,Safety M7 PT-IP Assessment and Plan Start: 07/31/19 12:44 Freq: NEEDED Status: Active Protocol: Document 08/01/19 14:04 KS (Rec: 08/01/19 15:37 KS [email or web address]) PT Summary Assessment and Plan Potential Rehabilitation Potential Good Status of Condition at Evaluation Evolving Summary Impairments ROM,Strength,Balance,Sensation ,Transfers,Gait,Activity Tolerance Assessment Summary Pt continued to show improvements with bed mobility and was SBA for sup<>sit, and scooting EOB this treatment. Still required assistance with donning shoes, but is able to remove his shoes on his own. Mod A and cues to push up from bed for sit<>stand, min A for stand<>sit w/ cues for FWW management. Pt will benefit from continued LE strengthening and gait training to return to prior level of function. Goals Bed Mobility Goal Independent Transfer Goal Independent,Front Wheeled Walker Gait Goal Independent,Front Wheel Walker Gait Distance 100 Days to Meet Goals 5 Frequency of Treatment Frequency Of Treatment Twice a Day Treatment Plan Physical Therapy Treatment Plan Bed Mobility Training,Transfer Training,Gait Training, Therapeutic Exercise,Balance Retraining,Discharge Planning, Hot or Cold Pack,Neuromuscular Re-ed,Manual Therapy Other Recommendations and Next Treatment Assess platform step, LE Focus strengthening, ambulation. Recommendations To Nursing Amount of Assist Needed 1 Person Assist Discharge Recommendations PT Discharge Recommendations Home with 24/7 Assist,Home Health,SNF Rehab Other Discharge Recommendations SNF rehab vs home with 24/7 and home health
--- NOTE | 2019-08-01 19:12 | PC.NURSE ---
Evening Shift Note: Pt received on RA, SPO2 95%. Pt denies SOB, CP or other discomfort. Pt with erythematous and edematous RLE. Erythema is receding from current marked margins. Pt denies pain. Pt with call light in reach, instructed to call for assistance with transfer. Will continue to monitor, notify MD with changes.
[2019-08-01] MEDS: GABAPENTIN 300 MG CAPSULE PO (21:58)
[2019-08-01] MEDS: ATORVASTATIN 20 MG TABLET 40 MG PO (21:58)
[2019-08-02] VITALS (11 sets, daily range): BP systolic 124–170; BP diastolic 68–98; PULSE 59–88; RESP 14–20; TEMP 36.5–38.3; O2SAT 93–96
[2019-08-02] MEDS: SODIUM CHLORIDE 0.9% FLUSH 10 ML IV ×3 (00:50→20:48)
[2019-08-02] MEDS: VANCOMYCIN 1,250 MG in SODIUM CHLORIDE 0.9% 250 ML IV ×2 (00:50→13:08)
--- NOTE | 2019-08-02 02:21 | PC.NURSE ---
0050 Patient is alert and oriented. Breath sounds CTA with RA sat of 96%; CPAP on for night. HRR. Denies nausea. BT present; abdomen is soft. Voiding per urinal; denies dysuria, frequency or urgency. Able to move self in bed. When out of bed is reported to use walker and 1 assist due to weakness in right LE. Right LE remains red, warm and swollen but improved appearance from last night. Has leg elevated above level of heart. Denies pain. Fall risk score is high and bed alarm is activated.
[2019-08-02] MEDS: ACETAMINOPHEN 325 MG TABLET 650 MG PO ×2 (04:26→13:09)
[2019-08-02 06:29] LABS: Add Manual Diff / Slide Review NO; Basophils Absolute Auto 0 /uL (0-100); Basophils Percent Auto 0.3 % (0-2); Eosinophils Absolute Auto 300 /uL (0-450); Eosinophils Percent Auto 4.6 % (2-4); Hematocrit 36.2 % (41-53); Hemoglobin 12.3 g/dL (13.5-17.5); Lymphocytes Absolute Auto 1200 /uL (1100-4500); Lymphocytes Percent Auto 19.5 % (25-40); Mean Corpuscular Hemoglobin 34.1 PG (26-34); Mean Corpuscular Volume 100.2 fL (80-100); Monocytes Absolute Auto 600 /uL (0-900); Monocytes Percent Auto 9.9 % (3-14); Neutrophils Absolute Auto 4100 /uL (1500-7000); Neutrophils Percent Auto 65.7 % (50-75); Platelet Count 106 X10^3/uL (150-400); Red Blood Cell Count 3.61 X10^6/uL (4.5-5.9); Red Cell Distribution Width 15.3 % (11.6-14.8); White Blood Cell Count 6.3 X10^3/uL (4.5-11.0)
[2019-08-02 06:44] LABS: Magnesium 1.5 mg/dL (1.6-2.3)
[2019-08-02 06:59] LABS: Procalcitonin 0.41 ng/mL (<0.5)
--- NOTE | 2019-08-02 07:45 | PM.PN.1 ---
Subjective Subjective Date Patient Seen: 08/02/19 Time Patient Seen: 07:45 Interval history: Mr. Plata is a 79 yo M here for recurrent cellulitis of his right ankle/leg/foot. Being treated with IV antibiotics. Per patient, his cellulitis is improving. He has been keeping his R leg elevated above his heart level. Denies fever, chills, chest pain, shortness of breath, nausea, vomiting Exam Vital Signs (past 8 hours): - 08/02/19 00:40 08/02/19 04:20 Temperature 97.7 F 97.8 F Pulse Rate 59 L 77 Respiratory Rate 14 14 Blood Pressure 128/71 155/98 H Pulse Oximetry 96 96 Oxygen Delivery Method Room Air Oxygen Flow Rate 0 Narrative Exam Narrative: 79 year old male is laying comfortably in bed, in no apparent distress. A&Ox3. Right leg - Cellulitis has receded compared to marked lines ; confined to R calf, worse eliu-laterally. R foot is moderately swollen and mildly tender to palpation. Able to actively dorsiflex/plantar flex. Capillary refill <2sec LE bl. Sensory function grossly intact to light touch in LE b/l. Objective Labs Result Diagrams: 08/02/19 05:35 08/02/19 14:20 Labs: Laboratory Results - last 24 hr 08/01/19 08/02/19 08/02/19 08:27 05:35 05:35 WBC 6.3 RBC 3.61 L Hgb 12.3 L Hct 36.2 L MCV 100.2 H MCH 34.1 H MCHC 34.0 RDW 15.3 H Plt Count 106 L Neut % (Auto) 65.7 Lymph % (Auto) 19.5 L [place] % (Auto) 9.9 Eos % (Auto) 4.6 H Baso % (Auto) 0.3 Neut # (Auto) 4100 Lymph # (Auto) 1200 [place] # (Auto) 600 Eos # (Auto) 300 Baso # (Auto) 0 Magnesium Procalcitonin 0.41 Vancomycin Trough 13.4 08/02/19 05:35 WBC RBC Hgb Hct MCV MCH MCHC RDW Plt Count Neut % (Auto) Lymph % (Auto) [place] % (Auto) Eos % (Auto) Baso % (Auto) Neut # (Auto) Lymph # (Auto) [place] # (Auto) Eos # (Auto) Baso # (Auto) Magnesium 1.5 L Procalcitonin Vancomycin Trough Assessment & Plan Assessment & Plan narrative: Hospitalist has ordered CT right lower extremity with contrast to rule out osteomyelitis and/or abscess Will continue to monitor cellulitis. He does have improvement with IV antibiotics. Elevate RLE to decrease venous stasis. Continue to ambulate with PT. Quality VTE Deep Vein Thrombosis/Pulmonary Embolism Present on Admission: No
[2019-08-02] MEDS: ALLOPURINOL 300 MG TABLET PO (09:45)
[2019-08-02] MEDS: APIXABAN 5 MG TABLET PO ×2 (09:46→20:44)
[2019-08-02] MEDS: carvediloL 12.5 MG TABLET 6.25 MG PO ×2 (09:47→20:44)
[2019-08-02] MEDS: ASPIRIN EC 81 MG TABLET PO (09:47)
[2019-08-02] MEDS: ENALAPRIL 20 MG TABLET 10 MG PO (09:51)
[2019-08-02] MEDS: hydroCHLOROthiazide 25 MG TABLET PO (09:53)
[2019-08-02] MEDS: CEFTRIAXONE 2 GM/50 ML FROZ.PIGGY IV (09:53)
--- NOTE | 2019-08-02 11:46 | PT.IPTN ---
Current Diagnoses Cellulitis of right lower limb (07/30/19) Physical Therapy Treatment Note M2 PT-IP Current Condition Start: 07/31/19 12:44 Freq: NEEDED Status: Active Protocol: Document 07/31/19 16:23 AW (Rec: 07/31/19 16:50 AW [id number]) Physical Therapy Current Condition Current Condition Evaluation Date 07/31/19 Treatment Diagnosis RLE cellulitis, venous stasis, impaired mobility Onset Date 07/30/2019 Precautions Other Precautions Elevate the R LE as often as possible Weight Bearing Status Weight Bearing Status Weight Bear as Tolerated Allowed Weight Bearing Amount (enter % WBAT RLE but elevate at all or #) (%) times when not mobilizing. M3 PT-IP Subjective Start: 07/31/19 12:44 Freq: NEEDED Status: Active Protocol: Document 08/02/19 11:46 CLB (Rec: 08/02/19 12:51 CLB [id number]) Subjective Physical Therapy Visit Type Type Treatment Note Visit Start Time 11:46 Visit Stop Time 12:07 Total Visit Minutes 21 Number of BUSINESS SUPPORT ASSOCIATE Visits 3 Physical Therapy Visit Comments Patient Comments Pt agreeable to work with therapy. Therapy Pain Assessment Pain When Pain Assessed During Mobility Pain Present Pain Present Pain Reported Location Left ankle Intensity 8 Scale Used Numeric (1 - 10) Pain Behaviors Moaning,Wincing Pain Management Techniques Modification of Treatment,Re- positioning M4 PT-IP Mobility and Gait Start: 07/31/19 12:44 Freq: NEEDED Status: Active Protocol: Document 08/02/19 11:46 CLB (Rec: 08/02/19 12:51 CLB [id number]) PT-Bed Mobility Assessment Supine to Sit Supine to Sit Standby Assistance Scooting Scooting to Edge of Bed Moderate Assistance PT-Transfer Assessment Sit to and From Stand Sit to and from Stand Moderate Assistance,1 Person Assistance,Use of Upper Extremities Equipment Transfer Assistive Device Gait Belt,Front Wheeled Walker Orthotic/Prosthetic Devices or Brace: No Transfers Transfer Destination Chair Transfer Technique ambulated with FWW Transfer Ability Level of Assist Minimal Assistance,1 Person Assistance,Use of Upper Extremities Comments Mobility Comments Pt required SBA for supine to sit then required Mod A to scoot to EOB with use of weight shifting hips with UE support and use of draw sheet. Pt required Mod A x1 to full stand with height of bed raised due to pts height. Pt reported 8/10 left foot pain with WBing and was unable to walk. Pt required Min A and Max cues to transfer to chair. Pt required Min A to sit in chair with cues for hand placement before sitting to control descent. Gait Assessment Comments Gait Comments unable due to left foot pain. Stair Climbing Assessment Comments Stair Climbing Comments Not assessed. M5 PT-IP Objective Assessments Start: 07/31/19 12:44 Freq: NEEDED Status: Active Protocol: Document 07/31/19 16:23 AW (Rec: 07/31/19 16:50 AW [id number]) Orientation Orientation/Cognition Level of Alertness Alert Orientation Name,Day of Week,Place, Situation Language Function Ability No Deficits Noted Safety Awareness Decreased Safety Awareness Memory Description No Deficits Noted Gross Range of Motion Upper Extremity ROM Assessment Within Functional Limits Lower Extremity ROM Assessment Right Impaired Impairments Pt has history of R ankle/ subtalar fusion limiting ankle ROM Strength Upper Extremity Strength Assessment Within Functional Limits Lower Extremity Strength Assessment Bilaterally Impaired Hip 4-/5 Knee L 4/5; R 3+/5 Ankle B 4-/5 Coordination Assessment Gross Coordination Gross Coordination WNL Sensation Assessment Sensation Gross Sensation Right LE Impaired,Left LE Impaired Light Touch Impaired Comments Sensation Comments 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 M6 PT-IP Treatment Start: 07/31/19 12:44 Freq: NEEDED Status: Active Protocol: Document 08/01/19 14:04 KS (Rec: 08/01/19 15:37 KS [email or web address]) Physical Therapy Treatment Education Education Provided Precautions,Weight Bearing Status,Safety M7 PT-IP Assessment and Plan Start: 07/31/19 12:44 Freq: NEEDED Status: Active Protocol: Document 08/02/19 11:46 CLB (Rec: 08/02/19 12:51 CLB [id number]) PT Summary Assessment and Plan Potential Rehabilitation Potential Good Status of Condition at Evaluation Evolving Summary Impairments ROM,Strength,Balance,Sensation ,Transfers,Gait,Activity Tolerance Assessment Summary Pt is SBA for bed mobility but required increase in assist of Mod A to EOB with use of draw sheet. Pt requires assist donning socks and shoes. Pt stated he was unable to walk due to left foot pain and required Min A for stand pivot transfer to chair. Depending on progress pt may require SNF rehab to improve functional mobilty and strengthening. Goals Bed Mobility Goal Independent Transfer Goal Independent,Front Wheeled Walker Gait Goal Independent,Front Wheel Walker Gait Distance 100 Days to Meet Goals 5 Frequency of Treatment Frequency Of Treatment Twice a Day Treatment Plan Other Recommendations and Next Treatment Assess platform step when Focus tolerated, LE strenghthening, ambulation. Recommendations To Nursing Amount of Assist Needed 1 Person Assist Discharge Recommendations PT Discharge Recommendations Home with 24/7 Assist,Home Health,SNF Rehab Other Discharge Recommendations SNF rehab vs home with 24/7 and home health
--- NOTE | 2019-08-02 14:32 | P.PN_ITS ---
Subjective Subjective Date Patient Seen: 08/02/19 Interval history: Je Plata is a 79-year-old male with past medical history significant for hypertension, hyperlipidemia, diabetes mellitus type 2, non-insulin using, of atrial fibrillation on Eliquis, hypertension, hyperlipidemia, venous insufficiency, and recurrent right lower extremity cellulitis that was recently treated at [facility] discharged on Keflex who presented with worsening right lower extremity redness. The patient is resting in bed comfortably. The patient's cellulitis is slowly improving and continues to be slightly less erythematous and warm with cellutlitis retracting past previous outlined margins. However, the patient's right ankle is more tender to palpation today and he is mildly confused with occasional hallucination. The patient's spouse reports he did not sleep well due to CPAP mask needing adjustment which has now been fixed. He also complains about increased pain in left foot with ambulation significantly limiting his mobility today. He has a history of gout but his uric acid level is low at 3.8, his allopurinol has not been interrupted, and no gouty changes of left foot. His left foot pain is likely arthritic in nature and will plan to give 1 time dose of Toradol. He otherwise has no complaints and denies headache, shortness of breath, chest pain, abdominal pain, nausea, vomiting, fever, chills, dysuria, diarrhea or constipation. He is voiding and eliminating without difficulty. He is up ambulating with assistance. Continue PT and added OT today. Exam Vital Signs (past 8 hours): - 08/02/19 08:00 08/02/19 09:47 08/02/19 09:51 Temperature 98.7 F Pulse Rate 80 60 60 Respiratory Rate 18 Blood Pressure 154/78 H 154/78 H 154/78 H Pulse Oximetry 95 08/02/19 12:00 Temperature 99.8 F H Pulse Rate 88 Respiratory Rate 18 Blood Pressure 170/90 H Pulse Oximetry 95 Oxygen Delivery Method Room Air Oxygen Flow Rate 0 Narrative Exam Narrative: General: Older gentleman lying in bed and in no acute distress, well-developed, well-nourished, appropriately interactive HEENT: Normocephalic, atraumatic. External ears without defect. Pupils equal, round, and reactive to light. Anicteric sclerae, moist conjunctivae, and no lid lag. Neck: Supple with full range of motion. No lymphadenopathy or thyromegaly. Cardiovascular: Regular rate and rhythm without murmurs, rubs, or gallops appreciated Pulmonary: Clear to auscultation bilaterally without crackles, wheezes, or rhonchi. Normal respiratory effort with no use of accessory muscles. Abdomen: Bowel tones present. Soft, nontender, nondistended. No hepatosplenomegaly or masses appreciated. Extremities: No clubbing, cyanosis, or edema. Skin: Right lower extremity with circumferential erythema, warmth and edema (specially over right medial malleoli) from ankle to pretibial area, slowly improving. Cellulitis is retracting within outlined margins now isolated to right leg. Left foot pain with deep palpation of plantar aspect of foot both in area of metatarsal and calcaneous. Neurological: Cranial nerves grossly intact. Psychiatric: Normal mood and affect. Alert and oriented to person, place, and time. Objective Labs Result Diagrams: 08/02/19 05:35 08/02/19 14:20 Labs: Laboratory Results - last 24 hr 08/02/19 08/02/19 08/02/19 05:35 05:35 05:35 WBC 6.3 RBC 3.61 L Hgb 12.3 L Hct 36.2 L MCV 100.2 H MCH 34.1 H MCHC 34.0 RDW 15.3 H Plt Count 106 L Neut % (Auto) 65.7 Lymph % (Auto) 19.5 L [place] % (Auto) 9.9 Eos % (Auto) 4.6 H Baso % (Auto) 0.3 Neut # (Auto) 4100 Lymph # (Auto) 1200 [place] # (Auto) 600 Eos # (Auto) 300 Baso # (Auto) 0 Magnesium 1.5 L Procalcitonin 0.41 Assessment & Plan Assessment & Plan narrative: Je Plata is a 79-year-old male with past medical history significant for hypertension, hyperlipidemia, diabetes mellitus type 2, non-insulin using, of atrial fibrillation on Eliquis, hypertension, hyperlipidemia, venous insufficiency, and recurrent right lower extremity cellulitis that was recently treated at [facility] discharged on Keflex who presented with worse yamileth right lower extremity redness. 1. Acute on chronic right lower extremity cellulitis, secondary to chronic venous stasis, present on admission. Active. -He has had multiple episodes of right lower extremity cellulitis extending back over the years since 2008. He has known venous insufficiency. His reports in the past that he has needed outpatient IV antibiotics for his cellulitis. The patient was recently treated for right lower extremity cellulitis at [facility] and discharged on Keflex. -CRP elevated at 15.2 and ESR elevated at 42. Ordered repeat CRP and ESR, pending. -Right lower extremity venous Doppler ultrasound is negative for DVT. -Right lower extremity x-ray suspicious for medial malleoli osteomyelitis. -MRI right ankle with and without contrast demonstrated prominent soft tissue swelling is seen, which is consistent with advanced cellulitis. No focal fluid collections are seen to suggest abscess. No findings of osteomyelitis. -Ordered CT right lower extremity with contrast to rule out osteomyelitis and/or abscess as patient has significant hardware in foot making MRI limited by hardware artifact, as well as, slow improvement in cellulitis. -Continue conservative management and elevate right lower extremity above the level of the heart frequently. -Continue vancomycin with dosing per pharmacy and ceftriaxone 2 g IV daily. -Consulted orthopedic surgery, Dr. Harding, who recommended continuing to treat cellulitis as above and consider CT scan of right lower extremity if cellulitis is not improving. 2. Acute metabolic encephalopathy, not present on admission. Active. -Patient now with mild confusion and intermittent hallucination. Likely seco ndary to acute infection and hospital driven delirium. Patient may also have underlying mild cognitive impairment versus mild dementia which is unmasked in hospital setting. -Ordered urinalysis, pending. -Ammonia level undetectable < 9.0 in a patient likely has fatty liver disease. -Continue to reorient often and promote good sleep hygiene: keeping patient awake and stimulated throughout the daytime and letting him sleep well at night with minimal interruptions. CPAP mask has been adjusted. -Ordered melatonin 6 mg daily at bedtime to help with sleep maintenance. -Continue to treat underlying infection as above. -Continue physical and occupational therapy evaluation and treatment. 3. Hypomagnesemia, acuity unclear, present on admission. Active. -Initial magnesium level 1.4. Received magnesium sulfate 6 g total thus far with persistently low normal magnesium now 1.5. Ordered magnesium sulfate 4 g IV x1. Held hydrochlorothiazide. -Continue to monitor magnesium level and replete as necessary. 4. Acute kidney injury, present on admission. Resolved. -Likely secondary to prerenal azotemia and decreased PO intake and hypermetabolic state due to infection. -Initial creatinine 1.8. Baseline creatinine 0.9-1.3. Creatinine now 0.9 and at baseline. -Avoid nephrotoxic agents. -Continue to monitor renal function daily. 5. Diabetes mellitus type 2, non-insulin using, present on admission. Stable. -Hemoglobin A1c 5.8% indicative of tight glycemic control. -Held metformin. -Continue ACHS blood glucose checks and low-dose correctional scale insulin. -Continue carbohydrate consistent diet. -Continue gabapentin 300 mg daily at bedtime. 6. Paroxysmal atrial fibrillation on Eliquis, present on admission. Stable. -EKG demonstrated sinus rhythm with first-degree AV block. -Continue rate control with carvedilol 6.25 mg twice daily and anticoagulation with Eliquis 5 mg twice daily. 7. Hypertension, chronic, present on admission. Stable. -Continue carvedilol 6.25 mg twice daily and increased enalapril from 10 mg to 20 mg daily for better blood pressure control. Held hydrochlorothiazide 25 mg daily due to hypomagnesemia. Ordered labetalol 10 mg IV every 4 hours as needed for SBP > 180 mmHg sustained for 30 min with hold parameter HR < 60. 8. Hyperlipidemia, chronic, present on admission. Stable. -Continue atorvastatin 40 mg daily at bedtime. 9. Recent NSTEMI. -Patient was recently treated for NSTEMI at the end at [facility]. He is scheduled to follow-up with cardiology in approximately 2 months. -Continue aspirin 81 mg daily and atorvastatin 40 mg daily at bedtime. 10. Gout, chronic, present on admission. Stable. -Uric acid level normal at 3.8. -Continue allopurinol 300 mg daily. 11. Osteoarthritis, chronic, present on admission. Stable. -Patient with increasing pain in left lower extremity that appears to be musculoskeletal in etiology and worse after increased activity with PT. -Ordered ketorolac 30 mg IV x1. 12. Obstructive sleep apnea on CPAP, chronic, present on admission. Stable. -Continue home CPAP per RT protocol. DVT: Eliquis Code: Full code. Surrogate decision maker is his . Disposition: Patient likely discharge home in several days once cellulitis has improved. Quality VTE Deep Vein Thrombosis/Pulmonary Embolism Present on Admission: No
[2019-08-02 14:38] LABS: Ammonia (NH3) < 9.0 umol/L (9-30)
[2019-08-02 14:47] LABS: Alanine Aminotransferase 56 IU/L (<50); Albumin 3.6 g/dL (3.5-5.0); Alkaline Phosphatase 114 U/L (38-126); Aspartate Aminotransferase 82 IU/L (17-59); Bilirubin Total 0.6 mg/dL (0.2-1.3); Blood Urea Nitrogen 23 mg/dL (9-20); Calcium 8.8 mg/dL (8.4-10.2); Carbon Dioxide 24 mmol/L (22-32); Chloride 100 mmol/L (98-107); Estimated Glomerular Filt Rate > 60.0 mL/min (>60); Globulin 3.7 g/dL (1.7-4.1); Glucose 286 mg/dL (80-110); HEMOLYSIS 15 (0-50); Potassium 4.9 mmol/L (3.4-5.1); Sodium 133 mmol/L (137-145); Total Protein 7.3 g/dL (6.3-8.2)
[2019-08-02 14:55] LABS: Uric Acid 3.8 mg/dL (3.5-8.5)
--- NOTE | 2019-08-02 14:58 | PT-IP ANOTE ---
Pt refused stating his left foot is too painful. Will check back with pt in the morning.
--- NOTE | 2019-08-02 15:08 | DI.CT.S_ITS ---
PROCEDURE: CT LE RT W CON INDICATIONS: osteomyelitis, abscess TECHNIQUE: After the administration of intravenous contrast, 3 mm axial sections acquired of the right ankle and foot, with coronal and sagittal reformats. COMPARISON: None. FINDINGS: Image quality: Diagnostic Bones: Significant the morning artifacts are noted throughout the ankle and foot limits the evaluation. Patient is status post extensive fusion of tibiotalar joint and distal tibiofibular syndesmosis. There is also extensive fusion involving first and second TMT joints. There is near complete bony union of the tibiotalar joint as well as tibial fibular syndesmosis distally. No gross hardware failure is seen. Partial bony union at first and second TMT joint is also seen. No evidence of gross hardware loosening. Old fracture versus postsurgical changes involving distal fibular shaft is seen with corticated margin. Osteoarthritic changes in mid foot and hindfoot joints are seen. Osteophytic change is also noted throughout MTP joints and interphalangeal joints. No acute fracture or dislocation is noted. No gross cortical erosion or destruction is seen to suggest osteomyelitis. Soft tissues: There is diffuse soft tissue swelling and edema surrounding right ankle and foot suggestive of cellulitis. No discrete drainable fluid collection is seen. Extensor, flexor, and peroneus tendons show no full-thickness tendon rupture. Achilles tendon is grossly intact. IMPRESSION: 1. Extensive fusion of tibiotalar joint and distal tibiofibular syndesmosis as well as first and second TMT joints. Partial to complete bony union at the above-mentioned joints as above. No gross hardware complication. 2. There is no gross acute fracture or dislocation. Old fracture versus postsurgical changes involving distal fibular shaft with corticated margin. 3. No gross bone erosive changes are noted to suggest osteomyelitis. 4. Mild ankle and foot soft tissue swelling and edema suggestive of cellulitis. No discrete abscess collection is seen. Dictated by: Alfonso Riley M.D. on 08/02/2019 at 16:50 Approved by: Alfonso Riley M.D. on 08/02/2019 at 16:57
[2019-08-02 15:17] LABS: C-Reactive Protein Quant 7.7 mg/dL (<1.0)
[2019-08-02 15:23] LABS: Erythrocyte Sedimentation Rate 58 MM/HR (0-15)
[2019-08-02] MEDS: MAGNESIUM SULFATE 4 GM/100 ML PIGGYBACK IV (17:10)
[2019-08-02] MEDS: KETOROLAC 30 MG/ML VIAL IV (17:23)
[2019-08-02] MEDS: PANTOPRAZOLE 20 MG TABLET PO (17:24)
[2019-08-02] MEDS: INSULIN ASPART 100 UNIT/ML INSULN PEN SUBCUT (17:34)
--- NOTE | 2019-08-02 18:29 | P.CONS_ITS ---
History of Present Illness Consult details Date Patient Seen: 08/02/19 Time Patient Seen: 18:29 Chief complaint: possible cellulitis Reason for consult: recellulitis and patient has had extensive orthopedic foot and ankle Requesting provider: Sky Harding Narrative: The patient is a 79-year-old male with a history of a right ankle fusion and right midfoot fusions performed at [facility] several years ago. Patient has a long history of foot and ankle arthritis and even longer history of recurrent venous insufficiency and the right lower extremity cellulitis. Patient states that he had several bouts of cellulitis requiring antibiotics going back in a year's before his foot and ankle surgeries. He had an episode more recently when he was in [facility] and has had several episodes requiring IV antibiotics. He has not seen a vascular surgeon or a general surgeon about his of veins or venous insufficiency. He is wondering about this and thinks he may want to explore this in the future. Meds Home Medications and Allergies Home Medications Medication Instructions Recorded Confirmed Type potassium chloride 20 meq PO BID #0 04/30/10 07/30/19 History allopurinol 300 mg PO QDAY #0 09/10/16 07/30/19 History metformin 1,000 mg PO BID #0 09/10/16 07/30/19 History aspirin 81 mg PO DAILY 04/19/18 07/30/19 History enalapril-hydrochlorothiazide 1 tab PO DAILY #30 tab 05/12/18 07/30/19 Rx acetaminophen [Tylenol] 650 mg PO Q4H PRN 06/20/19 07/30/19 History carvedilol 6.25 mg PO BID 06/20/19 07/30/19 History apixaban [Eliquis] 5 mg PO BID 07/30/19 07/30/19 History atorvastatin 40 mg PO QPM 07/30/19 07/30/19 History gabapentin 300 mg PO BEDTIME 07/30/19 07/30/19 History Allergies Allergy/AdvReac Type Severity Reaction Status Date / Time No Known Drug Allergies Allergy Verified 07/30/19 11:42 Review of Systems Review of Systems ROS Unobtainable: All systems reviewed & are unremarkable except as noted in HPI and below Exam Vital Signs (past 8 hours): - 08/02/19 12:00 08/02/19 15:40 01/21/20 17:10 Temperature 99.8 F H 100.9 F H Pulse Rate 88 77 Respiratory Rate 18 18 Blood Pressure 170/90 H 138/76 124/68 Pulse Oximetry 95 93 08/02/19 17:24 Temperature Pulse Rate Respiratory Rate Blood Pressure 124/68 Pulse Oximetry Oxygen Delivery Method Room Air Oxygen Flow Rate 0 Narrative Exam Narrative: General exam alert oriented male in no acute distress lying in bed. HEENT exam normocephalic atraumatic CV exam regular rate and rhythm Respiratory exam unlabored on room air Right lower extremity exam demonstrates well-healed ankle and foot incisions no erythema redness over the foot incisions. No erythema at the foot and ankle at all at the time of this evaluation. The patient does have erythema consistent with superficial cellulitis over the garcia above the levels of surgery. No fluctuance open wounds or obvious abscesses. Patient does wiggle his toes. He has dopplerable pulses. Brisk capillary refill. Soft calf. Objective Imaging CT scan right lower extremity: My impression: Consistent with right lower extremity cellulitis. No drainable abscess. Stable alignment of hardware from previous ankle and midfoot fusions. Radiologist's impression: Extensive fusion of tibiotalar joint distal tibial fibular syndesmosis as well as 1st and 2nd TMT joints. Partial to complete bony union of the above-mentioned joints as above. No gross hardware complication. There is no gross acute fracture dislocation. Old fracture versus postsurgical changes involving distal fibular shaft with corticated margin. No gross bony erosive changes are noted to suggest osteomyelitis. Mild ankle and foot soft tissue swelling and edema suggestive of cellulitis. No discrete abscess collection seen. Alfonso Riley MD Labs Result Diagrams: 08/02/19 05:35 08/02/19 14:20 Labs: Laboratory Results - last 24 hr 08/02/19 08/02/19 08/02/19 05:35 05:35 05:35 WBC 6.3 RBC 3.61 L Hgb 12.3 L Hct 36.2 L MCV 100.2 H MCH 34.1 H MCHC 34.0 RDW 15.3 H Plt Count 106 L Neut % (Auto) 65.7 Lymph % (Auto) 19.5 L [place] % (Auto) 9.9 Eos % (Auto) 4.6 H Baso % (Auto) 0.3 Neut # (Auto) 4100 Lymph # (Auto) 1200 [place] # (Auto) 600 Eos # (Auto) 300 Baso # (Auto) 0 ESR Sodium Potassium Chloride Carbon Dioxide BUN Creatinine Estimated GFR BUN/Creatinine Ratio Glucose Uric Acid Calcium Magnesium 1.5 L Total Bilirubin AST ALT Alkaline Phosphatase Ammonia C-Reactive Protein Total Protein Albumin Globulin Albumin/Globulin Ratio Procalcitonin 0.41 08/02/19 08/02/19 08/02/19 05:35 05:35 14:20 WBC RBC Hgb Hct MCV MCH MCHC RDW Plt Count Neut % (Auto) Lymph % (Auto) [place] % (Auto) Eos % (Auto) Baso % (Auto) Neut # (Auto) Lymph # (Auto) [place] # (Auto) Eos # (Auto) Baso # (Auto) ESR 58 H Sodium 133 L Potassium 4.9 Chloride 100 Carbon Dioxide 24 BUN 23 H Creatinine 1.00 Estimated GFR > 60.0 BUN/Creatinine Ratio 23.0 H Glucose 286 H D Uric Acid Calcium 8.8 Magnesium Total Bilirubin 0.6 AST 82 H ALT 56 H Alkaline Phosphatase 114 Ammonia C-Reactive Protein 7.7 H Total Protein 7.3 Albumin 3.6 Globulin 3.7 Albumin/Globulin Ratio 1.0 Procalcitonin 08/02/19 08/02/19 14:20 14:20 WBC RBC Hgb Hct MCV MCH MCHC RDW Plt Count Neut % (Auto) Lymph % (Auto) [place] % (Auto) Eos % (Auto) Baso % (Auto) Neut # (Auto) Lymph # (Auto) [place] # (Auto) Eos # (Auto) Baso # (Auto) ESR Sodium Potassium Chloride Carbon Dioxide BUN Creatinine Estimated GFR BUN/Creatinine Ratio Glucose Uric Acid 3.8 Calcium Magnesium Total Bilirubin AST ALT Alkaline Phosphatase Ammonia < 9.0 L C-Reactive Protein Total Protein Albumin Globulin Albumin/Globulin Ratio Procalcitonin Assessment & Plan Assessment and plan (1) Cellulitis: Problem details: Will continue to monitor cellulitis. He does have improvement with IV antibiotics. Elevate RLE to decrease venous stasis. Continue to ambulate with PT. --no abscess on CT with contrast. Continue IV antibiotics and medical treatment for cellulitis. No surgical intervention warranted at this time. Qualifiers: Laterality: right Site of cellulitis: extremity Site of cellulitis of extremity: lower extremity Qualified Code(s): L03.115 - Cellulitis of right lower limb Current visit: Yes Status: Acute Assessment & Plan narrative: Continue antibiotics. Medical care for cellulitis. No surgical intervention indicated at this time. Time Spent With Patient Time with patient: less than 15 minutes
[2019-08-02] MEDS: MELATONIN 3 MG TABLET 6 MG PO (20:44)
[2019-08-02] MEDS: GABAPENTIN 300 MG CAPSULE PO (20:44)
[2019-08-02] MEDS: ATORVASTATIN 20 MG TABLET 40 MG PO (20:44)
[2019-08-03] VITALS (7 sets, daily range): BP systolic 106–153; BP diastolic 56–84; PULSE 61–86; RESP 14–18; TEMP 36.3–37.7; O2SAT 92–97
[2019-08-03] MEDS: VANCOMYCIN 1,250 MG in SODIUM CHLORIDE 0.9% 250 ML IV ×2 (01:29→13:28)
[2019-08-03 07:04] LABS: Add Manual Diff / Slide Review NO; Basophils Absolute Auto 0 /uL (0-100); Basophils Percent Auto 0.3 % (0-2); Eosinophils Absolute Auto 200 /uL (0-450); Eosinophils Percent Auto 2.7 % (2-4); Hematocrit 34.9 % (41-53); Hemoglobin 11.9 g/dL (13.5-17.5); Lymphocytes Absolute Auto 1700 /uL (1100-4500); Lymphocytes Percent Auto 22.4 % (25-40); Mean Corpuscular Hemoglobin 34.1 PG (26-34); Mean Corpuscular Volume 100.3 fL (80-100); Monocytes Absolute Auto 1000 /uL (0-900); Monocytes Percent Auto 12.5 % (3-14); Neutrophils Absolute Auto 4800 /uL (1500-7000); Neutrophils Percent Auto 62.1 % (50-75); Platelet Count 95 X10^3/uL (150-400); Red Blood Cell Count 3.48 X10^6/uL (4.5-5.9); Red Cell Distribution Width 15.3 % (11.6-14.8); White Blood Cell Count 7.7 X10^3/uL (4.5-11.0)
[2019-08-03 07:06] LABS: BUN Creatinine Ratio 24.2 (6-22); Blood Urea Nitrogen 29 mg/dL (9-20); Calcium 8.5 mg/dL (8.4-10.2); Carbon Dioxide 25 mmol/L (22-32); Chloride 100 mmol/L (98-107); Estimated Glomerular Filt Rate 58.4 mL/min (>60); Glucose 160 mg/dL (80-110); HEMOLYSIS < 15 (0-50); Potassium 4.1 mmol/L (3.4-5.1); Sodium 132 mmol/L (137-145)
[2019-08-03] MEDS: CEFTRIAXONE 2 GM/50 ML FROZ.PIGGY IV (07:51)
[2019-08-03] MEDS: ALLOPURINOL 300 MG TABLET PO (07:52)
[2019-08-03] MEDS: carvediloL 12.5 MG TABLET 6.25 MG PO ×2 (07:52→20:28)
[2019-08-03] MEDS: ENALAPRIL 20 MG TABLET PO (07:52)
[2019-08-03] MEDS: APIXABAN 5 MG TABLET PO ×2 (07:53→20:28)
[2019-08-03] MEDS: SODIUM CHLORIDE 0.9% FLUSH 10 ML IV ×2 (07:53→20:32)
[2019-08-03] MEDS: ASPIRIN EC 81 MG TABLET PO (07:53)
[2019-08-03] MEDS: INSULIN ASPART 100 UNIT/ML INSULN PEN SUBCUT ×4 (07:58→20:31)
[2019-08-03 08:42] LABS: Bacteria Urine None Seen; WBC Urine None Seen (0-5/HPF)
[2019-08-03 09:00] LABS: Appearance Urine UA CLEAR; Bilirubin Urine UA NEGATIVE (NEGATIVE); Color Urine UA YELLOW; Glucose Urine UA NEGATIVE (Negative); Ketones Urine UA NEGATIVE (NEGATIVE); Leukocyte Esterase Urine UA NEGATIVE (NEGATIVE); Nitrite Urine UA NEGATIVE (Negative); Occult Blood Urine UA TRACE-INTACT (Negative); Protein Urine UA NEGATIVE (Negative); Specific Gravity Urine UA 1.015 (1.000-1.035); Urobilinogen Urine UA 0.2 E.U./dL (0.2)
[2019-08-03 09:03] LABS: RBC Urine 0-1/HPF (0-5/HPF)
[2019-08-03 09:04] LABS: Culture Indicated Urine Cult Not Indicated
--- NOTE | 2019-08-03 09:27 | PT.IPTN ---
Current Diagnoses Cellulitis of right lower limb (07/30/19) Physical Therapy Treatment Note M2 PT-IP Current Condition Start: 07/31/19 12:44 Freq: NEEDED Status: Active Protocol: Document 07/31/19 16:23 AW (Rec: 07/31/19 16:50 AW [id number]) Physical Therapy Current Condition Current Condition Evaluation Date 07/31/19 Treatment Diagnosis RLE cellulitis, venous stasis, impaired mobility Onset Date 07/30/2019 Precautions Other Precautions Elevate the R LE as often as possible Weight Bearing Status Weight Bearing Status Weight Bear as Tolerated Allowed Weight Bearing Amount (enter % WBAT RLE but elevate at all or #) (%) times when not mobilizing. M3 PT-IP Subjective Start: 07/31/19 12:44 Freq: NEEDED Status: Active Protocol: Document 08/03/19 09:27 DLM (Rec: 08/03/19 10:57 DLM [id number]) Subjective Physical Therapy Visit Type Type Treatment Note Visit Start Time 08:55 Visit Stop Time 09:27 Total Visit Minutes 32 Number of CARE REP Visits 0 Physical Therapy Visit Comments Patient Comments He feels better today Therapy Pain Assessment Pain When Pain Assessed During Mobility Pain Present Pain Present Pain Reported Location Right Leg Intensity 2 Scale Used Numeric (1 - 10) Description Aching Pain Management Techniques Elevation M4 PT-IP Mobility and Gait Start: 07/31/19 12:44 Freq: NEEDED Status: Active Protocol: Document 08/03/19 09:27 DLM (Rec: 08/03/19 10:57 DLM [id number]) PT-Bed Mobility Assessment Supine to Sit Supine to Sit Standby Assistance Scooting Scooting to Edge of Bed Standby Assistance PT-Transfer Assessment Sit to and From Stand Sit to and from Stand Standby Assistance,Use of Upper Extremities Equipment Transfer Assistive Device Bed Rail,Gait Belt,Front Wheeled Walker Transfers Transfer Destination Chair,Toilet Transfer Technique Stand Step Pivot Transfer Ability Level of Assist Standby Assistance,Contact Guard Assistance,Use of Upper Extremities Comments Mobility Comments He does better with taller surfaces during sit to stand since pt is tall, elevated height of bed, pt used rail on wall next to toilet. Pt stood at sink for washing face/hands and combing hair. Pt left up in the recliner with call light close and chair alarm in use. Gait Assessment Gait Gait Assistance Required: Standby Assistance,Contact Guard Assist Distance (Feet) 12 Assistive Devices Assistive Device Gait Belt,Front Wheeled Walker Gait Deviations General Gait Pattern Decreased Stride Length,Flexed Trunk Factors Limiting Gait Function Factors Limiting Gait Function Decreased Activity Tolerance, Decreased Strength Comments Gait Comments pt reports less left ankle/LE difficulty with walking today, pt able to ambulate to toilet , to sink and then to recliner . PT-Balance Assessment Sitting Balance and Reactions Static Sitting Balance Ability Normal Dynamic Sitting Balance Ability Normal Standing Balance and Reactions Static Standing Balance Ability Good Dynamic Standing Balance Ability Fair Device Used FWW M5 PT-IP Objective Assessments Start: 07/31/19 12:44 Freq: NEEDED Status: Active Protocol: Document 07/31/19 16:23 AW (Rec: 07/31/19 16:50 AW [id number]) Orientation Orientation/Cognition Level of Alertness Alert Orientation Name,Day of Week,Place, Situation Language Function Ability No Deficits Noted Safety Awareness Decreased Safety Awareness Memory Description No Deficits Noted Gross Range of Motion Upper Extremity ROM Assessment Within Functional Limits Lower Extremity ROM Assessment Right Impaired Impairments Pt has history of R ankle/ subtalar fusion limiting ankle ROM Strength Upper Extremity Strength Assessment Within Functional Limits Lower Extremity Strength Assessment Bilaterally Impaired Hip 4-/5 Knee L 4/5; R 3+/5 Ankle B 4-/5 Coordination Assessment Gross Coordination Gross Coordination WNL Sensation Assessment Sensation Gross Sensation Right LE Impaired,Left LE Impaired Light Touch Impaired Comments Sensation Comments 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 M6 PT-IP Treatment Start: 07/31/19 12:44 Freq: NEEDED Status: Active Protocol: Document 08/03/19 09:27 DLM (Rec: 08/03/19 10:57 [email or web address] [id number]) Physical Therapy Treatment Education Education Provided Safety M7 PT-IP Assessment and Plan Start: 07/31/19 12:44 Freq: NEEDED Status: Active Protocol: Document 08/03/19 09:27 DLM (Rec: 08/03/19 10:57 DL [id number]) PT Summary Assessment and Plan Summary Impairments Pain,ROM,Strength,Balance, Sensation,Bed Mobility, Transfers,Gait,Activity Tolerance Progress Towards Goals Progressing Toward Goals Assessment Summary Je shows good progress today and reports he is feeling better. He believes he is thinking slower than baseline. He tolerated short distances of gait in his room well with fWW and CG/SBA. Pt left up in recliner. Goals Bed Mobility Goal Independent Transfer Goal Independent,Front Wheeled Walker Gait Goal Independent,Front Wheel Walker Gait Distance 100 Days to Meet Goals 5 Frequency of Treatment Frequency Of Treatment Twice a Day Treatment Plan Physical Therapy Treatment Plan Bed Mobility Training,Transfer Training,Gait Training, Therapeutic Exercise,Balance Retraining,Discharge Planning, Neuromuscular Re-ed Recommendations To Nursing Amount of Assist Needed 1 Person Assist Discharge Recommendations PT Discharge Recommendations Home with 02/02 Assist,Home Health,SNF Rehab Other Discharge Recommendations may be safe to discharge home with his if continues to progress his distance of gait
--- NOTE | 2019-08-03 12:26 | PM.PN.1 ---
Subjective Subjective Date Patient Seen: 08/03/19 Time Patient Seen: 12:26 Interval history: Patient states the legs looking better. No new complaints today. Exam Vital Signs (past 8 hours): - 08/03/19 08:00 Temperature 97.6 F Pulse Rate 75 Respiratory Rate 14 Blood Pressure 137/84 Pulse Oximetry 96 Oxygen Delivery Method CPAP Oxygen Flow Rate 0 Narrative Exam Narrative: Pleasant 79-year-old male resting comfortably in bedside chair having lunch. Right lower extremity exam demonstrates well-healed ankle and foot incisions. Erythema consistent with superficial cellulitis over the garcia above the levels of surgery. No fluctuance open wounds or obvious abscesses. Patient does wiggle his toes. Brisk capillary refill. Calf is soft and nontender. Objective Labs Result Diagrams: 08/03/19 06:35 08/03/19 06:35 Labs: Laboratory Results - last 24 hr 08/02/19 08/02/19 08/02/19 05:35 05:35 14:20 WBC RBC Hgb Hct MCV MCH MCHC RDW Plt Count Neut % (Auto) Lymph % (Auto) [place] % (Auto) Eos % (Auto) Baso % (Auto) Neut # (Auto) Lymph # (Auto) [place] # (Auto) Eos # (Auto) Baso # (Auto) ESR 58 H Sodium 133 L Potassium 4.9 Chloride 100 Carbon Dioxide 24 BUN 23 H Creatinine 1.00 Estimated GFR > 60.0 BUN/Creatinine Ratio 23.0 H Glucose 286 H D Uric Acid Calcium 8.8 Total Bilirubin 0.6 AST 82 H ALT 56 H Alkaline Phosphatase 114 Ammonia C-Reactive Protein 7.7 H Total Protein 7.3 Albumin 3.6 Globulin 3.7 Albumin/Globulin Ratio 1.0 Urine Color Urine Appearance Urine pH Ur Specific [place] Urine Protein Urine Glucose (UA) Urine Ketones Urine Occult Blood Urine Nitrate Urine Bilirubin Urine Urobilinogen Ur Leukocyte Esterase Urine RBC Urine WBC Urine Bacteria Ur Culture Indicated? 08/02/19 08/02/19 08/03/19 14:20 14:20 06:35 WBC 7.7 RBC 3.48 L Hgb 11.9 L Hct 34.9 L MCV 100.3 H MCH 34.1 H MCHC 34.0 RDW 15.3 H Plt Count 95 L Neut % (Auto) 62.1 Lymph % (Auto) 22.4 L [place] % (Auto) 12.5 Eos % (Auto) 2.7 Baso % (Auto) 0.3 Neut # (Auto) 4800 Lymph # (Auto) 1700 [place] # (Auto) 1000 H Eos # (Auto) 200 Baso # (Auto) 0 ESR Sodium Potassium Chloride Carbon Dioxide BUN Creatinine Estimated GFR BUN/Creatinine Ratio Glucose Uric Acid 3.8 Calcium Total Bilirubin AST ALT Alkaline Phosphatase Ammonia < 9.0 L C-Reactive Protein Total Protein Albumin Globulin Albumin/Globulin Ratio Urine Color Urine Appearance Urine pH Ur Specific [place] Urine Protein Urine Glucose (UA) Urine Ketones Urine Occult Blood Urine Nitrate Urine Bilirubin Urine Urobilinogen Ur Leukocyte Esterase Urine RBC Urine WBC Urine Bacteria Ur Culture Indicated? 08/03/19 08/03/19 06:35 08:35 WBC RBC Hgb Hct MCV MCH MCHC RDW Plt Count Neut % (Auto) Lymph % (Auto) [place] % (Auto) Eos % (Auto) Baso % (Auto) Neut # (Auto) Lymph # (Auto) [place] # (Auto) Eos # (Auto) Baso # (Auto) ESR Sodium 132 L Potassium 4.1 Chloride 100 Carbon Dioxide 25 BUN 29 H Creatinine 1.20 Estimated GFR 58.4 L BUN/Creatinine Ratio 24.2 H Glucose 160 H D Uric Acid Calcium 8.5 Total Bilirubin AST ALT Alkaline Phosphatase Ammonia C-Reactive Protein Total Protein Albumin Globulin Albumin/Globulin Ratio Urine Color Yellow Urine Appearance Clear Urine pH 5.0 Ur Specific [place] 1.015 Urine Protein Negative Urine Glucose (UA) Negative Urine Ketones Negative Urine Occult Blood Trace-intact Urine Nitrate Negative Urine Bilirubin Negative Urine Urobilinogen 0.2 Ur Leukocyte Esterase Negative Urine RBC 0-1/hpf Urine WBC None seen Urine Bacteria None seen Ur Culture Indicated? Cult not indicated Quality VTE Deep Vein Thrombosis/Pulmonary Embolism Present on Admission: No
--- NOTE | 2019-08-03 13:58 | P.PN_ITS ---
Subjective Subjective Date Patient Seen: 08/03/19 Interval history: Je Plata is a 79-year-old male with past medical history significant for hypertension, hyperlipidemia, diabetes mellitus type 2, non-insulin using, chronic kidney disease stage III, JOSEPH on CPAP, paroxysmal atrial fibrillation on Eliquis, venous insufficiency, and recurrent right lower extremity cellulitis that was recently treated at [facility] discharged on Keflex who presented with worsening right lower extremity redness. The patient is resting in bedside chair comfortably. The patient's cellulitis continues to slowly improve. He reports he slept very well last night after his CPAP mask was adjusted and melatonin that was given for which he requests a prescription. He is alert and oriented x3 and confusion has resolved. He worked with physical therapy today and did much better than the previous day. Discussed arthritic pain of feet and back for which the patient received a one time dose of Toradol with significant improvement in arthritic pain and is inquiring about taking this medication regularly. Informed the patient that this is not a medication that he should take regularly due to him being on both aspirin and Eliquis and risk of GI bleed. Plan to try tramadol to alleviate arthritic low back and foot pain. Discussed venous insufficiency once again for which Orthopedic surgery recommended outpatient general surgery evaluation and possible treatment. He has no complaints and denies headache, shortness of breath, chest pain, abdominal pain, nausea, vomiting, fever, chills, dysuria, diarrhea or constipation. He is voiding and eliminating without difficulty. He is up ambulating with assistance. Continue PT and added OT. Exam Vital Signs (past 8 hours): - 08/03/19 08:00 08/03/19 13:00 Temperature 97.6 F 98.6 F Pulse Rate 75 63 Respiratory Rate 14 17 Blood Pressure 137/84 123/56 L Pulse Oximetry 96 94 Oxygen Delivery Method CPAP Oxygen Flow Rate 0 Narrative Exam Narrative: General: Older gentleman lying in bed and in no acute distress, well-developed, well-nourished, appropriately interactive HEENT: Normocephalic, atraumatic. External ears without defect. Pupils equal, round, and reactive to light. Anicteric sclerae, moist conjunctivae, and no lid lag. Neck: Supple with full range of motion. No lymphadenopathy or thyromegaly. Cardiovascular: Regular rate and rhythm without murmurs, rubs, or gallops appreciated Pulmonary: Clear to auscultation bilaterally without crackles, wheezes, or rhonchi. Normal respiratory effort with no use of accessory muscles. Abdomen: Bowel tones present. Soft, nontender, nondistended. No hepatosplenomegaly or masses appreciated. Extremities: No clubbing, cyanosis, or edema. Skin: Right lower extremity with circumferential erythema, warmth and edema (especially over right medial malleoli) from ankle to pretibial area now resolving. Cellulitis is retracting within outlined margins now isolated to right leg. Left foot pain resolved. Neurological: Cranial nerves grossly intact. Psychiatric: Normal mood and affect. Alert and oriented to person, place, and time. No longer confused. Objective Labs Result Diagrams: 08/03/19 06:35 08/03/19 06:35 Labs: Laboratory Results - last 24 hr 08/02/19 08/02/19 08/02/19 05:35 05:35 14:20 WBC RBC Hgb Hct MCV MCH MCHC RDW Plt Count Neut % (Auto) Lymph % (Auto) [place] % (Auto) Eos % (Auto) Baso % (Auto) Neut # (Auto) Lymph # (Auto) [place] # (Auto) Eos # (Auto) Baso # (Auto) ESR 58 H Sodium 133 L Potassium 4.9 Chloride 100 Carbon Dioxide 24 BUN 23 H Creatinine 1.00 Estimated GFR > 60.0 BUN/Creatinine Ratio 23.0 H Glucose 286 H D Uric Acid Calcium 8.8 Total Bilirubin 0.6 AST 82 H ALT 56 H Alkaline Phosphatase 114 Ammonia C-Reactive Protein 7.7 H Total Protein 7.3 Albumin 3.6 Globulin 3.7 Albumin/Globulin Ratio 1.0 Urine Color Urine Appearance Urine pH Ur Specific [place] Urine Protein Urine Glucose (UA) Urine Ketones Urine Occult Blood Urine Nitrate Urine Bilirubin Urine Urobilinogen Ur Leukocyte Esterase Urine RBC Urine WBC Urine Bacteria Ur Culture Indicated? 08/02/19 08/02/19 08/03/19 14:20 14:20 06:35 WBC 7.7 RBC 3.48 L Hgb 11.9 L Hct 34.9 L MCV 100.3 H MCH 34.1 H MCHC 34.0 RDW 15.3 H Plt Count 95 L Neut % (Auto) 62.1 Lymph % (Auto) 22.4 L [place] % (Auto) 12.5 Eos % (Auto) 2.7 Baso % (Auto) 0.3 Neut # (Auto) 4800 Lymph # (Auto) 1700 [place] # (Auto) 1000 H Eos # (Auto) 200 Baso # (Auto) 0 ESR Sodium Potassium Chloride Carbon Dioxide BUN Creatinine Estimated GFR BUN/Creatinine Ratio Glucose Uric Acid 3.8 Calcium Total Bilirubin AST ALT Alkaline Phosphatase Ammonia < 9.0 L C-Reactive Protein Total Protein Albumin Globulin Albumin/Globulin Ratio Urine Color Urine Appearance Urine pH Ur Specific [place] Urine Protein Urine Glucose (UA) Urine Ketones Urine Occult Blood Urine Nitrate Urine Bilirubin Urine Urobilinogen Ur Leukocyte Esterase Urine RBC Urine WBC Urine Bacteria Ur Culture Indicated? 08/03/19 08/03/19 06:35 08:35 WBC RBC Hgb Hct MCV MCH MCHC RDW Plt Count Neut % (Auto) Lymph % (Auto) [place] % (Auto) Eos % (Auto) Baso % (Auto) Neut # (Auto) Lymph # (Auto) [place] # (Auto) Eos # (Auto) Baso # (Auto) ESR Sodium 132 L Potassium 4.1 Chloride 100 Carbon Dioxide 25 BUN 29 H Creatinine 1.20 Estimated GFR 58.4 L BUN/Creatinine Ratio 24.2 H Glucose 160 H D Uric Acid Calcium 8.5 Total Bilirubin AST ALT Alkaline Phosphatase Ammonia C-Reactive Protein Total Protein Albumin Globulin Albumin/Globulin Ratio Urine Color Yellow Urine Appearance Clear Urine pH 5.0 Ur Specific [place] 1.015 Urine Protein Negative Urine Glucose (UA) Negative Urine Ketones Negative Urine Occult Blood Trace-intact Urine Nitrate Negative Urine Bilirubin Negative Urine Urobilinogen 0.2 Ur Leukocyte Esterase Negative Urine RBC 0-1/hpf Urine WBC None seen Urine Bacteria None seen Ur Culture Indicated? Cult not indicated Assessment & Plan Assessment & Plan narrative: Je Plata is a 79-year-old male with past medical history significant for hypertension, hyperlipidemia, diabetes mellitus type 2, non-insulin using, chronic kidney disease stage III, JOSEPH on CPAP, paroxysmal atrial fibrillation on Eliquis, venous insufficiency, and recurrent right lower extremity cellulitis that was recently treated at [facility] discharged on Keflex who presented with worsening right lower extremity redness. 1. Acute on chronic right lower extremity cellulitis, secondary to chronic venous stasis, present on admission. Resolving. -He has had multiple episodes of right lower extremity cellulitis extending back over the years since 2008. He has known venous insufficiency. His reports in the past that he has needed outpatient IV antibiotics for his cellulitis. The patient was recently treated for right lower extremity cellulitis at [facility] and discharged on Keflex. -CRP elevated at 15.2 and ESR elevated at 42. CRP trended down to 7.7 but interestingly ESR trended up to 58? -Right lower extremity venous Doppler ultrasound is negative for DVT. -Right lower extremity x-ray suspicious for medial malleoli osteomyelitis. -MRI right ankle with and without contrast demonstrated prominent soft tissue swelling is seen, which is consistent with advanced cellulitis. No focal fluid collections are seen to suggest abscess. No findings of osteomyelitis. -CT right lower extremity with contrast did not demonstrate any gross hardware complication, acute fracture or dislocation, no discrete abscess, or gross bone erosive changes are noted to suggest osteomyelitis. Mild ankle and foot soft tissue swelling and edema suggestive of cellulitis. -Continue conservative management and elevate right lower extremity above the level of the heart frequently and compression stockings once cellulitis has resolved. -Continue vancomycin with dosing per pharmacy and ceftriaxone 2 g IV daily. -Consulted orthopedic surgery, Dr. Harding, who recommended continuing to treat cellulitis as above. 2. Acute metabolic encephalopathy, not present on admission. Resolved. -Patient developed mild confusion and intermittent hallucination after sleep deprivation due to CPAP mask malalignment in setting of acute infection and hospitalization. Patient may also have underlying mild cognitive impairment versus mild dementia which is unmasked in hospital setting. -Urinalysis negative for infection -Ammonia level undetectable < 9.0 in a patient likely has fatty liver disease. -Continue to reorient often and promote good sleep hygiene: keeping patient awake and stimulated throughout the daytime and letting him sleep well at night with minimal interruptions. CPAP mask has been adjusted. -Continue melatonin 6 mg daily at bedtime to help with sleep maintenance. -Continue to treat underlying infection as above. -Continue physical and occupational therapy evaluation and treatment. OT to perform SLUMS to assess for cognitive impairment versus dementia. 3. Hypomagnesemia, acuity unclear, present on admission. Resolved. -Likely due to hydrochlorothiazide which has been discontinued due to persistent hypomagnesemia in setting of paroxysmal atrial fibrillation and mild hyponatremia -Initial magnesium level 1.4. Received magnesium sulfate 6 g total thus far with persistently low normal magnesium now 1.5. Received magnesium sulfate 4 g IV x1. -Continue to monitor magnesium level and replete as necessary. 4. Acute kidney injury on CKD III, present on admission. SALEEM resolved. -Likely secondary to prerenal azotemia and decreased PO intake and hypermetabolic state due to infection. -Initial creatinine 1.8. Baseline creatinine 0.9-1.3. Creatinine now at baseline. -Avoid nephrotoxic agents. -Continue to monitor renal function daily. 5. Diabetes mellitus type 2, non-insulin using, chronic, present on admission. Stable. -Hemoglobin A1c 5.8% indicative of tight glycemic control. -Held metformin. -Continue ACHS blood glucose checks and low-dose correctional scale insulin. -Continue carbohydrate consistent diet. -Continue gabapentin 300 mg daily at bedtime. 6. Paroxysmal atrial fibrillation on Eliquis, chronic, present on admission. Stable. -EKG demonstrated sinus rhythm with first-degree AV block. -Continue rate control with carvedilol 6.25 mg twice daily and anticoagulation with Eliquis 5 mg twice daily. 7. Hypertension, chronic, present on admission. Stable. -Continue carvedilol 6.25 mg twice daily and increased enalapril from 10 mg to 20 mg daily for better blood pressure control. Discontinue hydrochlorothiazide 25 mg daily due to hyponatremia/hypomagnesemia. Ordered labetalol 10 mg IV every 4 hours as needed for SBP > 180 mmHg sustained for 30 min with hold parameter HR < 60. 8. Hyperlipidemia, chronic, present on admission. Stable. -Continue atorvastatin 40 mg daily at bedtime. 9. Recent NSTEMI. -Patient was recently treated for NSTEMI at the end at [facility]. He is scheduled to follow-up with cardiology in approximately 2 months. -Continue aspirin 81 mg daily and atorvastatin 40 mg daily at bedtime. 10. Gout, chronic, present on admission. Stable. -Uric acid level normal at 3.8. -Continue allopurinol 300 mg daily. 11. Osteoarthritis, chronic, present on admission. Stable. -Patient with increasing pain in left lower extremity that appears to be musculoskeletal in etiology and worse after increased activity with PT. -Received ketorolac 30 mg IV x1 with significant improvement in bilateral foot pain after physical therapy. Ordered tramadol 50 mg 3 times daily as needed for moderate pain and will monitor response. 12. Obstructive sleep apnea on CPAP, chronic, present on admission. Stable. -Continue home CPAP per RT protocol. DVT: Eliquis Code: Full code. Surrogate decision maker is his . Disposition: Patient likely discharge home possibly tomorrow on PO antibiotics for cellulitis. Quality VTE Deep Vein Thrombosis/Pulmonary Embolism Present on Admission: No
[2019-08-03 14:12] LABS: Magnesium 2.2 mg/dL (1.6-2.3)
--- NOTE | 2019-08-03 14:28 | PT.IPTN ---
Current Diagnoses Cellulitis of right lower limb (07/30/19) Physical Therapy Treatment Note M2 PT-IP Current Condition Start: 07/31/19 12:44 Freq: NEEDED Status: Active Protocol: Document 07/31/19 16:23 AW (Rec: 07/31/19 16:50 AW [id number]) Physical Therapy Current Condition Current Condition Evaluation Date 07/31/19 Treatment Diagnosis RLE cellulitis, venous stasis, impaired mobility Onset Date 07/30/2019 Precautions Other Precautions Elevate the R LE as often as possible Weight Bearing Status Weight Bearing Status Weight Bear as Tolerated Allowed Weight Bearing Amount (enter % WBAT RLE but elevate at all or #) (%) times when not mobilizing. M3 PT-IP Subjective Start: 07/31/19 12:44 Freq: NEEDED Status: Active Protocol: Document 08/03/19 13:50 SP (Rec: 08/03/19 15:12 SP [id number]) Subjective Physical Therapy Visit Type Type Treatment Note Visit Start Time 13:50 Visit Stop Time 14:28 Total Visit Minutes 38 Number of [employer] CONTACT REPRESENTATIVE Visits 1 Physical Therapy Visit Comments Patient Comments Pt willing to work with PT and stated feeling better. Therapy Pain Assessment Pain When Pain Assessed During Mobility Pain Present Pain Present Pain Reported Location Right Leg Intensity 1 Scale Used Numeric (1 - 10) Description Aching Pain Management Techniques Elevation,Re-positioning M4 PT-IP Mobility and Gait Start: 07/31/19 12:44 Freq: NEEDED Status: Active Protocol: Document 08/03/19 13:50 SP (Rec: 08/03/19 15:12 SP [id number]) PT-Bed Mobility Assessment Sit to Supine Sit to Supine Standby Assistance PT-Transfer Assessment Sit to and From Stand Sit to and from Stand Minimal Assistance,Moderate Assistance,1 Person Assistance ,Use of Upper Extremities Equipment Transfer Assistive Device Gait Belt,Front Wheeled Walker Transfers Transfer Destination Bed Transfer Technique Stand Step Pivot Transfer Ability Level of Assist Minimal Assistance,Moderate Assistance,1 Person Assistance ,Use of Upper Extremities Comments Mobility Comments Pt was up in chair when arrived. Pt required Min- Mod A to complete sit to stand from bed side chair and cuing hip hinge shoulder over knees with support to wt shift foward to standing, retro LOB guided Mod A into chair when tried to transition LUE chair arms to FWW initially, second attempt R UE transition first ableto with Rolando for standing support. Pt was ableto complete step pivot chair to bed CGA with occasional cuing for FWW and body awareness at EOB and backing up feel BLE behind knees prior to sitting CGA to sit, good hand placement. Pt was complete sit to stand at EOB CGA using FWW . Pt completed sitting to suping SBA and centered himself in bed. Pt sat up in bed to repostion gown with no A or bed rail support needed. Pt was up in bed with call light and all needs in reach with and care mgt sales floor team member in room when left. Gait Assessment Gait Gait Assistance Required: Contact Guard Assist,1 Person Assist Distance (Feet) 100 Able to Maintain Weight Bearing Status Yes During Gait Assistive Devices Assistive Device Gait Belt,Front Wheeled Walker Orthotic/Prosthetic Devices or Brace: No Gait Deviations General Gait Pattern Flexed Trunk Factors Limiting Gait Function Factors Limiting Gait Function Decreased Activity Tolerance, Decreased Strength,Difficulty Following Directions,Poor Balance Comments Gait Comments Pt was ableto ambulate chair to door and back using FWW CGA with cuing for keeping feet/ body inside FWW during turns for safety. Therapist managed IV pole. Pt walked second distance 100ft chair to stairs and back CGA with occasional cuing for slow controlled pace and body closer/within FWW, observed tx. Stair Climbing Assessment Comments Stair Climbing Comments Not assessed today secondary to decreased activity tolerance, needs to 1 step with FWW prior to DC. PT-Balance Assessment Sitting Balance and Reactions Static Sitting Balance Ability Normal Dynamic Sitting Balance Ability Normal Standing Balance and Reactions Static Standing Balance Ability Good Dynamic Standing Balance Ability Fair Device Used FWW M5 PT-IP Objective Assessments Start: 07/31/19 12:44 Freq: NEEDED Status: Active Protocol: Document 07/31/19 16:23 AW (Rec: 07/31/19 16:50 AW [id number]) Orientation Orientation/Cognition Level of Alertness Alert Orientation Name,Day of Week,Place, Situation Language Function Ability No Deficits Noted Safety Awareness Decreased Safety Awareness Memory Description No Deficits Noted Gross Range of Motion Upper Extremity ROM Assessment Within Functional Limits Lower Extremity ROM Assessment Right Impaired Impairments Pt has history of R ankle/ subtalar fusion limiting ankle ROM Strength Upper Extremity Strength Assessment Within Functional Limits Lower Extremity Strength Assessment Bilaterally Impaired Hip 4-/5 Knee L 4/5; R 3+/5 Ankle B 4-/5 Coordination Assessment Gross Coordination Gross Coordination WNL Sensation Assessment Sensation Gross Sensation Right LE Impaired,Left LE Impaired Light Touch Impaired Comments Sensation Comments 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 M6 PT-IP Treatment Start: 07/31/19 12:44 Freq: NEEDED Status: Active Protocol: Document 08/03/19 13:50 SP (Rec: 08/03/19 15:12 SP [id number]) Physical Therapy Treatment Education Education Provided Safety M7 PT-IP Assessment and Plan Start: 07/31/19 12:44 Freq: NEEDED Status: Active Protocol: Document 08/03/19 13:50 SP (Rec: 08/03/19 15:12 SP [id number]) PT Summary Assessment and Plan Potential Rehabilitation Potential Good Status of Condition at Evaluation Evolving Summary Impairments Pain,ROM,Strength,Balance, Sensation,Bed Mobility, Transfers,Gait,Activity Tolerance Progress Towards Goals Progressing Toward Goals Assessment Summary Je shows good progress today and reports he is feeling better. He tolerated further distance into hallway and to stairs and back with fWW and CGA with cuing for body closer to and stay within FWW durign turns. Pt in bed with call light and all needs in reach when left. Goals Bed Mobility Goal Independent Transfer Goal Independent,Front Wheeled Walker Gait Goal Independent,Front Wheel Walker Gait Distance 100 Days to Meet Goals 5 Frequency of Treatment Frequency Of Treatment Twice a Day Treatment Plan Physical Therapy Treatment Plan Bed Mobility Training,Transfer Training,Gait Training, Therapeutic Exercise,Balance Retraining,Discharge Planning, Neuromuscular Re-ed Other Recommendations and Next Treatment Assess platform step with FWW Focus tomorrow 10 am and complete caregiver training with including bed mob, transfer, gait, step mgt. At this time recommend SNF unless progressed in distance gait and step mgt caregiver training with . Recommendations To Nursing Amount of Assist Needed 1 Person Assist Discharge Recommendations PT Discharge Recommendations Home with / Assist,Home Health,SNF Rehab Other Discharge Recommendations may be safe to discharge home with his if continues to progress his distance of gait and complete 1 step mgt usign FWW to assimulate threshold at home to enter house.
--- NOTE | 2019-08-03 14:29 | OT.IP.EVAL ---
Current Diagnoses Cellulitis of right lower limb (07/30/19) Past Medical History (Last Reviewed 08/02/19 @ 18:31 by Sonal Keating MD) Atrial fibrillation (Acute) Back pain (Acute) Cataract (Acute) Chronic kidney disease (Acute) Diabetes (Acute) Foot ulcer (Acute) Foot ulcer, right (Acute) Gout (Acute) History of cellulitis (Acute) History of stress test (Acute ~2008) Hypercholesterolemia (Acute) Hyperlipidemia (Acute) Leg pain (Acute) Lower extremity edema (Acute) Mild cognitive impairment (Acute) Obese (Acute) Osteoarthritis of spine with radiculopathy, lumbar region (Acute) Other secondary scoliosis, lumbar region (Acute) Paroxysmal A-fib (Acute) Peripheral vascular disease (Acute) Sleep apnea (Acute) Spinal stenosis of lumbar region at multiple levels (Acute) Spondylolisthesis at L2-L3 level (Acute) Venous insufficiency (Acute) Surgical History (Last Reviewed 08/02/19 @ 18:31 by Sonal Keating MD) Cataract extraction status of right eye (Acute) History of ankle fusion (Acute) History of colonoscopy (Acute ~2013) History of hemorrhoidectomy (Acute ~1959) History of lumbar laminectomy (Acute ~02/2016) History of shoulder replacement (Acute ~2017) History of total knee arthroplasty (Acute) S/p reverse total shoulder arthroplasty (Acute) Occupational Therapy Inpatient Evaluation/Re-Eval M1 PT/OT-IP Prior Functional Status Start: 07/31/19 12:44 Freq: NEEDED Status: Active Protocol: Document 07/31/19 16:23 AW (Rec: 07/31/19 16:50 AW [id number]) Medical Review Prior Functional Status Medical History Reviewed Yes Communication WNL Mobility and Gait Pt reports independence with all mobility but does endorse use of walking stick/trekking pole for longer distances. Activities of Daily Living and IADL's Independent Prior Functional Level (Other details) Pt reports 2 non-injurious falls within the past year. Social History Household Members spouse Living Arrangements House Number of Floors (Floors) One Floor Number of Stairs To Enter/Railing? 6 threshhold to enter. Home Environment Standard Height Toilet,Walk in Shower Home Equipment Front Wheel Walker,Straight Cane,Raised Toilet Seat w/ Armrests,Hand Held Shower Employment Status Retired Additional Social History Comment Pt lives with his spouse, Lesley . He states Lesley is available 02/02 and able to provide physical assist. M3 OT- IP Subjective and Pain Start: 08/03/19 15:25 Freq: Status: Active Protocol: Document 08/03/19 15:26 [facility] (Rec: 08/03/19 15:53 [facility] [id number]) OT- Subjective Occupational Therapy Visit Type Type Initial Evaluation Visit Start Time 14:29 Visit Stop Time 15:19 Total Visit Minutes 50 Occupational Therapy Visit Comments Patient Comments Pt states just got back in bed from seeing [employer] INSPECTOR and not wanting to get up and wanting to stay in bed. Hospitalist requesting OT to do SLUMS on pt. Pt's present in the room. Patient/Caregiver Goals Pt wanting to go home. OT Pain Assessment Pain When Pain Assessed At Rest Pain Present Pain Present Denied Pain M4 OT- IP ADL's Start: 08/03/19 15:25 Freq: Status: Active Protocol: Document 08/03/19 15:26 [facility] (Rec: 08/03/19 15:53 [facility] [id number]) OT [id number] Comments OT Self-Feeding Comments Not at meal time. OT ADL-Grooming General Evaluation Grooming Ability Independent Comments OT Grooming Comments Pt able to do while seated in bed. OT ADL-Oral Care General Eval Oral Care Ability Independent OT ADL-Dressing Comments OT Dressing Comments Not wanting to perform at this time. OT ADL-Toileting Comments OT Toileting Comments Not having to use the toilet at this time. OT ADL-Bathing Comments OT Bathing Comments Pt's wanting pt to shower tomorrow and would like to come and see how he is doing. Pt's states pt shower stall very small and too small for a chair. Prior she states if pt needing assist would grab the top on the door to get in and also hold onto a grab bar in the shower and that she was present during his showers. Hospitalist recommending that pt's leg be wrapped for the shower and to pat dry and not to put any type of lotion on his leg afterwards. M6 OT- IP Functional Cognition Start: 08/03/19 15:25 Freq: Status: Active Protocol: Document 08/03/19 15:26 [facility] (Rec: 08/03/19 15:53 [facility] [id number]) Cognitive Factors Limiting Selfcare Function Cognitive Ability Level of Alertness Alert Patient Orientation Name,Place,Situation Attention Span Ability Capable of Focused Attention, Capable of Sustained Attention Ability to Follow Commands Able to Follow One Step Commands Memory Description Short Term Impaired Safety Awareness Underestimates Need for Assistance Problem Solving Ability Needs Assist to Identify Solutions Cognitive Tests SLUMS Pt needing directions repeated multiple times due to pt does not have his hearing aids present. Pt scored 23/30 normal score for pt's education is 27/30 pt only able to recall 3/5 objects after time passed, unable to states 4 digit number backwards, and able to recall 2/4 questions after paragraph read. Pt needing increased time to answer math problem and throughout the assessment would forget what was being asked. Pt's score iimplies mild cognitive deficits. Cognitive Comments Cognitive Assessment Comments Pt having difficulty to follow directions and needing verbal and tactile cues. Pt did not want to do [place] [employer] and suggested to pt's best not to drive initially. Pt's aware and states able to determine whether pt capable of driving. Pt has decreased insight to his abilities. OT- Vision and Hearing OT- Hearing Assessment OT- Hearing Assessment Hearing Impaired OT- Vision Assessment Vision Assessment Comments Pt having trouble with eye contact when talking to him. M7 OT- IP Mobility and Balance Start: 08/03/19 15:25 Freq: Status: Active Protocol: Document 08/03/19 15:26 [facility] (Rec: 08/03/19 15:53 [facility] [id number]) OT-Transfer Assessment Comments Mobility Comments Pt not wanting to get out of bed at this time. See PT for mobility needs. Per PT notes, pt has difficulty to come to stand from lower surfaces and at times needing MODA x 1. M8 OT- IP Objective Assessments Start: 08/03/19 15:25 Freq: Status: Active Protocol: Document 08/03/19 15:26 [facility] (Rec: 08/03/19 15:53 [facility] [id number]) OT Gross Range of Motion Upper Extremity Range of Motion Assessment Within Functional Limits OT Strength Comments Strength Comments RUE 4-/5, LUE 4/5 pt is right hands, however does heavy chores with his left hand, i.e chopping wood. OT- Coordination Assessment Comments Coordination Comments Increased time for finger to thumb and fingers tends to tremor a little. OT-Muscle Tone Assessment Muscle Tone WNL No OT Sensation Assessment Comments Summary Comments Intact for light touch for BUE , decreased kinesthesia for right elbow to distal. M9 OT- IP Assessment and Plan Start: 08/03/19 15:25 Freq: Status: Active Protocol: Document 08/03/19 15:26 [facility] (Rec: 08/03/19 15:53 [facility] [id number]) OT Summary Assessment and Plan Potential Rehabilitation Potential Good Analytic Complexity at Evaluation Low Summary OT Impairments Balance,Coordination, Functional Cognition, Functional Mobility,Dressing, Toileting,Bathing,Toilet Transfers,Shower Transfers Progress Towards Goals Slow Progress due to Medical Issues,Slow Progress due to Cognition Assessment Summary Pt low complexity and main barrier are threshold into the house, difficulty to come to stand from lower surfaces, decreased safety awareness, and short term memory needs. Pt not wanting to get out of bed for OT eval as just completed working with [employer]OR. To do showering tomorrow in addition to caregiver training with tomorrow. Pending progress and caregiver training recommend either skilled rehab versus home with home health. Goals Self-Feeding Goal Independent Grooming Goal Independent Dressing Goal Minimal Assistance Toileting Goal Independent Bathing Goal Minimal Assistance Toilet Transfer Goal Independent Shower Transfer Goal Contact Guard Assistance Patient/Caregiver Education Goal Caregiver Independent Assisting Patient Days to Meet Goals 2 Frequency of Treatment Frequency Of Treatment Once a Day Treatment Plan OT Treatment Plan ADL Training,Functional Cognition Training,Functional Mobility,Patient/Family Education,Discharge Planning Other Treatment Recommendations and Next SHower and caregiver training. Treatment Focus Discharge Recommendations OT Discharge Recommendations Home with Assistance,Home Health,SNF Rehab
--- NOTE | 2019-08-03 15:19 | CM.DANOTE ---
DCP/Continued: Reviewed chart. Current recommendation from therapy is SNF vs. home with home health. Per therapy today, patient has done much better. HARMONICA MAKER met with patient and spouse/Lesley at bedside explained role. Both patient and spouse would prefer for patient to go home. Therapy plans to meet patient tomorrow 08-03-19 at 10:00AM to do some caregiver training. Back up plan if needed is [facility]. Clinical has been faxed to Mala at [facility] and she is aware of possible referral. Patient and spouse have no preference in HH agencies. Therefore, if HH indicated [facility] is assigned for the week. F2F signed by Dr. Bella. P: Pending. Anticipate home with HH through [facility] (will need to be set up) vs. SNF at [facility]. They have clinicals and are reviewing. Patient preference is home. MARIO Damon
[2019-08-03] MEDS: GABAPENTIN 300 MG CAPSULE PO (20:28)
[2019-08-03] MEDS: ATORVASTATIN 20 MG TABLET 40 MG PO (20:28)
[2019-08-03] MEDS: MELATONIN 3 MG TABLET 6 MG PO (20:28)
[2019-08-04] MEDS: VANCOMYCIN 1,250 MG in SODIUM CHLORIDE 0.9% 250 ML IV (01:16)
[2019-08-04 03:15] VITALS: BP 123/58; PULSE 55; RESP 18; TEMP 37.1; O2SAT 96
[2019-08-04 06:22] LABS: BUN Creatinine Ratio 25.5 (6-22); Blood Urea Nitrogen 28 mg/dL (9-20); Calcium 8.3 mg/dL (8.4-10.2); Carbon Dioxide 25 mmol/L (22-32); Chloride 100 mmol/L (98-107); Estimated Glomerular Filt Rate > 60.0 mL/min (>60); Glucose 179 mg/dL (80-110); HEMOLYSIS < 15 (0-50); Magnesium 1.9 mg/dL (1.6-2.3); Potassium 4.1 mmol/L (3.4-5.1); Sodium 133 mmol/L (137-145)
[2019-08-04 06:45] LABS: Procalcitonin 0.41 ng/mL (<0.5)
[2019-08-04 08:00] VITALS: BP 140/94; PULSE 60; RESP 18; TEMP 36.9; O2SAT 95
[2019-08-04 08:22] VITALS: PULSE 74
[2019-08-04] MEDS: ALLOPURINOL 300 MG TABLET PO (08:22)
[2019-08-04] MEDS: ENALAPRIL 20 MG TABLET PO (08:22)
[2019-08-04] MEDS: APIXABAN 5 MG TABLET PO (08:22)
[2019-08-04 08:24] VITALS: PULSE 74
[2019-08-04] MEDS: carvediloL 12.5 MG TABLET 6.25 MG PO (08:24)
[2019-08-04] MEDS: ASPIRIN EC 81 MG TABLET PO (08:28)
[2019-08-04] MEDS: INSULIN ASPART 100 UNIT/ML INSULN PEN SUBCUT ×2 (08:31→12:21)
[2019-08-04] MEDS: CEFTRIAXONE 2 GM/50 ML FROZ.PIGGY IV (08:35)
[2019-08-04] MEDS: SODIUM CHLORIDE 0.9% 250 ML 21 ML IV (08:36)
[2019-08-04] MEDS: SODIUM CHLORIDE 0.9% FLUSH 10 ML IV (08:45)
--- NOTE | 2019-08-04 10:18 | P.DS_ITS ---
History of Present Illness History of Present Illness Date Patient Seen: 08/04/19 Time Patient Seen: 10:18 Chief complaint: possible cellulitis Narrative: Je Plata is a 79-year-old male with past medical history of atrial fibrillation on Eliquis, hypertension, hyperlipidemia, diabetes and chronic right lower extremity cellulitis that was recently treated at [facility] (he was primarily admitted for NSTEMI), who presented with worsening right lower extremity redness. He stopped taking Keflex a few days ago, he completed his full course. Since stopping his antibiotics his redness has increased in size, going all the way up to his inner thigh. He says that his redness never fully resolved while taking the antibiotics and he was left with a small area of erythema over his calf. He endorses right lower extremity pain. He denies any symptoms on the left side. He denies any purulence drainage with the redness. He denies any fevers, chills, nausea, vomiting, abdominal pain, shortness of breath, chest pain, palpitations. He does endorse a poor appetite over the past few days. Discharge Providers Provider Date of admission: 07/30/19 13:31 Discharge Date: 08/04/19 Primary care physician: Maykel Rodríguez MD Consults: 07/31/19 10:21 Consult to Orthopedic Surgery Routine Comment: Consulting Provider: Sky Harding Reason for consultation: Osteomyelitis R foot Has provider been notified: Yes 07/31/19 11:51 Consult to Physical Therapy Evaluate & Treat Comment: Physician Instructions: Evaluate and Treat 08/02/19 15:15 Consult to Occupational Therapy Evaluate & Treat Comment: [facility] Physician Instructions: Evaluate and treat Discharge provider: Carlo Freeman DO Summary Hospital Course Discharge Diagnosis: 1. Acute on chronic right lower extremity cellulitis, secondary to chronic venous stasis, present on admission. Resolving. 2. Acute metabolic encephalopathy, not present on admission. Resolved. 3. Hypomagnesemia, acuity unclear, present on admission. Resolved. 4. Acute kidney injury on CKD III, present on admission. SALEEM resolved. 5. Diabetes mellitus type 2, non-insulin using, chronic, present on admission. Stable. 6. Paroxysmal atrial fibrillation on Eliquis, chronic, present on admission. Stable. 7. Hypertension, chronic, present on admission. Stable. 8. Hyperlipidemia, chronic, present on admission. Stable. 9. Recent NSTEMI. 10. Gout, chronic, present on admission. Stable. 11. Osteoarthritis, chronic, present on admission. Stable. 12. Obstructive sleep apnea on CPAP, chronic, present on admission. Stable. Hospital Course: Je Plata is a 79-year-old male with past medical history significant for hypertension, hyperlipidemia, diabetes mellitus type 2, non- insulin using, chronic kidney disease stage III, JOSEPH on CPAP, paroxysmal atrial fibrillation on Eliquis, venous insufficiency, and recurrent right lower extremity cellulitis that was recently treated at [facility] discharged on Keflex who presented with worsening right lower extremity redness. He improved with IV antibiotics. 1. Acute on chronic right lower extremity cellulitis, secondary to chronic venous stasis, present on admission. Resolving. -He has had multiple episodes of right lower extremity cellulitis extending back over the years since 2008. He has known venous insufficiency. His reports in the past that he has needed outpatient IV antibiotics for his cellulitis. The patient was recently treated for right lower extremity cellulitis at [facility] and discharged on Keflex. -CRP elevated at 15.2 and ESR elevated at 42. CRP trended down to 7.7 but interestingly ESR trended up to 58? -Right lower extremity venous Doppler ultrasound is negative for DVT. -Right lower extremity x-ray suspicious for medial malleoli osteomyelitis. -MRI right ankle with and without contrast demonstrated prominent soft tissue swelling is seen, which is consistent with advanced cellulitis. No focal fluid collections are seen to suggest abscess. No findings of osteomyelitis. -CT right lower extremity with contrast did not demonstrate any gross hardware complication, acute fracture or dislocation, no discrete abscess, or gross bone erosive changes are noted to suggest osteomyelitis. Mild ankle and foot soft tissue swelling and edema suggestive of cellulitis. -Continue conservative management and elevate right lower extremity above the level of the heart frequently and compression stockings once cellulitis has resolved. -Continued vancomycin with dosing per pharmacy and ceftriaxone 2 g IV daily while inpatient. Will discharge on 7 days of cephalexin 500 mg QID and doxycycline 100 mg BID. Further prescribed a few doses of tramadol as outpatient given good control here. Advised patient only temporary duration is recommended. -Consulted orthopedic surgery, Dr. Harding. Appreciate recommendations. Patient should follow up with vascular surgeon as an outaptient. -PT consulted and recommended discharge home with outpatient PT. 2. Acute metabolic encephalopathy, not present on admission. Resolved. -Patient developed mild confusion and intermittent hallucination after sleep deprivation due to CPAP mask malalignment in setting of acute infection and hospitalization. Patient may also have underlying mild cognitive impairment versus mild dementia which is unmasked in hospital setting. -Urinalysis negative for infection -Ammonia level undetectable < 9.0 in a patient likely has fatty liver disease. -Continue to reorient often and promote good sleep hygiene: keeping patient awake and stimulated throughout the daytime and letting him sleep well at night with minimal interruptions. CPAP mask has been adjusted. -Continue melatonin 6 mg daily at bedtime to help with sleep maintenance. -Continue to treat underlying infection as above. -Continue physical and occupational therapy evaluation and treatment. OT to perform SLUMS to assess for cognitive impairment versus dementia. 3. Hypomagnesemia, acuity unclear, present on admission. Resolved. -Likely due to hydrochlorothiazide which has been discontinued due to persistent hypomagnesemia in setting of paroxysmal atrial fibrillation and mild hyponatremia -Initial magnesium level 1.4. Received magnesium sulfate 6 g total thus far with persistently low normal magnesium now 1.5. Received magnesium sulfate 4 g IV x1. Improved to 1.9 upon discharge. 4. Acute kidney injury on CKD III, present on admission. SALEEM resolved. -Likely secondary to prerenal azotemia and decreased PO intake and hypermetabolic state due to infection. -Initial creatinine 1.8. Baseline creatinine 0.9-1.3. Creatinine now at baseline upon discharge. 5. Diabetes mellitus type 2, non-insulin using, chronic, present on admission. Stable. -Hemoglobin A1c 5.8% indicative of tight glycemic control. -continue home medications -Continue gabapentin 300 mg daily at bedtime. 6. Paroxysmal atrial fibrillation on Eliquis, chronic, present on admission. Stable. -EKG demonstrated sinus rhythm with first-degree AV block. -Continue carvedilol 6.25 mg twice daily and anticoagulation with Eliquis 5 mg twice daily. 7. Hypertension, chronic, present on admission. Stable. -Continue carvedilol 6.25 mg twice daily and increased enalapril from 10 mg to 20 mg daily for better blood pressure control. Discontinued hydrochlorothiazide 25 mg daily due to hyponatremia/hypomagnesemia. 8. Hyperlipidemia, chronic, present on admission. Stable. -Continue atorvastatin 40 mg daily at bedtime. 9. Recent NSTEMI. -Patient was recently treated for NSTEMI at the end at [facility]. He is scheduled to follow-up with cardiology in approximately 2 months. -Continue aspirin 81 mg daily and atorvastatin 40 mg daily at bedtime. 10. Gout, chronic, present on admission. Stable. -Uric acid level normal at 3.8. -Continue allopurinol 300 mg daily. 11. Osteoarthritis, chronic, present on admission. Stable. -Patient with increasing pain in left lower extremity that appears to be musculoskeletal in etiology and worse after increased activity with PT. -Received ketorolac 30 mg IV x1 with significant improvement in bilateral foot pain after physical therapy. Ordered tramadol 50 mg 3 times daily as needed. Asked to limit use as an outpatient. 12. Obstructive sleep apnea on CPAP, chronic, present on admission. Stable. -Continue home CPAP Time Spent with Patient Time spent: Greater than 30 minutes Exam Vital Signs (past 8 hours): - 08/04/19 03:15 08/04/19 08:00 08/04/19 08:22 Temperature 98.7 F 98.4 F Pulse Rate 55 L 60 74 Respiratory Rate 18 18 Blood Pressure 123/58 L 140/94 H Pulse Oximetry 96 95 08/04/19 08:24 Temperature Pulse Rate 74 Respiratory Rate Blood Pressure Pulse Oximetry Oxygen Delivery Method Room Air Oxygen Flow Rate 0 Narrative Exam Narrative: GENERAL APPEARANCE: Obese male sitting comfortably in hospital bed. SKIN: Markedly improved erythema, now only circumferentially over his R calf. Mildly warm. Non-tender. There is a small scab on his anterior right garcia. No purulence is noted. HEENT: The sclerae were anicteric and conjunctivae were pink and moist. Extraocular movements were intact and pupils were equal, round with normal accommodation. External inspection of the ears and nose showed no scars, lesions, or masses. Lips, teeth, and gums showed normal mucosa. The oral mucosa, hard and soft palate, tongue and posterior pharynx were unremarkable. NECK: Supple and symmetric. There was no thyroid enlargement, and no tenderness, or masses were felt. CHEST: Normal AP diameter and normal contour without any kyphoscoliosis. LUNGS: Auscultation of the lungs revealed no wheezes, rhonchi, or rales. CARDIOVASCULAR: There was a regular rate and rhythm without any murmurs, gallops, rubs. Peripheral pulses were 2+ and symmetric. ABDOMEN: Soft and nontender with normal bowel sounds. No ascites was noted. MUSCULOSKELETAL: There was no tenderness or effusions noted. Muscle strength and tone were normal. EXTREMITIES: No cyanosis, clubbing or edema. NEUROLOGIC: Alert and oriented x 3. Normal affect. Gait was normal. Strength is +5/5 in the Upper Extremities and Lower Extremities Bilaterally. Sensation to touch was normal. Objective Labs Result Diagrams: 08/03/19 06:35 08/04/19 05:30 Labs: Laboratory Results - last 24 hr 08/03/19 08/03/19 08/04/19 06:35 06:35 05:30 Sodium Potassium Chloride Carbon Dioxide BUN Creatinine Estimated GFR BUN/Creatinine Ratio Glucose Calcium Magnesium 2.2 Procalcitonin 0.60 H 0.41 08/04/19 05:30 Sodium 133 L Potassium 4.1 Chloride 100 Carbon Dioxide 25 BUN 28 H Creatinine 1.10 Estimated GFR > 60.0 BUN/Creatinine Ratio 25.5 H Glucose 179 H Calcium 8.3 L Magnesium 1.9 Procalcitonin Discharge Plan Discharge Plan Patient Disposition: Home Health Service Discharge comment: You were admitted to the hospital with recurrent cellulitis. You had an MRI which did not show evidence of an infection in your bone. You're being discharged on one week of two separate antibiotics. Once you follow up with your PCP next week you may need to continue therapy. You should obtain a referral to a vascular surgeon as per recommendations by orthopedic surgery here to address your venous insufficiency. Discharge orders & Medications Prescriptions: New enalapril maleate 20 mg Tablet 20 mg PO DAILY 30 Days Qty: 30 RF: 0 tramadol 50 mg Tablet 50 mg PO TID PRN (Reason: Pain, Moderate (4-6)) 7 Days Qty: 15 RF: 0 cephalexin 500 mg capsule 500 mg PO QID 7 Days Qty: 28 RF: 0 doxycycline hyclate 100 mg capsule 100 mg PO BID 7 Days Qty: 14 RF: 0 Continued potassium chloride 20 mEq Tablet Extended Release 20 meq PO BID Qty: 0 RF: 0 allopurinol 300 MG tablet 300 mg PO QDAY Qty: 0 RF: 0 metformin 1,000 MG tablet extended release 24hr 1,000 mg PO BID Qty: 0 RF: 0 acetaminophen [Tylenol] 325 mg Tablet 650 mg PO Q4H PRN (Reason: Pain (Scale Score 4-6)) RF: 0 carvedilol 12.5 mg tablet 6.25 mg PO BID RF: 0 atorvastatin 40 mg Tablet 40 mg PO QPM RF: 0 gabapentin 300 mg Capsule 300 mg PO BEDTIME RF: 0 Eliquis 5 mg Tablet 5 mg PO BID RF: 0 aspirin 81 mg Tablet,Delayed Release (Dr/Ec) 81 mg PO DAILY RF: 0 Discontinued enalapril-hydrochlorothiazide 10-25 mg tablet 1 tab PO DAILY Qty: 30 RF: 0 Follow up/Referrals: Maykel Rodríguez MD [Primary Care Provider] - Discharge Health Status Health Concerns: Recurrent cellulitis Venous insufficiency Diet/Activity/Treatments Diet: Diet as Tolerated Activity: As tolerated, home PT Visit Report/Discharge Packet Instructions: DI for Cellulitis -- Adult, How to Prevent Falls Discharge Data Primary Care Provider: Maykel Rodríguez Quality VTE Deep Vein Thrombosis/Pulmonary Embolism Present on Admission: No
--- NOTE | 2019-08-04 10:36 | PT.IPTN ---
Current Diagnoses Cellulitis of right lower limb (07/30/19) Physical Therapy Treatment Note M2 PT-IP Current Condition Start: 07/31/19 12:44 Freq: NEEDED Status: Active Protocol: Document 07/31/19 16:23 AW (Rec: 07/31/19 16:50 AW [id number]) Physical Therapy Current Condition Current Condition Evaluation Date 07/31/19 Treatment Diagnosis RLE cellulitis, venous stasis, impaired mobility Onset Date 07/30/2019 Precautions Other Precautions Elevate the R LE as often as possible Weight Bearing Status Weight Bearing Status Weight Bear as Tolerated Allowed Weight Bearing Amount (enter % WBAT RLE but elevate at all or #) (%) times when not mobilizing. M3 PT-IP Subjective Start: 07/31/19 12:44 Freq: NEEDED Status: Active Protocol: Document 08/04/19 10:15 SP (Rec: 08/04/19 11:06 SP [id number]) Subjective Physical Therapy Visit Type Type Treatment Note Visit Start Time 10:15 Visit Stop Time 10:36 Total Visit Minutes 21 Number of SMALL PARTS ASSEMBLER Visits 2 Physical Therapy Visit Comments Patient Comments Pt willing to work with PT, complete caregiver training with , 1 step mgt with FWW . Patient Goals Go home with , attend outpatient PT at [facility]. Therapy Pain Assessment Pain Present Pain Present Denied Pain M4 PT-IP Mobility and Gait Start: 07/31/19 12:44 Freq: NEEDED Status: Active Protocol: Document 08/04/19 10:15 SP (Rec: 08/04/19 11:06 SP [id number]) PT-Transfer Assessment Sit to and From Stand Sit to and from Stand Minimal Assistance,1 Person Assistance,Use of Upper Extremities Equipment Transfer Assistive Device Gait Belt,Front Wheeled Walker Orthotic/Prosthetic Devices or Brace: No Transfers Transfer Destination Toilet Transfer Technique ambulated using FWW Transfer Ability Level of Assist Minimal Assistance,1 Person Assistance,Use of Upper Extremities Comments Mobility Comments Pt was up in chair when arrived. Caregiver training completed with demonstrating: gait belt donning, Min A sit to stand from low room chair using BUE on chair arms to stand then transition RUE then LUE to FWW for support. SMALL PARTS ASSEMBLER assisted donning pants and sock/shoes to prep hallway ambulation (R ankle swollen no worse than yesterday and no open wounds noted), stated helps him at home when needed. Patient able to fasten pant button in standing while CGA for safety with balance, no LOB. Pt required use bathroom when returned from walk, assisted in bathroom CGA, patient pivoted FWW fully in front until backed up to toilet and used BUE on R rail to complete sitting with CGA- Min A from with slow descent to toilet. Left patient on toilet with and instructed pull call light when completed for nursing informatics specialist help and safety to get up from low toilet with verbal confirmation. SMALL PARTS ASSEMBLER notified nurse mobility and DC suggestions and awareness of assist in bathroom needed soon . Gait Assessment Gait Gait Assistance Required: Contact Guard Assist,1 Person Assist Distance (Feet) 230 Able to Maintain Weight Bearing Status Yes During Gait Assistive Devices Assistive Device Gait Belt,Front Wheeled Walker Orthotic/Prosthetic Devices or Brace: No Gait Deviations General Gait Pattern Flexed Trunk Factors Limiting Gait Function Factors Limiting Gait Function Decreased Activity Tolerance, Decreased Strength,Poor Balance Comments Gait Comments Pt was ableto walk from room chair, complete 1 step mgt and complete ambulate around [facility] approx 230 ft using FWW and CGA provided by , stable and good pacing, intermitttent cuing for upright posture and body little closer to FWW as distance progressed, did not need stand rest breaks. Stair Climbing Assessment Evaluation Level of Assist On Stairs Minimal Assistance Devices Stair Climbing Assistive Devices Front Wheel Walker Technique/Endurance Stair Climbing Direction Ascend and Descend Stair Climbing Technique Step to Step Number of Steps Climbed 1 Stair Climbing Set # Repetitions (reps) 1 Comments Stair Climbing Comments Pt was able to complete 1 step mgt with fWW, CGA-low Min A ascend, CGA descend provided by with cuing provided by and therapist for FWW and body positioning for safety, no LOB/ stable. PT-Balance Assessment Sitting Balance and Reactions Static Sitting Balance Ability Normal Dynamic Sitting Balance Ability Normal Standing Balance and Reactions Static Standing Balance Ability Good Dynamic Standing Balance Ability Fair Device Used FWW M5 PT-IP Objective Assessments Start: 07/31/19 12:44 Freq: NEEDED Status: Active Protocol: Document 07/31/19 16:23 AW (Rec: 07/31/19 16:50 AW [id number]) Orientation Orientation/Cognition Level of Alertness Alert Orientation Name,Day of Week,Place, Situation Language Function Ability No Deficits Noted Safety Awareness Decreased Safety Awareness Memory Description No Deficits Noted Gross Range of Motion Upper Extremity ROM Assessment Within Functional Limits Lower Extremity ROM Assessment Right Impaired Impairments Pt has history of R ankle/ subtalar fusion limiting ankle ROM Strength Upper Extremity Strength Assessment Within Functional Limits Lower Extremity Strength Assessment Bilaterally Impaired Hip 4-/5 Knee L 4/5; R 3+/5 Ankle B 4-/5 Coordination Assessment Gross Coordination Gross Coordination WNL Sensation Assessment Sensation Gross Sensation Right LE Impaired,Left LE Impaired Light Touch Impaired Comments Sensation Comments 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 M6 PT-IP Treatment Start: 07/31/19 12:44 Freq: NEEDED Status: Active Protocol: Document 08/03/19 13:50 SP (Rec: 08/03/19 15:12 SP [id number]) Physical Therapy Treatment Education Education Provided Safety M7 PT-IP Assessment and Plan Start: 07/31/19 12:44 Freq: NEEDED Status: Active Protocol: Document 08/04/19 10:15 SP (Rec: 08/04/19 11:06 SP [id number]) PT Summary Assessment and Plan Potential Rehabilitation Potential Good Status of Condition at Evaluation Evolving Summary Impairments Pain,ROM,Strength,Balance, Sensation,Bed Mobility, Transfers,Gait,Activity Tolerance Progress Towards Goals Progressing Toward Goals Assessment Summary See mobility comments. Min A sit to stand from low chair ( CGA from higher bed yesterday) , CGA rest of mobility usign FWW gait and 1 step mgt. Recommend patient ok to go home with 24 assist and outpatient PT (Balance Point seen in past). Goals Bed Mobility Goal Independent Transfer Goal Independent,Front Wheeled Walker Gait Goal Independent,Front Wheel Walker Gait Distance 100 Days to Meet Goals 5 Frequency of Treatment Frequency Of Treatment Twice a Day Treatment Plan Physical Therapy Treatment Plan Bed Mobility Training,Transfer Training,Gait Training, Therapeutic Exercise,Balance Retraining,Discharge Planning, Neuromuscular Re-ed Other Recommendations and Next Treatment Recommend DC home with 24 /7 assist and outpt PT to progress strength, balance toward functional independence and PLOF when medically stable. Recommendations To Nursing Amount of Assist Needed 1 Person Assist Discharge Recommendations PT Discharge Recommendations Home with 24/7 Assist, Outpatient PT
--- NOTE | 2019-08-04 11:03 | OT.IPNOTE ---
Pt just completing session with VINE FRUIT FARMING SUPERVISOR and already dressed and now deciding not to shower at this time. Spoke to nursing regarding clarification for showering needs for pt's right leg. Otherwise, pt's has good understanding for all needs to assist pt. Pt and now deciding for pt to go to outpt PT versus home health. Per VINE FRUIT FARMING SUPERVISOR able to pass information to insurance case manager.
--- NOTE | 2019-08-04 13:18 | CM.DPNOTE ---
DC Note: According to therapy team; pt has been cleared to DC home w/family and outpt PT today. No barriers to safe DC home and no needs from this SOFTWARE DEVELOPMENT PROJECT MANAGER today JW
--- NOTE | 2019-08-04 13:22 | PC.NURSE ---
Discharge instructions and home care handouts reviewed with patient and his , they state understanding and have no further questions or concerns at this time. IV dc'd intact. Patient's state he has follow up appt. already scheduled with Dr. Rodríguez for Thursday, and will request referral for vascular surgeon as well as outpatient PT (per PT cleared for outpatient PT). Patient escorted out via wheelchair with all belongings by GROUNDWATER PROGRAMS DIRECTOR to be discharged to home with his . Per Dr. Freeman patient can wash his leg with mild soap and water, and pat dry.
== END 2019-08-04 13:30 | disposition home or self-care (01) | DRG 602 ==
LOC: ED 13:30 → AC 07-31 08:09
PROVIDERS: Internal Medicine; Nurse Practitioner Gerontology; Admitting Provider Internal Medicine; Emergency Provider Emergency Medicine; PCP Internal Medicine; Visit Provider Internal Medicine
DX: L03.115 Cellulitis of right lower limb (principal); I21.4 Non-ST elevation (NSTEMI) myocardial infarction; G93.41 Metabolic encephalopathy; N17.9 Acute kidney failure, unspecified; N18.3 Chronic kidney disease, stage 3 (moderate); E11.22 Type 2 diabetes mellitus with diabetic chronic kidney disease; I48.0 Paroxysmal atrial fibrillation; E83.42 Hypomagnesemia; I12.9 Hypertensive chronic kidney disease with stage 1 through stage 4 chronic kidney disease, or unspecified chronic kidney disease; I87.8 Other specified disorders of veins; E78.5 Hyperlipidemia, unspecified; M10.9 Gout, unspecified; M19.91 Primary osteoarthritis, unspecified site; G47.33 Obstructive sleep apnea (adult) (pediatric); Z79.84 Long term (current) use of oral hypoglycemic drugs; Z79.01 Long term (current) use of anticoagulants
CPT/HCPCS: 36415; 73590; 73630; 73701; 73723; 80048; 80053; 80202; 81001; 82140; 82962; 83036; 83605; 83690; 83735; 84145; 84550; 85025; 85651; 86140; 87040; 93005; 93971; 96361; 96365; 97110; 97116; 97162; 97165; 97530; 99285; J0696; J1885; J3370; J3475

== ENCOUNTER → 2020-01-16 10:21 | Outpatient (CLI) | payer MEDICARE, BC, SELFPAY ==
[2019-07-30 15:36] VITALS: BMI 35.9
[2020-01-16 11:21] LABS: Add Manual Diff / Slide Review NO; Basophils Absolute Auto 0 /uL (0-100); Basophils Percent Auto 0.5 % (0-2); Eosinophils Absolute Auto 200 /uL (0-450); Eosinophils Percent Auto 4.5 % (2-4); Hematocrit 37.3 % (41-53); Hemoglobin 12.3 g/dL (13.5-17.5); Lymphocytes Absolute Auto 1900 /uL (1100-4500); Lymphocytes Percent Auto 34.9 % (25-40); Mean Corpuscular HGB Conc 33.1 % (30-36); Mean Corpuscular Hemoglobin 34.3 PG (26-34); Mean Corpuscular Volume 103.7 fL (80-100); Monocytes Absolute Auto 500 /uL (0-900); Monocytes Percent Auto 9.5 % (3-14); Neutrophils Absolute Auto 2800 /uL (1500-7000); Neutrophils Percent Auto 50.6 % (50-75); Platelet Count 115 X10^3/uL (150-400); Red Blood Cell Count 3.59 X10^6/uL (4.5-5.9); Red Cell Distribution Width 15.5 % (11.6-14.8); White Blood Cell Count 5.5 X10^3/uL (4.5-11.0)
[2020-01-16 11:57] LABS: Creatinine Urine Random 85.6 mg/dL
[2020-01-16 12:01] LABS: Microalbumi Creatinin Ratio Ur 77.1 ug/mg CR (<30); Microalbumin Urine Random 6.6 mg/dL (0-1.6)
[2020-01-16 12:23] LABS: Alanine Aminotransferase 23 IU/L (<50); Albumin 3.7 g/dL (3.5-5.0); Albumin Globulin Ratio 1.2 (1.0-2.8); Alkaline Phosphatase 75 U/L (38-126); Aspartate Aminotransferase 37 IU/L (17-59); BUN Creatinine Ratio 30.8 (6-22); Bilirubin Total 0.8 mg/dL (0.2-1.3); Blood Urea Nitrogen 32 mg/dL (9-20); Calcium 9.2 mg/dL (8.4-10.2); Carbon Dioxide 24 mmol/L (22-32); Chloride 104 mmol/L (98-107); Estimated Glomerular Filt Rate > 60.0 mL/min (>60); Glucose 157 mg/dL (80-110); HEMOLYSIS < 15 (0-50); Sodium 136 mmol/L (137-145); Total Protein 6.7 g/dL (6.3-8.2)
[2020-01-16 12:24] LABS: Potassium 5.5 mmol/L (3.4-5.1)
[2020-01-16 17:16] LABS: Folate 16.4 ng/mL (2.76-20.0); Vitamin B12 311 pg/mL (239-931)
== END ==
PROVIDERS: PCP Internal Medicine; Referring Provider Internal Medicine; Visit Provider Internal Medicine
DX: N18.9 Chronic kidney disease, unspecified (principal); E11.21 Type 2 diabetes mellitus with diabetic nephropathy; D69.6 Thrombocytopenia, unspecified
CPT/HCPCS: 36415; 80053; 82043; 82570; 82607; 82746; 85025

== ENCOUNTER → 2020-02-15 13:48 | Outpatient (CLI) | payer MEDICARE, BC, SELFPAY ==
[2019-07-30 15:36] VITALS: BMI 35.9
--- NOTE | 2020-02-15 | DI.RAD.S_ITS ---
PROCEDURE: XR HAND RT 2V INDICATIONS: RIGHT HAND PAIN TECHNIQUE: 3 views of the hand(s) acquired. COMPARISON: None. FINDINGS: Bones: No fractures or dislocations. Carpal bones are normally aligned. No suspicious bony lesions. 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 Also is severe at the base of the 1st metacarpal as it articulates against the trapezium. No erosive arthritis is found. Soft tissues: No suspicious soft tissue calcifications. 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 Dictated by: Ben Rand M.D. on 02/15/2020 at 15:02 Approved by: Ben Rand M.D. on 02/15/2020 at 15:05
--- NOTE | 2020-02-15 | DI.RAD.S_ITS ---
PROCEDURE: XR WRIST RT 2V INDICATIONS: RIGHT WRIST PAIN TECHNIQUE: 4 views of the wrist were acquired. COMPARISON: [facility], CR, XR HAND RT 2V, 02/15/2020, 13:57. [facility], CR, XR WRIST 3+ VIEWS RIGHT, 02/01/2020, 12:09. [facility], CR, XR HAND 3+ VIEWS RIGHT, 02/01/2020, 12:09. FINDINGS: Bones: No fractures or dislocations. No suspicious bony lesions. Scaphoid view: There is moderately severe to severe degenerative osteoarthritic change at the distal scaphoid as it articulates against the trapezium and the trapezium itself is also severely degenerated as it articulates against the base of the 1st metacarpal which is subluxed laterally. Soft tissues: No suspicious soft tissue calcifications. IMPRESSION: Moderately severe to severe degenerative osteoarthritic change involving the intercarpal and carpal-metacarpal articulations laterally, including involving the scaphoid and the base of the 1st metacarpal with the trapezium between. No trauma. Dictated by: Ben Rand M.D. on 02/15/2020 at 15:01 Approved by: Ben Rand M.D. on 02/15/2020 at 15:02
== END ==
PROVIDERS: PCP Internal Medicine; Referring Provider Internal Medicine; Visit Provider Internal Medicine
DX: M79.641 Pain in right hand (principal); M25.531 Pain in right wrist; M19.041 Primary osteoarthritis, right hand
CPT/HCPCS: 73100; 73120

== ENCOUNTER 2020-11-03 03:32 | Emergency (ER) | payer MEDICARE, BC, SELFPAY ==
[2019-07-30 15:36] VITALS: BMI 35.9
[2020-11-03] VITALS (10 sets, daily range): BP systolic 81–139; BP diastolic 55–81; PULSE 89–105; RESP 22–28; TEMP 37.2; O2SAT 94–99; BMI 36.4
--- NOTE | 2020-11-03 03:47 | DI.CT.S_ITS ---
PROCEDURE: CT CHEST ABD PEL W CON INDICATIONS: Trauma TECHNIQUE: After the administration of intravenous contrast, 5 mm thick sections acquired from the lung apices to the symphysis. 2.5 mm thick coronal and sagittal reformats were acquired. Additional 7 mm thick coronal maximum intensity projection (MIP) reformats acquired through the lungs. Optional 10-minute delayed imaging may be performed from the kidneys to the bladder. For radiation dose reduction, the following was used: automated exposure control, adjustment of mA and/or kV according to patient size. COMPARISON: [facility], CT, PE STUDY (CTA CHEST), 04/30/2010, 10:42. [facility], CT, CT HEAD/BRAIN WO CON, 11/03/2020, 3:56. FINDINGS: Image quality: There is artifact associated with the metallic hardware. There is streak artifact seen through the upper abdomen. CHEST: Lungs: No pulmonary contusions or lacerations. There is mild dependent atelectasis. No pneumothorax or hemothorax. Central and peripheral airways appear patent and normal in caliber. Mediastinum: No mediastinal hematomas. Heart size is normal. No pericardial effusion. Thoracic aorta and pulmonary arteries demonstrate normal size and enhancement. No mediastinal or hilar adenopathy. Esophagus is normal in caliber. No hiatal hernia. Chest wall: No rib fractures. No subcutaneous emphysema. No axillary or supraclavicular adenopathy. Thyroid gland demonstrates no significant abnormality. ABDOMEN: Solid organs: Liver is normal in size and enhancement, without lacerations. The liver demonstrates a mildly nodular contour. Gallbladder demonstrates gallstones within its lumen. Biliary system is non-dilated. Pancreas enhances normally, without transection. Spleen is normal in size and enhancement, without lacerations. No adrenal hematomas. Both kidneys enhance normally, without hydronephrosis or lacerations. Peritoneum and bowel: No free fluid or air. Unenhanced bowel loops demonstrate normal wall thickness and caliber. Nodes and vessels: Upper abdominal varices No retroperitoneal or mesenteric adenopathy. Aorta and inferior vena cava are normal in size and enhancement. Atherosclerotic calcification is noted. Miscellaneous: No ventral hernias. PELVIS: Genitourinary: Bladder wall thickness is normal. Miscellaneous: There is an enlarged left groin lymph node seen, with surrounding inflammatory change that measures 3.3 x 2.2 cm in greatest axial dimension smaller enlarged groin lymph nodes are seen on both sides. There is a fat-containing left inguinal hernia seen. Bones: Left shoulder arthroplasty hardware is seen. Pelvic ring and hip joints appear intact. No vertebral compression fractures. S-shaped scoliotic curvature is seen. Lumbosacral fixation hardware is seen, without acute complication identified. Degenerative changes are seen throughout, including involving the sacroiliac joints. IMPRESSION: No significant posttraumatic abnormality is identified. Enlarged groin lymph nodes are seen, with the largest seen on the left. Apparent liver cirrhosis, with upper abdominal varices. Please correlate with known patient history. Incidental note is made of: Left shoulder arthroplasty Gallstones Lumbosacral fixation hardware Fat containing left inguinal hernia Note: No significant discrepancy from the preliminary report. Dictated by: Nehemias Castillo M.D. on 11/03/2020 at 7:20 Approved by: Nehemias Castillo M.D. on 11/03/2020 at 7:41
--- NOTE | 2020-11-03 03:47 | DI.CT.S_ITS ---
PROCEDURE: CT HEAD/BRAIN WO CON INDICATIONS: Trauma TECHNIQUE: Noncontrast 4.5 mm thick angled axial sections acquired from the foramen magnum to the vertex, with coronal and sagittal reformats. For radiation dose reduction, the following was used: automated exposure control, adjustment of mA and/or kV according to patient size. COMPARISON: None. FINDINGS: Image quality: Excellent. CSF spaces: Basal cisterns are patent. No extra-axial fluid collections. The ventricles are symmetric in size and shape. Brain: No intracranial bleeds or masses. There is cerebral volume loss for age, with resultant ventricular and sulcal prominence. There are periventricular and deep white matter chronic small vessel ischemic changes. There is intracranial internal carotid artery atherosclerosis. Skull and face: Calvarium and visualized facial bones appear intact, without suspicious lesions. Sinuses: Visualized sinuses and mastoids are clear. IMPRESSION: No acute intracranial hemorrhage is seen. No acute intracranial process is seen. Note: No significant discrepancy from the preliminary report. Dictated by: Nehemias Castillo M.D. on 11/03/2020 at 7:19 Approved by: Nehemias Castillo M.D. on 11/03/2020 at 7:19
[2020-11-03] MEDS: SODIUM CHLORIDE 0.9% 1,000 ML 150 ML IV (04:08)
[2020-11-03 04:15] LABS: Add Manual Diff / Slide Review YES; Hematocrit 39.7 % (41-53); Hemoglobin 13.2 g/dL (13.5-17.5); Mean Corpuscular HGB Conc 33.2 % (30-36); Mean Corpuscular Hemoglobin 34.1 PG (26-34); Mean Corpuscular Volume 102.9 fL (80-100); Platelet Count 121 X10^3/uL (150-400); Red Blood Cell Count 3.86 X10^6/uL (4.5-5.9); White Blood Cell Count 14.5 X10^3/uL (4.5-11.0)
[2020-11-03 04:20] LABS: Creatine Kinase 689 U/L (55-170)
--- NOTE | 2020-11-03 04:21 | ED_ITS ---
HPI - Fall General Chief Complaint: Fall Stated Complaint: Weakness Time Seen by Provider: 11/03/20 03:33 Source: patient and EMS Mode of arrival: EMS Limitations: no limitations History of Present Illness HPI Narrative: 80-year-old male nonsmoker with history of AFib on Eliquis, hypertension and hyperlipidemia presents by EMS for evaluation of generalized weakness as well as chest pain since falling out of bed earlier tonight. He had rolled out of bed in became wedged between the bed and the wall, his chest was bleeding forward on a countertop in his arms were held above his head. He was in this position for quite some time and had been seen and evaluated by EMS and brought here for evaluation. He denies any head neck or back pain. He did not hit his head. He does have anterior chest wall pain and there is an abrasion but he denies any shortness of breath, cough nor fever or chills. He denies abdominal pain, nausea or vomiting. He does have abrasions on his left anterior knee but is otherwise well and free of complaint MD complaint: fall Onset (ago): hour(s) Fall from: out of bed Fall witnessed: no Place fall occurred: home Loss of consciousness: none Prolonged down time: yes Symptoms prior to fall: none Context: tripped/slipped Location of injury: chest Severity: moderate Quality: burning Associated symptoms (after fall): chest pain Related Data Home Medications Medication Instructions Recorded Confirmed potassium chloride 20 meq PO BID #0 04/30/10 07/30/19 allopurinol 300 mg PO QDAY #0 09/10/16 07/30/19 metformin 1,000 mg PO BID #0 09/10/16 07/30/19 aspirin 81 mg PO DAILY 04/19/18 07/30/19 acetaminophen [Tylenol] 650 mg PO Q4H PRN 06/20/19 07/30/19 carvedilol 6.25 mg PO BID 06/20/19 07/30/19 Eliquis 5 mg PO BID 07/30/19 07/30/19 atorvastatin 40 mg PO QPM 07/30/19 07/30/19 gabapentin 300 mg PO BEDTIME 07/30/19 07/30/19 Allergies Allergy/AdvReac Type Severity Reaction Status Date / Time No Known Drug Allergies Allergy Verified 07/30/19 11:42 Review of Systems Constitutional Constitutional: Denies chills, Denies fatigue, Denies fever(s), Denies frequent falls, Denies lethargy and Denies weakness Eyes Eyes: Denies change in vision, Denies eye discharge, Denies irritation and Denies loss of vision ENT Ears, Nose, Mouth, and Throat: Denies change in voice, Denies dizziness, Denies neck pain, Denies sore throat and Denies throat swelling Cardiovascular Cardiovascular: Reports chest pain, Denies irregular heart rhythm, Denies lightheadedness, Denies palpitations, Denies dyspnea, Denies dyspnea on exertion and Denies orthopnea Respiratory Respiratory: Denies cough, Denies dyspnea, Denies dyspnea on exertion and Denies wheezing Gastrointestinal Gastrointestinal: Denies abdominal pain, Denies change in bowel habits, Denies diarrhea, Denies nausea and Denies vomiting Musculoskeletal Musculoskeletal: Denies neck pain and Denies numbness Integumentary/Breasts Skin/Breast: Denies pruritus, Reports erythema, Denies rash and Reports wounds Neurologic Neurologic: Denies behavioral changes, Denies confusion, Denies dizziness, Denies frequent falls, Denies loss of vision, Denies numbness and Denies weakness Psychiatric Psychiatric: Denies anxiety, Denies behavioral changes, Denies confusion, Denies depression, Denies homicidal ideation and Denies suicidal ideation Endocrine Endocrine: Denies fatigue, Denies flushing and Denies palpitations Hematologic/Lymphatic Hematologic/Lymphatic: Denies easy bruising Allergic/Immunologic Allergic/Immunologic: Denies urticaria, Denies throat swelling and Denies wheezing Patient History Medical History (Updated 11/03/20 @ 05:40 by Juvencio Laird DO) Atrial fibrillation Back pain Cataract Chronic kidney disease Diabetes Foot ulcer Foot ulcer, right Gout History of cellulitis History of stress test (~2008) Hypercholesterolemia Hyperlipidemia Leg pain Lower extremity edema Mild cognitive impairment Obese Osteoarthritis of spine with radiculopathy, lumbar region Other secondary scoliosis, lumbar region Paroxysmal A-fib Peripheral vascular disease Sleep apnea Spinal stenosis of lumbar region at multiple levels Spondylolisthesis at L2-L3 level Venous insufficiency Surgical History Cataract extraction status of right eye History of ankle fusion History of colonoscopy (~2013) History of hemorrhoidectomy (~1959) History of lumbar laminectomy (~02/2016) History of shoulder replacement (~2017) History of total knee arthroplasty S/p reverse total shoulder arthroplasty Family History Mother Diabetes mellitus Social History household members: spouse Smoking Status: Never smoker alcohol intake: current Smoking Status: Never smoker alcohol intake frequency: holidays/special occasions only Substance Use Type: does not use Exam Narrative Exam Narrative: GENERAL: [80] year old patient appears stated age. Well- nourished, well-developed patient, in mild distress. GCS 15 HEAD: Atraumatic. Normocephalic. EYES: Pupils equal round and reactive. Extraocular motions intact. No scleral icterus. No injection or drainage. ENT: Nose without bleeding, purulent drainage. Throat without erythema, tonsillar hypertrophy or exudate. Airway patent. NECK: Trachea midline. Non tender CARDIOVASCULAR: Irregular rate and rhythm rhythm without murmurs, gallops, or rubs. Red abrasion to anterior chest, no swelling or crepitance RESPIRATORY: Clear to auscultation. Breath sounds equal bilaterally. No wheezes, rales, or rhonchi. GASTROINTESTINAL: Abdomen soft, non-tender, nondistended. EXTREMITIES: Full but painful range of motion of the left knee with superficial abrasion and minimal swelling. No effusion, no ligamentous instability, closed and neurovascularly intact. BACK: Nontender without deformity or crepitance. No flank tenderness. NEURO: AOx3. SKIN: No rash or erythema of visible areas Initial Vital Signs Initial Vital Signs: Vital Signs Pulse Rate 105 H 11/03/20 03:35 Blood Pressure 124/62 11/03/20 03:35 Pulse Oximetry 96 11/03/20 03:35 Course Course Course Narrative: 0400 - patient meets severe sepsis criteria with brief (likely erroneous) BP in the 80s, but also bump in creatinine and Lactate. Fluids have been ordered at 30mL/kg of IBW, blood Cx x2 have been drawn prior to administration of ABX. Orders Ordered: ED Orders 11/03/20 EKG-12 Lead Routine 11/03/20 03:47 CT chest abd pel w con Stat CT head/brain wo con Stat EKG-12 Lead Stat 11/03/20 04:00 Complete Blood Count AUTO DIFF Stat Comprehensive Metabolic Panel Stat Ethanol (ETOH) Stat Lactate (Lactic Acid) Stat Lipase Stat Prothrombin Time INR Stat Troponin & CK Cardiac Panel Stat 11/03/20 04:30 Type and Screen Stat 11/03/20 04:45 Blood Culture Stat 11/03/20 04:52 COVID19 - ADMIT ([facility] swab/PCR) Stat 11/03/20 05:27 Urine Microscopic Stat 11/03/20 06:32 Troponin I Stat Lactated Ringer's (Lactated Ringers) 2,535 mls @ 845 mls/hr 30 ml/kg infuse over 3 hr (2535 ml) IV NOW ONE Stop: 11/03/20 07:31 Last Admin: 11/03/20 04:47 Dose: 845 mls/hr Documented by: INGRID Discontinued Medications Sodium Chloride (Normal Saline 0.9%) 1,000 mls @ 150 mls/hr IV CONT ALEM Last Infusion: 11/03/20 05:52 Dose: 150 mls/hr Documented by: Infusion: 11/03/20 04:45 Dose: 150 mls/hr Documented by: Admin: 11/03/20 04:08 Dose: 150 mls/hr Documented by: INGRID Ceftriaxone Sodium/Dextrose (Rocephin) 2 gm in 50 mls @ 100 mls/hr IV NOW ONE Stop: 11/03/20 05:02 Last Infusion: 11/03/20 05:37 Dose: 0 mls/hr Documented by: Admin: 11/03/20 04:51 Dose: 100 mls/hr Documented by: INGRID Consultations Consultation #1: hospitalist at [facility](Stephanie) is happy to accept, bed to be available at 0700 Vital Signs Vital signs: Vital Signs - 8 hr 11/03/20 03:35 11/03/20 03:38 11/03/20 04:00 Temperature 99.0 F Pulse Rate 105 H 105 H 105 H Respiratory Rate 24 28 H Blood Pressure 124/62 124/62 81/55 L Pulse Oximetry 96 94 94 11/03/20 04:25 11/03/20 04:30 11/03/20 05:00 Temperature Pulse Rate 93 H 89 95 H Respiratory Rate 27 H 24 28 H Blood Pressure 117/62 120/81 Pulse Oximetry 98 99 98 11/03/20 05:30 11/03/20 06:00 Temperature Pulse Rate 95 H 92 H Respiratory Rate 23 24 Blood Pressure 139/71 127/72 Pulse Oximetry 99 97 - Fall Lab Data Result diagrams: 11/03/20 04:00 11/03/20 04:00 Labs: Lab Results 11/03/20 11/03/20 11/03/20 Range/Units 04:00 04:00 04:00 WBC 14.5 H (4.5-11.0) X10^3/uL RBC 3.86 L (4.5-5.9) X10^6/uL Hgb 13.2 L (13.5-17.5) g/dL Hct 39.7 L (41-53) % MCV 102.9 H (80-100) fL MCH 34.1 H (26-34) PG MCHC 33.2 (30-36) % RDW 15.0 H (11.6-14.8) % Plt Count 121 L (150-400) X10^3/uL Neut % (Auto) Not Reportable Lymph % (Auto) Not Reportable [place] % (Auto) Not Reportable Eos % (Auto) Not Reportable Baso % (Auto) Not Reportable Lymph # (Auto) Not Reportable [place] # (Auto) Not Reportable Baso # (Auto) Not Reportable Total Counted 100 Seg Neutrophils % 77.0 H (38-70) % Band Neutrophils % 10.0 H (3-7) % Lymphocytes % (Manual) 9.0 L (25-45) % Monocytes % (Manual) 4.0 (2-11) % Neutrophils # (Manual) 65972 H (4726-7442) /uL Macrocytosis 1+ H PT 16.9 H (10.1-12.7) SECONDS INR 1.5 H (0.9-1.3) Sodium (137-145) mmol/L Potassium (3.4-5.1) mmol/L Chloride (98-107) mmol/L Carbon Dioxide (22-32) mmol/L BUN (9-20) mg/dL Creatinine (0.66-1.25) mg/dL Estimated GFR (>60) mL/min BUN/Creatinine Ratio (6-22) Glucose (80-110) mg/dL Lactate (0.7-2.1) mmol/L Calcium (8.4-10.2) mg/dL Total Bilirubin (0.2-1.3) mg/dL AST (17-59) IU/L ALT (<50) IU/L Alkaline Phosphatase (38-126) U/L Total Creatine Kinase 689 H (55-170) U/L CK-MB (CK-2) 4.64 H (<2.37) ng/mL CK-MB (CK-2) Rel Index 0.7 L (1.5-5.0) % Troponin I 0.177 H* (0.01-0.034) ng/mL Total Protein (6.3-8.2) g/dL Albumin (3.5-5.0) g/dL Globulin (1.7-4.1) g/dL Albumin/Globulin Ratio (1.0-2.8) Lipase (23-300) U/L Urine RBC (0-5/HPF) Urine WBC (0-5/HPF) Urine Bacteria (None) Hyaline Casts (None) Ur Culture Indicated? Ethyl Alcohol ( - 10) mg/dL SARS-CoV-2 (PCR) (Negative) Blood Type Antibody Screen 11/03/20 11/03/20 11/03/20 Range/Units 04:00 04:00 04:30 WBC (4.5-11.0) X10^3/uL RBC (4.5-5.9) X10^6/uL Hgb (13.5-17.5) g/dL Hct (41-53) % MCV (80-100) fL MCH (26-34) PG MCHC (30-36) % RDW (11.6-14.8) % Plt Count (150-400) X10^3/uL Neut % (Auto) Lymph % (Auto) [place] % (Auto) Eos % (Auto) Baso % (Auto) Lymph # (Auto) [place] # (Auto) Baso # (Auto) Total Counted Seg Neutrophils % (38-70) % Band Neutrophils % (3-7) % Lymphocytes % (Manual) (25-45) % Monocytes % (Manual) (2-11) % Neutrophils # (Manual) (8576-8518) /uL Macrocytosis PT (10.1-12.7) SECONDS INR (0.9-1.3) Sodium 135 L (137-145) mmol/L Potassium 4.5 (3.4-5.1) mmol/L Chloride 105 (98-107) mmol/L Carbon Dioxide 20 L (22-32) mmol/L BUN 36 H (9-20) mg/dL Creatinine 1.48 H (0.66-1.25) mg/dL Estimated GFR 45.7 L (>60) mL/min BUN/Creatinine Ratio 24.3 H (6-22) Glucose 184 H (80-110) mg/dL Lactate 3.5 H (0.7-2.1) mmol/L Calcium 9.4 (8.4-10.2) mg/dL Total Bilirubin 0.9 (0.2-1.3) mg/dL AST 46 (17-59) IU/L ALT 25 (<50) IU/L Alkaline Phosphatase 61 (38-126) U/L Total Creatine Kinase (55-170) U/L CK-MB (CK-2) (<2.37) ng/mL CK-MB (CK-2) Rel Index (1.5-5.0) % Troponin I (0.01-0.034) ng/mL Total Protein 6.9 (6.3-8.2) g/dL Albumin 3.8 (3.5-5.0) g/dL Globulin 3.1 (1.7-4.1) g/dL Albumin/Globulin Ratio 1.2 (1.0-2.8) Lipase 136 (23-300) U/L Urine RBC (0-5/HPF) Urine WBC (0-5/HPF) Urine Bacteria (None) Hyaline Casts (None) Ur Culture Indicated? Ethyl Alcohol < 10 ( - 10) mg/dL SARS-CoV-2 (PCR) (Negative) Blood Type A Negative Antibody Screen Negative 11/03/20 11/03/20 Range/Units 04:52 05:27 WBC (4.5-11.0) X10^3/uL RBC (4.5-5.9) X10^6/uL Hgb (13.5-17.5) g/dL Hct (41-53) % MCV (80-100) fL MCH (26-34) PG MCHC (30-36) % RDW (11.6-14.8) % Plt Count (150-400) X10^3/uL Neut % (Auto) Lymph % (Auto) [place] % (Auto) Eos % (Auto) Baso % (Auto) Lymph # (Auto) [place] # (Auto) Baso # (Auto) Total Counted Seg Neutrophils % (38-70) % Band Neutrophils % (3-7) % Lymphocytes % (Manual) (25-45) % Monocytes % (Manual) (2-11) % Neutrophils # (Manual) (8001-6852) /uL Macrocytosis PT (10.1-12.7) SECONDS INR (0.9-1.3) Sodium (137-145) mmol/L Potassium (3.4-5.1) mmol/L Chloride (98-107) mmol/L Carbon Dioxide (22-32) mmol/L BUN (9-20) mg/dL Creatinine (0.66-1.25) mg/dL Estimated GFR (>60) mL/min BUN/Creatinine Ratio (6-22) Glucose (80-110) mg/dL Lactate (0.7-2.1) mmol/L Calcium (8.4-10.2) mg/dL Total Bilirubin (0.2-1.3) mg/dL AST (17-59) IU/L ALT (<50) IU/L Alkaline Phosphatase (38-126) U/L Total Creatine Kinase (55-170) U/L CK-MB (CK-2) (<2.37) ng/mL CK-MB (CK-2) Rel Index (1.5-5.0) % Troponin I (0.01-0.034) ng/mL Total Protein (6.3-8.2) g/dL Albumin (3.5-5.0) g/dL Globulin (1.7-4.1) g/dL Albumin/Globulin Ratio (1.0-2.8) Lipase (23-300) U/L Urine RBC 0-1/hpf (0-5/HPF) Urine WBC None seen (0-5/HPF) Urine Bacteria None seen (None) Hyaline Casts 0-1/lpf (None) Ur Culture Indicated? Cult not indicated Ethyl Alcohol ( - 10) mg/dL SARS-CoV-2 (PCR) Negative (Negative) Blood Type Antibody Screen Urine Dip Bedside Urine Glucose Negative Bedside Urine Bilirubin - Negative Bedside Urine Ketone - Negative Urine Specific [place] 1.020 Bedside Urine Occult Blood +++ Bedside Urine pH 6.0 Bedside Urine Protein ++ 100 Bedside Urine Urobilinogen - Negative Bedside Urine Nitrite - Negative Bedside Urine Leukocytes - Negative Esterase Imaging Data CT scan - head: Radiologist's Impression: NO intracranial trauma CT scan - chest: Radiologist's Impression: No evidence of solid organ or visceral injury. Findings consistent with underlying cirrhosis and possible portal venous hypertension. Cholelithiasis. MDM Narrative Medical decision making narrative: Patient brought by S for weakness and fall from bed. Patient complains of chest pain and abrasion, denies any head, neck or back pain. States that he has been increasingly weak over the past day or so but denies any specific upper respiratory trouble, chest pain, abdominal pain, urinary complaints. He is evaluated initially as trauma with very reassuring images, labs and exam then become focused severe sepsis, dehydration, kidney failure and and STEMI. Patient given fluids, antibiotics. Multiple EKG showed no obvious occlusive or ischemic change. Patient requires transfer as he has elevated troponin we do not have ability to evaluate on the weekend. Critical Care Time Critical Care Time Critical Care Time: Yes Total Critical Care Time: 30 Attestation: The high probability of a clinically significant, sudden or life threatening deterioration of the [CV] system(s) required my full and direct attention, intervention and personal management. The aggregate critical care time was [30] minutes. This time is in addition to time spent performing reported procedures but includes the following: [x] Data Review and interpretation [x] Patient assessment and monitoring of vital signs [x] Documentation [x] Medication orders and management Discharge Plan Departure Patient Disposition: [facility] Clinical Impression: Acute non-ST elevation myocardial infarction (NSTEMI), Severe sepsis, Weakness Acute renal failure Qualifiers: Acute renal failure type: unspecified Qualified Code(s): N17.9 - Acute kidney failure, unspecified Chest wall contusion Qualifiers: Encounter type: initial encounter Laterality: unspecified laterality Qualified Code(s): S20.219A - Contusion of unspecified front wall of thorax, initial encounter Prescriptions: No Action potassium chloride 20 mEq Tablet Extended Release 20 meq PO BID Qty: 0 RF: 0 allopurinol 300 MG tablet 300 mg PO QDAY Qty: 0 RF: 0 metformin 1,000 MG tablet extended release 24hr 1,000 mg PO BID Qty: 0 RF: 0 acetaminophen [Tylenol] 325 mg Tablet 650 mg PO Q4H PRN (Reason: Pain (Scale Score 4-6)) RF: 0 carvedilol 12.5 mg tablet 6.25 mg PO BID RF: 0 atorvastatin 40 mg Tablet 40 mg PO QPM RF: 0 gabapentin 300 mg Capsule 300 mg PO BEDTIME RF: 0 Eliquis 5 mg Tablet 5 mg PO BID RF: 0 aspirin 81 mg Tablet,Delayed Release (Dr/Ec) 81 mg PO DAILY RF: 0 Referrals: Mayekl Rodríguez MD [Primary Care Provider] -
[2020-11-03 04:22] LABS: Alanine Aminotransferase 25 IU/L (<50); Albumin 3.8 g/dL (3.5-5.0); Albumin Globulin Ratio 1.2 (1.0-2.8); Alkaline Phosphatase 61 U/L (38-126); Aspartate Aminotransferase 46 IU/L (17-59); BUN Creatinine Ratio 24.3 (6-22); Bilirubin Total 0.9 mg/dL (0.2-1.3); Blood Urea Nitrogen 36 mg/dL (9-20); Calcium 9.4 mg/dL (8.4-10.2); Carbon Dioxide 20 mmol/L (22-32); Chloride 105 mmol/L (98-107); Estimated Glomerular Filt Rate 45.7 mL/min (>60); Ethanol (ETOH) < 10 mg/dL; Globulin 3.1 g/dL (1.7-4.1); Glucose 184 mg/dL (80-110); HEMOLYSIS < 15 (0-50); Lipase 136 U/L (23-300); Potassium 4.5 mmol/L (3.4-5.1); Sodium 135 mmol/L (137-145); Total Protein 6.9 g/dL (6.3-8.2)
[2020-11-03 04:27] LABS: INR 1.5 (0.9-1.3); Prothrombin Time 16.9 SECONDS (10.1-12.7)
[2020-11-03 04:36] LABS: CKMB % Relative Index 0.7 % (1.5-5.0); Creatine Kinase MB 4.64 ng/mL (<2.37)
[2020-11-03 04:41] LABS: Troponin I 0.177 ng/mL (0.01-0.034)
[2020-11-03] MEDS: LACTATED RINGERS 845 ML IV (04:47)
[2020-11-03] MEDS: CEFTRIAXONE 2 GM/50 ML FROZ.PIGGY IV (04:51)
[2020-11-03 04:53] LABS: Lactate (Lactic Acid) 3.5 mmol/L (0.7-2.1)
[2020-11-03 05:58] LABS: COVID19 - ADMIT (NP swab/PCR) Negative (Negative)
[2020-11-03 06:35] LABS: Bacteria Urine None Seen; Culture Indicated Urine Cult Not Indicated; Hyaline Casts Urine 0-1/LPF; RBC Urine 0-1/HPF (0-5/HPF); WBC Urine None Seen (0-5/HPF)
[2020-11-03 06:37] LABS: Reflexed Lactate in 2 Hours Y
[2020-11-03 06:41] LABS: Neutrophils Absolute Manual 12615 /uL (3000-5900); Total Cells Counted 100
[2020-11-03 06:42] LABS: Macrocytosis 1+
[2020-11-03 06:57] LABS: Lactate 2HR (Lactic Acid Rflx) 2.2 mmol/L (0.7-2.1)
[2020-11-03 07:14] LABS: Troponin I 0.277 ng/mL (0.01-0.034)
== END 2020-11-03 07:28 | disposition short-term general hospital (02) ==
PROVIDERS: Emergency Provider Emergency Medicine; PCP Internal Medicine
DX: I21.4 Non-ST elevation (NSTEMI) myocardial infarction (principal); A41.9 Sepsis, unspecified organism; R53.1 Weakness; N17.9 Acute kidney failure, unspecified; S20.219A Contusion of unspecified front wall of thorax, initial encounter; R07.9 Chest pain, unspecified; I48.91 Unspecified atrial fibrillation; Z79.01 Long term (current) use of anticoagulants; Z20.822 Contact with and (suspected) exposure to COVID-19; W06.XXXA Fall from bed, initial encounter
CPT/HCPCS: 36415; 70450; 71260; 74177; 80053; 80320; 81003; 81015; 82550; 82553; 83605; 83690; 84484; 85007; 85025; 85610; 86850; 86900; 86901; 87040; 87635; 93005; 93010; 96361; 96365; 99284; 99291; C9803; J0696; Q9967

== ENCOUNTER → 2022-01-16 16:09 | Outpatient (ROUT) | payer MEDICARE, BC, SELFPAY ==
[2019-07-30 15:36] VITALS: BMI 35.9
[2022-01-16 16:19] LABS: Add Manual Diff / Slide Review NO; Basophils Absolute Auto 0 /uL (0-100); Basophils Percent Auto 0.5 % (0-2); Eosinophils Absolute Auto 500 /uL (0-450); Eosinophils Percent Auto 8.4 % (2-4); Hematocrit 30.7 % (41-53); Hemoglobin 10.2 g/dL (13.5-17.5); Lymphocytes Absolute Auto 1900 /uL (1100-4500); Lymphocytes Percent Auto 29.4 % (25-40); Mean Corpuscular HGB Conc 33.3 % (30-36); Mean Corpuscular Hemoglobin 31.2 PG (26-34); Mean Corpuscular Volume 93.8 fL (80-100); Monocytes Absolute Auto 500 /uL (0-900); Monocytes Percent Auto 7.8 % (3-14); Neutrophils Absolute Auto 3500 /uL (1500-7000); Neutrophils Percent Auto 53.9 % (50-75); Platelet Count 224 X10^3/uL (150-400); Red Blood Cell Count 3.27 X10^6/uL (4.5-5.9); Red Cell Distribution Width 18.7 % (11.6-14.8); White Blood Cell Count 6.4 X10^3/uL (4.5-11.0)
[2022-01-16 16:27] LABS: Alanine Aminotransferase 16 IU/L (<50); Albumin 2.6 g/dL (3.5-5.0); Albumin Globulin Ratio 0.6 (1.0-2.8); Alkaline Phosphatase 116 U/L (38-126); Aspartate Aminotransferase 37 IU/L (17-59); BUN Creatinine Ratio 40.2 (6-22); Bilirubin Total 0.4 mg/dL (0.2-1.3); Blood Urea Nitrogen 35 mg/dL (9-20); Calcium 7.6 mg/dL (8.4-10.2); Carbon Dioxide 21 mmol/L (22-32); Chloride 105 mmol/L (98-107); Estimated Glomerular Filt Rate > 60 mL/min (>60); Globulin 4.3 g/dL (1.7-4.1); Glucose 141 mg/dL (80-110); HEMOLYSIS < 15 (0-50); Potassium 3.8 mmol/L (3.4-5.1); Sodium 136 mmol/L (137-145); Total Protein 6.9 g/dL (6.3-8.2)
[2022-01-17 02:39] LABS: Hemoglobin A1C% w Est Avg Glu 5.6 % (4.0-6.0)
== END ==
PROVIDERS: PCP Internal Medicine; Visit Provider Internal Medicine
DX: I13.0 Hypertensive heart and chronic kidney disease with heart failure and stage 1 through stage 4 chronic kidney disease, or unspecified chronic kidney disease (principal); E43 Unspecified severe protein-calorie malnutrition; E11.42 Type 2 diabetes mellitus with diabetic polyneuropathy; R19.5 Other fecal abnormalities; R62.7 Adult failure to thrive
CPT/HCPCS: 80053; 83036; 83735; 85025